=== PATIENT | female | born 1940 | race Caucasian/White ===

== ENCOUNTER 2018-11-09 07:57 | Inpatient (IN) ==
[2018-11-09] MEDS ORDERED: IOPAMIDOL 100 ML BOTTLE IV ONE (07:58)
[2018-11-09] MEDS ORDERED: ASPIRIN 81 MG TAB.CHEW CHEWED ONE (08:11)
--- NOTE | 2018-11-09 08:19 | Emergency Department Note ---
Chest Pain HPI - General Chief Complaint: Chest Pain Stated Complaint: pain all over Source: EMS Mode of arrival: ambulatory Limitations: no limitations - History of Present Illness HPI Narrative: Patient states that she fell approximately 3 weeks ago has had 2 broken ribs on the right. Fifth rib and sixth rib. she states that she was getting out of bed yesterday morning and may have moved around but she started having pain all over in her back and her midepigastric region, the rib area on the right and her right shoulder. She states that hurts on palpation. Patient is vague about her complaints she hurts on palpation to the abdomen diffusely and no specific one spot. She denies any diarrhea no nausea vomiting no hematemesis. Denies urgency frequency or dysuria denies any cough is that the pain in her ribs do still hurtZofran for nausea temperature is 98.0 the pulse is 108 respiratory rate is 18 blood pressure 101/83 pulse ox is 96 she rates the pain is a 10/1 0Patient states her last bowel movement was yesterday she thought she saw some blood in it but was not sure rectal exam shows guaiac negative stools - Related Data Home Medications Medication Instructions Recorded Confirmed Enalapril Maleate 20 mg PO BID 07/07/15 03/05/16 HYDROcodone/ACETAMINOPHEN 7.5 mg PO Q4H PRN 07/07/15 03/05/16 [Hydrocodon-Acetaminophn 10-300] Oxybutynin Chloride [Ditropan] 5 mg PO BID 07/07/15 03/05/16 Potassium Chloride [Kdur] 20 meq PO BID 07/07/15 03/05/16 metFORMIN HCL [Metformin HCl] 425 mg PO QAM 07/07/15 03/05/16 Previous Rx's Medication Instructions Recorded oxyCODONE HCL [Oxycontin] 10 mg PO BIDD #30 tab.er.12h 07/12/15 Allergies Allergy/AdvReac Type Severity Reaction Status Date / Time No Known Drug Allergies Allergy Verified 11/09/18 08:10 Review of Systems All systems ED: reviewed and negative except as stated. Constitutional: Denies: fever, chills Cardiovascular: Reports: chest pain. Denies: palpitations, dyspnea on exertion, orthopnea Respiratory: Denies: shortness of breath, cough Gastrointestinal: Reports: abdominal pain. Denies: nausea, vomiting, diarrhea, constipation Genitourinary: Denies: dysuria, urgency, frequency, hematuria Musculoskeletal: Reports: as per HPI, back pain Integumentary: Denies: rash Neurological: Denies: headache Psychiatric: Denies: anxiety Endocrine: Denies: fatigue Chest Pain PMH - Past Medical History [facility] Narrative: All Active Problems Knee cartilage, torn, left (Acute) Diabetes 1.5, managed as type 2 (Chronic) Diabetic neuropathy (Chronic) Knee effusion, left (Acute) Left knee injury (Acute) Edema of left lower extremity (Acute) Left hip pain (Acute) Medical history: Reports: DM, other (Depression, cataract removal, hypertension, chronic back pain, diabetes type 2,) Surgical history ED: Reports: , cataract - Social History smoking status: Former smoker Alcohol use: Reports: Rarely Drug use: Reports: none Physical Exam Limitations: no limitations General appearance: anxious Head: atraumatic, normocephalic Eye: Present: normal appearance, PERRL ENT: normal exam, normal oropharynx, mucous membranes moist Neck: Present: normal inspection, full ROM Chest: Present: normal inspection, symmetric chest wall rise, tenderness Respiratory: Present: normal lung sounds bilaterally Cardiovascular: Present: regular rate, normal rhythm. Absent: bradycardia, tachycardia Abdominal: Present: tenderness, normal bowel sounds. Absent: distention, guarding, rebound, rigidity Abdominal tenderness: Present: diffuse, moderate Rectal: Present: normal rectal tone, heme (-) stool Extremities: Present: normal inspection, full ROM. Absent: tenderness Back: Present: tenderness (Tender in the lumbosacral region) Neurological: Present: alert, oriented X3, CN II-XII intact, normal gait, reflexes normal. Absent: motor sensory deficit Course Vital Signs Temperature 98.0 F 11/09/18 07:59 Pulse Rate 108 H 11/09/18 07:59 Respiratory Rate 17 11/09/18 07:59 Blood Pressure 101/83 11/09/18 07:59 Pulse Oximetry (%) 96 11/09/18 07:59 Temperature 98.0 F 11/09/18 07:59 Pulse Rate 108 H 11/09/18 07:59 Respiratory Rate 17 11/09/18 07:59 Blood Pressure 101/83 11/09/18 07:59 Pulse Oximetry (%) 96 11/09/18 07:59 Chest Pain - MDM Narrative Medical decision making narrative: Laboratory tests are pending. Patient transferred to the care of Dr. Herrera at 0900 hrs. - Lab Data Result diagrams: 11/09/18 08:22 11/09/18 08:22 Disposition Pt seen by FLEXBOARD OPERATOR/PA only: No Disposition: Still a Patient Condition: Fair Referrals: Richar Brand MD [Primary Care Provider] -
--- NOTE | 2018-11-09 08:36 | XRay Report ---
CLINICAL INFORMATION: Chest Pain COMPARISON: 12/31/2017 FINDINGS: Mild cardiomegaly is unchanged. Mediastinum and pulmonary vessels are normal. There is minor bibasilar atelectasis, but no mago infiltrate or effusion. Small eventration right diaphragm seen - as before IMPRESSION: Mild stable cardiomegaly. Minor bibasilar atelectasis Interpreted and Authenticated by: Vikas Whitley 11/09/18
[2018-11-09 09:12] LABS: Basophils # (Auto) 0 K/mcL (0.0-0.3); Basophils % (Auto) 0 % (0.0-2.0); Eosinophils # (Auto) 0 K/mcL (0.0-0.7); Eosinophils % (Auto) 0 % (0.0-7.0); Granulocytes % (Auto) 91.3 % (38.0-78.0); Lymphocytes # (Auto) 0.9 K/mcL (1.5-4.8); Lymphocytes % (Auto) 3.7 % (15.5-49.0); Mean Cell Volume 87.7 fL (80.0-100.0); Mean Corpuscular HGB Conc 32.2 g/dL (31.0-36.0); Monocytes # (Auto) 1.2 K/mcL (0.1-0.9); Platelet Count 360 K/mcL (140-440); RBC 4.66 M/mcL (4.00-5.20)
[2018-11-09] MEDS ORDERED: 0.9 % SODIUM CHLORIDE 1,000 ML IV ONE ×4 (09:42→21:44)
[2018-11-09] MEDS ORDERED: PIPERACILLIN SODIUM/TAZOBACTAM 3.375 GM in DEXTROSE 5% IN WATER 50 ML IV ONE (09:49)
[2018-11-09] MEDS ORDERED: ONDANSETRON 4 MG/2 ML VIAL IV ONE (09:49)
[2018-11-09] MEDS: HYDROmorphone 2 MG/ML VIAL IV PRN ×4 (10:00→20:15)
[2018-11-09 10:17] LABS: ALT/SGPT 19 U/l (0-40); Albumin 3.6 gm/dL (3.2-5.2); Albumin/Globulin Ratio 1.1 (1.0-2.3); Alkaline Phosphatase 49 U/L (39-117); Blood Urea Nitrogen 24 mg/dl (8-23); Creatine Kinase 37 IU/L (24-170); Myoglobin 64 ng/ml (25-58); proBNP 191.1 pg/ml (0-450)
[2018-11-09] MEDS ORDERED: POTASSIUM CHLORIDE 40 MEQ in DEXTROSE 5% IN WATER 500 ML IV ONE ×2 (10:21→17:55)
[2018-11-09] MEDS ORDERED: POTASSIUM CHLORIDE 20 MEQ TABLET PO ONE (10:21)
--- NOTE | 2018-11-09 10:22 | Emergency Department Note ---
General Adult HPI - General Chief complaint: Chest Pain Stated complaint: pain all over Time Seen by Provider: 11/09/18 08:35 Source: patient, EMS Mode of arrival: ambulatory Limitations: no limitations - History of Present Illness HPI Narrative: Patient is transferred to me from Dr. Kirk at shift change. I read his note In particular note history of Right rib fractures fifth and sixth subtle seen on x-ray 11/05/2018 She is having belly pain at this time - Related Data Home Medications Medication Instructions Recorded Confirmed Enalapril Maleate [Vasotec] 20 mg PO 11/09/18 Methocarbamol [Robaxin] 500 mg PO 11/09/18 Metolazone [Zaroxolyn] 5 mg PO 11/09/18 Oxybutynin Chloride [Ditropan] 5 mg PO 11/09/18 amLODIPine [Norvasc] 10 mg PO 11/09/18 metFORMIN [Glucophage] 850 mg PO 11/09/18 Allergies Allergy/AdvReac Type Severity Reaction Status Date / Time No Known Drug Allergies Allergy Verified 11/09/18 08:10 Review of Systems Constitutional: Denies: fever, chills Cardiovascular: Reports: chest pain. Denies: palpitations, dyspnea on exertion, orthopnea Respiratory: Denies: shortness of breath, cough Gastrointestinal: Reports: abdominal pain. Denies: nausea, vomiting, diarrhea, constipation Genitourinary: Denies: dysuria, urgency, frequency, hematuria Musculoskeletal: Reports: as per HPI, back pain Integumentary: Denies: rash Neurological: Denies: headache Psychiatric: Denies: anxiety Endocrine: Denies: fatigue Past Medical History - Past Medical History Medical history: Reports: DM, other (Depression, cataract removal, hypertension, chronic back pain, diabetes type 2,) Surgical history ED: Reports: , cataract - Social History smoking status: Former smoker Alcohol use: Reports: Rarely Drug use: Reports: none Physical Exam Limitations: no limitations General appearance: anxious Course Vital Signs Temperature 98.0 F 11/09/18 07:59 Pulse Rate 108 H 11/09/18 07:59 Respiratory Rate 17 11/09/18 07:59 Blood Pressure 101/83 11/09/18 07:59 Pulse Oximetry (%) 96 11/09/18 07:59 Temperature 98.0 F 11/09/18 07:59 Pulse Rate 100 H 11/09/18 14:38 Respiratory Rate 21 11/09/18 14:38 Blood Pressure 102/54 11/09/18 14:31 Pulse Oximetry (%) 100 11/09/18 14:38 Medical Decision Making - Medical Records Medical records reviewed: Yes I reviewed the patient's medical records. - Lab Data Lab results reviewed: Yes I reviewed the patient's lab results. Result diagrams: 11/09/18 08:22 11/09/18 08:22 Lab Results 11/09/18 11/09/18 11/09/18 Range/Units 08:22 08:22 08:22 WBC 24.8 H (4.5-11.0) K/mcL RBC 4.66 (4.00-5.20) M/mcL Hgb 13.1 (12.0-15.0) g/dL Hct 40.9 (36.0-48.0) % MCV 87.7 (80.0-100.0) fL MCH 28.2 (26.0-34.0) pg MCHC 32.2 (31.0-36.0) g/dL RDW 13.0 (11.5-14.5) % Plt Count 360 (140-440) K/mcL MPV 8.6 (7.4-10.4) fL Gran % 91.3 H (38.0-78.0) % Lymph % (Auto) 3.7 L (15.5-49.0) % Bryan % (Auto) 5.0 (1.0-12.0) % Eos % (Auto) 0 (0.0-7.0) % Baso % (Auto) 0 (0.0-2.0) % Gran # 22.7 H (1.8-8.0) K/mcL Lymph # (Auto) 0.9 L (1.5-4.8) K/mcL Bryan # (Auto) 1.2 H (0.1-0.9) K/mcL Eos # (Auto) 0 (0.0-0.7) K/mcL Baso # (Auto) 0 (0.0-0.3) K/mcL Differential Comment PT (11.9-14.5) sec INR (0.9-1.1) D-Dimer (0.00-0.40) ug/ml VBG Lactic Acid (0.5-2.0) mmol/L Sodium 139 (133-145) mmol/L Potassium 2.4 L* (3.3-5.1) mmol/L Chloride 98 (96-108) mmol/L Carbon Dioxide 21 L (22-30) mmol/L Anion Gap 20.0 H (8-16) BUN 24 H (8-23) mg/dl Creatinine 1.2 H (0.6-1.1) mg/dl GFR Calculation 44 BUN/Creatinine Ratio 20.0 (12-20) Glucose 211 H (70-105) mg/dL Calcium 12.1 H (8.6-10.4) mg/dl Magnesium (1.6-2.5) mg/dL Total Bilirubin 0.5 (0.0-1.0) mg/dL AST 19 (0-37) U/l ALT 19 (0-40) U/l Alkaline Phosphatase 49 (39-117) U/L Total Creatine Kinase 37 (24-170) IU/L CK-MB (CK-2) 1.0 (0-2.9) ng/ml Myoglobin 64 H (25-58) ng/ml Troponin T < 0.01 (0-0.03) ng/ml NT-Pro-B Natriuret Pep 191.1 (0-450) pg/ml Total Protein 6.9 (5.9-8.4) gm/dL Albumin 3.6 (3.2-5.2) gm/dL Globulin 3.3 (2.2-3.7) gm/dL Albumin/Globulin Ratio 1.1 (1.0-2.3) Beta-Hydroxybutyrate (< 0.27) mmol/L Procalcitonin (<0.10) ng/mL Urine Color Urine Appearance Urine pH (5.0-9.0) Ur Specific Champion (1.000-1.035) Urine Protein (NEG) mg/dL Urine Glucose (UA) (NEG) mg/dL Urine Ketones (NEG) mg/dL Urine Occult Blood (<0.03) mg/dL Urine Nitrate (NEG) Urine Bilirubin (NEG) mg/dL Urine Urobilinogen (NEG) mg/dL Ur Leukocyte Esterase (NEG) /uL Urine RBC (0-1) /hpf Urine WBC (0-4) /hpf Ur Squamous Epith Cells (0-4) /hpf Urine Bacteria (0) /hpf Hyaline Casts (0-2) /lpf Granular Casts (0) /lpf Urine Mucus (0) /hpf Ur Culture Indicated? 11/09/18 11/09/18 11/09/18 Range/Units 08:22 08:22 10:12 WBC (4.5-11.0) K/mcL RBC (4.00-5.20) M/mcL Hgb (12.0-15.0) g/dL Hct (36.0-48.0) % MCV (80.0-100.0) fL MCH (26.0-34.0) pg MCHC (31.0-36.0) g/dL RDW (11.5-14.5) % Plt Count (140-440) K/mcL MPV (7.4-10.4) fL Gran % (38.0-78.0) % Lymph % (Auto) (15.5-49.0) % Bryan % (Auto) (1.0-12.0) % Eos % (Auto) (0.0-7.0) % Baso % (Auto) (0.0-2.0) % Gran # (1.8-8.0) K/mcL Lymph # (Auto) (1.5-4.8) K/mcL Bryan # (Auto) (0.1-0.9) K/mcL Eos # (Auto) (0.0-0.7) K/mcL Baso # (Auto) (0.0-0.3) K/mcL Differential Comment PT 14.0 (11.9-14.5) sec INR 1.1 (0.9-1.1) D-Dimer 2.18 H (0.00-0.40) ug/ml VBG Lactic Acid 2.1 H (0.5-2.0) mmol/L Sodium (133-145) mmol/L Potassium (3.3-5.1) mmol/L Chloride (96-108) mmol/L Carbon Dioxide (22-30) mmol/L Anion Gap (8-16) BUN (8-23) mg/dl Creatinine (0.6-1.1) mg/dl GFR Calculation BUN/Creatinine Ratio (12-20) Glucose (70-105) mg/dL Calcium (8.6-10.4) mg/dl Magnesium 1.6 (1.6-2.5) mg/dL Total Bilirubin (0.0-1.0) mg/dL AST (0-37) U/l ALT (0-40) U/l Alkaline Phosphatase (39-117) U/L Total Creatine Kinase (24-170) IU/L CK-MB (CK-2) (0-2.9) ng/ml Myoglobin (25-58) ng/ml Troponin T (0-0.03) ng/ml NT-Pro-B Natriuret Pep (0-450) pg/ml Total Protein (5.9-8.4) gm/dL Albumin (3.2-5.2) gm/dL Globulin (2.2-3.7) gm/dL Albumin/Globulin Ratio (1.0-2.3) Beta-Hydroxybutyrate 0.39 H (< 0.27) mmol/L Procalcitonin (<0.10) ng/mL Urine Color Urine Appearance Urine pH (5.0-9.0) Ur Specific Champion (1.000-1.035) Urine Protein (NEG) mg/dL Urine Glucose (UA) (NEG) mg/dL Urine Ketones (NEG) mg/dL Urine Occult Blood (<0.03) mg/dL Urine Nitrate (NEG) Urine Bilirubin (NEG) mg/dL Urine Urobilinogen (NEG) mg/dL Ur Leukocyte Esterase (NEG) /uL Urine RBC (0-1) /hpf Urine WBC (0-4) /hpf Ur Squamous Epith Cells (0-4) /hpf Urine Bacteria (0) /hpf Hyaline Casts (0-2) /lpf Granular Casts (0) /lpf Urine Mucus (0) /hpf Ur Culture Indicated? 11/09/18 11/09/18 Range/Units 10:22 11:38 WBC (4.5-11.0) K/mcL RBC (4.00-5.20) M/mcL Hgb (12.0-15.0) g/dL Hct (36.0-48.0) % MCV (80.0-100.0) fL MCH (26.0-34.0) pg MCHC (31.0-36.0) g/dL RDW (11.5-14.5) % Plt Count (140-440) K/mcL MPV (7.4-10.4) fL Gran % (38.0-78.0) % Lymph % (Auto) (15.5-49.0) % Bryan % (Auto) (1.0-12.0) % Eos % (Auto) (0.0-7.0) % Baso % (Auto) (0.0-2.0) % Gran # (1.8-8.0) K/mcL Lymph # (Auto) (1.5-4.8) K/mcL Bryan # (Auto) (0.1-0.9) K/mcL Eos # (Auto) (0.0-0.7) K/mcL Baso # (Auto) (0.0-0.3) K/mcL Differential Comment PT (11.9-14.5) sec INR (0.9-1.1) D-Dimer (0.00-0.40) ug/ml VBG Lactic Acid (0.5-2.0) mmol/L Sodium (133-145) mmol/L Potassium (3.3-5.1) mmol/L Chloride (96-108) mmol/L Carbon Dioxide (22-30) mmol/L Anion Gap (8-16) BUN (8-23) mg/dl Creatinine (0.6-1.1) mg/dl GFR Calculation BUN/Creatinine Ratio (12-20) Glucose (70-105) mg/dL Calcium (8.6-10.4) mg/dl Magnesium (1.6-2.5) mg/dL Total Bilirubin (0.0-1.0) mg/dL AST (0-37) U/l ALT (0-40) U/l Alkaline Phosphatase (39-117) U/L Total Creatine Kinase (24-170) IU/L CK-MB (CK-2) (0-2.9) ng/ml Myoglobin (25-58) ng/ml Troponin T (0-0.03) ng/ml NT-Pro-B Natriuret Pep (0-450) pg/ml Total Protein (5.9-8.4) gm/dL Albumin (3.2-5.2) gm/dL Globulin (2.2-3.7) gm/dL Albumin/Globulin Ratio (1.0-2.3) Beta-Hydroxybutyrate (< 0.27) mmol/L Procalcitonin 1.30 (<0.10) ng/mL Urine Color Yellow Urine Appearance Cloudy Urine pH 6.0 (5.0-9.0) Ur Specific Champion 1.023 (1.000-1.035) Urine Protein 30 A (NEG) mg/dL Urine Glucose (UA) Negative (NEG) mg/dL Urine Ketones Neg (NEG) mg/dL Urine Occult Blood 0.2 A (<0.03) mg/dL Urine Nitrate Pos A (NEG) Urine Bilirubin Neg (NEG) mg/dL Urine Urobilinogen Neg (NEG) mg/dL Ur Leukocyte Esterase 250 A (NEG) /uL Urine RBC 9 H (0-1) /hpf Urine WBC 46 H (0-4) /hpf Ur Squamous Epith Cells 0 (0-4) /hpf Urine Bacteria Mod A (0) /hpf Hyaline Casts 6 H (0-2) /lpf Granular Casts 9 H (0) /lpf Urine Mucus Few (0) /hpf Ur Culture Indicated? Yes Arterial blood gases of pH 7.35 PCO2 46 PO2 47 with 92% oxygen saturation room air - Radiology Data Radiology results reviewed: Yes I reviewed the patient's radiology results. Chest x-ray here today did not show any acute changes CT scan ordered for history of chest pain with elevated d-dimer - EKG Data EKG #1 EKG attestation: Yes I reviewed and interpreted this EKG. EKG results narrative: EKG shows a rate of 110 sinus tachycardia with a first-degree AV block. She is got a Q wave in the inferior leads so possible old inferior infarct. Disposition Pt seen by ZIG ZAG STITCHER/PA only: No Clinical Impression: Hypokalemia, Acute kidney injury, Peritoneal cavity free air Fracture of rib Qualifiers: Encounter type: subsequent encounter Rib fracture type: multiple ribs Fracture type: closed Laterality: right Fracture healing: with routine healing Qualified Code(s): S22.41XD - Multiple fractures of ribs, right side, subsequent encounter for fracture with routine healing Sepsis Qualifiers: Sepsis type: sepsis due to unspecified organism Qualified Code(s): A41.9 - Sepsis, unspecified organism UTI (urinary tract infection) Qualifiers: Urinary tract infection type: acute cystitis Hematuria presence: with hematuria Qualified Code(s): N30.01 - Acute cystitis with hematuria Summary: Concern for sepsis with tachypnea and leukocytosis. ABG shows hypoxia. Start oxygen. Start sepsis workup with blood cultures lactic acid pro calcitonin and start Zosyn for presumed infection Continue IV fluids Zofran and Dilaudid for pain. CT scan of the chest is ordered UTI seen on urinalysis [id number] dipstick CT scan of the chest shows free fluid and air in the belly lungs are actually okay. So CT of the abdomen pelvis without contrast was ordered which shows free fluid and air as noted above. Concern for possible perforation of abdominal viscus like transverse colon I discussed the situation with Dr. Mio Schroeder general surgeon who agreed to assess the patient for further care in the hospital-she will go for exploratory Surgery Disposition: Xfer As Inpt ([facility]) Condition: Fair
[2018-11-09] MEDS ORDERED: POTASSIUM CHLORIDE 10 MEQ TABLET PO ONE (10:59)
[2018-11-09 11:17] LABS: Beta Hydroxybutyrate 0.39 mmol/L (< 0.27)
--- NOTE | 2018-11-09 11:29 | Cat Scan Report ---
CLINICAL INFORMATION: Chest pain with elevated d-dimer COMPARISON: Chest CT 12/17/2006 TECHNIQUE: 80 cc of Isovue-300 were injected intravenously. Using SmartPrep to maximize pulmonary artery opacification, 2.5 mm helical slices were obtained from the lung apices through the lung bases. Following reconstruction, 2.5 mm sagittal, coronal, and axial reformations were processed. The exam was reviewed at mediastinal, lung, and bone windows. The exam was performed using radiation dose optimization techniques including, but not limited to, automated exposure control, adjustment of the mA and/or kV according to patient size and use of iterative reconstruction technique. FINDINGS: Pulmonary parenchymal windows show moderate centrilobular emphysema changes becoming elevated lung volumes, wall thickening of the bronchi (chronic bronchitis) and multiple small bullae predominantly in the upper lobes. There is complete chronic compressive atelectasis of the lingula. Scattered scarring seen in the periphery of both lower and upper lobes which is identical previous study. There are no diffuse/regional infiltrates and no nodules. Pleural spaces are normal. Mediastinal windows show the heart is moderately enlarged and slightly increased from prior study. There is also concentric left ventricular hypertrophy typically seen in systemic hypertension or aortic valve disease. Aortic valve is grossly normal, however. Moderately heavy fibrofatty calcific plaque in the coronary arteries: Suspect occlusive or subocclusive stenosis in the left main and proximal LAD. The central pulmonary arteries are mildly enlarged with a main pulmonary diameter of 3.2 cm. This is suggestive of pulmonary hypertension related to COPD. There are no emboli. Thoracic aorta is normal in contour, moderate fibrofatty calcific plaque. There is no evidence of adenopathy in the mediastinal, hilar or axillary regions. A 12 mm nodule, projecting from the inferior right thyroid lobe, is unchanged and is presumably benign adenoma. Thyroid is otherwise diminutive. Images through the abdomen show a small amount of ascites and free intraperitoneal gas in the upper abdomen.. Gallbladder is surgically absent. Visualized liver and spleen and pancreas are normal. 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 Bones and soft tissues of the chest wall are unremarkable. IMPRESSION: 1. No evidence of pulmonary embolus 2. Small/moderate free intraperitoneal fluid and gas seen in the imaged upper abdomen. This was not seen on [address] If the patient is not on peritoneal dialysis or experienced recent abdominal surgery, then the possibility of GI tract perforation should be suspected and abdomen and pelvic CT are recommended. 3. Moderate centrilobular emphysema. Enlargement of the central pulmonary arteries suggests associated pulmonary hypertension. 4. Complete chronic atelectasis of the lingula 5. Moderate cardiomegaly. There is heavy calcific and fibrofatty plaque in the main and LAD which may indicate occlusive or subocclusive stenosis. Consider cardiology referral for stress testing. There is also concentric left ventricular hypertrophy likely related to chronic systemic hypertension or, less likely, aortic valve disease. 6. 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 Diminutive thyroid. Please correlate with TSH and thyroid hormone levels. Interpreted and Authenticated by: Vikas Whitley 11/09/18
[2018-11-09 12:55] LABS: Appearance,Urine CLOUDY; Bacteria,Urine MOD /hpf (0); Bilirubin,Urine NEG (NEG); Color,Urine YELLOW; Glucose,Urine (UA) NEGATIVE (NEG); Leukocyte Esterase,Urine 250 /uL (NEG); Mucus,Urine FEW /hpf (0); Protein,Urine 30 mg/dL (NEG); Specific Gravity,Urine 1.023 (1.000-1.035); Urine Blood 0.2 mg/dL (<0.03); Urine Granular Cast 9 /lpf (0); Urine Hyaline Cast 6 /lpf (0-2); Urine RBC 9 /hpf (0-1); Urine Squamous Epithelial Cell 0 /hpf (0-4); Urine WBC 46 /hpf (0-4); Urobilinogen,Urine NEG (NEG)
--- NOTE | 2018-11-09 13:16 | Cat Scan Report ---
CLINICAL INFORMATION: Abdominal pain and distention COMPARISON: Abdomen and pelvic CT 04/16/2015. TECHNIQUE: 1 L of water was ingested for enteric contrast. 0.625 mm helical slices were obtained from the mid heart through the subtrochanteric regions. Following reconstruction, 2.5 mm sagittal, coronal and axial reformatted images were processed and reviewed at bone and soft tissue windows.The exam was performed using radiation dose optimization techniques including, but not limited to, automated exposure control, adjustment of the mA and/or kV according to patient size and use of iterative reconstruction technique. FINDINGS: The noncontrasted liver, both kidneys, right adrenal gland, and spleen are normal in size, configuration and attenuation without focal lesion. Pancreas demonstrates moderate diffuse atrophy without focal lesion. The aorta is normal in caliber, 18 mm, with scattered atherosclerotic plaque plaque in aorta and aortic branches. A 3.8 cm benign fat-containing myolipoma in the left adrenal gland has been stable since 2014. Images should the pelvis show urinary bladder is unremarkable. Santana catheter is low in position and may be in the posterior female urethra. Anteflex normal-appearing postmenopausal uterus and ovaries are unremarkable. There is a small amount of simple appearing free fluid in the deep true pelvis and perihepatic and perisplenic regions with moderate free air in the nondependent anterior central mesenteric cavity. Presumably, this represents rupture of the GI tract, although the site of rupture is not evident on CT. Bone windows show solid-appearing L4-5 anterior/posterior fusion with wide laminectomy changes - as before. Severe L3-4 central canal stenosis due to facet arthropathy is unchanged. No focal osseous lesion. IMPRESSION: 1. Small amount of free intraperitoneal fluid in the perihepatic, perisplenic and the true pelvic regions. There is also moderate free air in the nondependent anterior central mesenteric cavity. Suspect rupture of the stomach, small or large bowel. Site of rupture is not evident by CT. Most of the free air is adjacent to the mid transverse colon 2. Moderate pancreatic atrophy progressing 2014. 3. 3.8 cm benign fat-containing myelolipoma left adrenal gland demonstrates long-term stability (greater than three years.) 4. Severe L3-4 central canal stenosis due to marked facet arthropathy but no change since 2014. Anterior/posterior L4-5 and L5-S1 fusion and wide laminectomy unremarkable. Interpreted and Authenticated by: Vikas Whitley 11/09/18
[2018-11-09] MEDS ORDERED: metroNIDAZOLE 500 MG/100 ML BAG IV ONE (14:21)
--- NOTE | 2018-11-09 14:45 | General Surgery Consult Note ---
History of Present Illness Patient information: Note initiated : 11/09/18 at 2:42 pm Service Date, if different from initiated Date: [] Patient: Genna Gong 78 y/o F admitted on for pain all over. Chief Complaint: [] Reason for consult: abdominal pain Requesting physician: Chicho Herrera History of present illness: 78-year-old female admitted with a perforated viscus with free air and free peritoneal fluid. The patient states that she's had abdominal pain after her fall about 2-3 weeks ago. She states that her pain became gradually worse. It became more diffuse own yesterday and was almost intolerable today. She is seen in the emergency room where she was noted to have a white blood count of 24,800. Her serum lactate is 2.1 and her serum potassium is 2.4. She cannot localize her pain at this time. CT of the abdomen showed free air in the left subphrenic area tracking along the superior border of the stomach. There is a small amount of air in the ivana hepatis. There is fluid tracking along the right gutter. On lateral view she has a large amount of free air anteriorly. Pertinent history is that because of her pain she's been taken 5 ibuprofen 3-4 times a day. The patient is admitted and will have emergency laparotomy. Most likely problems will be perforated gastric ulcer but must consider other sources also. Review of Systems - Constitutional fatigue, malaise, weakness - EENT Nose, mouth and throat: abnormal hearing, dizziness - Cardiovascular chest pain at rest, dyspnea on exertion, leg edema, lightheadedness, palpatations - Respiratory cough, pain on inspirtation, chest congestion, pain with cough - Gastrointestinal abdominal pain, dyspepsia, heartburn, nausea - Genitourinary Genitourinary: dysuria, urinary incontinence - Musculoskeletal arthralgias, back pain, joint swelling, muscle weakness, myalgias, stiffness - Integumentary other (stasis edema bilateral legs), no new lesions, no pruritus, no rash - Neurological abnormal hearing, frequent falls, headache(s), lack of coordination, memory loss, weakness, no confusion, no dizziness - Psychiatric depression, mood swings, no anxiety - Endocrine fatigue, palpitations - Hematologic/Lymphatic no easy bleeding, no easy bruising, no lymphadenopathy - Allergic/Immunologic no tongue swelling, no throat swelling, no uticaria, no wheezing, no lip swelling Past History Past medical history: Reactive airway disease Hypertension Diabetes mellitus Depression Chronic low back pain Past surgical history: section Tubal ligation Hysterectomy Appendectomy Ivory tunnel surgery Past family history: hypertension Diabetes mellitus Leukemia Past social history: Former smoker Rare use of alcohol Denies substance abuse Medications and Allergies Home Medications Medication Instructions Recorded Confirmed Type Enalapril Maleate [Vasotec] 20 mg PO 11/09/18 History Methocarbamol [Robaxin] 500 mg PO 11/09/18 History Metolazone [Zaroxolyn] 5 mg PO 11/09/18 History Oxybutynin Chloride [Ditropan] 5 mg PO 11/09/18 History amLODIPine [Norvasc] 10 mg PO 11/09/18 History metFORMIN [Glucophage] 850 mg PO 11/09/18 History Allergies Allergy/AdvReac Type Severity Reaction Status Date / Time No Known Drug Allergies Allergy Verified 11/09/18 08:10 Exam Temp Pulse Resp BP Pulse Ox 98.0 F 100 H 21 102/54 100 11/09/18 07:59 11/09/18 14:38 11/09/18 14:38 11/09/18 14:31 11/09/18 14:38 - General physical appearance well developed, well nourished, moderate distress, moderate pain, chronically ill, obese - Eyes PERRL, normal ocular movement - ENT normal pinna, normal nares, normal mucosa, no congestion, decreased hearing - Head Head exam IM: Present: atraumatic, normocephalic - Neck no masses, no bruits, trachea midline, no lymphadenopathy, no venous distension - Cardiovascular Cardiovascular exam IM: Present: normal rate and rhythm, RRR, +S1, +S2. Absent: irregular rhythm, JVD, systolic murmur, tachycardia - Respiratory normal expansion, normal respiratory effort, clear to auscultation - Abdomen Abdomen: Present: non tender, bowel sounds, guarding ( diffuse guarding with rebound), distended (diffusely distended; diffusely tender with guarding; hypoactive bowel sounds) Hernia: Present: none - Genitourinary Present: normal external genitalia - Integumentary Present: no rash, no growths, no abnormal pigmentation, other ( stasis edema lower legs) - Neurologic Present: normal coordination, normal sensation, other ( gave and stance not tested) - Musculoskeletal Present: normal gait, normal posture, other ( gait and stance not tested) - Psychiatric Present: oriented to time, oriented to person, oriented to place, speech is normal, memory intact Results - Labs 11/09/18 08:22 11/09/18 08:22 Abnormal lab results 11/09/18 11/09/18 11/09/18 Range/Units 08:22 08:22 08:22 WBC 24.8 H (4.5-11.0) K/mcL Gran % 91.3 H (38.0-78.0) % Lymph % (Auto) 3.7 L (15.5-49.0) % Gran # 22.7 H (1.8-8.0) K/mcL Lymph # (Auto) 0.9 L (1.5-4.8) K/mcL [place] # (Auto) 1.2 H (0.1-0.9) K/mcL D-Dimer 2.18 H (0.00-0.40) ug/ml VBG Lactic Acid (0.5-2.0) mmol/L Potassium 2.4 L* (3.3-5.1) mmol/L Carbon Dioxide 21 L (22-30) mmol/L Anion Gap 20.0 H (8-16) BUN 24 H (8-23) mg/dl Creatinine 1.2 H (0.6-1.1) mg/dl Glucose 211 H (70-105) mg/dL Calcium 12.1 H (8.6-10.4) mg/dl Myoglobin 64 H (25-58) ng/ml Beta-Hydroxybutyrate (< 0.27) mmol/L Urine Protein (NEG) mg/dL Urine Occult Blood (<0.03) mg/dL Urine Nitrate (NEG) Ur Leukocyte Esterase (NEG) /uL Urine RBC (0-1) /hpf Urine WBC (0-4) /hpf Urine Bacteria (0) /hpf Hyaline Casts (0-2) /lpf Granular Casts (0) /lpf 11/09/18 11/09/18 11/09/18 Range/Units 08:22 10:12 11:38 WBC (4.5-11.0) K/mcL Gran % (38.0-78.0) % Lymph % (Auto) (15.5-49.0) % Gran # (1.8-8.0) K/mcL Lymph # (Auto) (1.5-4.8) K/mcL [place] # (Auto) (0.1-0.9) K/mcL D-Dimer (0.00-0.40) ug/ml VBG Lactic Acid 2.1 H (0.5-2.0) mmol/L Potassium (3.3-5.1) mmol/L Carbon Dioxide (22-30) mmol/L Anion Gap (8-16) BUN (8-23) mg/dl Creatinine (0.6-1.1) mg/dl Glucose (70-105) mg/dL Calcium (8.6-10.4) mg/dl Myoglobin (25-58) ng/ml Beta-Hydroxybutyrate 0.39 H (< 0.27) mmol/L Urine Protein 30 A (NEG) mg/dL Urine Occult Blood 0.2 A (<0.03) mg/dL Urine Nitrate Pos A (NEG) Ur Leukocyte Esterase 250 A (NEG) /uL Urine RBC 9 H (0-1) /hpf Urine WBC 46 H (0-4) /hpf Urine Bacteria Mod A (0) /hpf Hyaline Casts 6 H (0-2) /lpf Granular Casts 9 H (0) /lpf Diabetes panel 11/09/18 Range/Units 08:22 Sodium 139 (133-145) mmol/L Potassium 2.4 L* (3.3-5.1) mmol/L Chloride 98 (96-108) mmol/L Carbon Dioxide 21 L (22-30) mmol/L BUN 24 H (8-23) mg/dl Creatinine 1.2 H (0.6-1.1) mg/dl Glucose 211 H (70-105) mg/dL Calcium 12.1 H (8.6-10.4) mg/dl AST 19 (0-37) U/l ALT 19 (0-40) U/l Alkaline Phosphatase 49 (39-117) U/L Total Protein 6.9 (5.9-8.4) gm/dL Albumin 3.6 (3.2-5.2) gm/dL Calcium panel 11/09/18 Range/Units 08:22 Calcium 12.1 H (8.6-10.4) mg/dl Albumin 3.6 (3.2-5.2) gm/dL Pituitary panel 11/09/18 Range/Units 08:22 Sodium 139 (133-145) mmol/L Potassium 2.4 L* (3.3-5.1) mmol/L Chloride 98 (96-108) mmol/L Carbon Dioxide 21 L (22-30) mmol/L BUN 24 H (8-23) mg/dl Creatinine 1.2 H (0.6-1.1) mg/dl Glucose 211 H (70-105) mg/dL Calcium 12.1 H (8.6-10.4) mg/dl Adrenal panel 11/09/18 Range/Units 08:22 Sodium 139 (133-145) mmol/L Potassium 2.4 L* (3.3-5.1) mmol/L Chloride 98 (96-108) mmol/L Carbon Dioxide 21 L (22-30) mmol/L BUN 24 H (8-23) mg/dl Creatinine 1.2 H (0.6-1.1) mg/dl Glucose 211 H (70-105) mg/dL Calcium 12.1 H (8.6-10.4) mg/dl Total Bilirubin 0.5 (0.0-1.0) mg/dL AST 19 (0-37) U/l ALT 19 (0-40) U/l Alkaline Phosphatase 49 (39-117) U/L Total Protein 6.9 (5.9-8.4) gm/dL Albumin 3.6 (3.2-5.2) gm/dL All other labs normal. Assessment and Plan (1) Perforated abdominal viscus correct hypokalemia with potassium rider Zosyn 3.375 g IV every 6 Metronidazole 500 mg IV every 6 Nasogastric decompression Normal saline 2 L IV bolus Patient and counseled for exploratory laparotomy which will be done urgently today Status: Acute (2) Peritonitis (acute) generalized Status: Acute (3) Diabetic neuropathy Status: Chronic Qualifiers: Diabetes mellitus type: type 2
[2018-11-09] MEDS: fentaNYL 100 MCG/2 ML VIAL IV PRN ×3 (14:47→22:49)
[2018-11-09] MEDS ORDERED: LIDOCAINE HCL/PF 100 MG/5 ML SYRINGE IV ONE (15:56)
[2018-11-09] MEDS ORDERED: MIDAZOLAM 5 MG/5 ML VIAL ONE (15:56)
[2018-11-09] MEDS ORDERED: PHENYLEPHRINE 10 MG/ML VIAL ONE (15:56)
[2018-11-09] MEDS ORDERED: NEOSTIGMINE 1 MG/ML VIAL ONE (15:56)
[2018-11-09] MEDS ORDERED: MIDAZOLAM 2 MG/2 ML VIAL ONE (15:56)
[2018-11-09] MEDS ORDERED: GLYCOPYRROLATE 0.2 MG/ML VIAL IV ONE (15:56)
[2018-11-09] MEDS ORDERED: ROCURONIUM 10 MG/ML ML IV ONE (15:56)
[2018-11-09] MEDS ORDERED: ONDANSETRON 4 MG/2 ML VIAL ONE (15:56)
[2018-11-09] MEDS ORDERED: ETOMIDATE 20 MG/10 ML VIAL IV ONE (15:56)
[2018-11-09] MEDS ORDERED: fentaNYL 100 MCG/2 ML VIAL IV ONE (15:56)
--- NOTE | 2018-11-09 17:13 | Procedure Note ---
Procedures - Central Line Placement Right SC Consent obtained: verbal consent Date of Procedure: 11/09/18 Time out performed: Yes Patient placed on monitor/pulse ox: Yes MD prep: mask, sterile gown, sterile gloves, cap Central line prep: 2% Chlorhexidine scrub (X2), large sterile drapes applied, proper hand hygiene Local anesthesia used: lidocaine 1%, other anesthetic Amount of anesthesia used (mls): 5 Central line lumen inserted: quad, 20 cm Post procedure: sutured in place, good blood return, all ports aspirated, flushed, capped, sterile dressing applied Post procedure x-ray: other (awaiting CXR) Patient tolerated procedure: well, no complications Complications: none
--- NOTE | 2018-11-09 17:22 | Brief Operative Note ---
Date of procedure: 11/09/18 Pre-op diagnosis: PERFORATED VISCUS WITH PERITONITIS Post-op diagnosis: other (PERFORATED GASTRIC ULCER WITH PERITONITIS) Procedure: EXPLORATORY LAPAROTOMY WITH SUSIE PATCH CLOSURE OF PERFORATED GASTRIC ULCER Grafts/Implants: No (PATTI DRAIN X 2) Anesthesia: GETA Findings: LARGE PERFORATION OF ANTRAL ULCER WITH 650CC OF FREE GASTRIC JUICE IN FREE PERITONEUM Complications: none Surgeon: Zonia Schroeder Estimated blood loss (cc): 25 Specimens Removed/Pathology: none sent Condition: stable Disposition: PACU
[2018-11-09] MEDS ORDERED: fentaNYL 100 MCG/2 ML VIAL IV PRN (17:29)
[2018-11-09] MEDS ORDERED: IPRATROPIUM/ALBUTEROL 3 ML AMPUL.NEB NEB PRN (17:29)
[2018-11-09] MEDS ORDERED: ONDANSETRON 4 MG/2 ML VIAL IV PRN ×2 (17:29→17:35)
[2018-11-09] MEDS ORDERED: MEPERIDINE 25 MG/ML SYRINGE IV PRN (17:29)
[2018-11-09] MEDS ORDERED: LACTATED RINGERS 1,000 ML IV SCH (17:30)
[2018-11-09] MEDS ORDERED: PROMETHAZINE 25 MG/ML VIAL IV PRN (17:35)
[2018-11-09] MEDS: 0.9 % SODIUM CHLORIDE 1,000 ML IV SCH (18:56)
[2018-11-09] MEDS ORDERED: IPRATROPIUM/ALBUTEROL 3 ML AMPUL.NEB NEB ONE (19:13)
[2018-11-09] MEDS ORDERED: POTASSIUM CHLORIDE 20 MEQ/10 ML VIAL IV ONE (19:14)
[2018-11-09] MEDS: IPRATROPIUM/ALBUTEROL 3 ML AMPUL.NEB NEB SCH ×2 (19:15→22:46)
[2018-11-09] MEDS: PIPERACILLIN SODIUM/TAZOBACTAM 3.375 GM in DEXTROSE 5% IN WATER 50 ML IV SCH (19:16)
[2018-11-09] MEDS ORDERED: MAGNESIUM SULFATE 2 GM/50 ML BAG IV ONE (19:34)
--- NOTE | 2018-11-09 19:48 | Internal Medicine Consult Note ---
Medical - CN: HPI - Data of Consult Primary Care Provider: Richar Brand Family Provider: Richar Brand - Consult Narrative Reason for consult: Medical management History of present illness: Ms. Gong is a 78 year old F with h/o CAD, DM, HTN, presented to the ER with complaints of abdominal pain. The patient had a fall and had been taking NSAIDs for pain. In the ER she had initially a CTA chest, and then CT Abdomen pelvis which showed free fluid in the abdomen and free air in the abdomen. Surgery was consulted and patient was taken for emergent surgery, the patient was noted to have a perforated gastric ulcer, the patient perforation was reparied and patient brought back to the ICU. Given her medical issues, medicine is consulted for management of chr medical issues. The patient at the time of my evaluation was drowsy, post op, unable to give any history. History obtained from chart review. CC: Zonia Schroeder MD ROS unobtainable: due to mental status Medical - CN: PMH Medical history: CAD HTN HLD DM DM neuropathy Chr back pain Emphysema Surgical history: Lumbar surgery Pertinent family history: unable Social history: unable. Medical - CN: Meds Home Medications Medication Instructions Recorded Confirmed Type Enalapril Maleate [Vasotec] 20 mg PO 11/09/18 History Methocarbamol [Robaxin] 500 mg PO 11/09/18 History Metolazone [Zaroxolyn] 5 mg PO 11/09/18 History Oxybutynin Chloride [Ditropan] 5 mg PO 11/09/18 History amLODIPine [Norvasc] 10 mg PO 11/09/18 History metFORMIN [Glucophage] 850 mg PO 11/09/18 History Allergies Allergy/AdvReac Type Severity Reaction Status Date / Time No Known Drug Allergies Allergy Verified 11/09/18 08:10 Medical - CN: Exam - Constitutional Vitals: Temp Pulse Resp BP Pulse Ox 97.9 F 92 H 19 101/54 95 11/09/18 18:38 11/09/18 18:10 11/09/18 18:38 11/09/18 18:38 11/09/18 18:38 Exam: GENERAL: The patient is a well-developed, well-nourished in no apparent distress. Is drowsy and oriented x1. VITAL SIGNS: Reviewed and as noted elsewhere. HEENT: Head is normocephalic and atraumatic. Extraocular muscles are intact. Pupils are equal, round, and reactive to light, pin point . Nares appeared normal. Mouth appears any without lesions. Mucous membranes are dry. NG tube in place NECK: Normal to inspection, Supple, No lymphadenopathy or thyromegaly. LUNGS: Air entry equal on both sides, no wheezing, crackles or rhonchi noted. No accessory muscles of respiration HEART: Regular rate and rhythm normal, S1 and S2 heard, no Gallop, S3 or Rub Noted, No Gross murmur heard. ABDOMEN: generailzed tenderness, no bowel tones. s/p surgery EXTREMITIES: No cyanosis, clubbing, rash, lesions or edema. NEUROLOGIC: Cranial nerves II through XII are grossly intact. Moviing all extremities PSYCHIATRIC: Drowsy SKIN: No jaundice, No rash noted. Medical - CN: Result - Labs CBC & Chem 7: 11/09/18 08:22 11/09/18 08:22 Labs: Short CBC 11/09/18 Range/Units 08:22 WBC 24.8 H (4.5-11.0) K/mcL Hgb 13.1 (12.0-15.0) g/dL Hct 40.9 (36.0-48.0) % Plt Count 360 (140-440) K/mcL BMP 11/09/18 08:22 Sodium 139 Potassium 2.4 L* Chloride 98 Carbon Dioxide 21 L BUN 24 H Creatinine 1.2 H Glucose 211 H Calcium 12.1 H Cardiac Enzymes 11/09/18 11/09/18 Range/Units 08:22 08:22 Total Creatine Kinase 37 (24-170) IU/L CK-MB (CK-2) 1.0 (0-2.9) ng/ml Troponin T < 0.01 (0-0.03) ng/ml Liver Function 11/09/18 Range/Units 08:22 Total Bilirubin 0.5 (0.0-1.0) mg/dL AST 19 (0-37) U/l ALT 19 (0-40) U/l Alkaline Phosphatase 49 (39-117) U/L Albumin 3.6 (3.2-5.2) gm/dL Urine 11/09/18 Range/Units 11:38 Urine Color Yellow Urine Appearance Cloudy Urine pH 6.0 (5.0-9.0) Ur Specific [place] 1.023 (1.000-1.035) Urine Protein 30 A (NEG) mg/dL Urine Glucose (UA) Negative (NEG) mg/dL Medical - CN: A/P - Narrative A/P Narrative: A/P Gastric Ulcer perforation -s/p perforation repair -on IV PPI for now -not sure if biospy was taken,. -on zosyn and flagyl DM -pt notes is on insulin, NPO for now, monitor glucose, ssi insulin q6 HTN -hold oral meds for now -monitor bp, bp on the lower end at this time CAD -pt was given ASA prior, will resume once able Emphysema (noted on CT) -on duonebs q4 hrs Electrolytes -K was low 2.4, replacement ongoing, -mg 1.6, give 2gms DVT on enoxaparin sq Will try to obtain more records from PCP
[2018-11-09] MEDS: PANTOPRAZOLE 40 MG VIAL IV SCH (20:14)
[2018-11-09] MEDS: METOCLOPRAMIDE 10 MG/2 ML VIAL IV SCH (20:15)
[2018-11-09] MEDS ORDERED: INSULIN LISPRO 1 UNIT/0.01 ML UNIT SQ SCH (21:00)
[2018-11-09] MEDS: 0.9 % SODIUM CHLORIDE 10 ML SYRINGE IV SCH ×2 (21:48→22:08)
[2018-11-09] MEDS ORDERED: HETASTARCH 6% 30 GM/500 ML BAG IV ONE ×2 (23:58)
[2018-11-10] MEDS: PIPERACILLIN SODIUM/TAZOBACTAM 3.375 GM in DEXTROSE 5% IN WATER 50 ML IV SCH ×5 (00:12→23:57)
[2018-11-10] MEDS ORDERED: INSULIN LISPRO 1 UNIT/0.01 ML UNIT SQ ONE (00:17)
[2018-11-10] MEDS: METOCLOPRAMIDE 10 MG/2 ML VIAL IV SCH ×4 (00:18→17:21)
[2018-11-10] MEDS: INSULIN LISPRO 1 UNIT/0.01 ML UNIT SQ SCH ×4 (02:48→17:23)
[2018-11-10] MEDS: fentaNYL 100 MCG/2 ML VIAL IV PRN ×3 (04:30→10:21)
[2018-11-10] MEDS: IPRATROPIUM/ALBUTEROL 3 ML AMPUL.NEB NEB SCH ×6 (05:16→22:43)
--- NOTE | 2018-11-10 05:51 | XRay Report ---
CLINICAL INFORMATION: Central Line Placement COMPARISON: 11/09/2018 FINDINGS: Right subclavian central line tip is near the SVC/right atrial junction.. NG tube extends off the film at least to the gastric body. Mild cardiomegaly is accentuated by leftward rotation and lordotic positioning. Mediastinum and pulmonary vessels are normal. There is mild bibasilar atelectasis. IMPRESSION: No acute disease. Right subclavian central line and NG tube in satisfactory position. Interpreted and Authenticated by: Vikas Whitley 11/10/18
[2018-11-10] MEDS: 0.9 % SODIUM CHLORIDE 10 ML SYRINGE IV SCH ×5 (06:00→21:46)
[2018-11-10 06:49] LABS: Basophils # (Auto) 0 K/mcL (0.0-0.3); Basophils % (Auto) 0.1 % (0.0-2.0); Eosinophils # (Auto) 0 K/mcL (0.0-0.7); Eosinophils % (Auto) 0 % (0.0-7.0); Granulocytes % (Auto) 87.6 % (38.0-78.0); Lymphocytes # (Auto) 0.9 K/mcL (1.5-4.8); Lymphocytes % (Auto) 6.7 % (15.5-49.0); Mean Cell Volume 88.5 fL (80.0-100.0); Mean Corpuscular HGB Conc 31.9 g/dL (31.0-36.0); Monocytes # (Auto) 0.8 K/mcL (0.1-0.9); Monocytes % (Auto) 5.6 % (1.0-12.0); Platelet Count 243 K/mcL (140-440); Red Cell Distribution Width 13.9 % (11.5-14.5)
[2018-11-10] MEDS: 0.9 % SODIUM CHLORIDE 10 ML SYRINGE IV PRN ×2 (07:06→10:21)
[2018-11-10 07:14] LABS: ALT/SGPT 20 U/l (0-40); Albumin 1.9 gm/dL (3.2-5.2); Albumin/Globulin Ratio 0.8 (1.0-2.3); Alkaline Phosphatase 32 U/L (39-117); Bilirubin,Direct < 0.2 mg/dL (0.0-0.3); Blood Urea Nitrogen 26 mg/dl (8-23); Gamma Glutamyl Transpeptidase 13 U/L (5-36)
[2018-11-10] MEDS: PANTOPRAZOLE 40 MG VIAL IV SCH ×2 (08:07→17:21)
[2018-11-10] MEDS: ENOXAPARIN 40 MG/0.4 ML SYRINGE SQ SCH (08:25)
--- NOTE | 2018-11-10 08:30 | XRay Report ---
CLINICAL INFORMATION: Crackles in lungs after fluid COMPARISON: 11/09/2018 FINDINGS: Moderate cardiomegaly is unchanged. Right-sided central line and NG tube in stable satisfactory position. Mediastinum and pulmonary vessels are normal. Subsegmental atelectasis in both medial bases has progressed particularly in the left side. No effusions IMPRESSION: Subsegmental atelectasis progressing. Interpreted and Authenticated by: Vikas Whitley 11/10/18
[2018-11-10] MEDS: 0.9 % SODIUM CHLORIDE 1,000 ML IV SCH ×3 (08:52→23:43)
--- NOTE | 2018-11-10 12:18 | Internal Med Progress Note ---
Medical - PN: Subj Patient information: Note initiated : 11/10/18 at 12:16 pm Service Date, if different from initiated Date: [] Patient: Genna Gong a 78 y/o F admitted on 11/09/18 for pain all over. Chief Complaint: [] Interval history: Ms. Gong is a 78 year old F with h/o CAD, DM, HTN, presented to the ER with complaints of abdominal pain. The patient had a fall and had been taking NSAIDs for pain. In the ER she had initially a CTA chest, and then CT Abdomen pelvis which showed free fluid in the abdomen and free air in the abdomen. Surgery was consulted and patient was taken for emergent surgery, the patient was noted to have a perforated gastric ulcer, the patient perforation was reparied and toño ent brought back to the ICU. Given her medical issues, medicine is consulted for management of chr medical issues. The patient at the time of my evaluation was drowsy, post op, unable to give any history. History obtained from chart review. 2/3 Pt seen examined, low grade fevers, still has sore abdomen, no new complaints or concerns making urine, bp stable, stable oxygen needs X ray reviewed, bibasilar atelectasis, (likely causing fevers) unfortunately she is too weak to do pulmonary toilets, trial of chest PT to see if this helps Pertinent ROS: Denies headache, dizziness Denies chest pain, palpitations Denies cough or shortness of breath abdominal pain present , no vomiting. - Constitutional Vitals: Vital Signs Temp Pulse Resp BP Pulse Ox 99.8 F H 110 H 21 108/84 93 11/10/18 12:11 11/10/18 12:11 11/10/18 12:11 11/10/18 12:00 11/10/18 12:11 Period Temp Pulse Resp BP Sys/[place] Pulse Ox Last 24 Hr 97.9 F-99.8 F 2-122 14-31 63-143/36-84 90-100 Intake and Output 11/09/18 11/10/18 11/10/18 21:59 05:59 13:59 Intake Total 3517 50 1050 Output Total 1260 435 525 Balance 2257 -385 525 Weight 228 lb 3.2 oz 228 lb 3.2 oz Patient Weight 11/11/18 05:59 Weight 228 lb 3.2 oz Intake & Output: Intake & Output 11/09/18 11/10/18 11/10/18 21:59 05:59 13:59 Intake Total 3517 50 1050 Output Total 1260 435 525 Balance 2257 -385 525 Weight 228 lb 3.2 oz 228 lb 3.2 oz Intake: IV 1517 50 1050 Sodium Chloride 0.9% 1,000 ml @ 1000 1000 100 mls/hr IV .Q10H JOHN Rx#: [id number] Zosyn 3.375 gm In Dextrose 5% 50 50 50 in Water 50 ml @ 100 mls/hr IV Q6H JOHN Rx#:[id number] Potassium Chloride 40 Meq In 414 Dextrose 5% in Water 500 ml @ 130 mls/hr IV ONCE ONE Rx#: [id number] IV - Manual Only 1999 Output: Gastric Drainage 650 NG/OG 650 Drainage 50 130 60 MILIND B 70 50 milind drain 50 60 10 Urine Catheter Amount 550 305 465 Estimated Blood Loss 10 Other: Urine Appearance Clear Clear Urine Color Dark Fay Dark Yellow Urine Odor Foul Exam: Constitutional; Afebrile, cooperative, drowsy, not in distress. Eyes- No icterus, , No periorbital swelling Ears- Ext ear normal, hearing normal to conversation. Neck- Midline trachea, supple Respiratory system: Air Entry decreased bilateraly at bases, bibasilar crackles noted no wheezing, no rhonchi. CVS- Rate rhythm regular, S1,S2 heard, no gallop, no rub. Abdomen- tender to palpation. 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 Medical - PN: Obj Da - Labs CBC & Chem 7: 11/10/18 04:27 11/10/18 04:27 Labs: Abnormal Lab Results 11/10/18 11/10/18 11/09/18 04:27 04:27 17:47 WBC 13.4 H RBC 3.50 L Hgb 9.9 L Hct 30.9 L Gran % 87.6 H Lymph % (Auto) 6.7 L Gran # 11.8 H Lymph # (Auto) 0.9 L [place] # (Auto) D-Dimer VBG Lactic Acid POC Potassium 3.0 L Potassium Carbon Dioxide 20 L Anion Gap BUN 26 H Creatinine 1.3 H Glucose 142 H POC Glucose 172 H Calcium 8.5 L POC WB Ioniz Calcium 1.46 H Alkaline Phosphatase 32 L Myoglobin Total Protein 4.2 L Albumin 1.9 L Albumin/Globulin Ratio 0.8 L Beta-Hydroxybutyrate Urine Protein Urine Occult Blood Urine Nitrate Ur Leukocyte Esterase Urine RBC Urine WBC Urine Bacteria Hyaline Casts Granular Casts 11/09/18 11/09/18 11/09/18 11:38 10:12 08:22 WBC RBC Hgb Hct Gran % Lymph % (Auto) Gran # Lymph # (Auto) [place] # (Auto) D-Dimer VBG Lactic Acid 2.1 H POC Potassium Potassium Carbon Dioxide Anion Gap BUN Creatinine Glucose POC Glucose Calcium POC WB Ioniz Calcium Alkaline Phosphatase Myoglobin Total Protein Albumin Albumin/Globulin Ratio Beta-Hydroxybutyrate 0.39 H Urine Protein 30 A Urine Occult Blood 0.2 A Urine Nitrate Pos A Ur Leukocyte Esterase 250 A Urine RBC 9 H Urine WBC 46 H Urine Bacteria Mod A Hyaline Casts 6 H Granular Casts 9 H 11/09/18 11/09/18 11/09/18 08:22 08:22 08:22 WBC 24.8 H RBC Hgb Hct Gran % 91.3 H Lymph % (Auto) 3.7 L Gran # 22.7 H Lymph # (Auto) 0.9 L [place] # (Auto) 1.2 H D-Dimer 2.18 H VBG Lactic Acid POC Potassium Potassium 2.4 L* Carbon Dioxide 21 L Anion Gap 20.0 H BUN 24 H Creatinine 1.2 H Glucose 211 H POC Glucose Calcium 12.1 H POC WB Ioniz Calcium Alkaline Phosphatase Myoglobin 64 H Total Protein Albumin Albumin/Globulin Ratio Beta-Hydroxybutyrate Urine Protein Urine Occult Blood Urine Nitrate Ur Leukocyte Esterase Urine RBC Urine WBC Urine Bacteria Hyaline Casts Granular Casts Meds: Medications Albuterol/Ipratropium (Duoneb) 3 ml NEB Q4HRT [facility] Last Admin: 11/10/18 10:03 Dose: 3 ml Documented by: Diagnostic Test (Pha) (Accu-Chek) 1 each FS Q6 [facility] Last Admin: 11/10/18 05:59 Dose: 1 each Documented by: Enoxaparin Sodium (Lovenox) 40 mg SQ DAILY [facility] Last Admin: 11/10/18 08:25 Dose: 40 mg Documented by: Fentanyl (Sublimaze) 25 mcg IV Q2HP PRN PRN Reason: PAIN LEVEL > 6 Last Admin: 11/10/18 10:21 Dose: 25 mcg Documented by: Sodium Chloride (Sodium Chloride 0.9%) 1,000 mls @ 100 mls/hr IV .Q10H [facility] Last Admin: 11/10/18 08:52 Dose: 100 mls/hr Documented by: Piperacillin Sod/Tazobactam (Sod 3.375 gm/ Dextrose) 50 mls @ 100 mls/hr IV Q6H [facility] Last Infusion: 11/10/18 08:38 Dose: Infused Documented by: Insulin Human Lispro (Humalog) 0 unit SQ Q6 [facility]; Protocol Last Admin: 11/10/18 05:59 Dose: Not Given Documented by: Metoclopramide HCl (Reglan) 10 mg IV Q6 [facility] Last Admin: 11/10/18 05:58 Dose: 10 mg Documented by: Ondansetron HCl (Zofran) 4 mg IV Q4HP PRN PRN Reason: Nausea And Vomiting Pantoprazole Sodium (Protonix) 40 mg IV BIDAC [facility] Last Admin: 11/10/18 08:07 Dose: 40 mg Documented by: Promethazine HCl (Phenergan) 12.5 mg IV Q4HP PRN PRN Reason: Nausea And Vomiting Sodium Chloride (Saline Flush) 10 ml IV Q12 [facility] Last Admin: 11/10/18 09:08 Dose: 10 ml Documented by: Sodium Chloride (Saline Flush) 10 ml IV UD PRN PRN Reason: Analgesia Last Admin: 11/10/18 10:21 Dose: 10 ml Documented by: Sodium Chloride (Saline Flush) 10 ml IV Q8 [facility] Last Admin: 11/10/18 06:00 Dose: 10 ml Documented by: Medical - PN: A/P - Time Spent With Patient Total time spent is greater than 50% in coordination of care (as documented) at patient's floor/unit and/or counseling patient: - Narrative A/P Narrative: A/P Gastric Ulcer perforation -s/p perforation repair -on IV PPI for now -not sure if biospy was taken,. -on Zosyn and flagyl Bibasilar atelectasis -chest PT DM -pt notes is on insulin, NPO for now, monitor glucose, ssi insulin q6 HTN -hold oral meds for now -monitor bp, bp on the lower end at this time CAD -pt was given ASA prior, will resume once able Emphysema (noted on CT) -on duonebs q4 hrs Electrolytes -replace DVT on enoxaparin sq Will try to obtain more records from PCP Medical - PN: Qual - VTE Deep Vein Thrombosis/Pulmonary Embolism Present on Admission: No
--- NOTE | 2018-11-10 13:15 | General Surgery Progress Note ---
Subjective Patient reports: feels better, pain is less, no flatus, no bowel movement, fever Narrative: Note initiated : 11/10/18 at 1:14 pm Service Date, if different from initiated Date: [] Patient: Genna Gong 78 y/o F admitted on 11/09/18 for pain all over. Chief Complaint: [patient is doing well. I explained the results of her operation and she states that she understands. Vitals have been stable. Temperature averaged 99.5 and blood pressure is 110-120 systolic her pulse is about 100. Urine output is 45-120 cc per hour. She has moderate pain which is controlled with present medications. She denies nausea or vomiting. PATTI drainage is decreasing but still seropurulent. White blood count 13.1, hemo globin 9.9, BUN 26, creatinine 1.3, lactic acid 1.1.] Objective Temp Pulse Resp BP Pulse Ox 99.8 F H 110 H 21 108/84 93 11/10/18 12:11 11/10/18 12:11 11/10/18 12:11 11/10/18 12:00 11/10/18 12:11 - Additional Data Intake & Output - Last 24 hours: Intake & Output 11/08/18 11/09/18 11/10/18 11/11/18 05:59 05:59 05:59 05:59 Intake Total 5617 1050 Output Total 1695 680 Balance 3922 370 Weight 228 lb 3.2 oz 228 lb 3.2 oz - General physical appearance moderate distress, moderate pain, chronically ill, obese - Eyes PERRL, normal ocular movement - ENT normal pinna, normal nares, normal mucosa, no hearing loss, no congestion - Neck no masses, no bruits, trachea midline, no lymphadenopathy, no venous distension - Respiratory normal expansion, normal respiratory effort, clear to auscultation - Cardiovascular Cardiovascular exam: Present: irregular rhythm, +S1, +S2, tachycardia. Absent: JVD - Abdomen tender (abdomen is obese and distended; she has good active bowel sounds; PATTI drainage with severe purulent drainage is noted; incision looks good) - Integumentary no rash, no growths, no abnormal pigmentation - Neurologic normal coordination, normal sensation - Psychiatric oriented to time, oriented to person, oriented to place, speech is normal, memory intact - Labs 11/10/18 04:27 11/10/18 04:27 Diabetes panel 11/10/18 Range/Units 04:27 Sodium 136 (133-145) mmol/L Potassium 4.0 (3.3-5.1) mmol/L Chloride 107 (96-108) mmol/L Carbon Dioxide 20 L (22-30) mmol/L BUN 26 H (8-23) mg/dl Creatinine 1.3 H (0.6-1.1) mg/dl Glucose 142 H (70-105) mg/dL Calcium 8.5 L (8.6-10.4) mg/dl AST 22 (0-37) U/l ALT 20 (0-40) U/l Alkaline Phosphatase 32 L (39-117) U/L Total Protein 4.2 L (5.9-8.4) gm/dL Albumin 1.9 L (3.2-5.2) gm/dL Triglycerides 65 (<150) mg/dl Calcium panel 11/10/18 Range/Units 04:27 Calcium 8.5 L (8.6-10.4) mg/dl Phosphorus 2.8 (2.7-4.5) mg/dL Albumin 1.9 L (3.2-5.2) gm/dL Pituitary panel 11/10/18 Range/Units 04:27 Sodium 136 (133-145) mmol/L Potassium 4.0 (3.3-5.1) mmol/L Chloride 107 (96-108) mmol/L Carbon Dioxide 20 L (22-30) mmol/L BUN 26 H (8-23) mg/dl Creatinine 1.3 H (0.6-1.1) mg/dl Glucose 142 H (70-105) mg/dL Calcium 8.5 L (8.6-10.4) mg/dl Adrenal panel 11/10/18 Range/Units 04:27 Sodium 136 (133-145) mmol/L Potassium 4.0 (3.3-5.1) mmol/L Chloride 107 (96-108) mmol/L Carbon Dioxide 20 L (22-30) mmol/L BUN 26 H (8-23) mg/dl Creatinine 1.3 H (0.6-1.1) mg/dl Glucose 142 H (70-105) mg/dL Calcium 8.5 L (8.6-10.4) mg/dl Total Bilirubin 0.4 (0.0-1.0) mg/dL AST 22 (0-37) U/l ALT 20 (0-40) U/l Alkaline Phosphatase 32 L (39-117) U/L Total Protein 4.2 L (5.9-8.4) gm/dL Albumin 1.9 L (3.2-5.2) gm/dL Assessment and Plan (1) Perforated abdominal viscus Status: Acute Assessment and plan: Clinically improved though persistent seropurulent drainage Current Visit: Yes (2) Peritonitis (acute) generalized Status: Acute Assessment and plan: Clinically improved with decrease in leukocytosis and fever Current Visit: Yes (3) Diabetic neuropathy Status: Chronic Current Visit: No - Time Spent With Patient Total time spent is greater than 50% in coordination of care (as documented) at patient's floor/unit and/or counseling patient:
[2018-11-10] MEDS: ACETAMINOPHEN 1,000 MG/100 ML BOTTLE IV SCH ×2 (14:33→19:55)
[2018-11-10] MEDS ORDERED: INSULIN LISPRO 1 UNIT/0.01 ML UNIT SQ SCH (18:00)
[2018-11-11] MEDS: INSULIN LISPRO 1 UNIT/0.01 ML UNIT SQ SCH ×4 (00:02→17:20)
[2018-11-11] MEDS: METOCLOPRAMIDE 10 MG/2 ML VIAL IV SCH ×4 (00:03→17:17)
[2018-11-11] MEDS: ACETAMINOPHEN 1,000 MG/100 ML BOTTLE IV SCH ×4 (02:08→20:22)
[2018-11-11] MEDS: IPRATROPIUM/ALBUTEROL 3 ML AMPUL.NEB NEB SCH ×6 (03:58→22:43)
[2018-11-11] MEDS: 0.9 % SODIUM CHLORIDE 10 ML SYRINGE IV SCH ×5 (05:25→20:23)
[2018-11-11 05:45] LABS: Basophils # (Auto) 0 K/mcL (0.0-0.3); Basophils % (Auto) 0 % (0.0-2.0); Eosinophils # (Auto) 0 K/mcL (0.0-0.7); Eosinophils % (Auto) 0.1 % (0.0-7.0); Granulocytes % (Auto) 89.2 % (38.0-78.0); Lymphocytes # (Auto) 0.6 K/mcL (1.5-4.8); Mean Cell Volume 88.4 fL (80.0-100.0); Mean Corpuscular HGB Conc 32.1 g/dL (31.0-36.0); Monocytes # (Auto) 0.7 K/mcL (0.1-0.9); Monocytes % (Auto) 5.7 % (1.0-12.0); Platelet Count 218 K/mcL (140-440); RBC 3.37 M/mcL (4.00-5.20); Red Cell Distribution Width 13.7 % (11.5-14.5)
[2018-11-11] MEDS: PIPERACILLIN SODIUM/TAZOBACTAM 3.375 GM in DEXTROSE 5% IN WATER 50 ML IV SCH ×3 (05:46→17:17)
[2018-11-11 06:28] LABS: ALT/SGPT 21 U/l (0-40); Albumin 1.8 gm/dL (3.2-5.2); Albumin/Globulin Ratio 0.7 (1.0-2.3); Alkaline Phosphatase 39 U/L (39-117); Bilirubin,Direct < 0.2 mg/dL (0.0-0.3); Blood Urea Nitrogen 26 mg/dl (8-23); Gamma Glutamyl Transpeptidase 12 U/L (5-36); Uric Acid 5.8 mg/dL (2.5-8.0)
[2018-11-11] MEDS: 0.9 % SODIUM CHLORIDE 1,000 ML IV SCH ×3 (06:57→22:29)
[2018-11-11] MEDS ORDERED: MAGNESIUM SULFATE IN WATER 4 GM/100 ML BAG IV ONE (07:28)
[2018-11-11] MEDS: PANTOPRAZOLE 40 MG VIAL IV SCH ×2 (07:33→17:17)
[2018-11-11] MEDS: 0.9 % SODIUM CHLORIDE 10 ML SYRINGE IV PRN (07:34)
[2018-11-11] MEDS ORDERED: POTASSIUM PHOSPHATE 80 MEQ in DEXTROSE 5% IN WATER 500 ML IV ONE (08:00)
[2018-11-11] MEDS: ENOXAPARIN 40 MG/0.4 ML SYRINGE SQ SCH (08:32)
--- NOTE | 2018-11-11 13:11 | General Surgery Progress Note ---
Subjective Patient reports: feels better, pain is less, no flatus, no bowel movement, afebrile Narrative: Note initiated : 11/11/18 at 1:09 pm Service Date, if different from initiated Date: [] Patient: Genna Gong 78 y/o F admitted on 11/09/18 for pain all over. Chief Complaint: [patient is doing well. She has no difficulty related to her perforated ulcer. Her incision is unremarkable and she has active bowel sounds. She does have increased tubular breath sounds in her O2 sats down. She has been afebrile. Chest x-ray shows basilar atelectasis bilaterally due to hypoventilation. White blood count 11.6 hemoglobin 9.6, lactic acid 0.8, potassium 2.6, BUN 26, creatinine 1.1. PATTI drainage is serous] Objective Temp Pulse Resp BP Pulse Ox 98.3 F 105 H 26 H 154/65 94 11/11/18 11:01 11/11/18 11:28 11/11/18 11:28 11/11/18 11:01 11/11/18 11:01 - Additional Data Intake & Output - Last 24 hours: Intake & Output 11/09/18 11/10/18 11/11/18 11/12/18 05:59 05:59 05:59 05:59 Intake Total 5617 2500 1150 Output Total 1695 2075 920 Balance 3922 425 230 Weight 228 lb 3.2 oz 228 lb 3.2 oz - General physical appearance well developed, well nourished, no distress, chronically ill, obese - Eyes PERRL, normal ocular movement - ENT normal pinna, normal nares, normal mucosa, no hearing loss, no congestion - Neck no masses, no bruits, trachea midline, no lymphadenopathy, no venous distension - Respiratory other (coarse tubular breath sounds bilaterally; hypoventilation bilaterally much worse bases) - Cardiovascular Cardiovascular exam: Present: normal rate and rhythm, RRR, +S1, +S2, tachycardia. Absent: JVD - Abdomen tender ( mild tenderness of incision with small amount of serous drainage; hypoactive bowel sounds; moderate distention; serous PATTI drainage) - Rectum normal sphincter tone, no hemorrhoids, no tenderness, no masses, no bleeding - Integumentary no rash, no growths, no abnormal pigmentation - Neurologic normal coordination, normal sensation - Musculoskeletal other ( gait and stance not tested) - Psychiatric oriented to time, oriented to person, oriented to place, speech is normal, memory intact - Labs 11/11/18 03:40 11/11/18 03:40 Diabetes panel 11/11/18 Range/Units 03:40 Sodium 138 (133-145) mmol/L Potassium 2.6 L* (3.3-5.1) mmol/L Chloride 107 (96-108) mmol/L Carbon Dioxide 20 L (22-30) mmol/L BUN 26 H (8-23) mg/dl Creatinine 1.1 (0.6-1.1) mg/dl Glucose 143 H (70-105) mg/dL Calcium 8.1 L (8.6-10.4) mg/dl AST 20 (0-37) U/l ALT 21 (0-40) U/l Alkaline Phosphatase 39 (39-117) U/L Total Protein 4.5 L (5.9-8.4) gm/dL Albumin 1.8 L (3.2-5.2) gm/dL Triglycerides 98 (<150) mg/dl Calcium panel 11/11/18 Range/Units 03:40 Calcium 8.1 L (8.6-10.4) mg/dl Phosphorus 3.0 (2.7-4.5) mg/dL Albumin 1.8 L (3.2-5.2) gm/dL Pituitary panel 11/11/18 Range/Units 03:40 Sodium 138 (133-145) mmol/L Potassium 2.6 L* (3.3-5.1) mmol/L Chloride 107 (96-108) mmol/L Carbon Dioxide 20 L (22-30) mmol/L BUN 26 H (8-23) mg/dl Creatinine 1.1 (0.6-1.1) mg/dl Glucose 143 H (70-105) mg/dL Calcium 8.1 L (8.6-10.4) mg/dl Adrenal panel 11/11/18 Range/Units 03:40 Sodium 138 (133-145) mmol/L Potassium 2.6 L* (3.3-5.1) mmol/L Chloride 107 (96-108) mmol/L Carbon Dioxide 20 L (22-30) mmol/L BUN 26 H (8-23) mg/dl Creatinine 1.1 (0.6-1.1) mg/dl Glucose 143 H (70-105) mg/dL Calcium 8.1 L (8.6-10.4) mg/dl Total Bilirubin 0.2 (0.0-1.0) mg/dL AST 20 (0-37) U/l ALT 21 (0-40) U/l Alkaline Phosphatase 39 (39-117) U/L Total Protein 4.5 L (5.9-8.4) gm/dL Albumin 1.8 L (3.2-5.2) gm/dL Assessment and Plan (1) Perforated abdominal viscus Status: Acute Assessment and plan: Clinically improved but with hypoventilation and atelectasis of lung Still with mild prerenal azotemia Current Visit: Yes (2) Peritonitis (acute) generalized Status: Acute Assessment and plan: Clinically improved with decrease in leukocytosis and fever Current Visit: Yes (3) Diabetic neuropathy Status: Chronic Current Visit: No - Time Spent With Patient Total time spent is greater than 50% in coordination of care (as documented) at patient's floor/unit and/or counseling patient:
--- NOTE | 2018-11-11 13:51 | Internal Med Progress Note ---
Medical - PN: Subj Patient information: Note initiated : 11/11/18 at 1:44 pm Service Date, if different from initiated Date: [] Patient: Genna Gong a 78 y/o F admitted on 11/09/18 for pain all over. Chief Complaint: [] Interval history: Ms. Gong is a 78 year old F with h/o CAD, DM, HTN, presented to the ER with complaints of abdominal pain. The patient had a fall and had been taking NSAIDs for pain. In the ER she had initially a CTA chest, and then CT Abdomen pelvis which showed free fluid in the abdomen and free air in the abdomen. Surgery was consulted and patient was taken for emergent surgery, the patient was noted to have a perforated gastric ulcer, the patient perforation was reparied and patie nt brought back to the ICU. Given her medical issues, medicine is consulted for management of chr medical issues. The patient at the time of my evaluation was drowsy, post op, unable to give any history. History obtained from chart review. 2/3 Pt seen examined, low grade fevers, still has sore abdomen, no new complaints or concerns making urine, bp stable, stable oxygen needs X ray reviewed, bibasilar atelectasis, (likely causing fevers) unfortunately she is too weak to do pulmonary toilets, trial of chest PT to see if this helps 2/4 Pt seen examined still drowsy, K 2.6, able to tolerate chest PT well today no other issues Hb stable good urine output. Pertinent ROS: Denies headache, dizziness Denies chest pain, palpitations Denies cough or shortness of breath present abdominal pain, no nausea or vomiting. - Constitutional Vitals: Vital Signs Temp Pulse Resp BP Pulse Ox 98.6 F 88 20 151/72 95 11/11/18 13:01 11/11/18 13:01 11/11/18 13:01 11/11/18 13:01 11/11/18 13:01 Period Temp Pulse Resp BP Sys/[place] Pulse Ox Last 24 Hr 97.6 F-100.1 F 81-111 11-33 108-159/42-95 93-98 Intake and Output 11/10/18 11/11/18 11/11/18 21:59 05:59 13:59 Intake Total 1602 191 9172.1818 Output Total 079 081 3088 Balance 500 -305 792.6421 Weight 228 lb 3.2 oz Intake & Output: Intake & Output 11/10/18 11/11/18 11/11/18 21:59 05:59 13:59 Intake Total 0929 521 5773.1818 Output Total 967 578 8684 Balance 500 -795 358.1056 Weight 228 lb 3.2 oz Intake: IV 5066 241 4326.1818 Sodium Chloride 0.9% 1,000 ml @ 1000 1000 100 mls/hr IV .Q10H JOHN Rx#: [id number] Zosyn 3.375 gm In Dextrose 5% 50 50 100 in Water 50 ml @ 100 mls/hr IV Q6H [facility] Rx#:[id number] Potassium Phosphate 80 Meq In 518.1818 Dextrose 5% in Water 500 ml @ 127.273 mls/hr IV ONCE ONE Rx#: [id number] Output: Gastric Drainage 100 NG/OG 100 Drainage 85 105 90 MILIND B 45 70 40 milind drain 40 35 50 Urine Catheter Amount 973 419 0394 Other: Urine Appearance Clear Cloudy Clear Uretheral ([place]) Clear Urine Color Bright Yellow Uretheral ([place]) Light Fay Exam: Constitutional; Afebrile, cooperative, drowsy, not in distress. Respiratory system: Air Entry equal on both sides, No crackles or wheezing, no rhonchi. CVS- Rate rhythm regular, S1,S2 heard, no gallop, no rub. [employer]- AOOx3, moving all extremities, no gross focal deficit noted. Medical - PN: Obj Da - Labs CBC & Chem 7: 11/11/18 03:40 11/11/18 03:40 Labs: Abnormal Lab Results 11/11/18 11/11/18 11/10/18 03:40 03:40 04:27 WBC 11.6 H 13.4 H RBC 3.37 L 3.50 L Hgb 9.6 L 9.9 L Hct 29.8 L 30.9 L Gran % 89.2 H 87.6 H Lymph % (Auto) 5.0 L 6.7 L Gran # 10.4 H 11.8 H Lymph # (Auto) 0.6 L 0.9 L [place] # (Auto) D-Dimer VBG Lactic Acid POC Potassium Potassium 2.6 L* Carbon Dioxide 20 L Anion Gap BUN 26 H Creatinine Glucose 143 H POC Glucose Calcium 8.1 L POC WB Ioniz Calcium Alkaline Phosphatase Myoglobin Total Protein 4.5 L Albumin 1.8 L Albumin/Globulin Ratio 0.7 L Beta-Hydroxybutyrate Urine Protein Urine Occult Blood Urine Nitrate Ur Leukocyte Esterase Urine RBC Urine WBC Urine Bacteria Hyaline Casts Granular Casts 11/10/18 11/09/18 11/09/18 04:27 17:47 11:38 WBC RBC Hgb Hct Gran % Lymph % (Auto) Gran # Lymph # (Auto) [place] # (Auto) D-Dimer VBG Lactic Acid POC Potassium 3.0 L Potassium Carbon Dioxide 20 L Anion Gap BUN 26 H Creatinine 1.3 H Glucose 142 H POC Glucose 172 H Calcium 8.5 L POC WB Ioniz Calcium 1.46 H Alkaline Phosphatase 32 L Myoglobin Total Protein 4.2 L Albumin 1.9 L Albumin/Globulin Ratio 0.8 L Beta-Hydroxybutyrate Urine Protein 30 A Urine Occult Blood 0.2 A Urine Nitrate Pos A Ur Leukocyte Esterase 250 A Urine RBC 9 H Urine WBC 46 H Urine Bacteria Mod A Hyaline Casts 6 H Granular Casts 9 H 11/09/18 11/09/18 11/09/18 10:12 08:22 08:22 WBC RBC Hgb Hct Gran % Lymph % (Auto) Gran # Lymph # (Auto) [place] # (Auto) D-Dimer 2.18 H VBG Lactic Acid 2.1 H POC Potassium Potassium Carbon Dioxide Anion Gap BUN Creatinine Glucose POC Glucose Calcium POC WB Ioniz Calcium Alkaline Phosphatase Myoglobin Total Protein Albumin Albumin/Globulin Ratio Beta-Hydroxybutyrate 0.39 H Urine Protein Urine Occult Blood Urine Nitrate Ur Leukocyte Esterase Urine RBC Urine WBC Urine Bacteria Hyaline Casts Granular Casts 11/09/18 11/09/18 08:22 08:22 WBC 24.8 H RBC Hgb Hct Gran % 91.3 H Lymph % (Auto) 3.7 L Gran # 22.7 H Lymph # (Auto) 0.9 L [place] # (Auto) 1.2 H D-Dimer VBG Lactic Acid POC Potassium Potassium 2.4 L* Carbon Dioxide 21 L Anion Gap 20.0 H BUN 24 H Creatinine 1.2 H Glucose 211 H POC Glucose Calcium 12.1 H POC WB Ioniz Calcium Alkaline Phosphatase Myoglobin 64 H Total Protein Albumin Albumin/Globulin Ratio Beta-Hydroxybutyrate Urine Protein Urine Occult Blood Urine Nitrate Ur Leukocyte Esterase Urine RBC Urine WBC Urine Bacteria Hyaline Casts Granular Casts Meds: Medications Albuterol/Ipratropium (Duoneb) 3 ml NEB Q4HRT [facility] Last Admin: 11/11/18 11:21 Dose: 3 ml Documented by: Diagnostic Test (Pha) (Accu-Chek) 1 each FS Q6 [facility] [place] Last Admin: 11/11/18 11:47 Dose: 1 each Documented by: Enoxaparin Sodium (Lovenox) 40 mg SQ DAILY [facility] [place] Last Admin: 11/11/18 08:32 Dose: 40 mg Documented by: Fentanyl (Sublimaze) 25 mcg IV Q2HP PRN PRN Reason: PAIN LEVEL > 6 Last Admin: 11/10/18 10:21 Dose: 25 mcg Documented by: Sodium Chloride (Sodium Chloride 0.9%) 1,000 mls @ 100 mls/hr IV .Q10H [facility] [place] Last Admin: 11/11/18 10:10 Dose: Not Given Documented by: Piperacillin Sod/Tazobactam (Sod 3.375 gm/ Dextrose) 50 mls @ 100 mls/hr IV Q6H [facility] [place] Last Infusion: 11/11/18 12:06 Dose: Infused Documented by: Acetaminophen (Ofirmev) 1,000 mg in 100 mls @ 200 mls/hr IV Q6H [facility] [place] Last Admin: 11/11/18 13:26 Dose: 200 mls/hr Documented by: Insulin Human Lispro (Humalog) 0 unit SQ Q6 [facility] [place]; Protocol Last Admin: 11/11/18 11:48 Dose: Not Given Documented by: Metoclopramide HCl (Reglan) 10 mg IV Q6 [facility] [place] Last Admin: 11/11/18 11:36 Dose: 10 mg Documented by: Ondansetron HCl (Zofran) 4 mg IV Q4HP PRN PRN Reason: Nausea And Vomiting Pantoprazole Sodium (Protonix) 40 mg IV BIDAC [facility] [place] Last Admin: 11/11/18 07:33 Dose: 40 mg Documented by: Promethazine HCl (Phenergan) 12.5 mg IV Q4HP PRN PRN Reason: Nausea And Vomiting Sodium Chloride (Saline Flush) 10 ml IV Q12 [facility] [place] Last Admin: 11/11/18 08:31 Dose: 10 ml Documented by: Sodium Chloride (Saline Flush) 10 ml IV UD PRN PRN Reason: Analgesia Last Admin: 11/11/18 07:34 Dose: 10 ml Documented by: Sodium Chloride (Saline Flush) 10 ml IV Q8 [facility] Last Admin: 11/11/18 13:30 Dose: 10 ml Documented by: Medical - PN: A/P - Time Spent With Patient Total time spent is greater than 50% in coordination of care (as documented) at patient's floor/unit and/or counseling patient: - Narrative A/P Narrative: A/P Gastric Ulcer perforation -s/p perforation repair -on IV PPI for now -not sure if biospy was taken,. -on Zosyn Bibasilar atelectasis -chest PT repeat cxr in AM DM -pt notes is on insulin, NPO for now, monitor glucose, ssi insulin q6 HTN -hold oral meds for now -monitor bp, bp on the lower end at this time CAD -pt was given ASA prior, will resume once able Emphysema (noted on CT) -on duonebs q4 hrs Electrolytes/ Hypokalemia -replace recheck this afternoon. DVT on enoxaparin sq Medical - PN: Qual - VTE Deep Vein Thrombosis/Pulmonary Embolism Present on Admission: No
[2018-11-11 15:16] LABS: Blood Urea Nitrogen 23 mg/dl (8-23)
[2018-11-11] MEDS ORDERED: POTASSIUM CHLORIDE 80 MEQ in DEXTROSE 5% IN WATER 500 ML IV ONE (16:00)
[2018-11-11] MEDS ORDERED: diphenhydrAMINE 50 MG/ML VIAL ONE (23:08)
[2018-11-11] MEDS ORDERED: diphenhydrAMINE 50 MG/ML VIAL IM ONE (23:08)
[2018-11-11] MEDS: fentaNYL 100 MCG/2 ML VIAL IV PRN (23:08)
[2018-11-12] MEDS: METOCLOPRAMIDE 10 MG/2 ML VIAL IV SCH ×5 (00:19→23:58)
[2018-11-12] MEDS: INSULIN LISPRO 1 UNIT/0.01 ML UNIT SQ SCH ×5 (00:19→23:58)
[2018-11-12] MEDS: PIPERACILLIN SODIUM/TAZOBACTAM 3.375 GM in DEXTROSE 5% IN WATER 50 ML IV SCH ×5 (00:21→23:59)
[2018-11-12] MEDS: fentaNYL 100 MCG/2 ML VIAL IV PRN (01:38)
[2018-11-12] MEDS: IPRATROPIUM/ALBUTEROL 3 ML AMPUL.NEB NEB SCH ×5 (03:13→19:55)
[2018-11-12] MEDS: ACETAMINOPHEN 1,000 MG/100 ML BOTTLE IV SCH ×4 (03:14→20:27)
[2018-11-12] MEDS: 0.9 % SODIUM CHLORIDE 10 ML SYRINGE IV SCH ×5 (05:45→21:28)
[2018-11-12 06:46] LABS: Basophils # (Auto) 0 K/mcL (0.0-0.3); Basophils % (Auto) 0 % (0.0-2.0); Eosinophils # (Auto) 0 K/mcL (0.0-0.7); Eosinophils % (Auto) 0.2 % (0.0-7.0); Granulocytes % (Auto) 89.6 % (38.0-78.0); Lymphocytes # (Auto) 0.7 K/mcL (1.5-4.8); Lymphocytes % (Auto) 5.5 % (15.5-49.0); Mean Cell Volume 87.4 fL (80.0-100.0); Mean Corpuscular HGB Conc 32.1 g/dL (31.0-36.0); Monocytes # (Auto) 0.6 K/mcL (0.1-0.9); Monocytes % (Auto) 4.7 % (1.0-12.0); Platelet Count 237 K/mcL (140-440); RBC 3.41 M/mcL (4.00-5.20); Red Cell Distribution Width 13.5 % (11.5-14.5)
[2018-11-12 07:13] LABS: ALT/SGPT 21 U/l (0-40); Albumin 2.1 gm/dL (3.2-5.2); Albumin/Globulin Ratio 0.8 (1.0-2.3); Alkaline Phosphatase 137 U/L (39-117); Bilirubin,Direct < 0.2 mg/dL (0.0-0.3); Blood Urea Nitrogen 16 mg/dl (8-23); Gamma Glutamyl Transpeptidase 17 U/L (5-36); Uric Acid 4.4 mg/dL (2.5-8.0)
[2018-11-12] MEDS: PANTOPRAZOLE 40 MG VIAL IV SCH ×2 (07:37→17:38)
[2018-11-12] MEDS ORDERED: POTASSIUM CHLORIDE 80 MEQ in DEXTROSE 5% IN WATER 500 ML IV ONE ×2 (07:57→19:00)
[2018-11-12] MEDS: ENOXAPARIN 40 MG/0.4 ML SYRINGE SQ SCH (09:18)
[2018-11-12] MEDS: 0.9 % SODIUM CHLORIDE 1,000 ML IV SCH ×3 (10:18→21:31)
[2018-11-12] MEDS ORDERED: POTASSIUM PHOSPHATE 40 MEQ in DEXTROSE 5% IN WATER 500 ML IV SCH ×4 (11:00→19:00)
[2018-11-12] MEDS ORDERED: OLANZapine 10 MG VIAL IM PRN ×2 (12:39→16:06)
[2018-11-12 15:14] LABS: Blood Urea Nitrogen 14 mg/dl (8-23)
--- NOTE | 2018-11-12 15:15 | General Surgery Progress Note ---
Subjective Patient reports: feels better, pain is less, flatus, no bowel movement, afebrile Narrative: Note initiated : 11/12/18 at 3:13 pm Service Date, if different from initiated Date: [] Patient: Genna Gong 78 y/o F admitted on 11/09/18 for pain all over. Chief Complaint: [patient is stable except for mental confusion. Vital signs have been stable. She started passing flatus today. White blood count 13.5; hemoglobin 9.6; potassium 2.5 phosphorus 1.8] Objective Temp Pulse Resp BP Pulse Ox 98.9 F 100 H 29 H 140/75 93 11/12/18 14:01 11/12/18 06:01 11/12/18 14:01 11/12/18 14:01 11/12/18 06:01 - Additional Data Intake & Output - Last 24 hours: Intake & Output 11/10/18 11/11/18 11/12/18 11/13/18 05:59 05:59 05:59 05:59 Intake Total 5617 2500 3338.1818 2199.0909 Output Total 1695 2075 4000 1890 Balance 3922 425 -661.8182 309.0909 Weight 228 lb 3.2 oz 228 lb 3.2 oz 232 lb 1.6 oz - General physical appearance no distress, moderate pain, chronically ill, obese - Eyes PERRL - ENT normal pinna, normal nares, normal mucosa, no hearing loss, no congestion - Neck no masses, no bruits, trachea midline, no lymphadenopathy, no venous distension - Respiratory normal expansion, normal respiratory effort, clear to auscultation - Cardiovascular Cardiovascular exam: Present: normal rate and rhythm, RRR, +S1, +S2, tachycardia. Absent: JVD - Abdomen bowel sounds (mild distention; good active bowel sounds; incision looks good; PATTI drainage is serous) - Neurologic normal coordination, normal sensation - Psychiatric other ( patient is disoriented at this time; she is also hallucinating) - Labs 11/12/18 04:00 11/12/18 04:00 Diabetes panel 11/11/18 11/12/18 Range/Units 14:28 04:00 Sodium 138 140 (133-145) mmol/L Potassium 2.5 L* 2.5 L* (3.3-5.1) mmol/L Chloride 105 107 (96-108) mmol/L Carbon Dioxide 22 22 (22-30) mmol/L BUN 23 16 (8-23) mg/dl Creatinine 1.1 0.9 (0.6-1.1) mg/dl Glucose 167 H 110 H (70-105) mg/dL Calcium 8.4 L 8.5 L (8.6-10.4) mg/dl AST 14 (0-37) U/l ALT 21 (0-40) U/l Alkaline Phosphatase 137 H (39-117) U/L Total Protein 4.8 L (5.9-8.4) gm/dL Albumin 2.1 L (3.2-5.2) gm/dL Triglycerides 100 (<150) mg/dl Calcium panel 11/11/18 11/12/18 Range/Units 14:28 04:00 Calcium 8.4 L 8.5 L (8.6-10.4) mg/dl Phosphorus 1.8 L (2.7-4.5) mg/dL Albumin 2.1 L (3.2-5.2) gm/dL Pituitary panel 11/11/18 11/12/18 Range/Units 14:28 04:00 Sodium 138 140 (133-145) mmol/L Potassium 2.5 L* 2.5 L* (3.3-5.1) mmol/L Chloride 105 107 (96-108) mmol/L Carbon Dioxide 22 22 (22-30) mmol/L BUN 23 16 (8-23) mg/dl Creatinine 1.1 0.9 (0.6-1.1) mg/dl Glucose 167 H 110 H (70-105) mg/dL Calcium 8.4 L 8.5 L (8.6-10.4) mg/dl Adrenal panel 11/11/18 11/12/18 Range/Units 14:28 04:00 Sodium 138 140 (133-145) mmol/L Potassium 2.5 L* 2.5 L* (3.3-5.1) mmol/L Chloride 105 107 (96-108) mmol/L Carbon Dioxide 22 22 (22-30) mmol/L BUN 23 16 (8-23) mg/dl Creatinine 1.1 0.9 (0.6-1.1) mg/dl Glucose 167 H 110 H (70-105) mg/dL Calcium 8.4 L 8.5 L (8.6-10.4) mg/dl Total Bilirubin 0.3 (0.0-1.0) mg/dL AST 14 (0-37) U/l ALT 21 (0-40) U/l Alkaline Phosphatase 137 H (39-117) U/L Total Protein 4.8 L (5.9-8.4) gm/dL Albumin 2.1 L (3.2-5.2) gm/dL Assessment and Plan (1) Perforated abdominal viscus Status: Acute Assessment and plan: Clinically improved but with hypoventilation and atelectasis of lung Current Visit: Yes (2) Peritonitis (acute) generalized Status: Acute Assessment and plan: Clinically improved with decrease in leukocytosis and fever Current Visit: Yes (3) Diabetic neuropathy Status: Chronic Current Visit: No - Time Spent With Patient Total time spent is greater than 50% in coordination of care (as documented) at patient's floor/unit and/or counseling patient:
[2018-11-12] MEDS ORDERED: aMILoride 5 MG TABLET PO ONE (15:17)
--- NOTE | 2018-11-12 15:20 | Internal Med Progress Note ---
Medical - PN: Subj Patient information: Note initiated : 11/12/18 at 3:18 pm Service Date, if different from initiated Date: [] Patient: Genna Gong a 78 y/o F admitted on 11/09/18 for pain all over. Chief Complaint: [] Interval history: Ms. Gong is a 78 year old F with h/o CAD, DM, HTN, presented to the ER with complaints of abdominal pain. The patient had a fall and had been taking NSAIDs for pain. In the ER she had initially a CTA chest, and then CT Abdomen pelvis which showed free fluid in the abdomen and free air in the abdomen. Surgery was consulted and patient was taken for emergent surgery, the patient was noted to have a perforated gastric ulcer, the patient perforation was reparied and patie nt brought back to the ICU. Given her medical issues, medicine is consulted for management of chr medical issues. The patient at the time of my evaluation was drowsy, post op, unable to give any history. History obtained from chart review. 2/3 Pt seen examined, low grade fevers, still has sore abdomen, no new complaints or concerns making urine, bp stable, stable oxygen needs X ray reviewed, bibasilar atelectasis, (likely causing fevers) unfortunately she is too weak to do pulmonary toilets, trial of chest PT to see if this helps 2/4 Pt seen examined still drowsy, K 2.6, able to tolerate chest PT well today no other issues Hb stable good urine output. 2/5 Pt seen examined, overnight was very confused and paranoid, this AM told me she wanted to go home and we were stopping her , she seemed Aoox3 will start on zyprex for icu delirum K is still low replace aggressively trial of amiloride 5mg once urine sodium is elevated Pertinent ROS: unable pt confused - Constitutional Vitals: Vital Signs Temp Pulse Resp BP Pulse Ox 98.9 F 100 H 29 H 140/75 93 11/12/18 14:01 11/12/18 06:01 11/12/18 14:01 11/12/18 14:01 11/12/18 06:01 Period Temp Pulse Resp BP Sys/Maldonado Pulse Ox Last 24 Hr 97.2 F-99.2 F 90-109 18-29 113-155/56-102 90-99 Intake and Output 11/12/18 11/12/18 11/12/18 05:59 13:59 21:59 Intake Total 150 8218 508.2196 Output Total 1280 1630 260 Balance -1130 60 249.0909 Intake & Output: Intake & Output 11/12/18 11/12/18 11/12/18 05:59 13:59 21:59 Intake Total 150 6981 972.7606 Output Total 1280 1630 260 Balance -1130 60 249.0909 Intake: IV 150 2905 228.6308 Sodium Chloride 0.9% 1,000 ml @ 1000 100 mls/hr IV .Q10H [facility] Rx#: [id number] Zosyn 3.375 gm In Dextrose 5% 50 50 in Water 50 ml @ 100 mls/hr IV Q6H [facility] Rx#:[id number] Output: Drainage 160 MILIND B 90 milind drain 70 Urine Catheter Amount 1280 1470 260 Other: Urine Appearance Clear Clear Uretheral ([place]) Clear Urine Color Pale Pale Straw Uretheral ([place]) Pale Straw Exam: Constitutional; Afebrile, uncooperative, alert, not in distress. was in soft restraints this AM Respiratory system: Air Entry equal on both sides, No crackles or wheezing, no rhonchi. CVS- Rate rhythm regular, S1,S2 heard, no gallop, no rub. Abdomen- Soft abdomen, tendnerness, hypoactive bowel tones, no organomegaly, no tenderness, no guarding or rigidity, RESPIRATORY THERAPIST- AOOx3, moving all extremities, no gross focal deficit noted. Medical - PN: Obj Da - Labs CBC & Chem 7: 11/12/18 04:00 11/12/18 14:03 Labs: Abnormal Lab Results 11/12/18 11/12/18 11/12/18 14:03 04:00 04:00 WBC 13.4 H RBC 3.41 L Hgb 9.6 L Hct 29.8 L POC Hct Gran % 89.6 H Lymph % (Auto) 5.5 L Gran # 12.0 H Lymph # (Auto) 0.7 L POC Potassium Potassium 2.7 L* 2.5 L* Carbon Dioxide POC Total CO2 BUN Creatinine Glucose 157 H 110 H POC Glucose Calcium 8.5 L POC WB Ioniz Calcium Phosphorus 1.8 L Alkaline Phosphatase 137 H Total Protein 4.8 L Albumin 2.1 L Albumin/Globulin Ratio 0.8 L 02/04/19 02/04/19 02/04/19 15:59 14:28 03:40 WBC 11.6 H RBC 3.37 L Hgb 9.6 L Hct 29.8 L POC Hct 30.0 L Gran % 89.2 H Lymph % (Auto) 5.0 L Gran # 10.4 H Lymph # (Auto) 0.6 L POC Potassium 2.4 L* Potassium 2.5 L* Carbon Dioxide POC Total CO2 21 L BUN Creatinine Glucose 167 H POC Glucose 150 H Calcium 8.4 L POC WB Ioniz Calcium Phosphorus Alkaline Phosphatase Total Protein Albumin Albumin/Globulin Ratio 11/11/18 11/10/18 11/10/18 03:40 04:27 04:27 WBC 13.4 H RBC 3.50 L Hgb 9.9 L Hct 30.9 L POC Hct Gran % 87.6 H Lymph % (Auto) 6.7 L Gran # 11.8 H Lymph # (Auto) 0.9 L POC Potassium Potassium 2.6 L* Carbon Dioxide 20 L 20 L POC Total CO2 BUN 26 H 26 H Creatinine 1.3 H Glucose 143 H 142 H POC Glucose Calcium 8.1 L 8.5 L POC WB Ioniz Calcium Phosphorus Alkaline Phosphatase 32 L Total Protein 4.5 L 4.2 L Albumin 1.8 L 1.9 L Albumin/Globulin Ratio 0.7 L 0.8 L 11/09/18 17:47 WBC RBC Hgb Hct POC Hct Gran % Lymph % (Auto) Gran # Lymph # (Auto) POC Potassium 3.0 L Potassium Carbon Dioxide POC Total CO2 BUN Creatinine Glucose POC Glucose 172 H Calcium POC WB Ioniz Calcium 1.46 H Phosphorus Alkaline Phosphatase Total Protein Albumin Albumin/Globulin Ratio Meds: Medications Albuterol/Ipratropium (Duoneb) 3 ml NEB Q4HRT [facility] Last Admin: 11/12/18 11:43 Dose: 3 ml Documented by: Amiloride HCl (Amiloride) 5 mg PO ONCE ONE Stop: 11/12/18 15:18 Diagnostic Test (Pha) (Accu-Chek) 1 each FS Q6 [facility] Last Admin: 11/12/18 12:01 Dose: Not Given Documented by: Enoxaparin Sodium (Lovenox) 40 mg SQ DAILY [facility] Last Admin: 11/12/18 09:18 Dose: 40 mg Documented by: Fentanyl (Sublimaze) 25 mcg IV Q2HP PRN PRN Reason: PAIN LEVEL > 6 Last Admin: 11/12/18 01:38 Dose: 25 mcg Documented by: Sodium Chloride (Sodium Chloride 0.9%) 1,000 mls @ 100 mls/hr IV .Q10H [facility] Last Admin: 11/12/18 10:18 Dose: 100 mls/hr Documented by: Piperacillin Sod/Tazobactam (Sod 3.375 gm/ Dextrose) 50 mls @ 100 mls/hr IV Q6H [facility] Last Admin: 11/12/18 11:47 Dose: 100 mls/hr Documented by: Acetaminophen (Ofirmev) 1,000 mg in 100 mls @ 200 mls/hr IV Q6H [facility] Last Admin: 11/12/18 14:30 Dose: 200 mls/hr Documented by: Potassium Phosphate 40 meq/ (Dextrose) 509.0909 mls @ 127.273 mls/hr IV Q4H [facility] Stop: 11/12/18 18:59 Last Admin: 11/12/18 14:52 Dose: 127.273 mls/hr Documented by: Insulin Human Lispro (Humalog) 0 unit SQ Q6 [facility]; Protocol Last Admin: 11/12/18 12:01 Dose: Not Given Documented by: Metoclopramide HCl (Reglan) 10 mg IV Q6 [facility] Last Admin: 11/12/18 12:02 Dose: 10 mg Documented by: Olanzapine (Zyprexa) 5 mg IM Q2HP PRN PRN Reason: Agitation Last Admin: 11/12/18 13:06 Dose: 5 mg Documented by: Ondansetron HCl (Zofran) 4 mg IV Q4HP PRN PRN Reason: Nausea And Vomiting Pantoprazole Sodium (Protonix) 40 mg IV BIDAC [facility] Last Admin: 11/12/18 07:37 Dose: 40 mg Documented by: Promethazine HCl (Phenergan) 12.5 mg IV Q4HP PRN PRN Reason: Nausea And Vomiting Sodium Chloride (Saline Flush) 10 ml IV Q12 [facility] Last Admin: 11/12/18 09:18 Dose: 10 ml Documented by: Sodium Chloride (Saline Flush) 10 ml IV UD PRN PRN Reason: Analgesia Last Admin: 11/11/18 07:34 Dose: 10 ml Documented by: Sodium Chloride (Saline Flush) 10 ml IV Q8 [facility] Last Admin: 11/12/18 14:31 Dose: 10 ml Documented by: Medical - PN: A/P - Time Spent With Patient Total time spent is greater than 50% in coordination of care (as documented) at patient's floor/unit and/or counseling patient: - Narrative A/P Narrative: A/P Gastric Ulcer perforation -s/p perforation repair -on IV PPI for now -not sure if biospy was taken,. -on Zosyn Bibasilar atelectasis -chest PT DM -pt notes is on insulin, NPO for now, monitor glucose, ssi insulin q6 HTN -hold oral meds for now -monitor bp, bp on the lower end at this time CAD -pt was given ASA prior, will resume once able Emphysema (noted on CT) -change to duonebs q6hrs for now Electrolytes/ Hypokalemia -replace -160meq planned -amiloride 5mg today Urine K is 30 (expect to be very low) DVT on enoxaparin sq Medical - PN: Qual - VTE Deep Vein Thrombosis/Pulmonary Embolism Present on Admission: No
[2018-11-12] MEDS ORDERED: ONDANSETRON 4 MG/2 ML VIAL IV PRN (16:06)
[2018-11-12] MEDS ORDERED: PROMETHAZINE 25 MG/ML VIAL IV PRN (16:06)
--- NOTE | 2018-11-12 16:18 | Operative Note ---
DATE OF OPERATION: 11/09/2018 PREOPERATIVE DIAGNOSIS: Perforated viscus with peritonitis. POSTOPERATIVE DIAGNOSIS: Perforated gastric ulcer with peritonitis. PROCEDURE: Exploratory laparotomy with Maxime patch closure of perforated gastric ulcer. SURGEON: Zonia Schroeder M.D. FINDINGS: Large perforation of antral ulcer along the lesser curvature with 650 mL of free gastric juice in the free peritoneal cavity. DESCRIPTION OF PROCEDURE: Under general anesthesia, the patient's abdomen was prepped and draped in a sterile field. Timeout procedure was carried out as per protocol. Upper midline incision was made and a large volume of free air escaped from the peritoneal cavity. There was a large amount of pea-green drainage. The stomach was evaluated, and there was a large amount of staining of the inferior aspect of the liver along the duodenum and the antrum. Exploration in this area revealed a punctate perforation of the antrum along the lesser curvature. Copious irrigation was then carried out, and 650 mL of free gastric fluid was removed, after which the peritoneal cavity was irrigated with 6 liters of saline. The ulcer was dissected and fully isolated so as to get good closure. It was closed with four sutures of 2-0 silk. A patch from the gastrocolic omentum was fashioned and was placed over the ulcer closure. The sutures were tied to hold the patch in place. The medial and lateral margins of the patch were sutured with interrupted 3-0 silk for further stabilization of this adherence. The peritoneal cavity was then reirrigated with 3 liters of saline. A PATTI drain was placed in the subhepatic space over the patch and in the right gutter extending into the pelvis. These were brought out through separate stab incisions on the right. Sponge, needle, instrument and blade counts were verified as correct. Fascia and peritoneum were closed with running #1 Prolene. Subcutaneous tissue was irrigated and closed with 2-0 Monocryl. Skin was closed with almaz. PATTI drain was secured with 2-0 nylon. Tegaderm dressing was placed over the incision. The patient tolerated the procedure well. She was awakened, transferred to a bed, and taken to the postanesthetic care unit in satisfactory condition. LCS:cherise Job ID: [id number] Doc ID: [id number] Zonia Schroeder M.D.
[2018-11-12] MEDS ORDERED: IPRATROPIUM/ALBUTEROL 3 ML AMPUL.NEB NEB SCH (19:00)
[2018-11-13] MEDS: 0.9 % SODIUM CHLORIDE 1,000 ML IV SCH ×2 (02:06→17:49)
[2018-11-13] MEDS: ACETAMINOPHEN 1,000 MG/100 ML BOTTLE IV SCH ×4 (02:06→20:22)
[2018-11-13] MEDS: IPRATROPIUM/ALBUTEROL 3 ML AMPUL.NEB NEB SCH ×4 (02:12→19:19)
[2018-11-13] MEDS: INSULIN LISPRO 1 UNIT/0.01 ML UNIT SQ SCH ×3 (05:36→17:51)
[2018-11-13] MEDS: 0.9 % SODIUM CHLORIDE 10 ML SYRINGE IV SCH ×5 (05:37→20:35)
[2018-11-13] MEDS: METOCLOPRAMIDE 10 MG/2 ML VIAL IV SCH ×3 (05:37→17:52)
[2018-11-13] MEDS: PIPERACILLIN SODIUM/TAZOBACTAM 3.375 GM in DEXTROSE 5% IN WATER 50 ML IV SCH ×3 (05:38→17:53)
[2018-11-13 07:21] LABS: ALT/SGPT 19 U/l (0-40); Albumin 1.9 gm/dL (3.2-5.2); Albumin/Globulin Ratio 0.7 (1.0-2.3); Alkaline Phosphatase 69 U/L (39-117); Bilirubin,Direct < 0.2 mg/dL (0.0-0.3); Blood Urea Nitrogen 11 mg/dl (8-23); Gamma Glutamyl Transpeptidase 16 U/L (5-36); Uric Acid 3.1 mg/dL (2.5-8.0)
[2018-11-13] MEDS: PANTOPRAZOLE 40 MG VIAL IV SCH ×2 (08:16→17:51)
--- NOTE | 2018-11-13 08:23 | XRay Report ---
HISTORY: Atelectasis and pain FINDINGS: There is dense consolidation of the left lower lobe. Small hazy infiltrate is seen medially in the right lung base. The consolidation in the left lower lobe has become worse since 11/10/18. The upper lung falcon are clear and there is no pulmonary vascular congestion. The heart size is normal. Nasogastric tube and right subclavian lines remain well-positioned. There is no pneumothorax. IMPRESSION: Worsening atelectasis or pneumonia in the left lower lobe Interpreted and Authenticated by: Arturo Castillo 11/13/18
[2018-11-13] MEDS ORDERED: POTASSIUM CHLORIDE 40 MEQ in DEXTROSE 5% IN WATER 500 ML IV ONE (09:14)
[2018-11-13] MEDS: ENOXAPARIN 40 MG/0.4 ML SYRINGE SQ SCH (10:22)
--- NOTE | 2018-11-13 14:18 | General Surgery Progress Note ---
Subjective Patient reports: feels better, pain is less, tolerating liquids well, flatus, bowel movement, afebrile Narrative: Note initiated : 11/13/18 at 2:16 pm Service Date, if different from initiated Date: [] Patient: Genna Gong 78 y/o F admitted on 11/09/18 for pain all over. Chief Complaint: [patient is doing well. She is more alert and aware today. She had a large bowel movement and has been passing flatus. She was started on clear liquids earlier this morning and seems to be tolerating well. Her a bdominal pain is controlled. She is has some upper airway congestion but her sats are 95% on 2 L. Her potassium is mildly elevated to 3.5. BUN 11 creatinine 0.7.] Objective Temp Pulse Resp BP Pulse Ox 99.1 F H 82 18 142/72 94 11/13/18 13:55 11/13/18 13:35 11/13/18 13:35 11/13/18 12:01 11/13/18 14:01 - Additional Data Intake & Output - Last 24 hours: Intake & Output 11/11/18 11/12/18 11/13/18 11/14/18 05:59 05:59 05:59 05:59 Intake Total 2500 3338.1818 2674.0909 245 Output Total 2075 4000 4360 2155 Balance 425 -661.8182 -1685.9091 -1910 Weight 228 lb 3.2 oz 232 lb 1.6 oz 230 lb - General physical appearance well developed, well nourished, no distress - Eyes PERRL, normal ocular movement - ENT normal pinna, normal nares, normal mucosa, no hearing loss, no congestion - Neck no masses, no bruits, trachea midline, no lymphadenopathy, no venous distension - Respiratory normal expansion, normal respiratory effort, clear to auscultation - Cardiovascular Cardiovascular exam: Present: normal rate and rhythm, +S1, +S2, tachycardia (few ectopic beats). Absent: JVD - Abdomen tender ( mild tenderness of her incision otherwise abdominal exam is benign), bowel sounds (present), surgical scars (none), masses (none) - Integumentary no rash, no growths, no abnormal pigmentation - Neurologic normal coordination, normal sensation - Psychiatric oriented to time, oriented to person, oriented to place, speech is normal, memory intact - Labs 11/12/18 04:00 11/13/18 04:00 Diabetes panel 11/12/18 11/13/18 Range/Units 14:03 04:00 Sodium 138 137 (133-145) mmol/L Potassium 2.7 L* 3.5 (3.3-5.1) mmol/L Chloride 105 106 (96-108) mmol/L Carbon Dioxide 24 23 (22-30) mmol/L BUN 14 11 (8-23) mg/dl Creatinine 0.8 0.7 (0.6-1.1) mg/dl Glucose 157 H 129 H (70-105) mg/dL Calcium 8.6 8.3 L (8.6-10.4) mg/dl AST 14 (0-37) U/l ALT 19 (0-40) U/l Alkaline Phosphatase 69 (39-117) U/L Total Protein 4.5 L (5.9-8.4) gm/dL Albumin 1.9 L (3.2-5.2) gm/dL Triglycerides 120 (<150) mg/dl Calcium panel 11/12/18 11/13/18 Range/Units 14:03 04:00 Calcium 8.6 8.3 L (8.6-10.4) mg/dl Phosphorus 2.7 (2.7-4.5) mg/dL Albumin 1.9 L (3.2-5.2) gm/dL Pituitary panel 11/12/18 11/13/18 Range/Units 14:03 04:00 Sodium 138 137 (133-145) mmol/L Potassium 2.7 L* 3.5 (3.3-5.1) mmol/L Chloride 105 106 (96-108) mmol/L Carbon Dioxide 24 23 (22-30) mmol/L BUN 14 11 (8-23) mg/dl Creatinine 0.8 0.7 (0.6-1.1) mg/dl Glucose 157 H 129 H (70-105) mg/dL Calcium 8.6 8.3 L (8.6-10.4) mg/dl Adrenal panel 11/12/18 11/13/18 Range/Units 14:03 04:00 Sodium 138 137 (133-145) mmol/L Potassium 2.7 L* 3.5 (3.3-5.1) mmol/L Chloride 105 106 (96-108) mmol/L Carbon Dioxide 24 23 (22-30) mmol/L BUN 14 11 (8-23) mg/dl Creatinine 0.8 0.7 (0.6-1.1) mg/dl Glucose 157 H 129 H (70-105) mg/dL Calcium 8.6 8.3 L (8.6-10.4) mg/dl Total Bilirubin 0.3 (0.0-1.0) mg/dL AST 14 (0-37) U/l ALT 19 (0-40) U/l Alkaline Phosphatase 69 (39-117) U/L Total Protein 4.5 L (5.9-8.4) gm/dL Albumin 1.9 L (3.2-5.2) gm/dL Assessment and Plan (1) Perforated abdominal viscus Status: Acute Assessment and plan: Clinically improved but with hypoventilation and atelectasis of lung will start clear liquids and advance in the a.m. as tolerated Current Visit: Yes (2) Peritonitis (acute) generalized Status: Acute Assessment and plan: Clinically improved with decrease in leukocytosis and fever Current Visit: Yes (3) Diabetic neuropathy Status: Chronic Current Visit: No - Time Spent With Patient Total time spent is greater than 50% in coordination of care (as documented) at patient's floor/unit and/or counseling patient:
[2018-11-13] MEDS ORDERED: 0.9 % SODIUM CHLORIDE 1,000 ML IV SCH (18:00)
--- NOTE | 2018-11-13 18:37 | Internal Med Progress Note ---
Medical - PN: Subj Patient information: Note initiated : 11/13/18 at 6:33 pm Service Date, if different from initiated Date: [] Patient: Genna Gong a 78 y/o F admitted on 11/09/18 for pain all over. Chief Complaint: f/u follow-up delirium, perforated gastric ulcer Interval history: 11/09 Ms. Gong is a 78 year old F with h/o CAD, DM, HTN, presented to the ER with complaints of abdominal pain. The patient had a fall and had been taking NSAIDs for pain. In the ER she had initially a CTA chest, and then CT Abdomen pelvis which showed free fluid in the abdomen and free air in the abdomen. Surgery was consulted and patient was taken for emergent surgery, the patient was noted to have a perforated gastric ulcer, the patient perforation was repaired and patient brought back to the ICU. Given her medical issues, medicine is consulted for management of chronic medical issues. The patient at the time of my evaluation was drowsy, post op, unable to give any history. History obtained from chart review. 2/3 Pt seen examined, low grade fevers, still has sore abdomen, no new complaints or concerns making urine, bp stable, stable oxygen needs X ray reviewed, bibasilar atelectasis, (likely causing fevers) unfortunately she is too weak to do pulmonary toilets, trial of chest PT to see if this helps 2/4 Pt seen examined still drowsy, K 2.6, able to tolerate chest PT well today No other issues Hb stable Good urine output 2/5 Pt seen examined, overnight was very confused and paranoid, this AM told me she wanted to go home and we were stopping her, she seemed A&Ox3 will start on Zyprexa for icu delirium K is still low replace aggressively trial of amiloride 5mg once urine sodium is elevated 2/6 Patient seen and examined. Still with some expected abdominal pain. No dyspnea. Getting chest PT. Last night, is accusing staff of wanting to steal her pets, but not as confused as the previous evening. Started Zyprexa at bedtime yesterday. - Constitutional Vitals: Vital Signs Temp Pulse Resp BP Pulse Ox 99.6 F H 82 19 117/75 94 11/13/18 16:00 11/13/18 13:35 11/13/18 16:00 11/13/18 16:00 11/13/18 14:01 Period Temp Pulse Resp BP Sys/Maldonado Pulse Ox Last 24 Hr 98.2 F-99.6 F 66-92 18-28 105-152/55-101 94-98 Intake and Output 11/13/18 11/13/18 11/13/18 05:59 13:59 21:59 Intake Total 150 1295 483 Output Total 1245 2155 515 Balance -1095 -860 -32 Intake & Output: Intake & Output 11/13/18 11/13/18 11/13/18 05:59 13:59 21:59 Intake Total 150 1295 483 Output Total 1245 2155 515 Balance -1095 -860 -32 Intake: IV 150 1200 83 Sodium Chloride 0.9% 1,000 ml @ 1000 100 mls/hr IV .Q10H [facility] Rx#: [id number] Zosyn 3.375 gm In Dextrose 5% 50 100 in Water 50 ml @ 100 mls/hr IV Q6H [facility] Rx#:[id number] Oral 40 400 Input, Drain Irrigation Amount 55 MILIND B 55 Output: Drainage 125 65 MILIND B 85 50 milind drain 40 15 Urine Catheter Amount 1245 2030 Void Amount 450 Other: Meal Lunch Percent of Meal Consumed 100% Urine Appearance Clear Clear Uretheral ([place]) Clear Urine Color Pale Pale Uretheral ([place]) Pale Stool Color Green Stool Consistency Loose # Bowel Movements 1 # of times incontinent of 1 Bowels Exam: General: Abegg, no acute distress, receiving chest PT Cardiovascular: Regular Chest: Diminished at bases, unlabored Abdomen: Appropriate postoperative tenderness, diminished bowel sounds Neuro: Alert, answering appropriately, generally weak Medical - PN: Obj Da - Labs CBC & Chem 7: 11/12/18 04:00 11/13/18 04:00 Labs: Abnormal Lab Results 11/13/18 11/12/18 11/12/18 04:00 14:03 04:00 WBC 13.4 H RBC 3.41 L Hgb 9.6 L Hct 29.8 L POC Hct Gran % 89.6 H Lymph % (Auto) 5.5 L Gran # 12.0 H Lymph # (Auto) 0.7 L POC Potassium Potassium 2.7 L* Carbon Dioxide POC Total CO2 BUN Glucose 129 H 157 H POC Glucose Calcium 8.3 L Phosphorus Magnesium 1.5 L Alkaline Phosphatase Total Protein 4.5 L Albumin 1.9 L Albumin/Globulin Ratio 0.7 L 11/12/18 11/11/18 11/11/18 04:00 15:59 14:28 WBC RBC Hgb Hct POC Hct 30.0 L Gran % Lymph % (Auto) Gran # Lymph # (Auto) POC Potassium 2.4 L* Potassium 2.5 L* 2.5 L* Carbon Dioxide POC Total CO2 21 L BUN Glucose 110 H 167 H POC Glucose 150 H Calcium 8.5 L 8.4 L Phosphorus 1.8 L Magnesium Alkaline Phosphatase 137 H Total Protein 4.8 L Albumin 2.1 L Albumin/Globulin Ratio 0.8 L 11/11/18 11/11/18 03:40 03:40 WBC 11.6 H RBC 3.37 L Hgb 9.6 L Hct 29.8 L POC Hct Gran % 89.2 H Lymph % (Auto) 5.0 L Gran # 10.4 H Lymph # (Auto) 0.6 L POC Potassium Potassium 2.6 L* Carbon Dioxide 20 L POC Total CO2 BUN 26 H Glucose 143 H POC Glucose Calcium 8.1 L Phosphorus Magnesium Alkaline Phosphatase Total Protein 4.5 L Albumin 1.8 L Albumin/Globulin Ratio 0.7 L Meds: Medications Albuterol/Ipratropium (Duoneb) 3 ml NEB Q6HRT [facility] Last Admin: 11/13/18 13:35 Dose: 3 ml Documented by: Diagnostic Test (Pha) (Accu-Chek) 1 each FS Q6 [facility] Last Admin: 11/13/18 17:51 Dose: 1 each Documented by: Enoxaparin Sodium (Lovenox) 40 mg SQ DAILY [facility] Last Admin: 11/13/18 10:22 Dose: 40 mg Documented by: Fentanyl (Sublimaze) 25 mcg IV Q2HP PRN PRN Reason: PAIN LEVEL > 6 Acetaminophen (Ofirmev) 1,000 mg in 100 mls @ 200 mls/hr IV Q6H [facility] Last Infusion: 11/13/18 14:20 Dose: 0 mls/hr Documented by: Piperacillin Sod/Tazobactam (Sod 3.375 gm/ Dextrose) 50 mls @ 100 mls/hr IV Q6H [facility] Last Admin: 11/13/18 17:53 Dose: 100 mls/hr Documented by: Sodium Chloride (Sodium Chloride 0.9%) 1,000 mls @ 25 mls/hr IV .Q24H [facility] Insulin Human Lispro (Humalog) 0 unit SQ Q6 [facility]; Protocol Last Admin: 11/13/18 17:51 Dose: Not Given Documented by: Metoclopramide HCl (Reglan) 10 mg IV Q6 [facility] Last Admin: 11/13/18 17:52 Dose: 10 mg Documented by: Olanzapine (Zyprexa) 5 mg IM Q2HP PRN PRN Reason: Agitation Ondansetron HCl (Zofran) 4 mg IV Q4HP PRN PRN Reason: Nausea And Vomiting Pantoprazole Sodium (Protonix) 40 mg IV BIDAC [facility] Last Admin: 11/13/18 17:51 Dose: 40 mg Documented by: Promethazine HCl (Phenergan) 12.5 mg IV Q4HP PRN PRN Reason: Nausea And Vomiting Sodium Chloride (Saline Flush) 10 ml IV UD PRN PRN Reason: Analgesia Sodium Chloride (Saline Flush) 10 ml IV Q12 [facility] Last Admin: 11/13/18 08:27 Dose: 10 ml Documented by: Sodium Chloride (Saline Flush) 10 ml IV Q8 [facility] Last Admin: 11/13/18 17:50 Dose: 10 ml Documented by: - Imaging and cardiology Chest x-ray Status: image reviewed by me Additional comments: IMPRESSION: Worsening atelectasis or pneumonia in the left lower lobe Medical - PN: A/P - Narrative A/P Narrative: Gastric Ulcer perforation -s/p perforation repair -on IV PPI for now -on Zosyn Bibasilar atelectasis -Worsening -Continue with pulmonary toilet, chest PT -Remains on Zosyn as above Acute hypoxic respiratory failure -Likely secondary to atelectasis and exploratory laparotomy -Supplemental oxygen as needed, pulmonary toilet is above DM -On insulin therapy at baseline -While nothing by mouth, CBGs every 6 hours with sliding scale insulin HTN -Holding oral meds for now -Monitor blood pressure,, if trending upward may need to add IV prn CAD -pt was given ASA prior, will resume once able Emphysema (noted on CT) -changed to DuoNeb q6hrs Electrolytes/ Hypokalemia -Improved, but still low -Replace further -amiloride 5mg on 11/12 -Urine K is 30 (expect to be very low) DVT on enoxaparin sq Medical - PN: Qual - VTE Deep Vein Thrombosis/Pulmonary Embolism Present on Admission: No
[2018-11-13] MEDS ORDERED: MAGNESIUM SULFATE 2 GM/50 ML BAG IV ONE (19:32)
[2018-11-14] MEDS: METOCLOPRAMIDE 10 MG/2 ML VIAL IV SCH ×4 (00:15→17:55)
[2018-11-14] MEDS: INSULIN LISPRO 1 UNIT/0.01 ML UNIT SQ SCH ×4 (00:16→17:55)
[2018-11-14] MEDS: PIPERACILLIN SODIUM/TAZOBACTAM 3.375 GM in DEXTROSE 5% IN WATER 50 ML IV SCH ×4 (00:16→17:56)
[2018-11-14] MEDS: IPRATROPIUM/ALBUTEROL 3 ML AMPUL.NEB NEB SCH ×4 (01:06→19:36)
[2018-11-14] MEDS: ACETAMINOPHEN 1,000 MG/100 ML BOTTLE IV SCH ×4 (03:00→21:01)
[2018-11-14] MEDS: 0.9 % SODIUM CHLORIDE 10 ML SYRINGE IV SCH ×6 (05:26→23:00)
[2018-11-14] MEDS: fentaNYL 100 MCG/2 ML VIAL IV PRN ×3 (07:23→18:02)
[2018-11-14] MEDS: PANTOPRAZOLE 40 MG VIAL IV SCH ×2 (08:10→17:17)
[2018-11-14] MEDS: ENOXAPARIN 40 MG/0.4 ML SYRINGE SQ SCH (09:21)
[2018-11-14 10:06] LABS: Basophils # (Auto) 0 K/mcL (0.0-0.3); Basophils % (Auto) 0.1 % (0.0-2.0); Eosinophils # (Auto) 0.1 K/mcL (0.0-0.7); Eosinophils % (Auto) 0.6 % (0.0-7.0); Granulocytes % (Auto) 81.6 % (38.0-78.0); Lymphocytes # (Auto) 1.5 K/mcL (1.5-4.8); Mean Cell Volume 87.2 fL (80.0-100.0); Mean Corpuscular HGB Conc 32.1 g/dL (31.0-36.0); Monocytes # (Auto) 0.9 K/mcL (0.1-0.9); Monocytes % (Auto) 6.7 % (1.0-12.0); Platelet Count 344 K/mcL (140-440); RBC 4.14 M/mcL (4.00-5.20); Red Cell Distribution Width 13.8 % (11.5-14.5)
[2018-11-14 10:28] LABS: ALT/SGPT 23 U/l (0-40); Albumin 2.4 gm/dL (3.2-5.2); Albumin/Globulin Ratio 0.8 (1.0-2.3); Alkaline Phosphatase 64 U/L (39-117); Bilirubin,Direct < 0.2 mg/dL (0.0-0.3); Blood Urea Nitrogen 10 mg/dl (8-23); Gamma Glutamyl Transpeptidase 23 U/L (5-36); Uric Acid 2.5 mg/dL (2.5-8.0)
[2018-11-14] MEDS: 0.9 % SODIUM CHLORIDE 10 ML SYRINGE IV PRN ×2 (12:53→13:37)
--- NOTE | 2018-11-14 15:30 | General Surgery Progress Note ---
Subjective Patient reports: feels better, pain is less, tolerating liquids well, flatus, bowel movement, diarrhea, afebrile Narrative: Note initiated : 11/14/18 at 3:28 pm Service Date, if different from initiated Date: [] Patient: Genna Gong 78 y/o F admitted on 11/09/18 for pain all over. Chief Complaint: [patient continues to improve. She is bright and alert. She is fully oriented and has minimal recollection of her periods of mental confusion. She is having regular bowel movements and tolerating a liquid diet. White blood count 13.4 potassium 3.3.] Objective Temp Pulse Resp BP Pulse Ox 97.8 F 91 H 28 H 153/82 96 11/14/18 12:33 11/14/18 12:24 11/14/18 12:33 11/14/18 12:33 11/14/18 12:33 - Additional Data Intake & Output - Last 24 hours: Intake & Output 11/12/18 11/13/18 11/14/18 11/15/18 05:59 05:59 05:59 05:59 Intake Total 3338.1818 2674.0909 3228 1445 Output Total 4000 4360 3770 1670 Balance -661.8182 -1685.9091 -542 -225 Weight 232 lb 1.6 oz 230 lb 228 lb 9.6 oz - General physical appearance well developed, well nourished, no distress - Eyes PERRL, normal ocular movement - ENT normal pinna, normal nares, normal mucosa, no hearing loss, no congestion - Neck no masses, no bruits, trachea midline, no lymphadenopathy, no venous distension - Respiratory normal expansion, normal respiratory effort, clear to auscultation - Cardiovascular Cardiovascular exam: Present: normal rate and rhythm, RRR, +S1, +S2. Absent: JVD, tachycardia - Abdomen tender (minimal incisional tenderness; good active bowel sounds; PATTI drainage is serous), bowel sounds (present), surgical scars (none), masses (none) - Integumentary no rash, no growths, no abnormal pigmentation - Neurologic normal coordination, normal sensation - Musculoskeletal normal gait, normal posture - Psychiatric oriented to time, oriented to person, oriented to place, speech is normal, memory intact - Labs 11/14/18 08:47 11/14/18 08:47 Diabetes panel 02/07/19 Range/Units 08:47 Sodium 137 (133-145) mmol/L Potassium 3.3 (3.3-5.1) mmol/L Chloride 104 (96-108) mmol/L Carbon Dioxide 24 (22-30) mmol/L BUN 10 (8-23) mg/dl Creatinine 0.7 (0.6-1.1) mg/dl Glucose 137 H (70-105) mg/dL Calcium 8.9 (8.6-10.4) mg/dl AST 15 (0-37) U/l ALT 23 (0-40) U/l Alkaline Phosphatase 64 (39-117) U/L Total Protein 5.6 L (5.9-8.4) gm/dL Albumin 2.4 L (3.2-5.2) gm/dL Triglycerides 177 H (<150) mg/dl Calcium panel 11/14/18 Range/Units 08:47 Calcium 8.9 (8.6-10.4) mg/dl Phosphorus 1.5 L (2.7-4.5) mg/dL Albumin 2.4 L (3.2-5.2) gm/dL Pituitary panel 11/14/18 Range/Units 08:47 Sodium 137 (133-145) mmol/L Potassium 3.3 (3.3-5.1) mmol/L Chloride 104 (96-108) mmol/L Carbon Dioxide 24 (22-30) mmol/L BUN 10 (8-23) mg/dl Creatinine 0.7 (0.6-1.1) mg/dl Glucose 137 H (70-105) mg/dL Calcium 8.9 (8.6-10.4) mg/dl Adrenal panel 11/14/18 Range/Units 08:47 Sodium 137 (133-145) mmol/L Potassium 3.3 (3.3-5.1) mmol/L Chloride 104 (96-108) mmol/L Carbon Dioxide 24 (22-30) mmol/L BUN 10 (8-23) mg/dl Creatinine 0.7 (0.6-1.1) mg/dl Glucose 137 H (70-105) mg/dL Calcium 8.9 (8.6-10.4) mg/dl Total Bilirubin 0.4 (0.0-1.0) mg/dL AST 15 (0-37) U/l ALT 23 (0-40) U/l Alkaline Phosphatase 64 (39-117) U/L Total Protein 5.6 L (5.9-8.4) gm/dL Albumin 2.4 L (3.2-5.2) gm/dL Assessment and Plan (1) Perforated abdominal viscus Status: Acute Assessment and plan: Clinically improved but with hypoventilation and atelectasis of lung Advanced to regular diet Transfer to [facility] Current Visit: Yes (2) Peritonitis (acute) generalized Status: Acute Assessment and plan: Clinically improved with decrease in leukocytosis and fever Current Visit: Yes (3) Diabetic neuropathy Status: Chronic Current Visit: No - Time Spent With Patient Total time spent is greater than 50% in coordination of care (as documented) at patient's floor/unit and/or counseling patient:
[2018-11-14] MEDS ORDERED: PROMETHAZINE 25 MG/ML VIAL IV PRN (16:37)
[2018-11-14] MEDS ORDERED: 0.9 % SODIUM CHLORIDE 1,000 ML IV SCH (16:37)
[2018-11-14] MEDS ORDERED: OLANZapine 10 MG VIAL IM PRN (16:37)
[2018-11-14] MEDS ORDERED: 0.9 % SODIUM CHLORIDE 10 ML SYRINGE IV PRN (16:37)
--- NOTE | 2018-11-14 20:45 | Internal Med Progress Note ---
Medical - PN: Subj Patient information: Note initiated : 11/14/18 at 8:43 pm Service Date, if different from initiated Date: [] Patient: Genna Gong a 78 y/o F admitted on 11/09/18 for pain all over. Chief Complaint: Follow-up gastric ulcer, respiratory failure Interval history: 11/09 Ms. Gong is a 78 year old F with h/o CAD, DM, HTN, presented to the ER with complaints of abdominal pain. The patient had a fall and had been taking NSAIDs for pain. In the ER she had initially a CTA chest, and then CT Abdomen pelvis which showed free fluid in the abdomen and free air in the abdomen. Surgery was consulted and patient was taken for emergent surgery, the patient was noted to have a perforated gastric ulcer, the patient perforation was repaired and patient brought back to the ICU. Given her medical issues, medicine is consulted for management of chronic medical issues. The patient at the time of my evaluation was drowsy, post op, unable to give any history. History obtained from chart review. 2/3 Pt seen examined, low grade fevers, still has sore abdomen, no new complaints or concerns making urine, bp stable, stable oxygen needs X ray reviewed, bibasilar atelectasis, (likely causing fevers) unfortunately she is too weak to do pulmonary toilets, trial of chest PT to see if this helps 2/4 Pt seen examined still drowsy, K 2.6, able to tolerate chest PT well today No other issues Hb stable Good urine output 2/5 Pt seen examined, overnight was very confused and paranoid, this AM told me she wanted to go home and we were stopping her, she seemed A&Ox3 will start on Zyprexa for icu delirium K is still low replace aggressively trial of amiloride 5mg once urine sodium is elevated 2/6 Patient seen and examined. Still with some expected abdominal pain. No dyspnea. Getting chest PT. Last night, is accusing staff of wanting to steal her pets, but not as confused as the previous evening. Started Zyprexa at bedtime yesterday. 2 Patient seen and examined, sitting up in chair at bedside, looks good, alert and oriented. No confusion overnight last night. Still on minimal amount of oxy gen, working with incentive spirometer. - Constitutional Vitals: Vital Signs Temp Pulse Resp BP Pulse Ox 98.3 F 98 H 20 122/65 97 11/14/18 20:07 11/14/18 20:07 11/14/18 20:07 11/14/18 20:07 11/14/18 20:07 Period Temp Pulse Resp BP Sys/[place] Pulse Ox Last 24 Hr 97.1 F-99.0 F 82-98 16-28 122-153/59-89 92-97 Intake and Output 11/14/18 11/14/18 11/14/18 05:59 13:59 21:59 Intake Total 200 1225 220 Output Total 1100 1670 Balance -900 1225 -1450 Weight 230 lb Patient Weight 11/15/18 05:59 Weight 230 lb Intake & Output: Intake & Output 11/14/18 11/14/18 11/14/18 05:59 13:59 21:59 Intake Total 200 1225 220 Output Total 1100 1670 Balance -900 1225 -1450 Weight 230 lb Intake: IV 200 545 100 Sodium Chloride 0.9% 1,000 ml @ 395 25 mls/hr IV .Q24H JOHN Rx#: [id number] Zosyn 3.375 gm In Dextrose 5% 100 50 in Water 50 ml @ 100 mls/hr IV Q6H JOHN Rx#:[id number] Oral 680 120 Output: Drainage 75 70 MILIND B 65 10 milind drain 10 60 Urine Catheter Amount 1025 1600 Other: Meal Breakfast Percent of Meal Consumed 75% Urine Appearance Clear Clear Uretheral ([place]) Clear Urine Color Bright Yellow Bright Yellow Uretheral ([place]) Bright Yellow Urine Odor Normal Normal Stool Size Moderate Stool Color Green Stool Consistency Liquid # of times incontinent of 1 Bowels Exam: General: In no distress, sitting in chair Chest: Diminished at bases, distant breath sounds, unlabored Cardiovascular: Distant, regular Abdomen: Obese, appropriate postoperative tenderness Neuro: Alert, oriented, moves all extremities, no confusion Medical - PN: Obj Da - Labs CBC & Chem 7: 11/14/18 08:47 11/14/18 08:47 Labs: Abnormal Lab Results 11/14/18 11/14/18 11/13/18 08:47 08:47 04:00 WBC 13.4 H RBC Hgb 11.6 L Hct Gran % 81.6 H Lymph % (Auto) 11.0 L Gran # 10.9 H Lymph # (Auto) Potassium Glucose 137 H 129 H Calcium 8.3 L Phosphorus 1.5 L Magnesium 1.5 L Alkaline Phosphatase Total Protein 5.6 L 4.5 L Albumin 2.4 L 1.9 L Albumin/Globulin Ratio 0.8 L 0.7 L Triglycerides 177 H 11/12/18 11/12/18 11/12/18 14:03 04:00 04:00 WBC 13.4 H RBC 3.41 L Hgb 9.6 L Hct 29.8 L Gran % 89.6 H Lymph % (Auto) 5.5 L Gran # 12.0 H Lymph # (Auto) 0.7 L Potassium 2.7 L* 2.5 L* Glucose 157 H 110 H Calcium 8.5 L Phosphorus 1.8 L Magnesium Alkaline Phosphatase 137 H Total Protein 4.8 L Albumin 2.1 L Albumin/Globulin Ratio 0.8 L Triglycerides Meds: Medications Albuterol/Ipratropium (Duoneb) 3 ml NEB Q6HRT [facility] Last Admin: 11/14/18 19:36 Dose: 3 ml Documented by: Diagnostic Test (Pha) (Accu-Chek) 1 each FS Q6 [facility] Last Admin: 11/14/18 17:54 Dose: 1 each Documented by: Enoxaparin Sodium (Lovenox) 40 mg SQ DAILY [facility] Fentanyl (Sublimaze) 25 mcg IV Q2HP PRN PRN Reason: PAIN LEVEL > 6 Last Admin: 11/14/18 18:02 Dose: 25 mcg Documented by: Acetaminophen (Ofirmev) 1,000 mg in 100 mls @ 200 mls/hr IV Q6H [facility] Piperacillin Sod/Tazobactam (Sod 3.375 gm/ Dextrose) 50 mls @ 100 mls/hr IV Q6H [facility] Last Admin: 11/14/18 17:56 Dose: 100 mls/hr Documented by: Insulin Human Lispro (Humalog) 0 unit SQ Q6 [facility]; Protocol Last Admin: 11/14/18 17:55 Dose: 2 unit Documented by: Metoclopramide HCl (Reglan) 10 mg IV Q6 [facility] Last Admin: 11/14/18 17:55 Dose: 10 mg Documented by: Olanzapine (Zyprexa) 5 mg IM Q2HP PRN PRN Reason: Agitation Ondansetron HCl (Zofran) 4 mg IV Q4HP PRN PRN Reason: Nausea And Vomiting Pantoprazole Sodium (Protonix) 40 mg IV BIDAC [facility] Last Admin: 11/14/18 17:17 Dose: 40 mg Documented by: Promethazine HCl (Phenergan) 12.5 mg IV Q4HP PRN PRN Reason: Nausea And Vomiting Sodium Chloride (Saline Flush) 10 ml IV UD PRN PRN Reason: Analgesia Sodium Chloride (Saline Flush) 10 ml IV Q12 JOHN Sodium Chloride (Saline Flush) 10 ml IV Q8 [facility] Medical - PN: A/P - Narrative A/P Narrative: Gastric Ulcer perforation -s/p perforation repair -on IV PPI for now -on Zosyn Bibasilar atelectasis -Continue with pulmonary toilet, chest PT -Remains on Zosyn as above Acute hypoxic respiratory failure -Improving -Likely secondary to atelectasis and exploratory laparotomy -Supplemental oxygen as needed, pulmonary toilet is above DM -On insulin therapy at baseline -CBGs with sliding scale insulin HTN -Holding oral meds for now -Monitor blood pressure,, if trending upward will resume home medications CAD -pt was given ASA prior, will resume once able Emphysema (noted on CT) -changed to DuoNeb q6hrs Electrolytes/ Hypokalemia -Improved -Replace as needed -amiloride 5mg on 11/12 -Urine K is 30 (expect to be very low) DVT on enoxaparin sq Medical - PN: Qual - VTE Deep Vein Thrombosis/Pulmonary Embolism Present on Admission: No
[2018-11-15] MEDS: PIPERACILLIN SODIUM/TAZOBACTAM 3.375 GM in DEXTROSE 5% IN WATER 50 ML IV SCH ×4 (00:51→17:33)
[2018-11-15] MEDS: METOCLOPRAMIDE 10 MG/2 ML VIAL IV SCH ×4 (00:51→17:32)
[2018-11-15] MEDS: IPRATROPIUM/ALBUTEROL 3 ML AMPUL.NEB NEB SCH ×4 (00:52→19:26)
[2018-11-15] MEDS: INSULIN LISPRO 1 UNIT/0.01 ML UNIT SQ SCH ×4 (00:53→16:58)
[2018-11-15] MEDS: ACETAMINOPHEN 1,000 MG/100 ML BOTTLE IV SCH ×4 (02:50→20:16)
[2018-11-15] MEDS: 0.9 % SODIUM CHLORIDE 10 ML SYRINGE IV SCH ×4 (08:02→22:00)
[2018-11-15] MEDS: PANTOPRAZOLE 40 MG VIAL IV SCH ×2 (08:02→16:57)
[2018-11-15] MEDS: ENOXAPARIN 40 MG/0.4 ML SYRINGE SQ SCH (08:15)
[2018-11-15 09:30] LABS: ALT/SGPT 18 U/l (0-40); Albumin 2.2 gm/dL (3.2-5.2); Albumin/Globulin Ratio 0.8 (1.0-2.3); Alkaline Phosphatase 60 U/L (39-117); Bilirubin,Direct < 0.2 mg/dL (0.0-0.3); Blood Urea Nitrogen 7 mg/dl (8-23); Gamma Glutamyl Transpeptidase 23 U/L (5-36); Uric Acid 2.3 mg/dL (2.5-8.0)
[2018-11-15 11:56] LABS: Basophils # (Auto) 0 K/mcL (0.0-0.3); Basophils % (Auto) 0.1 % (0.0-2.0); Eosinophils # (Auto) 0.1 K/mcL (0.0-0.7); Eosinophils % (Auto) 1.2 % (0.0-7.0); Lymphocytes # (Auto) 0.9 K/mcL (1.5-4.8); Lymphocytes % (Auto) 8.1 % (15.5-49.0); Mean Cell Volume 86.2 fL (80.0-100.0); Mean Corpuscular HGB Conc 32.2 g/dL (31.0-36.0); Monocytes # (Auto) 1.2 K/mcL (0.1-0.9); Monocytes % (Auto) 10.6 % (1.0-12.0); Platelet Count 328 K/mcL (140-440); RBC 3.77 M/mcL (4.00-5.20); Red Cell Distribution Width 13.9 % (11.5-14.5)
--- NOTE | 2018-11-15 13:36 | General Surgery Progress Note ---
Subjective Patient reports: feels better, pain is less (is alive and), tolerating a regular diet, flatus, bowel movement, afebrile Narrative: Note initiated : 11/15/18 at 1:34 pm Service Date, if different from initiated Date: [] Patient: Genna Gong 78 y/o F admitted on 11/09/18 for pain all over. Chief Complaint: [patient is doing well and is stronger each day. Her respiratory pattern is much improved. She has productive cough. She is having regular bowel movements. white blood count 11.7 hemoglobin 10.5 potassium 3.2 phosphorus 1.8] Objective Temp Pulse Resp BP Pulse Ox 98.6 F 95 H 18 142/72 95 11/15/18 12:00 11/15/18 13:19 11/15/18 13:19 11/15/18 12:00 11/15/18 12:00 - Additional Data Intake & Output - Last 24 hours: Intake & Output 11/13/18 11/14/18 11/15/18 11/16/18 05:59 05:59 05:59 05:59 Intake Total 2674.0909 3228 1745 510 Output Total 4360 3770 2965 860 Balance -1685.9091 -542 -1220 -350 Weight 230 lb 228 lb 9.6 oz 230 lb - General physical appearance well developed, well nourished, no distress, chronically ill - Eyes PERRL, normal ocular movement - ENT normal pinna, normal nares, normal mucosa, no congestion, decreased hearing - Neck no masses, no bruits, trachea midline, no lymphadenopathy, no venous distension - Respiratory normal expansion, normal respiratory effort, clear to auscultation, other (still with decrease breath sounds at dependent portions of lung but no rales rhonchi or wheezes) - Cardiovascular Cardiovascular exam: Present: normal rate and rhythm, +S1, +S2. Absent: JVD - Abdomen tender ( mild incisional tenderness otherwise benign abdominal exam; PATTI with serous drainage), bowel sounds (present), surgical scars (none), masses (none) - Integumentary no rash, no growths, no abnormal pigmentation - Neurologic normal coordination, normal sensation - Musculoskeletal other ( assisted gait) - Psychiatric oriented to time, oriented to person, oriented to place, speech is normal, memory intact - Labs 11/15/18 10:05 11/15/18 08:24 Diabetes panel 11/15/18 Range/Units 08:24 Sodium 140 (133-145) mmol/L Potassium 3.2 L (3.3-5.1) mmol/L Chloride 109 H (96-108) mmol/L Carbon Dioxide 26 (22-30) mmol/L BUN 7 L (8-23) mg/dl Creatinine 0.7 (0.6-1.1) mg/dl Glucose 123 H (70-105) mg/dL Calcium 8.5 L (8.6-10.4) mg/dl AST 16 (0-37) U/l ALT 18 (0-40) U/l Alkaline Phosphatase 60 (39-117) U/L Total Protein 5.1 L (5.9-8.4) gm/dL Albumin 2.2 L (3.2-5.2) gm/dL Triglycerides 181 H (<150) mg/dl Calcium panel 11/15/18 Range/Units 08:24 Calcium 8.5 L (8.6-10.4) mg/dl Phosphorus 1.8 L (2.7-4.5) mg/dL Albumin 2.2 L (3.2-5.2) gm/dL Pituitary panel 11/15/18 Range/Units 08:24 Sodium 140 (133-145) mmol/L Potassium 3.2 L (3.3-5.1) mmol/L Chloride 109 H (96-108) mmol/L Carbon Dioxide 26 (22-30) mmol/L BUN 7 L (8-23) mg/dl Creatinine 0.7 (0.6-1.1) mg/dl Glucose 123 H (70-105) mg/dL Calcium 8.5 L (8.6-10.4) mg/dl Adrenal panel 11/15/18 Range/Units 08:24 Sodium 140 (133-145) mmol/L Potassium 3.2 L (3.3-5.1) mmol/L Chloride 109 H (96-108) mmol/L Carbon Dioxide 26 (22-30) mmol/L BUN 7 L (8-23) mg/dl Creatinine 0.7 (0.6-1.1) mg/dl Glucose 123 H (70-105) mg/dL Calcium 8.5 L (8.6-10.4) mg/dl Total Bilirubin 0.4 (0.0-1.0) mg/dL AST 16 (0-37) U/l ALT 18 (0-40) U/l Alkaline Phosphatase 60 (39-117) U/L Total Protein 5.1 L (5.9-8.4) gm/dL Albumin 2.2 L (3.2-5.2) gm/dL Assessment and Plan (1) Perforated abdominal viscus Status: Acute Assessment and plan: Clinically improved Advanced to regular diet Transfer to [facility] Follow-up chest x-ray today to evaluate basilar atelectasis and infiltrate Current Visit: Yes (2) Peritonitis (acute) generalized Status: Acute Assessment and plan: peritonitis is clinically resolved Current Visit: Yes (3) Diabetic neuropathy Status: Chronic Current Visit: No - Time Spent With Patient Total time spent is greater than 50% in coordination of care (as documented) at patient's floor/unit and/or counseling patient:
[2018-11-15] MEDS: POTASSIUM PHOSPHATE 40 MEQ in DEXTROSE 5% IN WATER 500 ML IV SCH ×2 (13:58→18:24)
[2018-11-15] MEDS ORDERED: ALTEPLASE 2 MG VIAL IV ONE (14:13)
--- NOTE | 2018-11-15 14:19 | XRay Report ---
HISTORY: Follow-up pulmonary infiltrates FINDINGS: There is a moderate size infiltrate in the basilar segments left lower lobe with a superimposed small pleural effusion. A mild hazy alveolar opacity is seen around the right lower hilum. There has been improvement in the left lower thorax and no change in the right. The upper lung falcon are clear. Heart size is upper limits of normal. No pulmonary vascular congestion is present. Nasogastric tube has been removed since 11/13/18. Right subclavian line remains in good position. IMPRESSION: Improving atelectasis or pneumonia in the left lower lobe with a shrinking left-sided pleural effusion Residual mild right lower lobe infiltrate with no change Interpreted and Authenticated by: Arturo Castillo 11/15/18
[2018-11-15] MEDS: fentaNYL 100 MCG/2 ML VIAL IV PRN (15:41)
[2018-11-16] MEDS: PIPERACILLIN SODIUM/TAZOBACTAM 3.375 GM in DEXTROSE 5% IN WATER 50 ML IV SCH ×4 (00:21→17:33)
[2018-11-16] MEDS: 0.9 % SODIUM CHLORIDE 10 ML SYRINGE IV SCH ×8 (00:41→21:07)
[2018-11-16] MEDS: METOCLOPRAMIDE 10 MG/2 ML VIAL IV SCH ×4 (00:55→17:43)
[2018-11-16] MEDS: INSULIN LISPRO 1 UNIT/0.01 ML UNIT SQ SCH ×4 (01:13→17:47)
[2018-11-16] MEDS: IPRATROPIUM/ALBUTEROL 3 ML AMPUL.NEB NEB SCH ×4 (01:14→19:02)
[2018-11-16] MEDS: ACETAMINOPHEN 1,000 MG/100 ML BOTTLE IV SCH ×4 (01:18→20:20)
[2018-11-16] MEDS: fentaNYL 100 MCG/2 ML VIAL IV PRN (03:20)
[2018-11-16] MEDS: PANTOPRAZOLE 40 MG VIAL IV SCH ×2 (07:24→17:33)
[2018-11-16 08:28] LABS: Basophils # (Auto) 0 K/mcL (0.0-0.3); Basophils % (Auto) 0 % (0.0-2.0); Eosinophils # (Auto) 0.2 K/mcL (0.0-0.7); Eosinophils % (Auto) 1.3 % (0.0-7.0); Granulocytes % (Auto) 81.3 % (38.0-78.0); Lymphocytes # (Auto) 1.2 K/mcL (1.5-4.8); Mean Cell Volume 86.8 fL (80.0-100.0); Mean Corpuscular HGB Conc 32.2 g/dL (31.0-36.0); Monocytes # (Auto) 0.9 K/mcL (0.1-0.9); Monocytes % (Auto) 7.4 % (1.0-12.0); Platelet Count 344 K/mcL (140-440); RBC 3.59 M/mcL (4.00-5.20); Red Cell Distribution Width 13.6 % (11.5-14.5)
[2018-11-16] MEDS: ENOXAPARIN 40 MG/0.4 ML SYRINGE SQ SCH (08:47)
[2018-11-16 09:35] LABS: ALT/SGPT 16 U/l (0-40); Albumin/Globulin Ratio 0.7 (1.0-2.3); Alkaline Phosphatase 60 U/L (39-117); Bilirubin,Direct < 0.2 mg/dL (0.0-0.3); Blood Urea Nitrogen 6 mg/dl (8-23); Gamma Glutamyl Transpeptidase 23 U/L (5-36); Uric Acid 2.2 mg/dL (2.5-8.0)
[2018-11-16] MEDS ORDERED: POTASSIUM CHLORIDE 40 MEQ in DEXTROSE 5% IN WATER 250 ML IV STA (09:40)
[2018-11-16] MEDS: POTASSIUM CHLORIDE 40 MEQ in DEXTROSE 5% IN WATER 500 ML IV SCH ×2 (10:21→15:03)
[2018-11-16] MEDS ORDERED: TPN PER PHARMACY IV SCH (13:22)
--- NOTE | 2018-11-16 14:16 | General Surgery Progress Note ---
Subjective Patient reports: feels better, pain is less, tolerating liquids well, flatus, afebrile Narrative: Note initiated : 11/16/18 at 2:14 pm Service Date, if different from initiated Date: [] Patient: Genna Gong 78 y/o F admitted on 11/09/18 for pain all over. Chief Complaint: [patient is clinically stable however she started having bilious drainage from her upper abdominal drain during the night. She was switched from regular diet to clear liquids. The plan is to start her on TPN and treat for 7 days. She will be able to have clear liquids in the interim. Lipase will be checked on the fluid for confirmation. The patient has some mental confusion during the night but is mentally clear now. White blood count 12.3 hemoglobin 10 hematocrit 31 potassium 2.9] Objective Temp Pulse Resp BP Pulse Ox 98.3 F 95 H 18 144/81 91 11/16/18 11:00 11/16/18 13:37 11/16/18 13:37 11/16/18 11:00 11/16/18 11:00 - Additional Data Intake & Output - Last 24 hours: Intake & Output 11/14/18 11/15/18 11/16/18 11/17/18 05:59 05:59 05:59 05:59 Intake Total 3228 1745 1969 150 Output Total 3770 2965 945 Balance -542 -1220 1024 150 Weight 228 lb 9.6 oz 230 lb 230 lb - General physical appearance well developed, well nourished, no distress, chronically ill - Eyes PERRL, normal ocular movement - ENT normal pinna, normal nares, normal mucosa, no hearing loss, no congestion - Neck no masses, no bruits, trachea midline, no lymphadenopathy, no venous distension - Respiratory normal expansion, normal respiratory effort, clear to auscultation - Cardiovascular Cardiovascular exam: Present: normal rate and rhythm, RRR, +S1, +S2. Absent: JVD, tachycardia - Abdomen tender (mILD incisional tenderness otherwise benign abdominal exam) - Integumentary no rash, no growths, no abnormal pigmentation - Neurologic normal coordination, normal sensation - Musculoskeletal normal gait, normal posture - Psychiatric oriented to time, oriented to person, oriented to place, speech is normal, memory intact - Labs 11/16/18 07:43 11/16/18 07:43 Diabetes panel 11/16/18 Range/Units 07:43 Sodium 142 (133-145) mmol/L Potassium 2.9 L* (3.3-5.1) mmol/L Chloride 108 (96-108) mmol/L Carbon Dioxide 24 (22-30) mmol/L BUN 6 L (8-23) mg/dl Creatinine 0.6 (0.6-1.1) mg/dl Glucose 104 (70-105) mg/dL Calcium 8.3 L (8.6-10.4) mg/dl AST 12 (0-37) U/l ALT 16 (0-40) U/l Alkaline Phosphatase 60 (39-117) U/L Total Protein 5.0 L (5.9-8.4) gm/dL Albumin 2.0 L (3.2-5.2) gm/dL Triglycerides 150 (<150) mg/dl Calcium panel 11/16/18 Range/Units 07:43 Calcium 8.3 L (8.6-10.4) mg/dl Phosphorus 2.7 (2.7-4.5) mg/dL Albumin 2.0 L (3.2-5.2) gm/dL Pituitary panel 11/16/18 Range/Units 07:43 Sodium 142 (133-145) mmol/L Potassium 2.9 L* (3.3-5.1) mmol/L Chloride 108 (96-108) mmol/L Carbon Dioxide 24 (22-30) mmol/L BUN 6 L (8-23) mg/dl Creatinine 0.6 (0.6-1.1) mg/dl Glucose 104 (70-105) mg/dL Calcium 8.3 L (8.6-10.4) mg/dl Adrenal panel 11/16/18 Range/Units 07:43 Sodium 142 (133-145) mmol/L Potassium 2.9 L* (3.3-5.1) mmol/L Chloride 108 (96-108) mmol/L Carbon Dioxide 24 (22-30) mmol/L BUN 6 L (8-23) mg/dl Creatinine 0.6 (0.6-1.1) mg/dl Glucose 104 (70-105) mg/dL Calcium 8.3 L (8.6-10.4) mg/dl Total Bilirubin 0.4 (0.0-1.0) mg/dL AST 12 (0-37) U/l ALT 16 (0-40) U/l Alkaline Phosphatase 60 (39-117) U/L Total Protein 5.0 L (5.9-8.4) gm/dL Albumin 2.0 L (3.2-5.2) gm/dL Assessment and Plan (1) Perforated abdominal viscus Status: Acute Assessment and plan: Clinically improved Revert to clear liquids Start TPN times minimum of 7 days Consider transfer to swing bed status on Sunday for at least one week Current Visit: Yes (2) Peritonitis (acute) generalized Status: Acute Assessment and plan: peritonitis is clinically resolved Current Visit: Yes (3) Diabetic neuropathy Status: Chronic Current Visit: No - Time Spent With Patient Total time spent is greater than 50% in coordination of care (as documented) at patient's floor/unit and/or counseling patient:
[2018-11-16] MEDS ORDERED: CALCIUM GLUCONATE IV SCH (15:00)
[2018-11-16] MEDS ORDERED: [UNRECOGNIZED DRUG - OTHER] IV SCH (15:00)
[2018-11-16] MEDS ORDERED: MAGNESIUM SULFATE IV SCH (15:00)
[2018-11-16] MEDS ORDERED: POTASSIUM CHLORIDE IV SCH (15:00)
[2018-11-16] MEDS ORDERED: FAT EMULSION 20% 250 ML in PREMIX 1 BAG IV SCH (16:00)
[2018-11-16] MEDS: FAT EMULSION 20% 250 ML IV SCH (17:06)
[2018-11-17] MEDS: PIPERACILLIN SODIUM/TAZOBACTAM 3.375 GM in DEXTROSE 5% IN WATER 50 ML IV SCH ×5 (00:20→23:29)
[2018-11-17] MEDS: METOCLOPRAMIDE 10 MG/2 ML VIAL IV SCH ×5 (00:20→23:29)
[2018-11-17] MEDS: INSULIN LISPRO 1 UNIT/0.01 ML UNIT SQ SCH ×5 (00:20→23:46)
[2018-11-17] MEDS: IPRATROPIUM/ALBUTEROL 3 ML AMPUL.NEB NEB SCH ×4 (00:21→18:21)
[2018-11-17] MEDS: ACETAMINOPHEN 1,000 MG/100 ML BOTTLE IV SCH ×4 (01:25→19:08)
[2018-11-17] MEDS: fentaNYL 100 MCG/2 ML VIAL IV PRN ×3 (03:38→23:28)
[2018-11-17] MEDS: 0.9 % SODIUM CHLORIDE 10 ML SYRINGE IV SCH ×7 (05:19→23:37)
[2018-11-17] MEDS: PANTOPRAZOLE 40 MG VIAL IV SCH ×2 (07:16→17:09)
[2018-11-17] MEDS: ENOXAPARIN 40 MG/0.4 ML SYRINGE SQ SCH (08:45)
[2018-11-17 08:50] LABS: Basophils # (Auto) 0 K/mcL (0.0-0.3); Basophils % (Auto) 0.3 % (0.0-2.0); Eosinophils # (Auto) 0.3 K/mcL (0.0-0.7); Eosinophils % (Auto) 2.4 % (0.0-7.0); Lymphocytes # (Auto) 1.1 K/mcL (1.5-4.8); Mean Cell Volume 87.7 fL (80.0-100.0); Mean Corpuscular HGB Conc 31.5 g/dL (31.0-36.0); Monocytes # (Auto) 0.7 K/mcL (0.1-0.9); Monocytes % (Auto) 5.3 % (1.0-12.0); Platelet Count 370 K/mcL (140-440); Red Cell Distribution Width 13.8 % (11.5-14.5)
[2018-11-17 09:34] LABS: ALT/SGPT 14 U/l (0-40); Albumin 2.2 gm/dL (3.2-5.2); Albumin/Globulin Ratio 0.8 (1.0-2.3); Alkaline Phosphatase 61 U/L (39-117); Bilirubin,Direct < 0.2 mg/dL (0.0-0.3); Blood Urea Nitrogen 7 mg/dl (8-23); Gamma Glutamyl Transpeptidase 22 U/L (5-36); Uric Acid 1.7 mg/dL (2.5-8.0)
[2018-11-17] MEDS ORDERED: [UNRECOGNIZED DRUG - OTHER] IV SCH (15:00)
[2018-11-17] MEDS ORDERED: CALCIUM GLUCONATE IV SCH (15:00)
[2018-11-17] MEDS ORDERED: POTASSIUM CHLORIDE IV SCH (15:00)
[2018-11-17] MEDS ORDERED: MAGNESIUM SULFATE IV SCH (15:00)
--- NOTE | 2018-11-17 15:11 | General Surgery Progress Note ---
Subjective Patient reports: feels better, pain is less, tolerating liquids well, flatus, bowel movement, afebrile Narrative: Note initiated : 11/17/18 at 3:08 pm Service Date, if different from initiated Date: [] Patient: Genna Gong 78 y/o F admitted on 11/09/18 for pain all over. Chief Complaint: [patient is continuing to improve. She remains afebrile. The drainage from the subhepatic drain is significantly reduced in volume. She does complain of pain in her right flank. The pelvic drainage remains serous. White blood count 12.6 hemoglobin 9.7 hematocrit 30.7 potassium 3.4 BUN 7 creatinine 0.6 phosphorus 2.1. Patient is tolerating TPN without difficulty. LFTs are unremarkable.] Objective Temp Pulse Resp BP Pulse Ox 97.2 F 86 16 145/62 98 11/17/18 10:00 11/17/18 10:00 11/17/18 10:00 11/17/18 10:00 11/17/18 10:00 - Additional Data Intake & Output - Last 24 hours: Intake & Output 11/15/18 11/16/18 11/17/18 11/18/18 05:59 05:59 05:59 05:59 Intake Total 1745 1969 1970 150 Output Total 2965 945 53 Balance -1220 1024 1917 150 Weight 230 lb 224 lb 8 oz - General physical appearance well nourished, no distress, chronically ill - Eyes PERRL, normal ocular movement - ENT normal pinna, normal nares, normal mucosa, no hearing loss, no congestion - Neck no masses, no bruits, trachea midline, no lymphadenopathy, no venous distension - Respiratory normal expansion, normal respiratory effort, clear to percussion, other (upper airway wheezing but mid chest and bases do not demonstrate wheezing at all.) - Cardiovascular Cardiovascular exam: Present: normal rate and rhythm, RRR, +S1, +S2. Absent: JVD, tachycardia - Abdomen tender (mild tenderness along the incision but otherwise abdominal exam is benign) - Integumentary no rash, no growths, other ( stasis edema of the legs) - Neurologic normal coordination, normal sensation - Psychiatric oriented to time, oriented to person, oriented to place, speech is normal, memory intact - Labs 11/17/18 07:56 11/17/18 07:56 Diabetes panel 11/17/18 Range/Units 07:56 Sodium 141 (133-145) mmol/L Potassium 3.4 (3.3-5.1) mmol/L Chloride 110 H (96-108) mmol/L Carbon Dioxide 23 (22-30) mmol/L BUN 7 L (8-23) mg/dl Creatinine 0.6 (0.6-1.1) mg/dl Glucose 157 H (70-105) mg/dL Calcium 8.5 L (8.6-10.4) mg/dl AST 11 (0-37) U/l ALT 14 (0-40) U/l Alkaline Phosphatase 61 (39-117) U/L Total Protein 5.1 L (5.9-8.4) gm/dL Albumin 2.2 L (3.2-5.2) gm/dL Triglycerides 100 (<150) mg/dl Calcium panel 11/17/18 Range/Units 07:56 Calcium 8.5 L (8.6-10.4) mg/dl Phosphorus 2.1 L (2.7-4.5) mg/dL Albumin 2.2 L (3.2-5.2) gm/dL Pituitary panel 11/17/18 Range/Units 07:56 Sodium 141 (133-145) mmol/L Potassium 3.4 (3.3-5.1) mmol/L Chloride 110 H (96-108) mmol/L Carbon Dioxide 23 (22-30) mmol/L BUN 7 L (8-23) mg/dl Creatinine 0.6 (0.6-1.1) mg/dl Glucose 157 H (70-105) mg/dL Calcium 8.5 L (8.6-10.4) mg/dl Adrenal panel 11/17/18 Range/Units 07:56 Sodium 141 (133-145) mmol/L Potassium 3.4 (3.3-5.1) mmol/L Chloride 110 H (96-108) mmol/L Carbon Dioxide 23 (22-30) mmol/L BUN 7 L (8-23) mg/dl Creatinine 0.6 (0.6-1.1) mg/dl Glucose 157 H (70-105) mg/dL Calcium 8.5 L (8.6-10.4) mg/dl Total Bilirubin 0.3 (0.0-1.0) mg/dL AST 11 (0-37) U/l ALT 14 (0-40) U/l Alkaline Phosphatase 61 (39-117) U/L Total Protein 5.1 L (5.9-8.4) gm/dL Albumin 2.2 L (3.2-5.2) gm/dL Assessment and Plan (1) Perforated abdominal viscus Status: Acute Assessment and plan: Clinically improved Revert to clear liquids Start TPN times minimum of 7 days Consider transfer to swing bed status on Sunday for at least one week Current Visit: Yes (2) Peritonitis (acute) generalized Status: Acute Assessment and plan: peritonitis is clinically resolved Current Visit: Yes (3) Diabetic neuropathy Status: Chronic Current Visit: No - Time Spent With Patient Total time spent is greater than 50% in coordination of care (as documented) at patient's floor/unit and/or counseling patient:
[2018-11-18] MEDS: IPRATROPIUM/ALBUTEROL 3 ML AMPUL.NEB NEB SCH ×4 (00:20→19:03)
[2018-11-18] MEDS: ACETAMINOPHEN 1,000 MG/100 ML BOTTLE IV SCH ×4 (02:14→22:36)
[2018-11-18] MEDS: fentaNYL 100 MCG/2 ML VIAL IV PRN ×3 (03:56→10:12)
[2018-11-18] MEDS: METOCLOPRAMIDE 10 MG/2 ML VIAL IV SCH ×3 (06:34→18:28)
[2018-11-18] MEDS: PANTOPRAZOLE 40 MG VIAL IV SCH ×2 (06:40→18:28)
[2018-11-18] MEDS: 0.9 % SODIUM CHLORIDE 10 ML SYRINGE IV SCH ×4 (06:47→21:00)
[2018-11-18] MEDS: PIPERACILLIN SODIUM/TAZOBACTAM 3.375 GM in DEXTROSE 5% IN WATER 50 ML IV SCH ×3 (06:47→18:28)
[2018-11-18] MEDS: INSULIN LISPRO 1 UNIT/0.01 ML UNIT SQ SCH ×3 (06:49→18:29)
[2018-11-18 06:50] LABS: ALT/SGPT 15 U/l (0-40); Albumin 2.5 gm/dL (3.2-5.2); Albumin/Globulin Ratio 0.8 (1.0-2.3); Alkaline Phosphatase 64 U/L (39-117); Bilirubin,Direct < 0.2 mg/dL (0.0-0.3); Blood Urea Nitrogen 8 mg/dl (8-23); Gamma Glutamyl Transpeptidase 27 U/L (5-36); Uric Acid 1.2 mg/dL (2.5-8.0)
[2018-11-18] MEDS: ENOXAPARIN 40 MG/0.4 ML SYRINGE SQ SCH (10:12)
--- NOTE | 2018-11-18 13:23 | General Surgery Progress Note ---
Subjective Patient reports: still having pain, tolerating liquids well, flatus, bowel movement, diarrhea, afebrile Narrative: Note initiated : 11/18/18 at 1:14 pm Service Date, if different from initiated Date: [] Patient: Genna Gong 78 y/o F admitted on 11/09/18 for pain all over. Chief Complaint: [patient is about the same. She complains of mild low abdominal discomfort. By mouth intake is marginal. She has a small amount of bilious drainage in her PATTI drain. The drainage and the tube is also bilious. S he has upper airway wheezing with coarse tubular breath sounds in her peripheral lung falcon. She denies nausea.] Objective Temp Pulse Resp BP Pulse Ox 98.2 F 97 H 20 138/71 97 11/18/18 11:58 11/18/18 11:58 11/18/18 11:58 11/18/18 11:58 11/18/18 11:58 - Additional Data Intake & Output - Last 24 hours: Intake & Output 11/16/18 11/17/18 11/18/18 11/19/18 05:59 05:59 05:59 05:59 Intake Total 1969 1970 1670 150 Output Total 945 53 288 Balance 1024 1917 1382 150 Weight 224 lb 8 oz 220 lb 8 oz - General physical appearance moderate pain, chronically ill, obese - Eyes PERRL, normal ocular movement - ENT normal pinna, normal nares, normal mucosa, no hearing loss, no congestion - Neck no masses, no bruits, trachea midline, no lymphadenopathy, no venous distension - Respiratory normal expansion, normal respiratory effort, clear to auscultation - Cardiovascular Cardiovascular exam: Present: normal rate and rhythm, +S1, +S2. Absent: JVD, RRR, tachycardia - Abdomen tender (incision is unremarkable; active bowel sounds), bowel sounds (present), surgical scars (none), masses (none) - Rectum normal sphincter tone, no hemorrhoids, no tenderness, no masses, no bleeding - Integumentary no rash, no growths, no abnormal pigmentation - Neurologic normal coordination, normal sensation - Psychiatric oriented to time, oriented to person, oriented to place, speech is normal, memory intact, other ( she was confused during the evening but is more alert at this time) - Labs 11/17/18 07:56 11/18/18 04:00 Diabetes panel 11/18/18 Range/Units 04:00 Sodium 140 (133-145) mmol/L Potassium 3.7 (3.3-5.1) mmol/L Chloride 110 H (96-108) mmol/L Carbon Dioxide 21 L (22-30) mmol/L BUN 8 (8-23) mg/dl Creatinine 0.6 (0.6-1.1) mg/dl Glucose 190 H (70-105) mg/dL Calcium 8.8 (8.6-10.4) mg/dl AST 9 (0-37) U/l ALT 15 (0-40) U/l Alkaline Phosphatase 64 (39-117) U/L Total Protein 5.8 L (5.9-8.4) gm/dL Albumin 2.5 L (3.2-5.2) gm/dL Triglycerides 195 H (<150) mg/dl Calcium panel 11/18/18 Range/Units 04:00 Calcium 8.8 (8.6-10.4) mg/dl Phosphorus 1.9 L (2.7-4.5) mg/dL Albumin 2.5 L (3.2-5.2) gm/dL Pituitary panel 11/18/18 Range/Units 04:00 Sodium 140 (133-145) mmol/L Potassium 3.7 (3.3-5.1) mmol/L Chloride 110 H (96-108) mmol/L Carbon Dioxide 21 L (22-30) mmol/L BUN 8 (8-23) mg/dl Creatinine 0.6 (0.6-1.1) mg/dl Glucose 190 H (70-105) mg/dL Calcium 8.8 (8.6-10.4) mg/dl Adrenal panel 11/18/18 Range/Units 04:00 Sodium 140 (133-145) mmol/L Potassium 3.7 (3.3-5.1) mmol/L Chloride 110 H (96-108) mmol/L Carbon Dioxide 21 L (22-30) mmol/L BUN 8 (8-23) mg/dl Creatinine 0.6 (0.6-1.1) mg/dl Glucose 190 H (70-105) mg/dL Calcium 8.8 (8.6-10.4) mg/dl Total Bilirubin 0.3 (0.0-1.0) mg/dL AST 9 (0-37) U/l ALT 15 (0-40) U/l Alkaline Phosphatase 64 (39-117) U/L Total Protein 5.8 L (5.9-8.4) gm/dL Albumin 2.5 L (3.2-5.2) gm/dL Assessment and Plan (1) Perforated abdominal viscus Status: Acute Assessment and plan: Clinically improved Revert to clear liquids Start TPN times minimum of 7 days Current Visit: Yes (2) Peritonitis (acute) generalized Status: Resolved Assessment and plan: peritonitis is clinically resolved Current Visit: Yes (3) Diabetic neuropathy Status: Chronic Current Visit: No - Time Spent With Patient Total time spent is greater than 50% in coordination of care (as documented) at patient's floor/unit and/or counseling patient:
[2018-11-18] MEDS ORDERED: MAGNESIUM SULFATE IV SCH (15:00)
[2018-11-18] MEDS ORDERED: POTASSIUM CHLORIDE IV SCH (15:00)
[2018-11-18] MEDS ORDERED: CALCIUM GLUCONATE IV SCH (15:00)
[2018-11-18] MEDS ORDERED: [UNRECOGNIZED DRUG - OTHER] IV SCH (15:00)
[2018-11-19] MEDS: 0.9 % SODIUM CHLORIDE 10 ML SYRINGE IV SCH ×5 (00:49→20:55)
[2018-11-19] MEDS: INSULIN LISPRO 1 UNIT/0.01 ML UNIT SQ SCH ×5 (00:51→23:57)
[2018-11-19] MEDS: PIPERACILLIN SODIUM/TAZOBACTAM 3.375 GM in DEXTROSE 5% IN WATER 50 ML IV SCH ×5 (00:52→23:36)
[2018-11-19] MEDS: IPRATROPIUM/ALBUTEROL 3 ML AMPUL.NEB NEB SCH ×4 (00:52→18:38)
[2018-11-19] MEDS: METOCLOPRAMIDE 10 MG/2 ML VIAL IV SCH ×5 (00:53→23:48)
[2018-11-19] MEDS: ACETAMINOPHEN 1,000 MG/100 ML BOTTLE IV SCH ×4 (02:35→20:56)
[2018-11-19 06:16] LABS: Basophils # (Auto) 0 K/mcL (0.0-0.3); Basophils % (Auto) 0.2 % (0.0-2.0); Eosinophils # (Auto) 0.2 K/mcL (0.0-0.7); Granulocytes % (Auto) 81.2 % (38.0-78.0); Lymphocytes % (Auto) 8.9 % (15.5-49.0); Mean Cell Volume 87.8 fL (80.0-100.0); Mean Corpuscular HGB Conc 31.2 g/dL (31.0-36.0); Monocytes # (Auto) 0.9 K/mcL (0.1-0.9); Monocytes % (Auto) 7.7 % (1.0-12.0); Platelet Count 407 K/mcL (140-440); RBC 3.45 M/mcL (4.00-5.20); Red Cell Distribution Width 13.9 % (11.5-14.5)
[2018-11-19] MEDS: PANTOPRAZOLE 40 MG VIAL IV SCH ×2 (07:10→17:11)
[2018-11-19 07:16] LABS: ALT/SGPT 14 U/l (0-40); Albumin 2.2 gm/dL (3.2-5.2); Albumin/Globulin Ratio 0.7 (1.0-2.3); Alkaline Phosphatase 58 U/L (39-117); Bilirubin,Direct < 0.2 mg/dL (0.0-0.3); Blood Urea Nitrogen 10 mg/dl (8-23); Gamma Glutamyl Transpeptidase 27 U/L (5-36)
[2018-11-19] MEDS: fentaNYL 100 MCG/2 ML VIAL IV PRN (07:17)
[2018-11-19] MEDS: ENOXAPARIN 40 MG/0.4 ML SYRINGE SQ SCH (09:43)
[2018-11-19] MEDS: ONDANSETRON 4 MG/2 ML VIAL IV PRN (11:10)
--- NOTE | 2018-11-19 11:59 | General Surgery Progress Note ---
Subjective Patient reports: feels better, pain is less, tolerating liquids well, flatus, bowel movement, afebrile Narrative: Note initiated : 11/19/18 at 11:57 am Service Date, if different from initiated Date: [] Patient: Genna Gong a 78 y/o F admitted on 11/09/18 for pain all over. Chief Complaint: [patient states that she feels better. Her abdominal pain is controlled. She denies nausea. She has been afebrile. White blood count is 11.4. Hemoglobin 9.4. Chemistry panel normal except for phosphorus 2.1. PATTI drainage 15 cc bilious purulent drainage and 17 cc serous drainage. Discuss with case management potential for transfer to swing bed status tomorrow.] Objective Temp Pulse Resp BP Pulse Ox 98.4 F 104 H 16 121/55 98 11/19/18 11:18 11/19/18 11:18 11/19/18 11:18 11/19/18 11:18 11/19/18 11:18 - Additional Data Intake & Output - Last 24 hours: Intake & Output 11/17/18 11/18/18 11/19/18 11/20/18 05:59 05:59 05:59 05:59 Intake Total 1970 1670 1150 250 Output Total 53 288 4 Balance 1916 1382 1146 250 Weight 224 lb 8 oz 220 lb 8 oz 220 lb - General physical appearance well developed, no distress, no pain, chronically ill - Eyes PERRL, normal ocular movement - ENT normal pinna (J: We'll because I think she is going to need to have a gastrojejunostomy is which is an open procedure so we will even that would be able to give her anything by mouth at least 3 days low would plan on that Pretty Sure without Chest Is No Because That Contrast Did Not Move Very Slowly Her Multiple Sclerosis (T#8 He Keeps Going Back to Traveling That He Traveled Because You Can Call Late in the Out Of Range That the Axillae He Is but He Is Called Just after 7 Alcohol 4 Times Calls Back and Says That He Is Arranged of October until When He Wants in [place]), normal nares, normal mucosa, no hearing loss, no congestion - Neck no masses, no bruits, trachea midline, no lymphadenopathy, no venous distension - Respiratory other (decreased breath sounds bilaterally with coarse tubular breath sounds in both midlung falcon; coarse wheezing noted) - Cardiovascular Cardiovascular exam: Present: +S1, +S2, tachycardia. Absent: RRR - Abdomen tender ( moderate tenderness of incision with good active bowel sounds; purulent drainage from the subhepatic space and clear drainage from pelvis) - Integumentary no rash, no growths, no abnormal pigmentation - Neurologic normal coordination, normal sensation - Psychiatric oriented to time, oriented to person, oriented to place, speech is normal, memory intact - Labs 11/19/18 05:05 11/19/18 05:05 Diabetes panel 11/19/18 Range/Units 05:05 Sodium 140 (133-145) mmol/L Potassium 4.2 (3.3-5.1) mmol/L Chloride 112 H (96-108) mmol/L Carbon Dioxide 22 (22-30) mmol/L BUN 10 (8-23) mg/dl Creatinine 0.6 (0.6-1.1) mg/dl Glucose 259 H (70-105) mg/dL Calcium 9.1 (8.6-10.4) mg/dl AST 10 (0-37) U/l ALT 14 (0-40) U/l Alkaline Phosphatase 58 (39-117) U/L Total Protein 5.2 L (5.9-8.4) gm/dL Albumin 2.2 L (3.2-5.2) gm/dL Triglycerides 176 H (<150) mg/dl Calcium panel 11/19/18 Range/Units 05:05 Calcium 9.1 (8.6-10.4) mg/dl Phosphorus 2.1 L (2.7-4.5) mg/dL Albumin 2.2 L (3.2-5.2) gm/dL Pituitary panel 11/19/18 Range/Units 05:05 Sodium 140 (133-145) mmol/L Potassium 4.2 (3.3-5.1) mmol/L Chloride 112 H (96-108) mmol/L Carbon Dioxide 22 (22-30) mmol/L BUN 10 (8-23) mg/dl Creatinine 0.6 (0.6-1.1) mg/dl Glucose 259 H (70-105) mg/dL Calcium 9.1 (8.6-10.4) mg/dl Adrenal panel 02/12/19 Range/Units 05:05 Sodium 140 (133-145) mmol/L Potassium 4.2 (3.3-5.1) mmol/L Chloride 112 H (96-108) mmol/L Carbon Dioxide 22 (22-30) mmol/L BUN 10 (8-23) mg/dl Creatinine 0.6 (0.6-1.1) mg/dl Glucose 259 H (70-105) mg/dL Calcium 9.1 (8.6-10.4) mg/dl Total Bilirubin 0.3 (0.0-1.0) mg/dL AST 10 (0-37) U/l ALT 14 (0-40) U/l Alkaline Phosphatase 58 (39-117) U/L Total Protein 5.2 L (5.9-8.4) gm/dL Albumin 2.2 L (3.2-5.2) gm/dL Assessment and Plan (1) Perforated abdominal viscus Status: Acute Assessment and plan: Clinically improved Continue clear liquids and TPN Switch to swing bed status tomorrow Possible upper GI on Sunday to look for possible leak Current Visit: Yes (2) Peritonitis (acute) generalized Status: Resolved Assessment and plan: peritonitis is clinically resolved Current Visit: Yes (3) Diabetic neuropathy Status: Chronic Current Visit: No - Time Spent With Patient Total time spent is greater than 50% in coordination of care (as documented) at patient's floor/unit and/or counseling patient:
[2018-11-19] MEDS ORDERED: [UNRECOGNIZED DRUG - OTHER] IV SCH (15:00)
[2018-11-19] MEDS ORDERED: POTASSIUM CHLORIDE IV SCH (15:00)
[2018-11-19] MEDS ORDERED: POTASSIUM PHOSPHATE IV SCH (15:00)
[2018-11-19] MEDS ORDERED: MAGNESIUM SULFATE IV SCH (15:00)
[2018-11-19] MEDS: FAT EMULSION 20% 250 ML IV SCH (17:55)
[2018-11-20] MEDS: IPRATROPIUM/ALBUTEROL 3 ML AMPUL.NEB NEB SCH ×4 (01:45→19:08)
[2018-11-20] MEDS: ACETAMINOPHEN 1,000 MG/100 ML BOTTLE IV SCH ×4 (03:07→21:06)
[2018-11-20] MEDS: METOCLOPRAMIDE 10 MG/2 ML VIAL IV SCH ×3 (05:59→17:59)
[2018-11-20] MEDS: PIPERACILLIN SODIUM/TAZOBACTAM 3.375 GM in DEXTROSE 5% IN WATER 50 ML IV SCH ×3 (05:59→17:58)
[2018-11-20] MEDS: INSULIN LISPRO 1 UNIT/0.01 ML UNIT SQ SCH ×3 (06:05→18:06)
[2018-11-20 06:33] LABS: Basophils # (Auto) 0 K/mcL (0.0-0.3); Basophils % (Auto) 0 % (0.0-2.0); Eosinophils # (Auto) 0.3 K/mcL (0.0-0.7); Eosinophils % (Auto) 2.2 % (0.0-7.0); Granulocytes % (Auto) 81.3 % (38.0-78.0); Lymphocytes # (Auto) 1.1 K/mcL (1.5-4.8); Lymphocytes % (Auto) 9.4 % (15.5-49.0); Mean Cell Volume 88.5 fL (80.0-100.0); Monocytes # (Auto) 0.8 K/mcL (0.1-0.9); Monocytes % (Auto) 7.1 % (1.0-12.0); Platelet Count 450 K/mcL (140-440); RBC 3.22 M/mcL (4.00-5.20); Red Cell Distribution Width 14.1 % (11.5-14.5)
[2018-11-20] MEDS: PANTOPRAZOLE 40 MG VIAL IV SCH ×2 (07:06→17:58)
[2018-11-20 07:16] LABS: ALT/SGPT 16 U/l (0-40); Albumin 2.2 gm/dL (3.2-5.2); Albumin/Globulin Ratio 0.8 (1.0-2.3); Alkaline Phosphatase 59 U/L (39-117); Bilirubin,Direct < 0.2 mg/dL (0.0-0.3); Blood Urea Nitrogen 11 mg/dl (8-23); Gamma Glutamyl Transpeptidase 44 U/L (5-36); Uric Acid 0.9 mg/dL (2.5-8.0)
[2018-11-20] MEDS: ENOXAPARIN 40 MG/0.4 ML SYRINGE SQ SCH (09:13)
[2018-11-20] MEDS: 0.9 % SODIUM CHLORIDE 10 ML SYRINGE IV SCH ×2 (09:20→21:07)
--- NOTE | 2018-11-20 12:40 | General Surgery Progress Note ---
Subjective Patient reports: pain is less, tolerating liquids well, flatus, bowel movement, shortness of breath, afebrile Narrative: Note initiated : 11/20/18 at 12:37 pm Service Date, if different from initiated Date: [] Patient: Genna Gong 78 y/o F admitted on 11/09/18 for pain all over. Chief Complaint: [patient is stable physically she appears to be emotionally more withdrawn. She does not respond to questioning and continuously states that she wants to go home. She has been afebrile and her O2 sats have been normal. She does not have tachycardia and blood pressure is normal. PATTI drainage is less than 5 cc per shift. White blood count 11.8, hemoglobin 8.8.] Objective Temp Pulse Resp BP Pulse Ox 98.7 F 90 24 H 133/61 97 11/20/18 11:51 11/20/18 11:51 11/20/18 11:51 11/20/18 11:51 11/20/18 11:51 - Additional Data Intake & Output - Last 24 hours: Intake & Output 11/18/18 11/19/18 11/20/18 11/21/18 05:59 05:59 05:59 05:59 Intake Total 1670 1150 1240 150 Output Total 288 4 6 2 Balance 1382 1146 1234 148 Weight 220 lb 8 oz 220 lb 228 lb - General physical appearance well nourished, no distress, chronically ill - Eyes PERRL, normal ocular movement - ENT normal pinna, normal nares, normal mucosa, no hearing loss, no congestion - Neck no masses, no bruits, trachea midline, no lymphadenopathy, no venous distension - Respiratory other (periphery of lung this clear but she does have upper airway wheezing) - Cardiovascular Cardiovascular exam: Present: normal rate and rhythm, RRR, +S1, +S2. Absent: JVD, tachycardia - Abdomen tender ( mild incisional tenderness; still with small amount of purulent drainage and subhepatic Dipak-Small;) - Integumentary no rash, no growths, no abnormal pigmentation - Neurologic normal coordination, normal sensation - Musculoskeletal normal gait, normal posture - Psychiatric oriented to time, oriented to person, oriented to place, speech is normal, memory intact, other ( clinically depressed) - Labs 11/20/18 03:49 11/20/18 03:49 Diabetes panel 11/20/18 Range/Units 03:49 Sodium 140 (133-145) mmol/L Potassium 4.1 (3.3-5.1) mmol/L Chloride 113 H (96-108) mmol/L Carbon Dioxide 23 (22-30) mmol/L BUN 11 (8-23) mg/dl Creatinine 0.6 (0.6-1.1) mg/dl Glucose 247 H (70-105) mg/dL Calcium 8.6 (8.6-10.4) mg/dl AST 16 (0-37) U/l ALT 16 (0-40) U/l Alkaline Phosphatase 59 (39-117) U/L Total Protein 5.1 L (5.9-8.4) gm/dL Albumin 2.2 L (3.2-5.2) gm/dL Triglycerides 213 H (<150) mg/dl Calcium panel 11/20/18 Range/Units 03:49 Calcium 8.6 (8.6-10.4) mg/dl Phosphorus 2.1 L (2.7-4.5) mg/dL Albumin 2.2 L (3.2-5.2) gm/dL Pituitary panel 11/20/18 Range/Units 03:49 Sodium 140 (133-145) mmol/L Potassium 4.1 (3.3-5.1) mmol/L Chloride 113 H (96-108) mmol/L Carbon Dioxide 23 (22-30) mmol/L BUN 11 (8-23) mg/dl Creatinine 0.6 (0.6-1.1) mg/dl Glucose 247 H (70-105) mg/dL Calcium 8.6 (8.6-10.4) mg/dl Adrenal panel 11/20/18 Range/Units 03:49 Sodium 140 (133-145) mmol/L Potassium 4.1 (3.3-5.1) mmol/L Chloride 113 H (96-108) mmol/L Carbon Dioxide 23 (22-30) mmol/L BUN 11 (8-23) mg/dl Creatinine 0.6 (0.6-1.1) mg/dl Glucose 247 H (70-105) mg/dL Calcium 8.6 (8.6-10.4) mg/dl Total Bilirubin 0.2 (0.0-1.0) mg/dL AST 16 (0-37) U/l ALT 16 (0-40) U/l Alkaline Phosphatase 59 (39-117) U/L Total Protein 5.1 L (5.9-8.4) gm/dL Albumin 2.2 L (3.2-5.2) gm/dL Assessment and Plan (1) Perforated abdominal viscus Status: Acute Assessment and plan: Clinically improved Continue clear liquids and TPN CT of abdomen with oral contrast;;; reason rule out leak of antrum along lesser curvature chest x-ray to evaluate for infiltrate Delay discharge or transfer at this time Current Visit: Yes (2) Peritonitis (acute) generalized Status: Resolved Assessment and plan: peritonitis is clinically resolved Current Visit: Yes (3) Diabetic neuropathy Status: Chronic Current Visit: No - Time Spent With Patient Total time spent is greater than 50% in coordination of care (as documented) at patient's floor/unit and/or counseling patient:
[2018-11-20] MEDS ORDERED: [UNRECOGNIZED DRUG - REMARK] IV SCH (15:00)
[2018-11-21] MEDS: PIPERACILLIN SODIUM/TAZOBACTAM 3.375 GM in DEXTROSE 5% IN WATER 50 ML IV SCH ×5 (00:35→23:34)
[2018-11-21] MEDS: INSULIN LISPRO 1 UNIT/0.01 ML UNIT SQ SCH ×5 (00:43→23:50)
[2018-11-21] MEDS: METOCLOPRAMIDE 10 MG/2 ML VIAL IV SCH ×5 (00:43→23:34)
[2018-11-21] MEDS: IPRATROPIUM/ALBUTEROL 3 ML AMPUL.NEB NEB SCH ×4 (00:44→19:27)
[2018-11-21] MEDS: ACETAMINOPHEN 1,000 MG/100 ML BOTTLE IV SCH ×4 (02:17→20:29)
[2018-11-21] MEDS: fentaNYL 100 MCG/2 ML VIAL IV PRN ×2 (03:32→06:00)
[2018-11-21 06:33] LABS: ALT/SGPT 25 U/l (0-40); Albumin 2.4 gm/dL (3.2-5.2); Albumin/Globulin Ratio 0.8 (1.0-2.3); Alkaline Phosphatase 66 U/L (39-117); Bilirubin,Direct < 0.2 mg/dL (0.0-0.3); Blood Urea Nitrogen 12 mg/dl (8-23); Gamma Glutamyl Transpeptidase 64 U/L (5-36)
--- NOTE | 2018-11-21 06:35 | XRay Report ---
CLINICAL INFORMATION: Dyspnea. Diffuse pain. TECHNIQUE: AP portable semiupright chest x-ray COMPARISON: Previous examinations dated 11/15/2018, 11/13/2018, 11/10/2018 FINDINGS: Right central venous catheter with its tip in the superior vena cava, unchanged. Focal density in the right infrahilar region consistent with right middle lobe volume loss. Mild left retrocardiac density consistent with left lower lobe infiltrate. This is improved. No other pulmonary parenchymal abnormality. No evidence for congestive heart failure. IMPRESSION: 1. Right middle lobe volume loss 2. Left lower lobe infiltrate, improved Interpreted and Authenticated by: Vikas Nunez 11/21/18
[2018-11-21] MEDS ORDERED: IOPAMIDOL 100 ML BOTTLE IV ONE (07:44)
[2018-11-21] MEDS: PANTOPRAZOLE 40 MG VIAL IV SCH ×2 (08:05→17:52)
--- NOTE | 2018-11-21 08:12 | Cat Scan Report ---
CLINICAL INFORMATION: Status post surgical repair of a perforated gastric ulcer COMPARISON: Preoperative evaluation dated 11/09/2018. Previous CT scans dated 04/16/2015 and 03/20/2013 TECHNIQUE: Axial images were obtained through the abdomen. Sagittally and coronally reformatted images. 80 mL contrast material injected intravenously. Water soluble oral contrast material was administered FINDINGS: Patient has undergone surgical repair of a lesser curvature perforated gastric ulcer with Maxime patch. There is a surgical drain adjacent to the lesser curvature of the stomach. There is a small amount of extraluminal gas adjacent to the drainage catheter in the subhepatic space. There is no postoperative hematoma or abscess. No detectable gastric mass. There is no contrast extravasation. Contrast material is intraluminal within the stomach and duodenum. There are small bilateral pleural effusions, right larger than left. There is no pericardial fluid. There is partial right middle lobe collapse. There is a low density lesion within the left lobe of the liver. This measures 16 mm. This is benign and essentially unchanged since 04/16/2015. Liver is otherwise negative. Liver contour is smooth. There are surgical clips in the gallbladder fossa. No dilated bile ducts. Negative spleen. No splenomegaly. Normal enhancement splenic and portal veins. Negative pancreas. No pancreatic mass. No evidence for pancreatitis. Right adrenal gland is negative. Left adrenal gland is abnormal. There is a 4 cm mass containing macroscopic fat. This is unchanged and benign. Kidneys are negative. No hydronephrosis. No solid renal mass. There is calcification of the abdominal aorta. No abdominal aortic aneurysm. The pelvis is not imaged. There is no significant free intraperitoneal fluid. No intra-abdominal abscess. There is soft tissue edema within both flanks, left worse than right. There are skin almaz in the anterior abdominal wall, midline. No subcutaneous abscess. There is mild subcutaneous gas. Previous L4-5 lumbar fusion. No acute compression fracture or destructive lesion. IMPRESSION: 1. Status post surgical repair of lesser curvature gastric ulcer with Maxime patch. There are gas bubbles adjacent to the surgical drain. No intra-abdominal abscess. No oral contrast extravasation or evidence for leak 2. Benign low density abnormality in the left lobe of the liver. Benign left adrenal mass 3. Midline anterior abdominal wall surgical incision. Mild subcutaneous gas without evidence for abscess 4. Subcutaneous edema in both flanks, left worse than right 5. Small bilateral pleural fluid collections, right worse than left. Partial collapse of the right middle lobe The exam was performed using radiation dose optimization techniques including, but not limited to, automated exposure control, adjustment of the mA and/or kV according to patient size and use of iterative reconstruction technique. Interpreted and Authenticated by: Vikas Nunez 11/21/18
[2018-11-21] MEDS: 0.9 % SODIUM CHLORIDE 10 ML SYRINGE IV SCH ×2 (08:56→20:29)
[2018-11-21] MEDS: ENOXAPARIN 40 MG/0.4 ML SYRINGE SQ SCH (09:03)
[2018-11-21] MEDS ORDERED: [UNRECOGNIZED DRUG - REMARK] IV SCH (15:00)
[2018-11-21] MEDS: FAT EMULSION 20% 250 ML IV SCH (15:20)
--- NOTE | 2018-11-21 16:37 | General Surgery Progress Note ---
Subjective Patient reports: feels better, pain is less, tolerating liquids well, flatus, bowel movement, shortness of breath, afebrile Narrative: Note initiated : 11/21/18 at 4:34 pm Service Date, if different from initiated Date: [] Patient: Genna Gong a 78 y/o F admitted on 11/09/18 for pain all over. Chief Complaint: [patient feels better. Her respiratory pattern is improved and she does not have upper airway wheezing. She has less abdominal pain and is tolerating her liquids well. She asked for more food. Labs are basically normal. Chest x-ray shows improved left sided infiltrate. CT of the abdomen does not reveal any evidence of abscess or subhepatic collection. There is suggestion of tiny air bubbles associated with the PATTI drain. She continues to appear depressed because of her prolonged hospital stay.] Objective Temp Pulse Resp BP Pulse Ox 98.1 F 97 H 22 131/62 94 11/21/18 15:00 11/21/18 15:00 11/21/18 15:00 11/21/18 15:00 11/21/18 15:00 - Additional Data Intake & Output - Last 24 hours: Intake & Output 11/19/18 11/20/18 11/21/18 11/22/18 05:59 05:59 05:59 05:59 Intake Total 1150 1490 900 600 Output Total 4 6 8 3 Balance 1146 1484 892 597 Weight 220 lb 228 lb 227 lb - General physical appearance no distress, moderate pain, chronically ill - Eyes PERRL, normal ocular movement - ENT normal pinna, normal nares, normal mucosa, no hearing loss, no congestion - Respiratory other (lungs are much clearer she has fullness wheezing in the upper airways; lung periphery has excellent breath sounds) - Cardiovascular Cardiovascular exam: Present: normal rate and rhythm, RRR, +S1, +S2. Absent: JVD, tachycardia - Abdomen tender ( mild tenderness of incision otherwise benign abdomen), bowel sounds (present), surgical scars (none), masses (none) - Integumentary no rash, no growths, no abnormal pigmentation - Neurologic normal coordination, normal sensation - Psychiatric other ( patient is intermittently disoriented but appears to be fully oriented to) - Labs 11/20/18 03:49 11/21/18 04:00 Diabetes panel 11/21/18 Range/Units 04:00 Sodium 142 (133-145) mmol/L Potassium 4.0 (3.3-5.1) mmol/L Chloride 114 H (96-108) mmol/L Carbon Dioxide 24 (22-30) mmol/L BUN 12 (8-23) mg/dl Creatinine 0.6 (0.6-1.1) mg/dl Glucose 243 H (70-105) mg/dL Calcium 8.7 (8.6-10.4) mg/dl AST 20 (0-37) U/l ALT 25 (0-40) U/l Alkaline Phosphatase 66 (39-117) U/L Total Protein 5.4 L (5.9-8.4) gm/dL Albumin 2.4 L (3.2-5.2) gm/dL Triglycerides 192 H (<150) mg/dl Calcium panel 11/21/18 Range/Units 04:00 Calcium 8.7 (8.6-10.4) mg/dl Phosphorus 2.7 (2.7-4.5) mg/dL Albumin 2.4 L (3.2-5.2) gm/dL Pituitary panel 11/21/18 Range/Units 04:00 Sodium 142 (133-145) mmol/L Potassium 4.0 (3.3-5.1) mmol/L Chloride 114 H (96-108) mmol/L Carbon Dioxide 24 (22-30) mmol/L BUN 12 (8-23) mg/dl Creatinine 0.6 (0.6-1.1) mg/dl Glucose 243 H (70-105) mg/dL Calcium 8.7 (8.6-10.4) mg/dl Adrenal panel 11/21/18 Range/Units 04:00 Sodium 142 (133-145) mmol/L Potassium 4.0 (3.3-5.1) mmol/L Chloride 114 H (96-108) mmol/L Carbon Dioxide 24 (22-30) mmol/L BUN 12 (8-23) mg/dl Creatinine 0.6 (0.6-1.1) mg/dl Glucose 243 H (70-105) mg/dL Calcium 8.7 (8.6-10.4) mg/dl Total Bilirubin 0.3 (0.0-1.0) mg/dL AST 20 (0-37) U/l ALT 25 (0-40) U/l Alkaline Phosphatase 66 (39-117) U/L Total Protein 5.4 L (5.9-8.4) gm/dL Albumin 2.4 L (3.2-5.2) gm/dL Assessment and Plan (1) Perforated abdominal viscus Status: Acute Assessment and plan: Advanced to full liquids with Glucerna and TPN Delay discharge or transfer at this time Current Visit: Yes (2) Peritonitis (acute) generalized Status: Resolved Assessment and plan: peritonitis is clinically resolved Current Visit: Yes (3) Diabetic neuropathy Status: Chronic Current Visit: No - Time Spent With Patient Total time spent is greater than 50% in coordination of care (as documented) at patient's floor/unit and/or counseling patient:
[2018-11-21 19:47] LABS: Basophils # (Auto) 0 K/mcL (0.0-0.3); Basophils % (Auto) 0.1 % (0.0-2.0); Eosinophils # (Auto) 0.3 K/mcL (0.0-0.7); Eosinophils % (Auto) 2.2 % (0.0-7.0); Granulocytes % (Auto) 75.4 % (38.0-78.0); Lymphocytes # (Auto) 1.7 K/mcL (1.5-4.8); Mean Cell Volume 87.5 fL (80.0-100.0); Mean Corpuscular HGB Conc 31.3 g/dL (31.0-36.0); Monocytes % (Auto) 8.3 % (1.0-12.0); Platelet Count 513 K/mcL (140-440); Red Cell Distribution Width 13.8 % (11.5-14.5)
[2018-11-22] MEDS: ACETAMINOPHEN 1,000 MG/100 ML BOTTLE IV SCH ×4 (01:55→20:05)
[2018-11-22] MEDS: IPRATROPIUM/ALBUTEROL 3 ML AMPUL.NEB NEB SCH ×4 (01:55→19:27)
[2018-11-22] MEDS: PIPERACILLIN SODIUM/TAZOBACTAM 3.375 GM in DEXTROSE 5% IN WATER 50 ML IV SCH ×3 (05:54→17:30)
[2018-11-22] MEDS: METOCLOPRAMIDE 10 MG/2 ML VIAL IV SCH ×3 (05:54→17:30)
[2018-11-22 06:09] LABS: Basophils # (Auto) 0 K/mcL (0.0-0.3); Basophils % (Auto) 0 % (0.0-2.0); Eosinophils # (Auto) 0.2 K/mcL (0.0-0.7); Eosinophils % (Auto) 1.7 % (0.0-7.0); Granulocytes % (Auto) 79.7 % (38.0-78.0); Lymphocytes # (Auto) 1.1 K/mcL (1.5-4.8); Lymphocytes % (Auto) 10.8 % (15.5-49.0); Mean Cell Volume 87.6 fL (80.0-100.0); Mean Corpuscular HGB Conc 31.6 g/dL (31.0-36.0); Monocytes # (Auto) 0.8 K/mcL (0.1-0.9); Monocytes % (Auto) 7.8 % (1.0-12.0); Platelet Count 471 K/mcL (140-440); RBC 3.26 M/mcL (4.00-5.20); Red Cell Distribution Width 14.2 % (11.5-14.5)
[2018-11-22] MEDS: INSULIN LISPRO 1 UNIT/0.01 ML UNIT SQ SCH ×3 (06:17→17:29)
[2018-11-22 06:24] LABS: ALT/SGPT 32 U/l (0-40); Albumin 2.3 gm/dL (3.2-5.2); Albumin/Globulin Ratio 0.7 (1.0-2.3); Alkaline Phosphatase 73 U/L (39-117); Bilirubin,Direct < 0.2 mg/dL (0.0-0.3); Blood Urea Nitrogen 13 mg/dl (8-23); Gamma Glutamyl Transpeptidase 79 U/L (5-36); Uric Acid 0.9 mg/dL (2.5-8.0)
[2018-11-22] MEDS: PANTOPRAZOLE 40 MG VIAL IV SCH ×2 (07:18→17:29)
[2018-11-22] MEDS: 0.9 % SODIUM CHLORIDE 10 ML SYRINGE IV SCH ×2 (09:29→21:10)
[2018-11-22] MEDS: ENOXAPARIN 40 MG/0.4 ML SYRINGE SQ SCH (09:29)
[2018-11-22] MEDS ORDERED: [UNRECOGNIZED DRUG - REMARK] IV SCH (15:00)
[2018-11-22] MEDS ORDERED: ALTEPLASE 2 MG VIAL IV PRN (17:14)
[2018-11-22] MEDS ORDERED: ALTEPLASE 2 MG VIAL IV ONE (17:14)
--- NOTE | 2018-11-22 18:05 | General Surgery Progress Note ---
Subjective Narrative: Note initiated : 11/22/18 at 6:05 pm Service Date, if different from initiated Date: [] Patient: Genna Gong 78 y/o F admitted on 11/09/18 for pain all over. Chief Complaint: [] Objective Temp Pulse Resp BP Pulse Ox 98.3 F 114 H 20 159/62 97 11/22/18 16:00 11/22/18 14:04 11/22/18 16:00 11/22/18 16:00 11/22/18 16:00 - Additional Data Intake & Output - Last 24 hours: Intake & Output 11/20/18 11/21/18 11/22/18 11/23/18 05:59 05:59 05:59 05:59 Intake Total 1490 900 975 446 Output Total 6 8 36 5 Balance 1484 892 939 441 Weight 228 lb 227 lb 203 lb 8 oz 203 lb 8 oz - Labs 11/22/18 04:24 11/22/18 04:24 Diabetes panel 11/22/18 Range/Units 04:24 Sodium 142 (133-145) mmol/L Potassium 4.5 (3.3-5.1) mmol/L Chloride 113 H (96-108) mmol/L Carbon Dioxide 22 (22-30) mmol/L BUN 13 (8-23) mg/dl Creatinine 0.6 (0.6-1.1) mg/dl Glucose 278 H (70-105) mg/dL Calcium 9.3 (8.6-10.4) mg/dl AST 24 (0-37) U/l ALT 32 (0-40) U/l Alkaline Phosphatase 73 (39-117) U/L Total Protein 5.6 L (5.9-8.4) gm/dL Albumin 2.3 L (3.2-5.2) gm/dL Triglycerides 179 H (<150) mg/dl Calcium panel 11/22/18 Range/Units 04:24 Calcium 9.3 (8.6-10.4) mg/dl Phosphorus 3.2 (2.7-4.5) mg/dL Albumin 2.3 L (3.2-5.2) gm/dL Pituitary panel 11/22/18 Range/Units 04:24 Sodium 142 (133-145) mmol/L Potassium 4.5 (3.3-5.1) mmol/L Chloride 113 H (96-108) mmol/L Carbon Dioxide 22 (22-30) mmol/L BUN 13 (8-23) mg/dl Creatinine 0.6 (0.6-1.1) mg/dl Glucose 278 H (70-105) mg/dL Calcium 9.3 (8.6-10.4) mg/dl Adrenal panel 11/22/18 Range/Units 04:24 Sodium 142 (133-145) mmol/L Potassium 4.5 (3.3-5.1) mmol/L Chloride 113 H (96-108) mmol/L Carbon Dioxide 22 (22-30) mmol/L BUN 13 (8-23) mg/dl Creatinine 0.6 (0.6-1.1) mg/dl Glucose 278 H (70-105) mg/dL Calcium 9.3 (8.6-10.4) mg/dl Total Bilirubin 0.3 (0.0-1.0) mg/dL AST 24 (0-37) U/l ALT 32 (0-40) U/l Alkaline Phosphatase 73 (39-117) U/L Total Protein 5.6 L (5.9-8.4) gm/dL Albumin 2.3 L (3.2-5.2) gm/dL Assessment and Plan (1) Perforated abdominal viscus Status: Acute Assessment and plan: Advanced to full liquids with Glucerna and TPN Delay discharge or transfer at this time Current Visit: Yes (2) Peritonitis (acute) generalized Status: Resolved Assessment and plan: peritonitis is clinically resolved Current Visit: Yes (3) Diabetic neuropathy Status: Chronic Current Visit: No - Time Spent With Patient Total time spent is greater than 50% in coordination of care (as documented) at patient's floor/unit and/or counseling patient:
[2018-11-23] MEDS: INSULIN LISPRO 1 UNIT/0.01 ML UNIT SQ SCH ×4 (00:19→17:28)
[2018-11-23] MEDS: METOCLOPRAMIDE 10 MG/2 ML VIAL IV SCH ×4 (00:19→17:28)
[2018-11-23] MEDS: PIPERACILLIN SODIUM/TAZOBACTAM 3.375 GM in DEXTROSE 5% IN WATER 50 ML IV SCH ×5 (00:19→23:58)
[2018-11-23] MEDS: ACETAMINOPHEN 1,000 MG/100 ML BOTTLE IV SCH ×4 (01:49→19:54)
[2018-11-23] MEDS: IPRATROPIUM/ALBUTEROL 3 ML AMPUL.NEB NEB SCH ×4 (01:49→19:20)
[2018-11-23 05:24] LABS: Basophils # (Auto) 0 K/mcL (0.0-0.3); Basophils % (Auto) 0.3 % (0.0-2.0); Eosinophils # (Auto) 0.2 K/mcL (0.0-0.7); Eosinophils % (Auto) 2.2 % (0.0-7.0); Lymphocytes % (Auto) 11.3 % (15.5-49.0); Mean Cell Volume 87.9 fL (80.0-100.0); Mean Corpuscular HGB Conc 31.6 g/dL (31.0-36.0); Monocytes # (Auto) 0.8 K/mcL (0.1-0.9); Monocytes % (Auto) 9.2 % (1.0-12.0); Platelet Count 445 K/mcL (140-440); RBC 2.94 M/mcL (4.00-5.20); Red Cell Distribution Width 13.7 % (11.5-14.5)
[2018-11-23 05:42] LABS: ALT/SGPT 32 U/l (0-40); Albumin 2.4 gm/dL (3.2-5.2); Albumin/Globulin Ratio 0.8 (1.0-2.3); Alkaline Phosphatase 69 U/L (39-117); Bilirubin,Direct < 0.2 mg/dL (0.0-0.3); Blood Urea Nitrogen 14 mg/dl (8-23); Gamma Glutamyl Transpeptidase 80 U/L (5-36)
[2018-11-23] MEDS: PANTOPRAZOLE 40 MG VIAL IV SCH ×2 (06:51→17:27)
[2018-11-23] MEDS: fentaNYL 100 MCG/2 ML VIAL IV PRN ×3 (07:05→15:34)
[2018-11-23] MEDS: 0.9 % SODIUM CHLORIDE 10 ML SYRINGE IV SCH ×3 (08:28→20:37)
[2018-11-23] MEDS: ENOXAPARIN 40 MG/0.4 ML SYRINGE SQ SCH (08:28)
[2018-11-23] MEDS: [UNRECOGNIZED DRUG - REMARK] IV SCH (15:31)
[2018-11-23] MEDS: FAT EMULSION 20% 250 ML IV SCH (15:31)
--- NOTE | 2018-11-23 16:43 | General Surgery Progress Note ---
Subjective Patient reports: pain is less, tolerating liquids well, flatus, bowel movement, afebrile Narrative: Note initiated : 11/23/18 at 4:43 pm Service Date, if different from initiated Date: [] Patient: Genna oGng 78 y/o F admitted on 11/09/18 for pain all over. Chief Complaint: [Patient continues to slowly improve. She is cooperating with more by mouth intake. PATTI drainage has only been 5 cc per shift. The drainage from the subhepatic space is less purulent. White blood count 8, hemoglobin 8.2, BUN 14, creatinine 0.6] Objective Temp Pulse Resp BP Pulse Ox 97.7 F 80 18 161/66 93 11/23/18 15:33 11/23/18 08:09 11/23/18 15:33 11/23/18 15:33 11/23/18 15:33 - Additional Data Intake & Output - Last 24 hours: Intake & Output 11/21/18 11/22/18 11/23/18 11/24/18 05:59 05:59 05:59 05:59 Intake Total 900 1225 3145 860 Output Total 8 36 10 7 Balance 892 1189 3135 853 Weight 227 lb 203 lb 8 oz 228 lb - General physical appearance moderate pain, chronically ill, obese - Eyes PERRL, normal ocular movement - ENT normal pinna, normal nares, normal mucosa, no congestion, decreased hearing - Neck no masses, no bruits, trachea midline, no lymphadenopathy, no venous distension - Respiratory normal expansion, normal respiratory effort, clear to auscultation - Cardiovascular Cardiovascular exam: Present: RRR, +S1, +S2. Absent: JVD, tachycardia - Abdomen tender (abdominal tenderness is less; she has good active bowel sounds; incision looks good) - Integumentary no rash, no growths, no abnormal pigmentation - Neurologic normal coordination, normal sensation - Psychiatric oriented to time, oriented to person, oriented to place, speech is normal, memory intact - Labs 11/23/18 04:02 11/23/18 04:03 Diabetes panel 11/23/18 Range/Units 04:03 Sodium 145 (133-145) mmol/L Potassium 3.9 (3.3-5.1) mmol/L Chloride 113 H (96-108) mmol/L Carbon Dioxide 26 (22-30) mmol/L BUN 14 (8-23) mg/dl Creatinine 0.6 (0.6-1.1) mg/dl Glucose 268 H (70-105) mg/dL Calcium 9.5 (8.6-10.4) mg/dl AST 21 (0-37) U/l ALT 32 (0-40) U/l Alkaline Phosphatase 69 (39-117) U/L Total Protein 5.4 L (5.9-8.4) gm/dL Albumin 2.4 L (3.2-5.2) gm/dL Triglycerides 216 H (<150) mg/dl Calcium panel 11/23/18 Range/Units 04:03 Calcium 9.5 (8.6-10.4) mg/dl Phosphorus 3.0 (2.7-4.5) mg/dL Albumin 2.4 L (3.2-5.2) gm/dL Pituitary panel 11/23/18 Range/Units 04:03 Sodium 145 (133-145) mmol/L Potassium 3.9 (3.3-5.1) mmol/L Chloride 113 H (96-108) mmol/L Carbon Dioxide 26 (22-30) mmol/L BUN 14 (8-23) mg/dl Creatinine 0.6 (0.6-1.1) mg/dl Glucose 268 H (70-105) mg/dL Calcium 9.5 (8.6-10.4) mg/dl Adrenal panel 11/23/18 Range/Units 04:03 Sodium 145 (133-145) mmol/L Potassium 3.9 (3.3-5.1) mmol/L Chloride 113 H (96-108) mmol/L Carbon Dioxide 26 (22-30) mmol/L BUN 14 (8-23) mg/dl Creatinine 0.6 (0.6-1.1) mg/dl Glucose 268 H (70-105) mg/dL Calcium 9.5 (8.6-10.4) mg/dl Total Bilirubin 0.3 (0.0-1.0) mg/dL AST 21 (0-37) U/l ALT 32 (0-40) U/l Alkaline Phosphatase 69 (39-117) U/L Total Protein 5.4 L (5.9-8.4) gm/dL Albumin 2.4 L (3.2-5.2) gm/dL Assessment and Plan (1) Perforated abdominal viscus Status: Acute Assessment and plan: Advanced to full liquids with Glucerna and TPN Current Visit: Yes (2) Peritonitis (acute) generalized Status: Resolved Assessment and plan: peritonitis is clinically resolved Current Visit: Yes (3) Diabetic neuropathy Status: Chronic Current Visit: No - Time Spent With Patient Total time spent is greater than 50% in coordination of care (as documented) at patient's floor/unit and/or counseling patient:
[2018-11-24] MEDS: METOCLOPRAMIDE 10 MG/2 ML VIAL IV SCH ×4 (00:12→17:33)
[2018-11-24] MEDS: INSULIN LISPRO 1 UNIT/0.01 ML UNIT SQ SCH ×4 (00:12→17:33)
[2018-11-24] MEDS: IPRATROPIUM/ALBUTEROL 3 ML AMPUL.NEB NEB SCH ×4 (00:15→19:30)
[2018-11-24] MEDS: ACETAMINOPHEN 1,000 MG/100 ML BOTTLE IV SCH ×4 (03:23→20:40)
[2018-11-24] MEDS: fentaNYL 100 MCG/2 ML VIAL IV PRN (04:14)
[2018-11-24] MEDS: ONDANSETRON 4 MG/2 ML VIAL IV PRN (04:36)
[2018-11-24] MEDS: PIPERACILLIN SODIUM/TAZOBACTAM 3.375 GM in DEXTROSE 5% IN WATER 50 ML IV SCH ×3 (05:35→17:33)
[2018-11-24 05:53] LABS: Amylase 32 U/L (28-100); Lipase 25 U/L (7-60)
[2018-11-24] MEDS: PANTOPRAZOLE 40 MG VIAL IV SCH ×2 (07:41→17:33)
[2018-11-24] MEDS: ENOXAPARIN 40 MG/0.4 ML SYRINGE SQ SCH (09:26)
[2018-11-24] MEDS: 0.9 % SODIUM CHLORIDE 10 ML SYRINGE IV SCH ×2 (09:26→20:40)
--- NOTE | 2018-11-24 14:37 | General Surgery Progress Note ---
Subjective Patient reports: feels better, pain is less, tolerating liquids well, flatus, bowel movement, afebrile Narrative: Note initiated : 11/24/18 at 2:34 pm Service Date, if different from initiated Date: [] Patient: Genna Gong 78 y/o F admitted on 11/09/18 for pain all over. Chief Complaint: [patient is gradually improving. She is afebrile. Her amylase is normal. Her systolic blood pressure is elevated and her heart rate is increased. PATTI drainage is increased But this is totally serous drainage. very purulent looking drainage is still small amount. She is tolerating full liquids with Glucerna without difficulty. Her incision looks good.] Objective Temp Pulse Resp BP Pulse Ox 97.1 F 86 20 124/72 97 11/24/18 11:45 11/24/18 13:10 11/24/18 13:10 11/24/18 11:45 11/24/18 11:45 - Additional Data Intake & Output - Last 24 hours: Intake & Output 11/22/18 11/23/18 11/24/18 11/25/18 05:59 05:59 05:59 05:59 Intake Total 1225 3145 2040 150 Output Total 36 10 130 Balance 1189 3135 1910 150 Weight 203 lb 8 oz 228 lb 225 lb 225 lb - General physical appearance well developed, well nourished, no distress - Eyes PERRL, normal ocular movement - ENT normal pinna, normal nares, normal mucosa, no hearing loss, no congestion - Neck no masses, no bruits, trachea midline, no lymphadenopathy, no venous distension - Respiratory normal expansion, normal respiratory effort, clear to auscultation - Cardiovascular Cardiovascular exam: Present: normal rate and rhythm, +S1, +S2, tachycardia. Absent: JVD - Abdomen tender (mild incisional tenderness otherwise normal abdominal exam) - Integumentary no rash, no growths, no abnormal pigmentation - Neurologic normal coordination, normal sensation - Psychiatric oriented to time, oriented to person, oriented to place, speech is normal, memory intact - Labs 11/23/18 04:02 11/23/18 04:03 Assessment and Plan (1) Perforated abdominal viscus Status: Acute Assessment and plan: Advanced to full liquids with Glucerna and TPN Current Visit: Yes (2) Peritonitis (acute) generalized Status: Resolved Assessment and plan: peritonitis is clinically resolved Current Visit: Yes (3) Diabetic neuropathy Status: Chronic Current Visit: No - Time Spent With Patient Total time spent is greater than 50% in coordination of care (as documented) at patient's floor/unit and/or counseling patient:
[2018-11-24] MEDS: [UNRECOGNIZED DRUG - REMARK] IV SCH (15:47)
[2018-11-24] MEDS: LISINOPRIL 20 MG TABLET PO SCH (20:40)
[2018-11-25] MEDS: PIPERACILLIN SODIUM/TAZOBACTAM 3.375 GM in DEXTROSE 5% IN WATER 50 ML IV SCH ×5 (00:32→23:00)
[2018-11-25] MEDS: INSULIN LISPRO 1 UNIT/0.01 ML UNIT SQ SCH ×5 (00:32→23:10)
[2018-11-25] MEDS: IPRATROPIUM/ALBUTEROL 3 ML AMPUL.NEB NEB SCH ×2 (00:32→08:04)
[2018-11-25] MEDS: METOCLOPRAMIDE 10 MG/2 ML VIAL IV SCH ×5 (00:32→23:09)
[2018-11-25] MEDS: ACETAMINOPHEN 1,000 MG/100 ML BOTTLE IV SCH ×4 (02:19→20:34)
[2018-11-25 04:55] LABS: Basophils # (Auto) 0 K/mcL (0.0-0.3); Basophils % (Auto) 0.2 % (0.0-2.0); Eosinophils # (Auto) 0.2 K/mcL (0.0-0.7); Eosinophils % (Auto) 2.1 % (0.0-7.0); Granulocytes % (Auto) 70.5 % (38.0-78.0); Lymphocytes # (Auto) 1.1 K/mcL (1.5-4.8); Lymphocytes % (Auto) 14.4 % (15.5-49.0); Mean Cell Volume 88.7 fL (80.0-100.0); Mean Corpuscular HGB Conc 30.7 g/dL (31.0-36.0); Monocytes % (Auto) 12.8 % (1.0-12.0); Platelet Count 414 K/mcL (140-440); RBC 2.88 M/mcL (4.00-5.20); Red Cell Distribution Width 14.5 % (11.5-14.5)
[2018-11-25 05:48] LABS: ALT/SGPT 47 U/l (0-40); Albumin 2.4 gm/dL (3.2-5.2); Albumin/Globulin Ratio 0.9 (1.0-2.3); Alkaline Phosphatase 71 U/L (39-117); Bilirubin,Direct < 0.2 mg/dL (0.0-0.3); Blood Urea Nitrogen 18 mg/dl (8-23); Gamma Glutamyl Transpeptidase 102 U/L (5-36); Uric Acid 1.3 mg/dL (2.5-8.0)
[2018-11-25] MEDS: 0.9 % SODIUM CHLORIDE 10 ML SYRINGE IV SCH ×3 (05:52→20:40)
[2018-11-25] MEDS: PANTOPRAZOLE 40 MG VIAL IV SCH ×2 (07:35→17:25)
[2018-11-25] MEDS: amLODIPine 10 MG TABLET PO SCH (08:47)
[2018-11-25] MEDS: ENOXAPARIN 40 MG/0.4 ML SYRINGE SQ SCH (08:47)
[2018-11-25] MEDS: LISINOPRIL 20 MG TABLET PO SCH ×2 (08:47→20:34)
[2018-11-25] MEDS ORDERED: [UNRECOGNIZED DRUG - REMARK] IV SCH (15:00)
[2018-11-25] MEDS: IPRATROPIUM/ALBUTEROL 3 ML AMPUL.NEB NEB PRN ×2 (15:59→22:53)
--- NOTE | 2018-11-25 16:19 | General Surgery Progress Note ---
Subjective Patient reports: feels better, pain is less, tolerating liquids well, flatus, bowel movement Narrative: Note initiated : 11/25/18 at 4:17 pm Service Date, if different from initiated Date: [] Patient: Genna Gong 78 y/o F admitted on 11/09/18 for pain all over. Chief Complaint: [patient slightly improved. Maximum temperature 9.1. She denies chest discomfort or shortness of breath. Her abdominal pain is controlled. White blood count 7.8; hemoglobin 7.9; she does not appear to have any respiratory difficulty. She did have a period of desaturation while she was being turned. She rapidly improved with 2 L she now has oxygen saturation 94% on 2 L by nasal cannula. She has a small amount of purulent drainage in the subhepatic drain. The other drain has serous drainage.] Objective Temp Pulse Resp BP Pulse Ox 98.7 F 100 H 20 143/71 93 11/25/18 15:51 11/25/18 16:05 11/25/18 16:05 11/25/18 15:51 11/25/18 15:51 - Additional Data Intake & Output - Last 24 hours: Intake & Output 11/23/18 11/24/18 11/25/18 11/26/18 05:59 05:59 05:59 05:59 Intake Total 3145 2040 2641 2261 Output Total 10 130 69 6 Balance 3135 1910 2572 2255 Weight 228 lb 225 lb 228 lb - General physical appearance well developed, chronically ill - Eyes PERRL, normal ocular movement - ENT normal pinna, normal nares, normal mucosa, no hearing loss, no congestion - Neck no masses, no bruits, trachea midline, no lymphadenopathy, no venous distension - Respiratory normal expansion, normal respiratory effort - Cardiovascular Cardiovascular exam: Present: normal rate and rhythm, RRR, +S1, +S2. Absent: JVD, tachycardia - Abdomen tender (mild tenderness of the incision; almaz were removed), bowel sounds (present), surgical scars (none), masses (none) - Integumentary no rash, no growths, no abnormal pigmentation - Neurologic normal coordination, normal sensation - Psychiatric oriented to time, oriented to person, oriented to place, speech is normal, memory intact - Labs 11/25/18 04:21 11/25/18 04:21 Diabetes panel 11/25/18 Range/Units 04:21 Sodium 140 (133-145) mmol/L Potassium 4.6 (3.3-5.1) mmol/L Chloride 108 (96-108) mmol/L Carbon Dioxide 28 (22-30) mmol/L BUN 18 (8-23) mg/dl Creatinine 0.7 (0.6-1.1) mg/dl Glucose 236 H (70-105) mg/dL Calcium 9.7 (8.6-10.4) mg/dl AST 34 (0-37) U/l ALT 47 H (0-40) U/l Alkaline Phosphatase 71 (39-117) U/L Total Protein 5.1 L (5.9-8.4) gm/dL Albumin 2.4 L (3.2-5.2) gm/dL Triglycerides 191 H (<150) mg/dl Calcium panel 11/25/18 Range/Units 04:21 Calcium 9.7 (8.6-10.4) mg/dl Phosphorus 5.4 H (2.7-4.5) mg/dL Albumin 2.4 L (3.2-5.2) gm/dL Pituitary panel 11/25/18 Range/Units 04:21 Sodium 140 (133-145) mmol/L Potassium 4.6 (3.3-5.1) mmol/L Chloride 108 (96-108) mmol/L Carbon Dioxide 28 (22-30) mmol/L BUN 18 (8-23) mg/dl Creatinine 0.7 (0.6-1.1) mg/dl Glucose 236 H (70-105) mg/dL Calcium 9.7 (8.6-10.4) mg/dl Adrenal panel 11/25/18 Range/Units 04:21 Sodium 140 (133-145) mmol/L Potassium 4.6 (3.3-5.1) mmol/L Chloride 108 (96-108) mmol/L Carbon Dioxide 28 (22-30) mmol/L BUN 18 (8-23) mg/dl Creatinine 0.7 (0.6-1.1) mg/dl Glucose 236 H (70-105) mg/dL Calcium 9.7 (8.6-10.4) mg/dl Total Bilirubin 0.4 (0.0-1.0) mg/dL AST 34 (0-37) U/l ALT 47 H (0-40) U/l Alkaline Phosphatase 71 (39-117) U/L Total Protein 5.1 L (5.9-8.4) gm/dL Albumin 2.4 L (3.2-5.2) gm/dL Assessment and Plan (1) Perforated abdominal viscus Status: Acute Assessment and plan: Advanced to full liquids with Glucerna and TPN Current Visit: Yes (2) Peritonitis (acute) generalized Status: Resolved Assessment and plan: peritonitis is clinically resolved Current Visit: Yes (3) Diabetic neuropathy Status: Chronic Current Visit: No - Time Spent With Patient Total time spent is greater than 50% in coordination of care (as documented) at patient's floor/unit and/or counseling patient:
[2018-11-26] MEDS: ACETAMINOPHEN 1,000 MG/100 ML BOTTLE IV SCH ×4 (02:42→20:28)
[2018-11-26] MEDS: INSULIN LISPRO 1 UNIT/0.01 ML UNIT SQ SCH ×3 (05:50→17:31)
[2018-11-26 05:51] LABS: Basophils # (Auto) 0 K/mcL (0.0-0.3); Basophils % (Auto) 0 % (0.0-2.0); Eosinophils # (Auto) 0.1 K/mcL (0.0-0.7); Eosinophils % (Auto) 1.2 % (0.0-7.0); Granulocytes % (Auto) 79.3 % (38.0-78.0); Lymphocytes % (Auto) 9.2 % (15.5-49.0); Mean Cell Volume 88.2 fL (80.0-100.0); Mean Corpuscular HGB Conc 31.2 g/dL (31.0-36.0); Monocytes # (Auto) 1.1 K/mcL (0.1-0.9); Monocytes % (Auto) 10.3 % (1.0-12.0); Platelet Count 379 K/mcL (140-440); RBC 2.93 M/mcL (4.00-5.20); Red Cell Distribution Width 14.7 % (11.5-14.5)
[2018-11-26] MEDS: PIPERACILLIN SODIUM/TAZOBACTAM 3.375 GM in DEXTROSE 5% IN WATER 50 ML IV SCH ×3 (05:54→17:32)
[2018-11-26] MEDS: METOCLOPRAMIDE 10 MG/2 ML VIAL IV SCH ×3 (05:54→17:31)
[2018-11-26 06:09] LABS: ALT/SGPT 43 U/l (0-40); Albumin 2.6 gm/dL (3.2-5.2); Albumin/Globulin Ratio 0.9 (1.0-2.3); Alkaline Phosphatase 73 U/L (39-117); Bilirubin,Direct < 0.2 mg/dL (0.0-0.3); Blood Urea Nitrogen 21 mg/dl (8-23); Gamma Glutamyl Transpeptidase 101 U/L (5-36); Uric Acid 1.6 mg/dL (2.5-8.0)
[2018-11-26] MEDS: PANTOPRAZOLE 40 MG VIAL IV SCH ×2 (07:45→17:29)
[2018-11-26] MEDS: amLODIPine 10 MG TABLET PO SCH (08:21)
[2018-11-26] MEDS: 0.9 % SODIUM CHLORIDE 10 ML SYRINGE IV SCH ×2 (08:21→20:28)
[2018-11-26] MEDS: LISINOPRIL 20 MG TABLET PO SCH ×2 (08:21→20:28)
[2018-11-26] MEDS: ENOXAPARIN 40 MG/0.4 ML SYRINGE SQ SCH (08:21)
--- NOTE | 2018-11-26 09:30 | XRay Report ---
INDICATION: Pneumonia TECHNIQUE: AP chest x-ray,portable semiupright COMPARISON: Previous examinations dated 11/21/2018, 11/15/2018, 11/13/2018 FINDINGS:No change in right central venous catheter with its tip in the superior vena cava. Persistent triangular density consistent with partial right middle lobe collapse. Findings are unchanged. No new parenchymal infiltrate or mass. Heart size and vascularity remain within normal limits. No pulmonary edema or pulmonary congestion IMPRESSION: 1. Persistent density consistent with partial right middle lobe collapse 2. No new abnormality. No interval change since 11/21/2018 Interpreted and Authenticated by: Vikas Nunez 11/26/18
[2018-11-26] MEDS ORDERED: [UNRECOGNIZED DRUG - REMARK] IV SCH (15:00)
[2018-11-26] MEDS: FAT EMULSION 20% 250 ML IV SCH (15:52)
--- NOTE | 2018-11-26 17:45 | General Surgery Progress Note ---
Subjective Patient reports: feels better, pain is less, tolerating a regular diet, no flatus, bowel movement, afebrile Narrative: Note initiated : 11/26/18 at 5:43 pm Service Date, if different from initiated Date: [] Patient: Genna Gong a 78 y/o F admitted on 11/09/18 for pain all over. Chief Complaint: [patient is stable except for hypoxemia last evening. She's been well today on 2 L of oxygen. Chest x-ray shows mild atelectasis right middle lobe.] Objective Temp Pulse Resp BP Pulse Ox 97.5 F 85 20 131/65 97 11/26/18 16:00 11/26/18 16:00 11/26/18 16:00 11/26/18 16:00 11/26/18 16:00 - Additional Data Intake & Output - Last 24 hours: Intake & Output 11/24/18 11/25/18 11/26/18 11/27/18 05:59 05:59 05:59 05:59 Intake Total 2040 2641 3271 2968 Output Total 130 69 42 32 Balance 1910 2572 3229 2936 Weight 225 lb 228 lb 225 lb 8 oz - General physical appearance no distress, no pain, chronically ill - Eyes PERRL, normal ocular movement - ENT normal pinna, normal nares, normal mucosa, no hearing loss, no congestion - Neck no masses, no bruits, trachea midline, no lymphadenopathy, no venous distension - Respiratory clear to percussion, other (decreased respiratory effort; coarse tubular breath sounds both sides; no wheezes) - Cardiovascular Cardiovascular exam: Present: normal rate and rhythm, RRR, +S1, +S2. Absent: J VD, tachycardia - Abdomen non tender, bowel sounds, distended ( abdomen is mildly distended but she has good active bowel sounds; incision is healing uneventfully; minimal output through her JPs) - Integumentary no rash, no growths, no abnormal pigmentation - Neurologic normal coordination, normal sensation - Musculoskeletal normal gait, normal posture - Psychiatric oriented to time, oriented to person, oriented to place, speech is normal, memory intact - Labs 11/26/18 04:00 11/26/18 04:00 Diabetes panel 11/26/18 Range/Units 04:00 Sodium 139 (133-145) mmol/L Potassium 4.8 (3.3-5.1) mmol/L Chloride 108 (96-108) mmol/L Carbon Dioxide 26 (22-30) mmol/L BUN 21 (8-23) mg/dl Creatinine 0.8 (0.6-1.1) mg/dl Glucose 244 H (70-105) mg/dL Calcium 10.3 (8.6-10.4) mg/dl AST 22 (0-37) U/l ALT 43 H (0-40) U/l Alkaline Phosphatase 73 (39-117) U/L Total Protein 5.4 L (5.9-8.4) gm/dL Albumin 2.6 L (3.2-5.2) gm/dL Triglycerides 206 H (<150) mg/dl Calcium panel 11/26/18 Range/Units 04:00 Calcium 10.3 (8.6-10.4) mg/dl Phosphorus 2.5 L (2.7-4.5) mg/dL Albumin 2.6 L (3.2-5.2) gm/dL Pituitary panel 11/26/18 Range/Units 04:00 Sodium 139 (133-145) mmol/L Potassium 4.8 (3.3-5.1) mmol/L Chloride 108 (96-108) mmol/L Carbon Dioxide 26 (22-30) mmol/L BUN 21 (8-23) mg/dl Creatinine 0.8 (0.6-1.1) mg/dl Glucose 244 H (70-105) mg/dL Calcium 10.3 (8.6-10.4) mg/dl Adrenal panel 11/26/18 Range/Units 04:00 Sodium 139 (133-145) mmol/L Potassium 4.8 (3.3-5.1) mmol/L Chloride 108 (96-108) mmol/L Carbon Dioxide 26 (22-30) mmol/L BUN 21 (8-23) mg/dl Creatinine 0.8 (0.6-1.1) mg/dl Glucose 244 H (70-105) mg/dL Calcium 10.3 (8.6-10.4) mg/dl Total Bilirubin 0.4 (0.0-1.0) mg/dL AST 22 (0-37) U/l ALT 43 H (0-40) U/l Alkaline Phosphatase 73 (39-117) U/L Total Protein 5.4 L (5.9-8.4) gm/dL Albumin 2.6 L (3.2-5.2) gm/dL Assessment and Plan (1) Perforated abdominal viscus Status: Acute Assessment and plan: Advanced to regular diet and taper TPN probable transfer to nursing care facility tomorrow Current Visit: Yes (2) Peritonitis (acute) generalized Status: Resolved Assessment and plan: peritonitis is clinically resolved Current Visit: Yes (3) Diabetic neuropathy Status: Chronic Current Visit: No - Time Spent With Patient Total time spent is greater than 50% in coordination of care (as documented) at patient's floor/unit and/or counseling patient:
[2018-11-26] MEDS ORDERED: PROMETHAZINE HCL/CODEINE 1 ML SYRUP PO PRN (17:50)
[2018-11-27] MEDS: PIPERACILLIN SODIUM/TAZOBACTAM 3.375 GM in DEXTROSE 5% IN WATER 50 ML IV SCH ×5 (00:12→23:21)
[2018-11-27] MEDS: INSULIN LISPRO 1 UNIT/0.01 ML UNIT SQ SCH ×5 (00:17→23:31)
[2018-11-27] MEDS: METOCLOPRAMIDE 10 MG/2 ML VIAL IV SCH ×5 (00:37→23:21)
[2018-11-27] MEDS: ACETAMINOPHEN 1,000 MG/100 ML BOTTLE IV SCH ×4 (01:55→20:04)
[2018-11-27 05:49] LABS: Basophils # (Auto) 0 K/mcL (0.0-0.3); Basophils % (Auto) 0.1 % (0.0-2.0); Eosinophils # (Auto) 0.2 K/mcL (0.0-0.7); Eosinophils % (Auto) 2.9 % (0.0-7.0); Granulocytes % (Auto) 70.8 % (38.0-78.0); Lymphocytes % (Auto) 14.1 % (15.5-49.0); Mean Cell Volume 89.3 fL (80.0-100.0); Mean Corpuscular HGB Conc 30.7 g/dL (31.0-36.0); Monocytes # (Auto) 0.9 K/mcL (0.1-0.9); Monocytes % (Auto) 12.1 % (1.0-12.0); Platelet Count 364 K/mcL (140-440); RBC 3.03 M/mcL (4.00-5.20); Red Cell Distribution Width 15.1 % (11.5-14.5)
[2018-11-27 06:06] LABS: ALT/SGPT 34 U/l (0-40); Albumin 2.6 gm/dL (3.2-5.2); Albumin/Globulin Ratio 0.9 (1.0-2.3); Alkaline Phosphatase 74 U/L (39-117); Bilirubin,Direct < 0.2 mg/dL (0.0-0.3); Blood Urea Nitrogen 21 mg/dl (8-23); Gamma Glutamyl Transpeptidase 91 U/L (5-36); Uric Acid 1.5 mg/dL (2.5-8.0)
[2018-11-27] MEDS: PANTOPRAZOLE 40 MG VIAL IV SCH ×2 (08:22→17:49)
[2018-11-27] MEDS: 0.9 % SODIUM CHLORIDE 10 ML SYRINGE IV SCH ×2 (09:00→22:22)
[2018-11-27] MEDS: amLODIPine 10 MG TABLET PO SCH (10:01)
[2018-11-27] MEDS: LISINOPRIL 20 MG TABLET PO SCH ×2 (10:02→20:29)
[2018-11-27] MEDS: ENOXAPARIN 40 MG/0.4 ML SYRINGE SQ SCH (10:04)
--- NOTE | 2018-11-27 14:51 | General Surgery Progress Note ---
Subjective Patient reports: feels better, pain is less, tolerating a regular diet, flatus, bowel movement, afebrile Narrative: Note initiated : 11/27/18 at 2:49 pm Service Date, if different from initiated Date: [] Patient: Genna Gong 78 y/o F admitted on 11/09/18 for pain all over. Chief Complaint: [Patient is stooling well. She is more alert today and more cooperative. She is tolerating regular diet without difficulty. Her TPN was being tapered. White blood count 7.2, hemoglobin 8.3, potassium 4.4, BUN 21, creatinine 0.7, phosphorus 1.5. PATTI drainage is primarily serous] Objective Temp Pulse Resp BP Pulse Ox 97.6 F 80 14 102/53 99 11/27/18 11:37 11/27/18 11:37 11/27/18 11:37 11/27/18 11:37 11/27/18 11:37 - Additional Data Intake & Output - Last 24 hours: Intake & Output 11/25/18 11/26/18 11/27/18 11/28/18 05:59 05:59 05:59 05:59 Intake Total 2641 3271 3668 150 Output Total 69 42 66 Balance 2572 3229 3602 150 Weight 228 lb 225 lb 8 oz 227 lb - General physical appearance well developed, well nourished, no distress, chronically ill - Eyes PERRL, normal ocular movement - ENT normal pinna, normal nares, normal mucosa, no hearing loss, no congestion - Neck no masses, no bruits, trachea midline, no lymphadenopathy, no venous distension - Respiratory normal expansion, normal respiratory effort, clear to auscultation - Cardiovascular Cardiovascular exam: Present: normal rate and rhythm, JVD, RRR, +S1, +S2. A bsent: tachycardia - Abdomen non tender (incision is healing uneventfully; almaz have been removed; she has good active bowel sounds), bowel sounds (present), surgical scars (none), masses (none) - Integumentary no rash, no growths, no abnormal pigmentation - Neurologic normal coordination, normal sensation - Musculoskeletal normal gait, normal posture - Psychiatric oriented to time, oriented to person, oriented to place, speech is normal, memory intact - Labs 11/27/18 04:00 11/27/18 04:00 Diabetes panel 11/27/18 Range/Units 04:00 Sodium 137 (133-145) mmol/L Potassium 4.4 (3.3-5.1) mmol/L Chloride 108 (96-108) mmol/L Carbon Dioxide 26 (22-30) mmol/L BUN 21 (8-23) mg/dl Creatinine 0.7 (0.6-1.1) mg/dl Glucose 250 H (70-105) mg/dL Calcium 10.4 (8.6-10.4) mg/dl AST 15 (0-37) U/l ALT 34 (0-40) U/l Alkaline Phosphatase 74 (39-117) U/L Total Protein 5.5 L (5.9-8.4) gm/dL Albumin 2.6 L (3.2-5.2) gm/dL Triglycerides 186 H (<150) mg/dl Calcium panel 11/27/18 Range/Units 04:00 Calcium 10.4 (8.6-10.4) mg/dl Phosphorus 1.5 L (2.7-4.5) mg/dL Albumin 2.6 L (3.2-5.2) gm/dL Pituitary panel 11/27/18 Range/Units 04:00 Sodium 137 (133-145) mmol/L Potassium 4.4 (3.3-5.1) mmol/L Chloride 108 (96-108) mmol/L Carbon Dioxide 26 (22-30) mmol/L BUN 21 (8-23) mg/dl Creatinine 0.7 (0.6-1.1) mg/dl Glucose 250 H (70-105) mg/dL Calcium 10.4 (8.6-10.4) mg/dl Adrenal panel 11/27/18 Range/Units 04:00 Sodium 137 (133-145) mmol/L Potassium 4.4 (3.3-5.1) mmol/L Chloride 108 (96-108) mmol/L Carbon Dioxide 26 (22-30) mmol/L BUN 21 (8-23) mg/dl Creatinine 0.7 (0.6-1.1) mg/dl Glucose 250 H (70-105) mg/dL Calcium 10.4 (8.6-10.4) mg/dl Total Bilirubin 0.3 (0.0-1.0) mg/dL AST 15 (0-37) U/l ALT 34 (0-40) U/l Alkaline Phosphatase 74 (39-117) U/L Total Protein 5.5 L (5.9-8.4) gm/dL Albumin 2.6 L (3.2-5.2) gm/dL Assessment and Plan (1) Perforated abdominal viscus Status: Acute Assessment and plan: Advanced to regular diet and taper TPN probable transfer to nursing care facility tomorrow Current Visit: Yes (2) Peritonitis (acute) generalized Status: Resolved Assessment and plan: peritonitis is clinically resolved Current Visit: Yes (3) Diabetic neuropathy Status: Chronic Current Visit: No - Time Spent With Patient Total time spent is greater than 50% in coordination of care (as documented) at patient's floor/unit and/or counseling patient:
[2018-11-27] MEDS ORDERED: TPN PER PHARMACY IV ONE (14:52)
[2018-11-27] MEDS ORDERED: [UNRECOGNIZED DRUG - REMARK] IV SCH (15:00)
[2018-11-28] MEDS: ACETAMINOPHEN 1,000 MG/100 ML BOTTLE IV SCH ×2 (02:11→10:14)
[2018-11-28] MEDS: PIPERACILLIN SODIUM/TAZOBACTAM 3.375 GM in DEXTROSE 5% IN WATER 50 ML IV SCH ×2 (05:34→11:56)
[2018-11-28] MEDS: METOCLOPRAMIDE 10 MG/2 ML VIAL IV SCH ×2 (05:34→11:55)
[2018-11-28 06:17] LABS: ALT/SGPT 28 U/l (0-40); Albumin 2.5 gm/dL (3.2-5.2); Albumin/Globulin Ratio 0.9 (1.0-2.3); Alkaline Phosphatase 70 U/L (39-117); Bilirubin,Direct < 0.2 mg/dL (0.0-0.3); Blood Urea Nitrogen 23 mg/dl (8-23); Gamma Glutamyl Transpeptidase 91 U/L (5-36)
[2018-11-28] MEDS: INSULIN LISPRO 1 UNIT/0.01 ML UNIT SQ SCH (06:20)
[2018-11-28] MEDS: ENOXAPARIN 40 MG/0.4 ML SYRINGE SQ SCH (08:50)
[2018-11-28] MEDS: PANTOPRAZOLE 40 MG VIAL IV SCH (08:51)
[2018-11-28] MEDS: LISINOPRIL 20 MG TABLET PO SCH (08:51)
[2018-11-28] MEDS: amLODIPine 10 MG TABLET PO SCH (08:51)
[2018-11-28] MEDS: 0.9 % SODIUM CHLORIDE 10 ML SYRINGE IV SCH (10:16)
[2018-11-28] MEDS ORDERED: INSULIN LISPRO 1 UNIT/0.01 ML UNIT SQ SCH (11:30)
--- NOTE | 2018-11-28 11:48 | Discharge Summary ---
Providers - Providers Patient information: Note initiated : 11/28/18 at 11:42 am Service Date, if different from initiated Date: [] Patient: Genna Gong 78 y/o F admitted on 11/09/18 for pain all over. Chief Complaint: [] Date of admission: 11/12/18 Discharge date: 11/28/18 Attending physician: Zonia Schroeder HOSPITALIST Hospitalization Hospital course: 78-year-old female admitted through the emergency room on 12 November with free intraperitoneal air and perforated viscus. sHE WAS EXPLORED and was found to have free perforation of the lesser curvature of the antrum with large volume gastric juice in the subhepatic space and peritoneum. A Maxime patch closure was done as well as thorough peritoneal washout. In the early postoperative period she experienced hypoventilation with atelectasis and she had disorientation and hallucinations. This improved with time. She started having flatus on the third postoperative day her diet was advanced. On 16 November it was noted that there was bilious drainage out of the drain from the subhepatic space appears she was switched to clear liquid diet and started on TPN. Over the next 2 days the drainage significantly decreased. A contrast CT was performed on 21 November and there was no evidence of leak from the stomach and no evidence of abscess. Patient had transient episodes of hypoxemia during her hospitalization. This was treated primarily with supplemental O2. She was not very cooperative and movement and ambulation and developed atelectasis. This is presently clearing. At the present time she is stable alert with stable vital signs. She has excellent blood gases on 2 L of O2. She is tolerating a regular diet and is having regular bowel movements. Her incision is healed. The pelvic PATTI drain will be removed today and the subhepatic drain will be continued for another week. She is stable for discharge at this time. Discharge diagnosis: perforated gastric ulcer Secondary discharge diagnosis: Diffuse peritonitis Reactive airway disease Hypertension Diabetes mellitus Depression Chronic low back pain Reason for admission: perforated gastric ulcer Procedures: Laparotomy with Maxime patch closure of perforated gastric ulcer Pertinent studies/significant findings: CT of abdomen and pelvis with contrast 2 Complications: None Exam Temp Pulse Resp BP Pulse Ox 97.4 F 106 H 24 H 103/56 100 11/28/18 08:00 11/28/18 08:00 11/28/18 08:00 11/28/18 08:00 11/28/18 08:00 - General physical appearance well developed, well nourished, no distress, chronically ill, obese - Eyes PERRL, normal ocular movement - ENT normal pinna, normal nares, normal mucosa, no congestion, decreased hearing - Head Head exam IM: Present: atraumatic, normocephalic - Neck no masses, no bruits, trachea midline, no lymphadenopathy, no venous distension - Cardiovascular Cardiovascular exam IM: Present: normal rate and rhythm, RRR, +S1, +S2. Absent: JVD, tachycardia - Respiratory other (symmetric hypoventilation with decreased breath sounds both sides; few coarse rhonchi, no wheezes) - Abdomen Abdomen: Present: soft, non tender, bowel sounds ( good active bowel sounds; no distention noted; PATTI drain right upper quadrant; healed surgical incision) Hernia: Present: none - Genitourinary Present: normal external genitalia - Integumentary Present: no rash, no growths, no abnormal pigmentation - Neurologic Present: disoriented, confused (patient is intermittently confused and disoriented however she is alert and aware at this time.) - Musculoskeletal Present: normal gait, normal posture - Psychiatric Present: oriented to time, oriented to person, oriented to place, speech is normal, memory intact Discharge Plan - Patient/Caregiver Discharge Instructions Activity: as per physical therapy, increase activity as tolerated Diet: Consistent Carbohydrate Additional Instructions: Dipak-Small drain is to be emptied once daily Follow-up in the office in 1 week for drain removal Continue all preoperative medications Patient is advised to refrain from the use of all NSAIDs including ibuprofen, Motrin, Advil, or other arthritis type drugs Prescriptions: Hydrocodone/APAP 7.5/325Mg 1 tab PO QIDP PRN #60 PRN Reason: Pain - Follow up Plan Follow up with: Richar Brand MD [Primary Care Provider] - Disposition: Xfer SNF Prognosis: Fair Rehab Potential: Good I certify that the patient requires SNF services.: Yes Overall status at discharge: patient is progressing back to baseline Pending Studies Resuscitation Status Full Code Diet Regular Diet Start SunNov 26 1749 Albuterol/Ipratropium (Duoneb) 3 ml NEB Q6HP PRN PRN Reason: Shortness Of Breath Or Wheezing Last Admin: 11/25/18 22:53 Dose: 3 ml Documented by: Admin: 11/25/18 15:59 Dose: 3 ml Documented by: DENIZ Alteplase, Recombinant (Cathflo) 2 mg IV PRN PRN PRN Reason: Line Patency Last Admin: 11/24/18 01:34 Dose: 2 mg Documented by: ELIO Amlodipine Besylate (Norvasc) 10 mg PO DAILY [facility] Last Admin: 11/28/18 08:51 Dose: 10 mg Documented by: Admin: 11/27/18 10:01 Dose: 10 mg Documented by: ANDREY Cosigned by: [email or web address] Admin: 11/26/18 08:21 Dose: 10 mg Documented by: [email or web address] Admin: 11/25/18 08:47 Dose: 10 mg Documented by: [email or web address] Diagnostic Test (Pha) (Accu-Chek) 1 each FS ACHS [facility] Admin: 11/28/18 05:35 Dose: 1 each Documented by: Admin: 11/27/18 23:22 Dose: 1 each Documented by: Admin: 11/27/18 20:04 Dose: 1 each Documented by: Admin: 11/27/18 17:50 Dose: 1 each Documented by: [id number] Admin: 11/27/18 12:09 Dose: 1 each Documented by: ANDREY Bustosigned by: [id number] Enoxaparin Sodium (Lovenox) 40 mg SQ DAILY [facility] Last Admin: 11/28/18 08:50 Dose: 40 mg Documented by: Admin: 11/27/18 10:04 Dose: 40 mg Documented by: ANDREY Cosigned by: LATASHA Admin: 11/26/18 08:21 Dose: 40 mg Documented by: [email or web address] Admin: 11/25/18 08:47 Dose: 40 mg Documented by: [email or web address] Admin: 11/24/18 09:26 Dose: 40 mg Documented by: [id number] Admin: 11/23/18 08:28 Dose: 40 mg Documented by: [id number] Admin: 11/22/18 09:29 Dose: 40 mg Documented by: [email or web address] Admin: 11/21/18 09:03 Dose: 40 mg Documented by: DG Cosigned by: YANA Admin: 11/20/18 09:13 Dose: 40 mg Documented by: Admin: 11/19/18 09:43 Dose: 40 mg Documented by: Admin: 11/18/18 10:12 Dose: 40 mg Documented by: Admin: 11/17/18 08:45 Dose: 40 mg Documented by: Admin: 11/16/18 08:47 Dose: 40 mg Documented by: Admin: 11/15/18 08:15 Dose: 40 mg Documented by: STACIE Fentanyl (Sublimaze) 25 mcg IV Q2HP PRN PRN Reason: PAIN LEVEL > 6 Last Admin: 11/24/18 04:14 Dose: 25 mcg Documented by: Admin: 11/23/18 15:34 Dose: 25 mcg Documented by: Admin: 11/23/18 13:38 Dose: 25 mcg Documented by: Admin: 11/23/18 07:05 Dose: 25 mcg Documented by: Admin: 11/21/18 06:00 Dose: 25 mcg Documented by: Admin: 11/21/18 03:32 Dose: 25 mcg Documented by: Admin: 11/19/18 07:17 Dose: 25 mcg Documented by: Admin: 11/18/18 10:12 Dose: 25 mcg Documented by: Admin: 11/18/18 06:44 Dose: 25 mcg Documented by: Admin: 11/18/18 03:56 Dose: 25 mcg Documented by: Admin: 11/17/18 23:28 Dose: 25 mcg Documented by: Admin: 11/17/18 12:28 Dose: 25 mcg Documented by: Admin: 11/17/18 03:38 Dose: 25 mcg Documented by: Admin: 11/16/18 03:20 Dose: 25 mcg Documented by: Admin: 11/15/18 15:41 Dose: 25 mcg Documented by: Admin: 11/14/18 18:02 Dose: 25 mcg Documented by: [email or web address] Acetaminophen (Ofirmev) 1,000 mg in 100 mls @ 200 mls/hr IV Q6H JOHN Last Infusion: 11/28/18 10:44 Dose: 0 mls/hr Documented by: Admin: 11/28/18 10:14 Dose: 200 mls/hr Documented by: Infusion: 11/28/18 02:45 Dose: 0 mls/hr Documented by: Admin: 11/28/18 02:11 Dose: 200 mls/hr Documented by: Infusion: 11/27/18 21:40 Dose: 0 mls/hr Documented by: Admin: 11/27/18 20:04 Dose: 200 mls/hr Documented by: Infusion: 11/27/18 16:35 Dose: 200 mls/hr Documented by: Admin: 11/27/18 16:04 Dose: 200 mls/hr Documented by: [id number] Infusion: 11/27/18 08:53 Dose: 200 mls/hr Documented by: [id number] Admin: 11/27/18 08:23 Dose: 200 mls/hr Documented by: [id number] Infusion: 11/27/18 02:25 Dose: 200 mls/hr Documented by: [id number] Admin: 11/27/18 01:55 Dose: 200 mls/hr Documented by: Infusion: 11/26/18 20:58 Dose: 200 mls/hr Documented by: Admin: 11/26/18 20:28 Dose: 200 mls/hr Documented by: Infusion: 11/26/18 15:08 Dose: 0 mls/hr Documented by: [email or web address] Admin: 11/26/18 14:34 Dose: 200 mls/hr Documented by: [email or web address] Infusion: 11/26/18 08:29 Dose: 0 mls/hr Documented by: [email or web address] Admin: 11/26/18 07:45 Dose: 200 mls/hr Documented by: [email or web address] Infusion: 11/26/18 03:24 Dose: 0 mls/hr Documented by: Admin: 11/26/18 02:42 Dose: 200 mls/hr Documented by: Infusion: 11/25/18 21:13 Dose: 0 mls/hr Documented by: Admin: 11/25/18 20:34 Dose: 200 mls/hr Documented by: Infusion: 11/25/18 14:15 Dose: 0 mls/hr Documented by: [email or web address] Admin: 11/25/18 13:44 Dose: 200 mls/hr Documented by: [email or web address] Infusion: 11/25/18 08:10 Dose: 0 mls/hr Documented by: [email or web address] Admin: 11/25/18 07:35 Dose: 200 mls/hr Documented by: [email or web address] Infusion: 11/25/18 03:00 Dose: 0 mls/hr Documented by: Admin: 11/25/18 02:19 Dose: 200 mls/hr Documented by: Infusion: 11/24/18 21:10 Dose: 200 mls/hr Documented by: Admin: 11/24/18 20:40 Dose: 200 mls/hr Documented by: Infusion: 11/24/18 14:27 Dose: 200 mls/hr Documented by: Admin: 11/24/18 13:57 Dose: 200 mls/hr Documented by: [id number] Infusion: 11/24/18 08:11 Dose: 200 mls/hr Documented by: [id number] Admin: 11/24/18 07:41 Dose: 200 mls/hr Documented by: [email or web address] Infusion: 11/24/18 03:59 Dose: 0 mls/hr Documented by: Admin: 11/24/18 03:23 Dose: 200 mls/hr Documented by: Infusion: 11/23/18 22:22 Dose: 0 mls/hr Documented by: Admin: 11/23/18 19:54 Dose: 200 mls/hr Documented by: Infusion: 11/23/18 14:08 Dose: 200 mls/hr Documented by: Admin: 11/23/18 13:38 Dose: 200 mls/hr Documented by: [id number] Infusion: 11/23/18 08:58 Dose: 200 mls/hr Documented by: [id number] Admin: 11/23/18 08:28 Dose: 200 mls/hr Documented by: [email or web address] Infusion: 11/23/18 02:09 Dose: 0 mls/hr Documented by: [email or web address] Admin: 11/23/18 01:49 Dose: 200 mls/hr Documented by: [email or web address] Admin: 11/22/18 20:05 Dose: Not Given Documented by: [email or web address] Infusion: 11/22/18 16:00 Dose: 0 mls/hr Documented by: [email or web address] Admin: 11/22/18 15:21 Dose: 200 mls/hr Documented by: [email or web address] Infusion: 11/22/18 08:05 Dose: 0 mls/hr Documented by: [email or web address] Admin: 11/22/18 07:23 Dose: 200 mls/hr Documented by: [email or web address] Infusion: 11/22/18 02:55 Dose: 0 mls/hr Documented by: Admin: 11/22/18 01:55 Dose: 200 mls/hr Documented by: Infusion: 11/21/18 21:19 Dose: 0 mls/hr Documented by: Admin: 11/21/18 20:29 Dose: 200 mls/hr Documented by: Infusion: 11/21/18 14:40 Dose: 0 mls/hr Documented by: [email or web address] Admin: 11/21/18 14:10 Dose: 200 mls/hr Documented by: [email or web address] Infusion: 11/21/18 08:35 Dose: 0 mls/hr Documented by: [email or web address] Admin: 11/21/18 08:05 Dose: 200 mls/hr Documented by: [email or web address] Infusion: 11/21/18 02:47 Dose: 0 mls/hr Documented by: [email or web address] Admin: 11/21/18 02:17 Dose: 200 mls/hr Documented by: Infusion: 11/20/18 21:36 Dose: 200 mls/hr Documented by: Admin: 11/20/18 21:06 Dose: 200 mls/hr Documented by: Infusion: 11/20/18 16:23 Dose: 0 mls/hr Documented by: [email or web address] Admin: 11/20/18 15:23 Dose: 100 mls/hr Documented by: [email or web address] Infusion: 11/20/18 10:20 Dose: 0 mls/hr Documented by: [email or web address] Admin: 11/20/18 09:19 Dose: 100 mls/hr Documented by: [email or web address] Infusion: 11/20/18 04:07 Dose: 100 mls/hr Documented by: [email or web address] Admin: 11/20/18 03:07 Dose: 100 mls/hr Documented by: Infusion: 11/19/18 21:56 Dose: 100 mls/hr Documented by: Admin: 11/19/18 20:56 Dose: 100 mls/hr Documented by: Infusion: 11/19/18 15:25 Dose: 0 mls/hr Documented by: Admin: 11/19/18 14:25 Dose: 100 mls/hr Documented by: Infusion: 11/19/18 10:42 Dose: 100 mls/hr Documented by: Admin: 11/19/18 09:42 Dose: 100 mls/hr Documented by: [email or web address] Infusion: 11/19/18 03:35 Dose: 100 mls/hr Documented by: [email or web address] Admin: 11/19/18 02:35 Dose: 100 mls/hr Documented by: Infusion: 11/19/18 00:50 Dose: 0 mls/hr Documented by: Admin: 11/18/18 22:36 Dose: 200 mls/hr Documented by: Infusion: 11/18/18 15:38 Dose: 200 mls/hr Documented by: Admin: 11/18/18 15:08 Dose: 200 mls/hr Documented by: [id number] Infusion: 11/18/18 08:38 Dose: 0 mls/hr Documented by: [id number] Admin: 11/18/18 08:08 Dose: 200 mls/hr Documented by: [id number] Admin: 11/18/18 02:14 Dose: Not Given Documented by: Infusion: 11/17/18 21:00 Dose: 0 mls/hr Documented by: Admin: 11/17/18 19:08 Dose: 200 mls/hr Documented by: Infusion: 11/17/18 14:32 Dose: 200 mls/hr Documented by: [id number] Admin: 11/17/18 14:02 Dose: 200 mls/hr Documented by: [id number] Infusion: 11/17/18 07:50 Dose: 200 mls/hr Documented by: [email or web address] Admin: 11/17/18 07:18 Dose: 200 mls/hr Documented by: [email or web address] Infusion: 11/17/18 01:55 Dose: 200 mls/hr Documented by: [email or web address] Admin: 11/17/18 01:25 Dose: 200 mls/hr Documented by: Infusion: 11/16/18 20:50 Dose: 200 mls/hr Documented by: Admin: 11/16/18 20:20 Dose: 200 mls/hr Documented by: Infusion: 11/16/18 14:50 Dose: 0 mls/hr Documented by: [email or web address] Admin: 11/16/18 14:11 Dose: 200 mls/hr Documented by: Infusion: 11/16/18 08:04 Dose: 0 mls/hr Documented by: Admin: 11/16/18 07:34 Dose: 200 mls/hr Documented by: Infusion: 11/16/18 03:17 Dose: 0 mls/hr Documented by: Admin: 11/16/18 01:18 Dose: 200 mls/hr Documented by: Infusion: 11/15/18 21:35 Dose: 0 mls/hr Documented by: Admin: 11/15/18 20:16 Dose: 200 mls/hr Documented by: Infusion: 11/15/18 15:24 Dose: 0 mls/hr Documented by: Admin: 11/15/18 13:58 Dose: 200 mls/hr Documented by: Infusion: 11/15/18 09:42 Dose: 0 mls/hr Documented by: Admin: 11/15/18 08:02 Dose: 200 mls/hr Documented by: Infusion: 11/15/18 03:40 Dose: 0 mls/hr Documented by: Admin: 11/15/18 02:50 Dose: 200 mls/hr Documented by: Infusion: 11/15/18 00:16 Dose: 0 mls/hr Documented by: Admin: 11/14/18 21:01 Dose: 200 mls/hr Documented by: [email or web address] Piperacillin Sod/Tazobactam (Sod 3.375 gm/ Dextrose) 50 mls @ 100 mls/hr IV Q6H JOHN Last Infusion: 11/28/18 06:05 Dose: 0 mls/hr Documented by: Admin: 11/28/18 05:34 Dose: 100 mls/hr Documented by: Infusion: 11/27/18 23:55 Dose: 0 mls/hr Documented by: Admin: 11/27/18 23:21 Dose: 100 mls/hr Documented by: Infusion: 11/27/18 18:25 Dose: 0 mls/hr Documented by: Admin: 11/27/18 17:50 Dose: 100 mls/hr Documented by: [id number] Infusion: 11/27/18 13:10 Dose: 100 mls/hr Documented by: [email or web address] Admin: 11/27/18 12:39 Dose: 100 mls/hr Documented by: [email or web address] Infusion: 11/27/18 06:42 Dose: 100 mls/hr Documented by: [id number] Admin: 11/27/18 06:08 Dose: 100 mls/hr Documented by: Infusion: 11/27/18 00:42 Dose: 100 mls/hr Documented by: Admin: 11/27/18 00:12 Dose: 100 mls/hr Documented by: Infusion: 11/26/18 18:11 Dose: 0 mls/hr Documented by: [email or web address] Admin: 11/26/18 17:32 Dose: 100 mls/hr Documented by: [email or web address] Infusion: 11/26/18 12:04 Dose: 100 mls/hr Documented by: [email or web address] Admin: 11/26/18 11:34 Dose: 100 mls/hr Documented by: [email or web address] Infusion: 11/26/18 06:24 Dose: 100 mls/hr Documented by: [email or web address] Admin: 11/26/18 05:54 Dose: 100 mls/hr Documented by: Infusion: 11/25/18 23:30 Dose: 100 mls/hr Documented by: Admin: 11/25/18 23:00 Dose: 100 mls/hr Documented by: Infusion: 11/25/18 18:23 Dose: 0 mls/hr Documented by: [email or web address] Admin: 11/25/18 17:25 Dose: 100 mls/hr Documented by: [email or web address] Infusion: 11/25/18 11:52 Dose: 100 mls/hr Documented by: [email or web address] Admin: 11/25/18 11:22 Dose: 100 mls/hr Documented by: [email or web address] Infusion: 11/25/18 06:34 Dose: 0 mls/hr Documented by: [email or web address] Admin: 11/25/18 05:52 Dose: 100 mls/hr Documented by: Infusion: 11/25/18 01:05 Dose: 0 mls/hr Documented by: Admin: 11/25/18 00:32 Dose: 100 mls/hr Documented by: Infusion: 11/24/18 18:10 Dose: 0 mls/hr Documented by: Admin: 11/24/18 17:33 Dose: 100 mls/hr Documented by: [email or web address] Infusion: 11/24/18 11:58 Dose: 100 mls/hr Documented by: [email or web address] Admin: 11/24/18 11:28 Dose: 100 mls/hr Documented by: [id number] Infusion: 11/24/18 06:05 Dose: 100 mls/hr Documented by: [email or web address] Admin: 11/24/18 05:35 Dose: 100 mls/hr Documented by: Infusion: 11/24/18 00:30 Dose: 0 mls/hr Documented by: Admin: 11/23/18 23:58 Dose: 100 mls/hr Documented by: Infusion: 11/23/18 18:00 Dose: 0 mls/hr Documented by: Admin: 11/23/18 17:27 Dose: 100 mls/hr Documented by: [id number] Infusion: 11/23/18 12:17 Dose: 100 mls/hr Documented by: [email or web address] Admin: 11/23/18 11:47 Dose: 100 mls/hr Documented by: [id number] Infusion: 11/23/18 05:50 Dose: 0 mls/hr Documented by: [email or web address] Admin: 11/23/18 05:19 Dose: 100 mls/hr Documented by: [email or web address] Infusion: 11/23/18 00:50 Dose: 0 mls/hr Documented by: [email or web address] Admin: 11/23/18 00:19 Dose: 100 mls/hr Documented by: [email or web address] Infusion: 11/22/18 18:00 Dose: 0 mls/hr Documented by: [email or web address] Admin: 11/22/18 17:30 Dose: 100 mls/hr Documented by: [email or web address] Infusion: 11/22/18 12:32 Dose: 100 mls/hr Documented by: [email or web address] Admin: 11/22/18 12:02 Dose: 100 mls/hr Documented by: [email or web address] Infusion: 11/22/18 06:30 Dose: 0 mls/hr Documented by: [email or web address] Admin: 11/22/18 05:54 Dose: 100 mls/hr Documented by: Infusion: 11/22/18 00:04 Dose: 100 mls/hr Documented by: Admin: 11/21/18 23:34 Dose: 100 mls/hr Documented by: Infusion: 11/21/18 18:22 Dose: 100 mls/hr Documented by: Admin: 11/21/18 17:52 Dose: 100 mls/hr Documented by: [email or web address] Infusion: 11/21/18 12:49 Dose: 0 mls/hr Documented by: [email or web address] Admin: 11/21/18 12:14 Dose: 100 mls/hr Documented by: [email or web address] Infusion: 11/21/18 06:42 Dose: 0 mls/hr Documented by: [email or web address] Admin: 11/21/18 06:12 Dose: 100 mls/hr Documented by: Infusion: 11/21/18 01:05 Dose: 100 mls/hr Documented by: Admin: 11/21/18 00:35 Dose: 100 mls/hr Documented by: Infusion: 11/20/18 18:28 Dose: 100 mls/hr Documented by: Admin: 11/20/18 17:58 Dose: 100 mls/hr Documented by: [email or web address] Infusion: 11/20/18 12:06 Dose: 0 mls/hr Documented by: [email or web address] Admin: 11/20/18 11:36 Dose: 100 mls/hr Documented by: [email or web address] Infusion: 11/20/18 06:29 Dose: 0 mls/hr Documented by: [email or web address] Admin: 11/20/18 05:59 Dose: 100 mls/hr Documented by: Infusion: 11/20/18 00:06 Dose: 100 mls/hr Documented by: Admin: 11/19/18 23:36 Dose: 100 mls/hr Documented by: Infusion: 11/19/18 17:40 Dose: 0 mls/hr Documented by: Admin: 11/19/18 17:10 Dose: 100 mls/hr Documented by: [email or web address] Infusion: 11/19/18 11:40 Dose: 100 mls/hr Documented by: [id number] Admin: 11/19/18 11:10 Dose: 100 mls/hr Documented by: [id number] Infusion: 11/19/18 06:20 Dose: 100 mls/hr Documented by: [id number] Admin: 11/19/18 05:50 Dose: 100 mls/hr Documented by: Infusion: 11/19/18 01:22 Dose: 100 mls/hr Documented by: Admin: 11/19/18 00:52 Dose: 100 mls/hr Documented by: Infusion: 11/19/18 00:52 Dose: 100 mls/hr Documented by: Admin: 11/18/18 18:28 Dose: 50 mls/hr Documented by: [id number] Infusion: 11/18/18 13:20 Dose: 50 mls/hr Documented by: [email or web address] Admin: 11/18/18 12:20 Dose: 50 mls/hr Documented by: [email or web address] Infusion: 11/18/18 07:47 Dose: 50 mls/hr Documented by: [id number] Admin: 11/18/18 06:47 Dose: 50 mls/hr Documented by: Infusion: 11/18/18 00:29 Dose: 50 mls/hr Documented by: Admin: 11/17/18 23:29 Dose: 50 mls/hr Documented by: Infusion: 11/17/18 18:09 Dose: 50 mls/hr Documented by: Admin: 11/17/18 17:09 Dose: 50 mls/hr Documented by: [email or web address] Infusion: 11/17/18 12:11 Dose: 0 mls/hr Documented by: [email or web address] Admin: 11/17/18 11:39 Dose: 100 mls/hr Documented by: Infusion: 11/17/18 05:50 Dose: 100 mls/hr Documented by: Admin: 11/17/18 05:20 Dose: 100 mls/hr Documented by: Infusion: 11/17/18 00:50 Dose: 100 mls/hr Documented by: Admin: 11/17/18 00:20 Dose: 100 mls/hr Documented by: Infusion: 11/16/18 18:03 Dose: 100 mls/hr Documented by: Admin: 11/16/18 17:33 Dose: 100 mls/hr Documented by: Infusion: 11/16/18 12:30 Dose: 0 mls/hr Documented by: [email or web address] Admin: 11/16/18 11:55 Dose: 100 mls/hr Documented by: Infusion: 11/16/18 06:16 Dose: 0 mls/hr Documented by: Admin: 11/16/18 05:46 Dose: 100 mls/hr Documented by: Infusion: 11/16/18 00:59 Dose: 0 mls/hr Documented by: Admin: 11/16/18 00:21 Dose: 100 mls/hr Documented by: PIETER Cosigned by: [email or web address] Infusion: 11/15/18 18:24 Dose: 0 mls/hr Documented by: Admin: 11/15/18 17:33 Dose: 100 mls/hr Documented by: Infusion: 11/15/18 16:12 Dose: 0 mls/hr Documented by: Admin: 11/15/18 12:51 Dose: 100 mls/hr Documented by: Infusion: 11/15/18 06:46 Dose: 0 mls/hr Documented by: Admin: 11/15/18 05:42 Dose: 100 mls/hr Documented by: Infusion: 11/15/18 03:42 Dose: 0 mls/hr Documented by: Admin: 11/15/18 00:51 Dose: 100 mls/hr Documented by: [email or web address] Infusion: 11/14/18 21:00 Dose: 0 mls/hr Documented by: Admin: 11/14/18 17:56 Dose: 100 mls/hr Documented by: [email or web address] Fat Emulsion Intravenous (Intralipid 20%) 250 mls @ 25 mls/hr IV TuThSa@1600 JOHN Last Infusion: 11/27/18 02:00 Dose: 0 mls/hr Documented by: Admin: 11/26/18 15:52 Dose: 25 mls/hr Documented by: [email or web address] Infusion: 11/24/18 01:40 Dose: 0 mls/hr Documented by: Admin: 11/23/18 15:31 Dose: 25 mls/hr Documented by: [id number] Infusion: 11/22/18 01:20 Dose: 25 mls/hr Documented by: [id number] Admin: 11/21/18 15:20 Dose: 25 mls/hr Documented by: [email or web address] Infusion: 11/20/18 03:55 Dose: 25 mls/hr Documented by: [email or web address] Admin: 11/19/18 17:55 Dose: 25 mls/hr Documented by: [email or web address] Infusion: 11/17/18 03:06 Dose: 25 mls/hr Documented by: [email or web address] Admin: 11/16/18 17:06 Dose: 25 mls/hr Documented by: [email or web address] Magnesium Sulfate 8.12 meq/Multivitamins/Minerals 10 ml/Selenium 60 mcg/ Sodium Chloride 10 meq/ Potassium Chloride 10 meq/ Potassium Phosphate 20 meq/ Amino Acids 1,025.5455 mls @ 40 mls/hr IV Q24H [facility] Stop: 11/28/18 14:59 Last Infusion: 11/28/18 08:30 Dose: 0 mls/hr Documented by: [email or web address] Admin: 11/27/18 16:04 Dose: 40 mls/hr Documented by: [email or web address] Lisinopril (Zestril) 20 mg PO BID [facility] Last Admin: 11/28/18 08:51 Dose: 20 mg Documented by: Admin: 11/27/18 20:29 Dose: 20 mg Documented by: Admin: 11/27/18 10:02 Dose: 20 mg Documented by: ANDREY Cosigned by: [email or web address] Admin: 11/26/18 20:28 Dose: 20 mg Documented by: Admin: 11/26/18 08:21 Dose: 20 mg Documented by: [email or web address] Admin: 11/25/18 20:34 Dose: Not Given Documented by: Admin: 11/25/18 08:47 Dose: 20 mg Documented by: [email or web address] Admin: 11/24/18 20:40 Dose: 20 mg Documented by: ELIO Metoclopramide HCl (Reglan) 10 mg IV Q6 JOHN Last Admin: 11/28/18 05:34 Dose: 10 mg Documented by: Admin: 11/27/18 23:21 Dose: 10 mg Documented by: Admin: 11/27/18 17:49 Dose: 10 mg Documented by: [email or web address] Admin: 11/27/18 12:15 Dose: 10 mg Documented by: [email or web address] Admin: 11/27/18 06:08 Dose: 10 mg Documented by: Admin: 11/27/18 00:37 Dose: 10 mg Documented by: Admin: 11/26/18 17:31 Dose: 10 mg Documented by: [email or web address] Admin: 11/26/18 11:34 Dose: 10 mg Documented by: [email or web address] Admin: 11/26/18 05:54 Dose: 10 mg Documented by: Admin: 11/25/18 23:09 Dose: 10 mg Documented by: Admin: 11/25/18 17:25 Dose: 10 mg Documented by: [email or web address] Admin: 11/25/18 11:23 Dose: 10 mg Documented by: [email or web address] Admin: 11/25/18 05:52 Dose: 10 mg Documented by: Admin: 11/25/18 00:32 Dose: 10 mg Documented by: Admin: 11/24/18 17:33 Dose: 10 mg Documented by: [email or web address] Admin: 11/24/18 11:28 Dose: 10 mg Documented by: [email or web address] Admin: 11/24/18 05:35 Dose: 10 mg Documented by: Admin: 11/24/18 00:12 Dose: 10 mg Documented by: Admin: 11/23/18 17:28 Dose: 10 mg Documented by: [email or web address] Admin: 11/23/18 11:47 Dose: 10 mg Documented by: [email or web address] Admin: 11/23/18 05:26 Dose: 10 mg Documented by: [email or web address] Admin: 11/23/18 00:19 Dose: 10 mg Documented by: [email or web address] Admin: 11/22/18 17:30 Dose: 10 mg Documented by: [email or web address] Admin: 11/22/18 11:56 Dose: 10 mg Documented by: [email or web address] Admin: 11/22/18 05:54 Dose: 10 mg Documented by: Admin: 11/21/18 23:34 Dose: 10 mg Documented by: Admin: 11/21/18 17:52 Dose: 10 mg Documented by: [email or web address] Admin: 11/21/18 12:12 Dose: 10 mg Documented by: [email or web address] Admin: 11/21/18 06:00 Dose: 10 mg Documented by: Admin: 11/21/18 00:43 Dose: 10 mg Documented by: Admin: 11/20/18 17:59 Dose: 10 mg Documented by: [email or web address] Admin: 11/20/18 11:36 Dose: 10 mg Documented by: [email or web address] Admin: 11/20/18 05:59 Dose: 10 mg Documented by: Admin: 11/19/18 23:48 Dose: 10 mg Documented by: Admin: 11/19/18 17:11 Dose: 10 mg Documented by: [email or web address] Admin: 11/19/18 11:10 Dose: 10 mg Documented by: [email or web address] Admin: 11/19/18 05:49 Dose: 10 mg Documented by: Admin: 11/19/18 00:53 Dose: 10 mg Documented by: Admin: 11/18/18 18:28 Dose: 10 mg Documented by: [email or web address] Admin: 11/18/18 12:20 Dose: 10 mg Documented by: [email or web address] Admin: 11/18/18 06:34 Dose: 10 mg Documented by: Admin: 11/17/18 23:29 Dose: 10 mg Documented by: Admin: 11/17/18 17:42 Dose: 10 mg Documented by: [id number] Admin: 11/17/18 11:39 Dose: 10 mg Documented by: Admin: 11/17/18 05:19 Dose: 10 mg Documented by: Admin: 11/17/18 00:20 Dose: 10 mg Documented by: Admin: 11/16/18 17:43 Dose: 10 mg Documented by: Admin: 11/16/18 11:55 Dose: 10 mg Documented by: Admin: 11/16/18 05:32 Dose: 10 mg Documented by: Admin: 11/16/18 00:55 Dose: 10 mg Documented by: Admin: 11/15/18 17:32 Dose: 10 mg Documented by: Admin: 11/15/18 12:52 Dose: 10 mg Documented by: Admin: 11/15/18 05:41 Dose: 10 mg Documented by: Admin: 11/15/18 00:51 Dose: 10 mg Documented by: Admin: 11/14/18 17:55 Dose: 10 mg Documented by: [email or web address] Ondansetron HCl (Zofran) 4 mg IV Q4HP PRN PRN Reason: Nausea And Vomiting Last Admin: 11/24/18 04:36 Dose: 4 mg Documented by: Admin: 11/19/18 11:10 Dose: 4 mg Documented by: [email or web address] Pantoprazole Sodium (Protonix) 40 mg IV BIDAC JOHN Last Admin: 11/28/18 08:51 Dose: 40 mg Documented by: Admin: 11/27/18 17:49 Dose: 40 mg Documented by: [email or web address] Admin: 11/27/18 08:22 Dose: 40 mg Documented by: [email or web address] Admin: 11/26/18 17:29 Dose: 40 mg Documented by: [email or web address] Admin: 11/26/18 07:45 Dose: 40 mg Documented by: [email or web address] Admin: 11/25/18 17:25 Dose: 40 mg Documented by: [email or web address] Admin: 11/25/18 07:35 Dose: 40 mg Documented by: [email or web address] Admin: 11/24/18 17:33 Dose: 40 mg Documented by: [email or web address] Admin: 11/24/18 07:41 Dose: 40 mg Documented by: [email or web address] Admin: 11/23/18 17:27 Dose: 40 mg Documented by: [email or web address] Admin: 11/23/18 06:51 Dose: 40 mg Documented by: [email or web address] Admin: 11/22/18 17:29 Dose: 40 mg Documented by: [email or web address] Admin: 11/22/18 07:18 Dose: 40 mg Documented by: [email or web address] Admin: 11/21/18 17:52 Dose: 40 mg Documented by: [email or web address] Admin: 11/21/18 08:05 Dose: 40 mg Documented by: [email or web address] Admin: 11/20/18 17:58 Dose: 40 mg Documented by: [email or web address] Admin: 11/20/18 07:06 Dose: 40 mg Documented by: [email or web address] Admin: 11/19/18 17:11 Dose: 40 mg Documented by: [id number] Admin: 11/19/18 07:10 Dose: 40 mg Documented by: [email or web address] Admin: 11/18/18 18:28 Dose: 40 mg Documented by: [id number] Admin: 11/18/18 06:40 Dose: 40 mg Documented by: [email or web address] Admin: 11/17/18 17:09 Dose: 40 mg Documented by: [id number] Admin: 11/17/18 07:16 Dose: 40 mg Documented by: [email or web address] Admin: 11/16/18 17:33 Dose: 40 mg Documented by: Admin: 11/16/18 07:24 Dose: 40 mg Documented by: Admin: 11/15/18 16:57 Dose: 40 mg Documented by: Admin: 11/15/18 08:02 Dose: 40 mg Documented by: Admin: 11/14/18 17:17 Dose: 40 mg Documented by: [email or web address] Promethazine HCl/Codeine (Promethazine-Codeine Syrup) 5 ml PO Q4HP PRN PRN Reason: Cough Last Admin: 11/27/18 00:21 Dose: 5 ml Documented by: [email or web address] Sodium Chloride (Saline Flush) 10 ml IV Q12 JOHN Last Admin: 11/28/18 10:16 Dose: 10 ml Documented by: Admin: 11/27/18 22:22 Dose: 10 ml Documented by: Admin: 11/27/18 09:00 Dose: 10 ml Documented by: Admin: 11/26/18 20:28 Dose: 10 ml Documented by: Admin: 11/26/18 08:21 Dose: 10 ml Documented by: Admin: 11/25/18 20:40 Dose: 10 ml Documented by: Admin: 11/25/18 08:48 Dose: 10 ml Documented by: Admin: 11/25/18 05:52 Dose: 10 ml Documented by: Admin: 11/24/18 20:40 Dose: 10 ml Documented by: Admin: 11/24/18 09:26 Dose: 10 ml Documented by: [email or web address] Admin: 11/23/18 20:37 Dose: 10 ml Documented by: [email or web address] Admin: 11/23/18 19:55 Dose: 10 ml Documented by: Admin: 11/23/18 08:28 Dose: 10 ml Documented by: [email or web address] Admin: 11/22/18 21:10 Dose: 10 ml Documented by: [email or web address] Admin: 11/22/18 09:29 Dose: 10 ml Documented by: [email or web address] Admin: 11/21/18 20:29 Dose: 10 ml Documented by: Admin: 11/21/18 08:56 Dose: 10 ml Documented by: [email or web address] Admin: 11/20/18 21:07 Dose: 10 ml Documented by: Admin: 11/20/18 09:20 Dose: 10 ml Documented by: [email or web address] Admin: 11/19/18 20:55 Dose: 10 ml Documented by: Admin: 11/19/18 09:43 Dose: 10 ml Documented by: [id number] Admin: 11/18/18 21:00 Dose: 10 ml Documented by: Admin: 11/18/18 10:16 Dose: 10 ml Documented by: [email or web address] Admin: 11/17/18 23:37 Dose: 10 ml Documented by: Admin: 11/17/18 19:08 Dose: 10 ml Documented by: Admin: 11/17/18 08:46 Dose: 10 ml Documented by: [email or web address] Admin: 11/16/18 20:26 Dose: 10 ml Documented by: Admin: 11/16/18 08:47 Dose: 10 ml Documented by: Admin: 11/16/18 00:59 Dose: 10 ml Documented by: Admin: 11/15/18 22:00 Dose: 10 ml Documented by: Admin: 11/15/18 12:51 Dose: 10 ml Documented by: Admin: 11/14/18 23:00 Dose: 10 ml Documented by: Admin: 11/14/18 21:02 Dose: 10 ml Documented by: [email or web address] Shift Summary 02/21/19 04:38 Shift Summary by Alejandra Emery Patient slept well this shift. Alert and oriented with name and place. Right chest central line funk, blue and brown lumens flushes well. Only brown and blue lumens have blood return. On TPN @ 40 mls. Patient on regular diet. Repositioned on bed every 2 hrs. Incontinent with urine and stool. Redness on bilateral groins and jorge-area, barrier cream applied. left buttock cheek pressure ulcer- mepilex in place. Midline incision with steri-strips CDI. RLQ PATTI x2- A draining serous output; B draining ascencio color output.BSL 161 at midnight, given 3 units of sliding scale insulin. Medicated with scheduled Ofirmev for pain. Coarse crackles on ausculation. Moist cough. On 2L nasal cannula, sats 95% Initialized on 11/28/18 04:38 - END OF NOTE
== END 2018-11-28 14:40 | DRG 329 ==
LOC: ED 07:57 → SUR 14:54 → ICU 18:20 → MEDSUR 11-14 16:02
PROVIDERS: ADMIT Family Medicine Adult Medicine; ATTEND Family Medicine Adult Medicine

== ENCOUNTER 2019-02-17 10:11 | Inpatient (IN) ==
[2019-02-17] MEDS ORDERED: ONDANSETRON 4 MG ODT TABLET SL ONE (10:37)
[2019-02-17 11:12] LABS: Basophils # (Auto) 0 K/mcL (0.0-0.3); Basophils % (Auto) 0.3 % (0.0-2.0); Eosinophils # (Auto) 0.2 K/mcL (0.0-0.7); Eosinophils % (Auto) 1.1 % (0.0-7.0); Granulocytes % (Auto) 72.3 % (38.0-78.0); Lymphocytes # (Auto) 2.4 K/mcL (1.5-4.8); Lymphocytes % (Auto) 17.1 % (15.5-49.0); Mean Cell Volume 86.4 fL (80.0-100.0); Monocytes # (Auto) 1.3 K/mcL (0.1-0.9); Monocytes % (Auto) 9.2 % (1.0-12.0); Platelet Count 363 K/mcL (140-440); RBC 4.34 M/mcL (4.00-5.20); Red Cell Distribution Width 16.4 % (11.5-14.5)
[2019-02-17] MEDS: 0.9 % SODIUM CHLORIDE 1,000 ML IV SCH (11:26)
[2019-02-17 11:37] LABS: ALT/SGPT 19 U/l (0-40); Albumin 3.2 gm/dL (3.2-5.2); Albumin/Globulin Ratio 1.2 (1.0-2.3); Alkaline Phosphatase 58 U/L (39-117); Blood Urea Nitrogen 37 mg/dl (8-23)
[2019-02-17] MEDS ORDERED: PIPERACILLIN SODIUM/TAZOBACTAM 3.375 GM in DEXTROSE 5% IN WATER 50 ML IV ONE (12:19)
--- NOTE | 2019-02-17 13:12 | Cat Scan Report ---
CLINICAL INFORMATION: Abdominal pain nausea and vomiting COMPARISON: Abdomen pelvic CT 11/21/2018. TECHNIQUE: IV contrast was withheld due to elevated BUNs/creatinine. 0.625 mm helical slices were obtained from the mid heart through the subtrochanteric regions. Following reconstruction, 2.5 mm sagittal, coronal and axial reformatted images were processed and reviewed at bone and soft tissue windows.The exam was performed using radiation dose optimization techniques including, but not limited to, automated exposure control, adjustment of the mA and/or kV according to patient size and use of iterative reconstruction technique. FINDINGS: Lung bases show no abnormality - no effusion. The visualized heart is grossly normal in size. Images through the abdomen show the noncontrast liver to be unremarkable. The gallbladder is surgically absent. The common bile duct is mildly dilated: 8 mm, stable. The noncontrasted pancreas, both kidneys, right adrenal gland, spleen, pancreas and aorta are normal in size, configuration and attenuation without focal lesion. A 4 cm well-defined fat-containing mass in the left adrenal gland demonstrate long-term stability and should represent a myolipoma. There is no free air, free fluid or adenopathy. Ulcer repair of the lesser curvature of the stomach seen as before. There is only minimal residual edema in this area. The stomach, small bowel and colon are otherwise normal. Appendix is unremarkable. Images of pelvis show urinary bladder postmenopausal uterus and ovaries to be normal. Bone windows show L4-5 fusion changes which appear to be solid. There are no focal osseous lesions. Severe L3-4 central canal lateral recess IV foraminal stenosis due to facet arthropathy again seen IMPRESSION: 1. Status post patching of lesser curvature gastric ulcer. Two the postoperative CT three months prior, perisurgical edema in the flank region has resolved. No acute findings on today's exam 2. Interval resolution small bilateral pleural effusions 3. Mild common bile duct dilatation compatible with postcholecystectomy state - stable 4. 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 5. Severe L3-4 central canal, bilateral lateral recess and IV foraminal narrowing due to degeneration Interpreted and Authenticated by: Vikas Whitley 02/17/19
--- NOTE | 2019-02-17 13:23 | Emergency Department Note ---
Abdominal Pain HPI - General Chief Complaint: Abdominal Pain Stated Complaint: Green drainage from surgical site Time Seen by Provider: 02/17/19 10:19 Source: EMS Mode of arrival: EMS Limitations: no limitations, altered mental status - History of Present Illness HPI Narrative: 78-year-old female was brought in by EMS. Her significant other is with her. She has had surgery and hospitalization recently after having a perforated gastric ulcer. She went to a [facility] for a while and then recently went home to live with her . states for over the last week, and ever since she had surgery she has had intermittent abdominal pain. Patient denies any abdominal pain at this time but has significant dementia and he states that at home she is constantly complaining of abdominal pain. She also had intermittent nausea, vomiting, and diarrhea. states that Zofran has helped at home with her nausea and vomiting. Last episode of diarrhea was 2 days ago. Positive chills, no fever. Patient states she has no complaints. Dereje prado states she is eating and drinking a little bit but not much. Patient arrives covered in feces. - Related Data Home Medications Medication Instructions Recorded Confirmed Enalapril Maleate [Vasotec] 20 mg PO BID 11/09/18 02/12/19 Methocarbamol [Robaxin] 500 mg PO TID 11/09/18 02/12/19 Oxybutynin Chloride [Ditropan] 5 mg PO TID 11/09/18 02/12/19 amLODIPine [Norvasc] 10 mg PO DAILY 11/09/18 02/12/19 metFORMIN [Glucophage] 425 mg PO BID 11/09/18 02/12/19 bisacodyl 10 mg rectal suppository 10 mg NM QDAY PRN 12/05/18 02/12/19 metolazone 10 mg tablet 10 mg PO QDAY 12/05/18 02/12/19 mineral oil enema 118 ml NM ONCE PRN 12/05/18 02/12/19 polyethylene glycol 3350 17 17 gm PO PRN PRN g 12/05/18 02/12/19 gram/dose oral powder potassium chloride ER 20 mEq 20 meq PO QDAY 01/06/19 02/12/19 tablet,extended release Ondansetron [Zofran ODT] 4 mg SL Q4-6HP PRN 02/12/19 02/12/19 Previous Rx's Medication Instructions Recorded HYDROcodone/APAP 10/325MG [[place] 1 tab PO Q4H PRN #30 tab 11/28/18 10-325Mg] Ondansetron [Zofran ODT] 4 mg SL Q4-6HP PRN #14 tab 02/12/19 Allergies Allergy/AdvReac Type Severity Reaction Status Date / Time No Known Drug Allergies Allergy Verified 02/17/19 10:18 Review of Systems All systems ED: reviewed and negative except as stated. Abdominal Pain PMH - Past Medical History [facility] Narrative: Medical History (Last Reviewed 01/06/19 @ 09:37 by Wendie Chapin CMA) Knee cartilage, torn, left (Acute) Diabetes 1.5, managed as type 2 (Chronic) Diabetic neuropathy (Chronic) Knee effusion, left (Acute) Left knee injury (Acute) Edema of left lower extremity (Acute) Left hip pain (Acute) History of hysterectomy (Acute) Past Surgical History (Last Reviewed 01/06/19 @ 09:37 by Wendie Chapin CMA) History of appendectomy (Acute) History of carpal tunnel surgery (Acute) History of section (Acute) History of laparotomy (Acute) History of tubal ligation (Acute) Medical history: Reports: DM, other (Depression, cataract removal, hypertension, chronic back pain, diabetes type 2,) - Social History Smoking status: Former smoker Alcohol use: Reports: Rarely Drug use: Reports: none Physical Exam Limitations: no limitations, altered mental status General appearance: alert (Alert and responds but extremely forgetful and this is her baseline with dementia.) Head: atraumatic, normocephalic, normal inspection ENT: other (Mucous membranes slightly dry) Respiratory: Present: normal lung sounds bilaterally, respiratory distress. Absent: rales/crackles, accessory muscle use Cardiovascular: Present: regular rate, normal heart sounds Abdominal: Present: soft, normal bowel sounds, other (Mid umbilical incision site with small amount of yellowish crusted purulent drainage and some present. Culture obtained, sent and pending.). Absent: distention, tenderness, mass Extremities: Present: normal inspection Neurological: Present: alert Psychiatric: Present: normal affect, normal mood Skin: Present: warm, dry, intact, normal color, other (Upper extremities covered in feces on arrival) Course Course Narrative: At [address] Dr[address] Schroeder, the surgeon. He is happy to consult on the patient but feels the patient would be best served by having the hospitalist admit. At [address] I did speak with Dr[address] Dougherty, hospitalist who agrees to accept this patient. Vital Signs Temperature 97.6 F 02/17/19 10:11 Pulse Rate 103 H 02/17/19 10:11 Respiratory Rate 18 02/17/19 10:11 Blood Pressure 124/78 02/17/19 10:11 Pulse Oximetry (%) 97 02/17/19 10:11 Temperature 97.6 F 02/17/19 10:11 Pulse Rate 95 H 02/17/19 13:01 Respiratory Rate 18 02/17/19 13:22 Blood Pressure 119/105 02/17/19 13:22 Pulse Oximetry (%) 92 02/17/19 13:01 Abdominal Pain - Lab Data Lab results reviewed: Yes I reviewed the patient's lab results. Result diagrams: 02/17/19 10:40 02/17/19 10:40 Lab Results 02/17/19 02/17/19 02/17/19 Range/Units 10:40 10:40 12:35 WBC 14.1 H (4.5-11.0) K/mcL RBC 4.34 (4.00-5.20) M/mcL Hgb 12.0 (12.0-15.0) g/dL Hct 37.5 (36.0-48.0) % POC Hct 39.0 (36.0-48.0) % MCV 86.4 (80.0-100.0) fL MCH 27.6 (26.0-34.0) pg MCHC 32.0 (31.0-36.0) g/dL RDW 16.4 H (11.5-14.5) % Plt Count 363 (140-440) K/mcL MPV 7.8 (7.4-10.4) fL Gran % 72.3 (38.0-78.0) % Lymph % (Auto) 17.1 (15.5-49.0) % [place] % (Auto) 9.2 (1.0-12.0) % Eos % (Auto) 1.1 (0.0-7.0) % Baso % (Auto) 0.3 (0.0-2.0) % Gran # 10.2 H (1.8-8.0) K/mcL Lymph # (Auto) 2.4 (1.5-4.8) K/mcL [place] # (Auto) 1.3 H (0.1-0.9) K/mcL Eos # (Auto) 0.2 (0.0-0.7) K/mcL Baso # (Auto) 0 (0.0-0.3) K/mcL VBG Lactic Acid 1.0 (0.5-2.0) mmol/L POC Sodium 138 (133-145) mmol/L Sodium 139 (133-145) mmol/L POC Potassium 3.8 (3.3-5.1) mmol/L Potassium 3.9 (3.3-5.1) mmol/L POC Chloride 108 (96-108) mmol/L Chloride 106 (96-108) mmol/L Carbon Dioxide 21 L (22-30) mmol/L POC Total CO2 21 L (22-30) mmol/L Anion Gap 12.0 (8-16) POC BUN 37 H (8-23) mg/dl BUN 37 H (8-23) mg/dl Creatinine 2.1 H (0.6-1.1) mg/dl POC Creatinine 2.5 H (0.6-1.1) mg/dl GFR Calculation 22 Glucose 127 H (70-105) mg/dL POC Glucose 126 H (70-105) mg/dL Calcium 10.8 H (8.6-10.4) mg/dl POC WB Ioniz Calcium 1.54 H (1.16-1.32) mmol/L Total Bilirubin 0.5 (0.0-1.0) mg/dL AST 19 (0-37) U/l ALT 19 (0-40) U/l Alkaline Phosphatase 58 (39-117) U/L Total Protein 5.9 (5.9-8.4) gm/dL Albumin 3.2 (3.2-5.2) gm/dL Globulin 2.7 (2.2-3.7) gm/dL Albumin/Globulin Ratio 1.2 (1.0-2.3) - Radiology Data Radiology results reviewed: Yes I reviewed the patient's radiology results. Disposition Pt seen by CRACKING STILL OPERATOR/PA only: Yes Clinical Impression: Abdominal pain, Creatinine elevation, Generalized weakness Disposition: Xfer As Outpt/Obs ([facility]) Condition: Fair Referrals: Richar Brand MD [Primary Care Provider] - Time of Disposition: 14:17
[2019-02-17] MEDS ORDERED: VANCOMYCIN PER PHARMACY IV ONE (14:13)
--- NOTE | 2019-02-17 14:44 | Internal Med History&Physical ---
Medical - H&P: [facility] Patient information: Note initiated : 02/17/19 at 2:35 pm Service Date, if different from initiated Date: [] Patient: Genna Gong a 78 y/o F admitted on for Green drainage from surgical site. Chief Complaint: [] History of present illness: Ms. Gong is a 78 year old F with history of recent gastric perforation, history of dementia presents to the hospital today for evaluation of weakness di arrhea and decreased oral intake. The patient was also in the emergency room on 12 February for similar symptoms. The patient has dementia and does not endorse any complaints. History provided by son and her . The patient was admitted to this facility I believe for perforation of bowel, she had a patch placed on the stomach and then eventually discharged to senior living. She went home from the senior living around 2 weeks ago, at that time she was able to get out of bed and ambulate with the help of a walker. Over the last few days or perhaps a week the patient's condition has deteriorated, she has had nausea abdominal discomfort decreased oral intake and diarrhea. Diarrhea is watery 3-4 times a day, has had some accidents. She presented to this hospital on 12 February, the patient at that time was diagnosed with gastroenteritis given some ondansetron and discharged back. She again presents with similar and worsening symptoms. Patient on presentation is hemodynamically stable heart rate 106 blood pressure 124 x 78 saturating 97% on room air. She has an elevated WBC count at 14.1 was 12.6 on 12 February and normal prior to that her hemoglobin is 12 lactic acid is 1 sodium 139 potassium 3.9 bicarbonate 21 creatinine is 2.1 was 1.6 a few days ago calcium is 10.8. CT abdomen and pelvis is negative for any acute finding surgical site appears clean. The patient also has a small drainage from the incision wound with pus, this is a known issue with the patient and Dr. Schroeder is aware. ROS unobtainable: due to mental status (dementia, says everything is fine) Medical - H&P: [facility] Medical history: Medical History (Last Reviewed 01/06/19 @ 09:37 by Wendie Chapin CMA) Knee cartilage, torn, left (Acute) Diabetes 1.5, managed as type 2 (Chronic) Diabetic neuropathy (Chronic) Knee effusion, left (Acute) Left knee injury (Acute) Edema of left lower extremity (Acute) Left hip pain (Acute) History of hysterectomy (Acute) Dementia Surgical history: Past Surgical History (Last Reviewed 01/06/19 @ 09:37 by Wendie Chapin CMA) History of appendectomy (Acute) History of carpal tunnel surgery (Acute) History of section (Acute) History of laparotomy (Acute) History of tubal ligation (Acute) Family history: reviewed and not pertinent Medical - H&P: Meds Home Medications Medication Instructions Recorded Confirmed Type Enalapril Maleate [Vasotec] 20 mg PO BID 11/09/18 02/12/19 History Methocarbamol [Robaxin] 500 mg PO TID 11/09/18 02/12/19 History Oxybutynin Chloride [Ditropan] 5 mg PO TID 11/09/18 02/12/19 History amLODIPine [Norvasc] 10 mg PO DAILY 11/09/18 02/12/19 History metFORMIN [Glucophage] 425 mg PO BID 11/09/18 02/12/19 History HYDROcodone/APAP 10/325MG [[place] 1 tab PO Q4H PRN #30 tab 11/28/18 02/12/19 Rx 10-325Mg] bisacodyl 10 mg rectal suppository 10 mg ND QDAY PRN 12/05/18 02/12/19 History metolazone 10 mg tablet 10 mg PO QDAY 12/05/18 02/12/19 History mineral oil enema 118 ml ND ONCE PRN 12/05/18 02/12/19 History polyethylene glycol 3350 17 17 gm PO PRN PRN g 12/05/18 02/12/19 History gram/dose oral powder potassium chloride ER 20 mEq 20 meq PO QDAY 01/06/19 02/12/19 History tablet,extended release Ondansetron [Zofran ODT] 4 mg SL Q4-6HP PRN 02/12/19 02/12/19 History Ondansetron [Zofran ODT] 4 mg SL Q4-6HP PRN #14 tab 02/12/19 Rx Allergies Allergy/AdvReac Type Severity Reaction Status Date / Time No Known Drug Allergies Allergy Verified 02/17/19 10:18 Medical - H&P: Exam - Constitutional Vitals: Temp Pulse Resp BP Pulse Ox 97.6 F 98 H 18 101/56 99 05/13/19 10:11 02/17/19 14:21 02/17/19 14:21 02/17/19 14:21 02/17/19 14:21 Exam: GENERAL: The patient is a well-developed, well-nourished in no apparent distress. Is alert and oriented x2. VITAL SIGNS: Reviewed and as noted elsewhere. HEENT: Head is normocephalic and atraumatic. Extraocular muscles are intact. Pupils are equal, round, and reactive to light. Nares appeared normal. Mouth appears any without lesions. Mucous membranes are dry. NECK: Normal to inspection, Supple, No lymphadenopathy or thyromegaly. LUNGS: Air entry equal on both sides, no wheezing, crackles or rhonchi noted. No accessory muscles of respiration HEART: Regular rate and rhythm normal, S1 and S2 heard, no Gallop, S3 or Rub Noted, No Gross murmur heard. ABDOMEN: Soft, nontender, and nondistended. Positive bowel sounds. No hepatosplenomegaly was noted. mid abdomen surgical site has 1cm opening, yellowsis pus draining. No surrounding cellulitis. EXTREMITIES: No cyanosis, clubbing, rash, lesions or edema. NEUROLOGIC: Cranial nerves II through XII are grossly intact. Motor and Sensory System Grossly Intact PSYCHIATRIC: Normal affect, Normal Mood. Appropriate Behavior. SKIN: No ulceration or wounds noted, No jaundice, No rash noted. Medical - H&P: Reslt - Labs CBC & Chem 7: 02/17/19 10:40 02/17/19 10:40 Labs: Short CBC 02/17/19 Range/Units 10:40 WBC 14.1 H (4.5-11.0) K/mcL Hgb 12.0 (12.0-15.0) g/dL Hct 37.5 (36.0-48.0) % Plt Count 363 (140-440) K/mcL BMP 02/17/19 10:40 Sodium 139 Potassium 3.9 Chloride 106 Carbon Dioxide 21 L BUN 37 H Creatinine 2.1 H Glucose 127 H Calcium 10.8 H Liver Function 02/17/19 Range/Units 10:40 Total Bilirubin 0.5 (0.0-1.0) mg/dL AST 19 (0-37) U/l ALT 19 (0-40) U/l Alkaline Phosphatase 58 (39-117) U/L Albumin 3.2 (3.2-5.2) gm/dL Medical - H&P: A/P - Narrative A/P Narrative: A/P Acute Renal failure -CT neg for hydronephrosis -IV fluids for now -Low bicarb suggests this is likely from diarrhea Diarrhea -With elevated wbc -Given recent hospitilzation, Cdiff is of concern -send workup, start po vancomycin Abdominal wound -post surical infection -no surrounding cellulitis -will review with Dr Schroeder -start on topical mupirocin three times a day for now Hypercalcemia -due to dehydration, IVF Diabetes -ssi insulin for glucose control HTN -Hold bp meds for now, bp normal /low normal -resume once bp stable x 24 hrs Weakness -due to dehydration -check x ray chest and UA to rule out any other source of infection Dementia -high risk of delirum while in hospital, conservative management. DVT hep sq Diet Carb consistent Full code Social History - Tobacco smoking status: Former smoker - Alcohol alcohol intake frequency: holiday/special occasion only
[2019-02-17 15:21] LABS: Appearance,Urine HAZY; Bacteria,Urine MANY /hpf (0); Bilirubin,Urine NEG (NEG); Color,Urine YELLOW; Glucose,Urine (UA) NEGATIVE (NEG); Leukocyte Esterase,Urine 75 /uL (NEG); Mucus,Urine MOD /hpf (0); Protein,Urine NEG (NEG); Specific Gravity,Urine 1.018 (1.000-1.035); Urine Blood 0.03 mg/dL (<0.03); Urine Hyaline Cast 182 /lpf (0-2); Urine RBC 3 /hpf (0-1); Urine Squamous Epithelial Cell 5 /hpf (0-4); Urine WBC 32 /hpf (0-4); Urobilinogen,Urine NEG (NEG)
[2019-02-17] MEDS ORDERED: NALOXONE HCL 0.4 MG/ML VIAL IV PRN (15:59)
[2019-02-17] MEDS ORDERED: oxyCODONE HCL 5 MG TABLET PO PRN (15:59)
[2019-02-17] MEDS ORDERED: DEXTROSE 31 GM ORAL.SUSP PO PRN (15:59)
[2019-02-17] MEDS ORDERED: DEXTROSE 50% 50 ML VIAL IV PRN (15:59)
--- NOTE | 2019-02-17 16:21 | XRay Report ---
CLINICAL INFORMATION: elevated wbc COMPARISON: 11/26/2018 FINDINGS: Mild cardiomegaly - accentuated by leftward rotation and lordotic positioning unchanged. Mediastinum and pulmonary vessels are normal. Right middle lobe atelectasis as resolved since previous study - lungs are now clear. No effusions. Small eventration right diaphragm again noted IMPRESSION: Mild cardiomegaly. No acute disease. Interval resolution right middle lobe atelectasis Interpreted and Authenticated by: Vikas Whitley 02/17/19
[2019-02-17] MEDS: MUPIROCIN OINT 2% 22GM TOPICAL SCH ×2 (21:50→22:00)
[2019-02-17] MEDS: cefTRIAXone 1 GM VIAL IV SCH ×2 (21:51→22:00)
[2019-02-17] MEDS: VANCOMYCIN ORAL SOL 1,000 MG/10 ML BOTTLE PO SCH ×2 (21:51→22:00)
[2019-02-17] MEDS: HEPARIN 5,000 UNIT/ML VIAL SQ SCH (22:00)
[2019-02-17] MEDS: LACTATED RINGERS 1,000 ML IV SCH (22:00)
[2019-02-17] MEDS: 0.9 % SODIUM CHLORIDE 10 ML SYRINGE IV SCH (22:00)
[2019-02-18] MEDS: LACTATED RINGERS 1,000 ML IV SCH ×2 (00:47→05:16)
[2019-02-18] MEDS: INSULIN LISPRO 1 UNIT/0.01 ML UNIT SQ SCH ×6 (01:01→21:33)
[2019-02-18] MEDS: 0.9 % SODIUM CHLORIDE 1,000 ML IV SCH ×2 (01:18→06:47)
[2019-02-18 06:06] LABS: Basophils # (Auto) 0 K/mcL (0.0-0.3); Basophils % (Auto) 0.2 % (0.0-2.0); Eosinophils # (Auto) 0.2 K/mcL (0.0-0.7); Eosinophils % (Auto) 1.4 % (0.0-7.0); Granulocytes % (Auto) 70.4 % (38.0-78.0); Lymphocytes % (Auto) 18.9 % (15.5-49.0); Mean Cell Volume 87.1 fL (80.0-100.0); Mean Corpuscular HGB Conc 31.5 g/dL (31.0-36.0); Monocytes # (Auto) 0.9 K/mcL (0.1-0.9); Monocytes % (Auto) 9.1 % (1.0-12.0); Platelet Count 287 K/mcL (140-440); RBC 3.86 M/mcL (4.00-5.20); Red Cell Distribution Width 16.3 % (11.5-14.5)
[2019-02-18 06:20] LABS: ALT/SGPT 16 U/l (0-40); Albumin 2.6 gm/dL (3.2-5.2); Albumin/Globulin Ratio 1.1 (1.0-2.3); Alkaline Phosphatase 47 U/L (39-117); Bilirubin,Direct < 0.2 mg/dL (0.0-0.3); Blood Urea Nitrogen 31 mg/dl (8-23); Gamma Glutamyl Transpeptidase 29 U/L (5-36)
[2019-02-18] MEDS: 0.9 % SODIUM CHLORIDE 10 ML SYRINGE IV SCH ×3 (06:47→20:56)
[2019-02-18] MEDS ORDERED: POTASSIUM CHLORIDE 20 MEQ PACKET PO ONE (07:18)
[2019-02-18] MEDS ORDERED: MAGNESIUM SULFATE 2 GM/50 ML BAG IV ONE (07:19)
--- NOTE | 2019-02-18 07:45 | Emergency Department Note ---
ED Note Addendum Note Addendum: Agree with diagnosis and treatment and need for admission
[2019-02-18] MEDS: MUPIROCIN OINT 2% 22GM TOPICAL SCH ×3 (08:30→20:55)
[2019-02-18] MEDS: VANCOMYCIN ORAL SOL 1,000 MG/10 ML BOTTLE PO SCH (08:31)
[2019-02-18] MEDS: HEPARIN 5,000 UNIT/ML VIAL SQ SCH ×2 (08:32→20:30)
[2019-02-18] MEDS: cefTRIAXone 1 GM VIAL IV SCH (08:39)
--- NOTE | 2019-02-18 10:33 | Internal Med Progress Note ---
Medical - PN: Subj Patient information: Note initiated : 02/18/19 at 10:30 am Service Date, if different from initiated Date: [] Patient: Genna Gong a 78 y/o F admitted on 02/17/19 for Green drainage from surgical site. Chief Complaint: [] Interval history: Ms. Gong is a 78 year old F with history of recent gastric perforation, history of dementia presents to the hospital today for evaluation of weakness di arrhea and decreased oral intake. The patient was also in the emergency room on 12 February for similar symptoms. The patient has dementia and does not endorse any complaints. History provided by son and her . The patient was admitted to this facility I believe for perforation of bowel, she had a patch placed on the stomach and [facility]. She went home from the prison around 2 weeks ago, at that time she was able to get out of bed and ambulate with the help of a walker. Over the last few days or perhaps a week the patient's condition has deteriorated, she has had nausea abdominal discomfort decreased oral intake and diarrhea. Diarrhea is watery 3-4 times a day, has had some accidents. She presented to this hospital on 12 February, the patient at that time was diagnosed with gastroenteritis given some ondansetron and discharged back. She again presents with similar and worsening symptoms. Patient on presentation is hemodynamically stable heart rate 106 blood pressure 124 x 78 saturating 97% on room air. She has an elevated WBC count at 14.1 was 12.6 on 12 February and normal prior to that her hemoglobin is 12 lactic acid is 1 sodium 139 potassium 3.9 bicarbonate 21 creatinine is 2.1 was 1.6 a few days ago calcium is 10.8. CT abdomen and pelvis is negative for any acute finding surgical site appears clean. The patient also has a small drainage from the incision wound with pus, this is a known issue with the patient and Dr. Schroeder is aware. 02/18 Patient seen and examined, no acute overnight events, patient is doing well. Renal function improved, patient is tested negative for C. difficile. UA suggestive of urinary tract infection she is on Rocephin. Pus still draining from the incision in the mid abdomen I have asked the surgeon to evaluate this further Pertinent ROS: Denies headache, dizziness Denies chest pain, palpitations Denies cough or shortness of breath Denies abdominal pain, nausea or vomiting. - Constitutional Vitals: Vital Signs Temp Pulse Resp BP Pulse Ox 97.8 F 103 H 20 119/63 97 02/18/19 08:00 02/18/19 08:00 02/18/19 08:00 02/18/19 08:00 02/18/19 08:00 Period Temp Pulse Resp BP Sys/[place]onado Pulse Ox Last 24 Hr 96.9 F-97.8 F 42-103 18-29 92-136/33-105 87-99 Intake and Output 02/17/19 02/18/19 02/18/19 21:59 05:59 13:59 Intake Total 1000 1000 180 Output Total 575 275 Balance 425 725 180 Weight 191 lb Intake & Output: Intake & Output 02/17/19 02/18/19 02/18/19 21:59 05:59 13:59 Intake Total 1000 1000 180 Output Total 575 275 Balance 425 725 180 Weight 191 lb Intake: IV 1000 1000 Sodium Chloride 0.9% 1,000 ml @ 1000 500 mls/hr IV .Q2H JOHN Rx#: [id number] Lactated Ringers 1,000 ml @ 150 1000 mls/hr IV .Q6H40M JOHN Rx#: [id number] Oral 0 180 Output: Urine Catheter Amount 300 275 Void Amount 275 Santana 275 Other: Meal Breakfast Percent of Meal Consumed 75% Feeding Ability Needs Supervision Urine Appearance Cloudy Clear Sediment Santana Sediment Urine Color Light Fay Straw Santana Light Fay Urine Odor Strong Strong Exam: Constitutional; Afebrile, cooperative, alert, not in distress. Respiratory system: Air Entry equal on both sides, No crackles or wheezing, no rhonchi. CVS- Rate rhythm regular, S1,S2 heard, no gallop, no rub. Abdomen- Soft nontender abdomen, no organomegaly, no tenderness, no guarding or rigidity, Mid line 1 cm open wound, pus draining, can be expressed out. ANIMAL ATTENDANT- AOOx1, moving all extremities, no gross focal deficit noted. Medical - PN: Obj Da - Labs CBC & Chem 7: 02/18/19 03:45 02/18/19 03:45 Labs: Abnormal Lab Results 02/18/19 02/18/19 02/17/19 03:45 03:45 14:40 WBC RBC 3.86 L Hgb 10.6 L Hct 33.6 L RDW 16.3 H Gran # [place] # (Auto) Chloride 109 H Carbon Dioxide 19 L POC Total CO2 POC BUN BUN 31 H Creatinine 1.2 H POC Creatinine Glucose POC Glucose Uric Acid 12.0 H Calcium POC WB Ioniz Calcium Phosphorus 2.4 L Magnesium 1.4 L Total Protein 5.0 L Albumin 2.6 L Triglycerides 162 H Urine Occult Blood 0.03 A Urine Nitrate Pos A Ur Leukocyte Esterase 75 A Urine RBC 3 H Urine WBC 32 H Ur Squamous Epith Cells 5 H Urine Bacteria Many A Hyaline Casts 182 H 02/17/19 02/17/19 10:40 10:40 WBC 14.1 H RBC Hgb Hct RDW 16.4 H Gran # 10.2 H [place] # (Auto) 1.3 H Chloride Carbon Dioxide 21 L POC Total CO2 21 L POC BUN 37 H BUN 37 H Creatinine 2.1 H POC Creatinine 2.5 H Glucose 127 H POC Glucose 126 H Uric Acid Calcium 10.8 H POC WB Ioniz Calcium 1.54 H Phosphorus Magnesium Total Protein Albumin Triglycerides Urine Occult Blood Urine Nitrate Ur Leukocyte Esterase Urine RBC Urine WBC Ur Squamous Epith Cells Urine Bacteria Hyaline Casts Meds: Medications Acetaminophen (Tylenol) 650 mg PO Q6HP PRN PRN Reason: PAIN/FEVER > 101 Ceftriaxone Sodium (Rocephin) 1 gm IV Q24H [facility]; Protocol Last Admin: 02/18/19 08:39 Dose: 1 gm Documented by: Dextrose (Dextrose 50%) 0 ml IV UD PRN PRN Reason: Hypoglycemia Diagnostic Test (Pha) (Accu-Chek) 1 each FS [facility] Last Admin: 02/18/19 07:43 Dose: 1 each Documented by: Glucose (Insta-Glucose) 15 gm PO PRN PRN PRN Reason: Hypoglycemia Heparin Sodium (Porcine) (Heparin) 5,000 unit SQ Q12 [facility] Last Admin: 02/18/19 08:32 Dose: 5,000 unit Documented by: Lactated Ringer's (Lactated Ringers) 1,000 mls @ 150 mls/hr IV .Q6H40M [facility] Stop: 02/18/19 11:58 Last Admin: 02/18/19 05:16 Dose: 150 mls/hr Documented by: Insulin Human Lispro (Humalog) 0 unit SQ [facility]; Protocol Last Admin: 02/18/19 07:43 Dose: Not Given Documented by: Mupirocin (Bactroban Oint 2%) 1 dose TOPICAL TID [facility] Last Admin: 02/18/19 08:30 Dose: 1 dose Documented by: Naloxone HCl (Narcan) 0.1 mg IV Q2MIN PRN PRN Reason: Opiate Reversal Ondansetron HCl (Zofran) 4 mg IV Q6HP PRN PRN Reason: Nausea And Vomiting Oxycodone HCl (Roxicodone) 5 mg PO Q4HP PRN PRN Reason: pain not controlled by apap Sodium Chloride (Saline Flush) 10 ml IV Q8 [facility] Last Admin: 02/18/19 06:47 Dose: Not Given Documented by: Medical - PN: A/P - Time Spent With Patient Total time spent is greater than 50% in coordination of care (as documented) at patient's floor/unit and/or counseling patient: - Narrative A/P Narrative: A/P Acute Renal failure -CT neg for hydronephrosis -IV fluids for now -Low bicarb suggests this is likely from diarrhea -renal function improving, Diarrhea -etiology? cdiff is negative -start banatrol Urinary tract infection -on IV rocephin Abdominal wound -post surical infection -no surrounding cellulitis -will review with Dr Schroeder -start on topical mupirocin three times a day for now Hypercalcemia -due to dehydration, IVF, calcium improving. Diabetes -ssi insulin for glucose control HTN -Hold bp meds for now, bp normal /low normal -resume once bp stable x 24 hrs Weakness -due to dehydration - and UTI -treat infectin, aggressive rehab. Dementia -high risk of delirum while in hospital, conservative management. DVT hep sq Diet Carb consistent Full code
--- NOTE | 2019-02-18 16:26 | General Surgery Consult Note ---
History of Present Illness Patient information: Note initiated : 02/18/19 at 4:22 pm Service Date, if different from initiated Date: [] Patient: Genna Gong 78 y/o F admitted on 02/17/19 for Green drainage from surgical site. Chief Complaint: [] Requesting physician: Chivo Tomlinson History of present illness: 78-year-old female who is 2 months status post exploratory laparotomy for p erforated gastric ulcer. She has been doing relatively well. She developed a draining sinus tract in her upper midline. I'm seeing her for this. CT of the abdomen shows a very superficial sinus tract going about 6 cm cephalad. I was able to probe this to the end of the tract. It does not extend subfascially. The tract is adequately draining and should not need any further operative intervention. Cultures were taken and the patient has been started on Septra DS. This . This antibiotic can be changed based on sensitivity if needed. No further intervention is needed. Medications and Allergies Home Medications Medication Instructions Recorded Confirmed Type Enalapril Maleate [Vasotec] 20 mg PO BID 11/09/18 02/18/19 History Methocarbamol [Robaxin] 500 mg PO TID 11/09/18 02/18/19 History Oxybutynin Chloride [Ditropan] 5 mg PO TID 11/09/18 02/18/19 History amLODIPine [Norvasc] 10 mg PO DAILY 11/09/18 02/18/19 History metFORMIN [Glucophage] 425 mg PO BID 11/09/18 02/18/19 History HYDROcodone/APAP 10/325MG [[place] 1 tab PO Q4H PRN #30 tab 11/28/18 02/18/19 Rx 10-325Mg] metolazone 10 mg tablet 10 mg PO QDAY 12/05/18 02/18/19 History mineral oil enema 118 ml MO ONCE PRN 12/05/18 02/18/19 History polyethylene glycol 3350 17 17 gm PO PRN PRN g 12/05/18 02/18/19 History gram/dose oral powder potassium chloride ER 20 mEq 20 meq PO QDAY 01/06/19 02/18/19 History tablet,extended release Ondansetron [Zofran ODT] 4 mg SL Q4-6HP PRN 02/12/19 02/18/19 History Ondansetron [Zofran ODT] 4 mg SL Q4-6HP PRN #14 tab 02/12/19 02/18/19 Rx Allergies Allergy/AdvReac Type Severity Reaction Status Date / Time No Known Drug Allergies Allergy Verified 02/17/19 10:18 Exam Temp Pulse Resp BP Pulse Ox 98.6 F 82 20 104/48 96 02/18/19 12:00 02/18/19 12:00 02/18/19 12:00 02/18/19 12:00 02/18/19 12:00 Results - Labs 02/18/19 03:45 02/18/19 03:45 Abnormal lab results 02/18/19 02/18/19 Range/Units 03:45 03:45 RBC 3.86 L (4.00-5.20) M/mcL Hgb 10.6 L (12.0-15.0) g/dL Hct 33.6 L (36.0-48.0) % RDW 16.3 H (11.5-14.5) % Chloride 109 H (96-108) mmol/L Carbon Dioxide 19 L (22-30) mmol/L BUN 31 H (8-23) mg/dl Creatinine 1.2 H (0.6-1.1) mg/dl Uric Acid 12.0 H (2.5-8.0) mg/dL Phosphorus 2.4 L (2.7-4.5) mg/dL Magnesium 1.4 L (1.6-2.5) mg/dL Total Protein 5.0 L (5.9-8.4) gm/dL Albumin 2.6 L (3.2-5.2) gm/dL Triglycerides 162 H (<150) mg/dl Diabetes panel 02/18/19 Range/Units 03:45 Sodium 141 (133-145) mmol/L Potassium 3.5 (3.3-5.1) mmol/L Chloride 109 H (96-108) mmol/L Carbon Dioxide 19 L (22-30) mmol/L BUN 31 H (8-23) mg/dl Creatinine 1.2 H (0.6-1.1) mg/dl Glucose 96 (70-105) mg/dL Calcium 10.1 (8.6-10.4) mg/dl AST 16 (0-37) U/l ALT 16 (0-40) U/l Alkaline Phosphatase 47 (39-117) U/L Total Protein 5.0 L (5.9-8.4) gm/dL Albumin 2.6 L (3.2-5.2) gm/dL Triglycerides 162 H (<150) mg/dl Calcium panel 02/18/19 Range/Units 03:45 Calcium 10.1 (8.6-10.4) mg/dl Phosphorus 2.4 L (2.7-4.5) mg/dL Albumin 2.6 L (3.2-5.2) gm/dL Pituitary panel 02/18/19 Range/Units 03:45 Sodium 141 (133-145) mmol/L Potassium 3.5 (3.3-5.1) mmol/L Chloride 109 H (96-108) mmol/L Carbon Dioxide 19 L (22-30) mmol/L BUN 31 H (8-23) mg/dl Creatinine 1.2 H (0.6-1.1) mg/dl Glucose 96 (70-105) mg/dL Calcium 10.1 (8.6-10.4) mg/dl Adrenal panel 02/18/19 Range/Units 03:45 Sodium 141 (133-145) mmol/L Potassium 3.5 (3.3-5.1) mmol/L Chloride 109 H (96-108) mmol/L Carbon Dioxide 19 L (22-30) mmol/L BUN 31 H (8-23) mg/dl Creatinine 1.2 H (0.6-1.1) mg/dl Glucose 96 (70-105) mg/dL Calcium 10.1 (8.6-10.4) mg/dl Total Bilirubin 0.4 (0.0-1.0) mg/dL AST 16 (0-37) U/l ALT 16 (0-40) U/l Alkaline Phosphatase 47 (39-117) U/L Total Protein 5.0 L (5.9-8.4) gm/dL Albumin 2.6 L (3.2-5.2) gm/dL All other labs normal. Assessment and Plan (1) Cutaneous fistula Daily dressing changes as needed. Continue Septra DS twice a day Change antibiotics based on sensitivity results Status: Acute
[2019-02-18] MEDS: ACETAMINOPHEN 325 MG TABLET PO PRN (18:46)
[2019-02-18] MEDS: SULFAMETHOXAZOLE/TRIMETHOPRIM 1 TABLET PO SCH (20:30)
[2019-02-19] MEDS: 0.9 % SODIUM CHLORIDE 10 ML SYRINGE IV SCH ×3 (05:35→21:53)
[2019-02-19 06:00] LABS: Basophils # (Auto) 0 K/mcL (0.0-0.3); Basophils % (Auto) 0 % (0.0-2.0); Eosinophils # (Auto) 0.3 K/mcL (0.0-0.7); Eosinophils % (Auto) 3.4 % (0.0-7.0); Granulocytes % (Auto) 76.3 % (38.0-78.0); Lymphocytes # (Auto) 0.1 K/mcL (1.5-4.8); Lymphocytes % (Auto) 1.3 % (15.5-49.0); Mean Cell Volume 86.9 fL (80.0-100.0); Mean Corpuscular HGB Conc 31.8 g/dL (31.0-36.0); Monocytes # (Auto) 1.6 K/mcL (0.1-0.9); Platelet Count 255 K/mcL (140-440); RBC 3.73 M/mcL (4.00-5.20); Red Cell Distribution Width 16.3 % (11.5-14.5)
[2019-02-19 06:27] LABS: ALT/SGPT 18 U/l (0-40); Albumin 2.5 gm/dL (3.2-5.2); Alkaline Phosphatase 47 U/L (39-117); Bilirubin,Direct < 0.2 mg/dL (0.0-0.3); Blood Urea Nitrogen 19 mg/dl (8-23); Gamma Glutamyl Transpeptidase 30 U/L (5-36); Uric Acid 10.2 mg/dL (2.5-8.0)
[2019-02-19] MEDS ORDERED: POTASSIUM CHLORIDE 20 MEQ PACKET PO ONE (06:35)
[2019-02-19] MEDS: INSULIN LISPRO 1 UNIT/0.01 ML UNIT SQ SCH ×4 (07:42→21:52)
[2019-02-19] MEDS: HEPARIN 5,000 UNIT/ML VIAL SQ SCH ×2 (09:07→21:59)
[2019-02-19] MEDS: SULFAMETHOXAZOLE/TRIMETHOPRIM 1 TABLET PO SCH ×2 (09:07→22:00)
[2019-02-19] MEDS: cefTRIAXone 1 GM VIAL IV SCH (09:08)
[2019-02-19] MEDS: MUPIROCIN OINT 2% 22GM TOPICAL SCH ×3 (09:08→22:42)
--- NOTE | 2019-02-19 11:02 | Internal Med Progress Note ---
Medical - PN: Subj Patient information: Note initiated : 02/19/19 at 10:59 am Service Date, if different from initiated Date: [] Patient: Genna Gong a 78 y/o F admitted on 02/17/19 for Green drainage from surgical site. Chief Complaint: [] Interval history: Ms. Gong is a 78 year old F with history of recent gastric perforation, history of dementia presents to the hospital today for evaluation of weakness di arrhea and decreased oral intake. The patient was also in the emergency room on 12 February for similar symptoms. The patient has dementia and does not endorse any complaints. History provided by son and her . The patient was admitted to this facility I believe for perforation of bowel, she had a patch placed on the stomach and then [facility]. [facility] from the [facility] around 2 weeks ago, at that time she was able to get out of bed and ambulate with the help of a walker. Over the last few days or perhaps a week the patient's condition has deteriorated, she has had nausea abdominal discomfort decreased oral intake and diarrhea. Diarrhea is watery 3-4 times a day, has had some accidents. She presented to this hospital on 12 February, the patient at that time was diagnosed with gastroenteritis given some ondansetron and discharged back. She again presents with similar and worsening symptoms. Patient on presentation is hemodynamically stable heart rate 106 blood pressure 124 x 78 saturating 97% on room air. She has an elevated WBC count at 14.1 was 12.6 on 12 February and normal prior to that her hemoglobin is 12 lactic acid is 1 sodium 139 potassium 3.9 bicarbonate 21 creatinine is 2.1 was 1.6 a few days ago calcium is 10.8. CT abdomen and pelvis is negative for any acute finding surgical site appears clean. The patient also has a small drainage from the incision wound with pus, this is a known issue with the patient and Dr. Ernandez is aware. 02/18 Patient seen and examined, no acute overnight events, patient is doing well. Renal function improved, patient is tested negative for C. difficile. UA suggestive of urinary tract infection she is on Rocephin. Pus still draining from the incision in the mid abdomen I have asked the surgeon to evaluate this further 02/19 Patient seen examined, no acute issues, appreciate Dr Sepulveda input started on bactrim, pt has received 3 days of rochein for UTI will be on bactrim for atleast 17-10 days which should cover her wound care nurse to do dressing change recommendations. Pertinent ROS: Denies headache, dizziness Denies chest pain, palpitations Denies cough or shortness of breath Denies abdominal pain, nausea or vomiting. - Constitutional Vitals: Vital Signs Temp Pulse Resp BP Pulse Ox 98.3 F 112 H 18 116/61 96 02/19/19 08:00 02/19/19 08:00 02/19/19 08:00 02/19/19 08:00 02/19/19 08:00 Period Temp Pulse Resp BP Sys/Maldonado Pulse Ox Last 24 Hr 97.8 F-98.7 F 64-112 18-22 104-130/43-86 91-96 Intake and Output 02/18/19 02/19/19 02/19/19 21:59 05:59 13:59 Intake Total 680 120 Output Total 850 Balance -170 120 Weight 189 lb Intake & Output: Intake & Output 02/18/19 02/19/19 02/19/19 21:59 05:59 13:59 Intake Total 680 120 Output Total 850 Balance -170 120 Weight 189 lb Intake: Oral 680 120 Output: Urine Catheter Amount 850 Other: Meal Dinner Breakfast Percent of Meal Consumed 50% 75% Feeding Ability Needs Supervision Assist with Tray Set Up Urine Appearance Cloudy Urine Color Light Fay Urine Odor Strong Exam: Constitutional; Afebrile, cooperative, alert, not in distress. Respiratory system: Air Entry equal on both sides, No crackles or wheezing, no rhonchi. CVS- Rate rhythm regular, S1,S2 heard, no gallop, no rub. Abdomen- Soft nontender abdomen, no organomegaly, no tenderness, no guarding or rigidity, HEAD ROSE GROWER- AOOx1, moving all extremities, no gross focal deficit noted. Medical - PN: Obj Da - Labs CBC & Chem 7: 02/19/19 03:40 02/19/19 03:40 Labs: Abnormal Lab Results 02/19/19 02/19/19 02/18/19 03:40 03:40 03:45 WBC RBC 3.73 L Hgb 10.3 L Hct 32.4 L RDW 16.3 H Lymph % (Auto) 1.3 L [place] % (Auto) 19.0 H Gran # Lymph # (Auto) 0.1 L [place] # (Auto) 1.6 H Chloride 110 H 109 H Carbon Dioxide 20 L 19 L POC Total CO2 POC BUN BUN 31 H Creatinine 1.2 H POC Creatinine Glucose 121 H POC Glucose Uric Acid 10.2 H 12.0 H Calcium POC WB Ioniz Calcium Phosphorus 1.8 L 2.4 L Magnesium 1.4 L Total Protein 4.9 L 5.0 L Albumin 2.5 L 2.6 L Triglycerides 163 H 162 H Urine Occult Blood Urine Nitrate Ur Leukocyte Esterase Urine RBC Urine WBC Ur Squamous Epith Cells Urine Bacteria Hyaline Casts 02/18/19 02/17/19 02/17/19 03:45 14:40 10:40 WBC RBC 3.86 L Hgb 10.6 L Hct 33.6 L RDW 16.3 H Lymph % (Auto) [place] % (Auto) Gran # Lymph # (Auto) [place] # (Auto) Chloride Carbon Dioxide 21 L POC Total CO2 21 L POC BUN 37 H BUN 37 H Creatinine 2.1 H POC Creatinine 2.5 H Glucose 127 H POC Glucose 126 H Uric Acid Calcium 10.8 H POC WB Ioniz Calcium 1.54 H Phosphorus Magnesium Total Protein Albumin Triglycerides Urine Occult Blood 0.03 A Urine Nitrate Pos A Ur Leukocyte Esterase 75 A Urine RBC 3 H Urine WBC 32 H Ur Squamous Epith Cells 5 H Urine Bacteria Many A Hyaline Casts 182 H 02/17/19 10:40 WBC 14.1 H RBC Hgb Hct RDW 16.4 H Lymph % (Auto) [place] % (Auto) Gran # 10.2 H Lymph # (Auto) [place] # (Auto) 1.3 H Chloride Carbon Dioxide POC Total CO2 POC BUN BUN Creatinine POC Creatinine Glucose POC Glucose Uric Acid Calcium POC WB Ioniz Calcium Phosphorus Magnesium Total Protein Albumin Triglycerides Urine Occult Blood Urine Nitrate Ur Leukocyte Esterase Urine RBC Urine WBC Ur Squamous Epith Cells Urine Bacteria Hyaline Casts Meds: Medications Acetaminophen (Tylenol) 650 mg PO Q6HP PRN PRN Reason: PAIN/FEVER > 101 Last Admin: 02/18/19 18:46 Dose: 650 mg Documented by: Dextrose (Dextrose 50%) 0 ml IV UD PRN PRN Reason: Hypoglycemia Diagnostic Test (Pha) (Accu-Chek) 1 each FS [facility] Last Admin: 02/19/19 07:42 Dose: 1 each Documented by: Glucose (Insta-Glucose) 15 gm PO PRN PRN PRN Reason: Hypoglycemia Heparin Sodium (Porcine) (Heparin) 5,000 unit SQ Q12 [facility] Last Admin: 02/19/19 09:07 Dose: 5,000 unit Documented by: Insulin Human Lispro (Humalog) 0 unit SQ [facility]; Protocol Last Admin: 02/19/19 07:42 Dose: Not Given Documented by: Mupirocin (Bactroban Oint 2%) 1 dose TOPICAL TID [facility] Last Admin: 02/19/19 09:08 Dose: 1 dose Documented by: Naloxone HCl (Narcan) 0.1 mg IV Q2MIN PRN PRN Reason: Opiate Reversal Ondansetron HCl (Zofran) 4 mg IV Q6HP PRN PRN Reason: Nausea And Vomiting Oxycodone HCl (Roxicodone) 5 mg PO Q4HP PRN PRN Reason: pain not controlled by apap Sodium Chloride (Saline Flush) 10 ml IV Q8 [facility] Last Admin: 02/19/19 05:35 Dose: 10 ml Documented by: Trimethoprim/Sulfamethoxazole (Bactrim Ds) 1 tab PO BID [facility]; Protocol Last Admin: 02/19/19 09:07 Dose: 1 tab Documented by: Medical - PN: A/P - Time Spent With Patient Total time spent is greater than 50% in coordination of care (as documented) at patient's floor/unit and/or counseling patient: - Narrative A/P Narrative: A/P Acute Renal failure -CT neg for hydronephrosis renal function back to normal, c reat 0.8 today Diarrhea -resolving. Urinary tract infection -s/p 3 days rocephin -on bactrim now. Abdominal wound -wound care nurse to do dressing changes -seen by Dr ernandez, advised abx Hypercalcemia -due to dehyration, resolved Diabetes -ssi insulin for glucose control HTN -resumed meds Weakness -due to dehydration - and UTI -treat infectin, aggressive rehab, will need snf placement. Dementia -high risk of delirum while in hospital, conservative management. DVT hep sq Diet Carb consistent Full code
--- NOTE | 2019-02-19 14:33 | Internal Med Progress Note ---
Medical - PN: Subj Patient information: Note initiated : 02/19/19 at 2:29 pm Service Date, if different from initiated Date: [] Patient: Genna Gong a 78 y/o F admitted on 02/17/19 for Green drainage from surgical site. Chief Complaint: [] Interval history: Ms. Gong is a 78 year old F with history of recent gastric perforation, history of dementia presents to the hospital today for evaluation of weakness di arrhea and decreased oral intake. The patient was also in the emergency room on 12 February for similar symptoms. The patient has dementia and does not endorse any complaints. History provided by son and her . The patient was admitted to this facility I believe for perforation of bowel, she had a patch placed on the stomach and then eventually discharged to detention. She went home from the detention around 2 weeks ago, at that time she was able to get out of bed and ambulate with the help of a walker. Over the last few days or perhaps a week the patient's condition has deteriorated, she has had nausea abdominal discomfort decreased oral intake and diarrhea. Diarrhea is watery 3-4 times a day, has had some accidents. She presented to this hospital on 12 February, the patient at that time was diagnosed with gastroenteritis given some ondansetron and discharged back. She again presents with similar and worsening symptoms. Patient on presentation is hemodynamically stable heart rate 106 blood pressure 124 x 78 saturating 97% on room air. She has an elevated WBC count at 14.1 was 12.6 on 12 February and normal prior to that her hemoglobin is 12 lactic acid is 1 sodium 139 potassium 3.9 bicarbonate 21 creatinine is 2.1 was 1.6 a few days ago calcium is 10.8. CT abdomen and pelvis is negative for any acute finding surgical site appears clean. The patient also has a small drainage from the incision wound with pus, this is a known issue with the patient and Dr. Ernandez is aware. 02/18 Patient seen and examined, no acute overnight events, patient is doing well. Renal function improved, patient is tested negative for C. difficile. UA suggestive of urinary tract infection she is on Rocephin. Pus still draining from the incision in the mid abdomen I have asked the surgeon to evaluate this further 02/19 Patient seen examined, no acute issues, appreciate Dr Sepulveda input started on bactrim, pt has received 3 days of rochein for UTI will be on bactrim for atleast 17-10 days which should cover her wound care nurse to do dressing change recommendations. 02/20 - Constitutional Vitals: Vital Signs Temp Pulse Resp BP Pulse Ox 97.8 F 71 20 117/64 100 02/19/19 12:00 02/19/19 12:00 02/19/19 12:00 02/19/19 12:00 02/19/19 12:00 Period Temp Pulse Resp BP Sys/Maldonado Pulse Ox Last 24 Hr 97.8 F-98.7 F 64-112 18-22 106-130/43-86 91-100 Intake and Output 02/19/19 02/19/19 02/19/19 05:59 13:59 21:59 Intake Total 270 360 Balance 270 360 Intake & Output: Intake & Output 02/19/19 02/19/19 02/19/19 05:59 13:59 21:59 Intake Total 270 360 Balance 270 360 Intake: Nourishment/Supplement quantity 240 (ml) Oral 270 120 Other: Meal Lunch Nourishment/Supplement Percent of Meal Consumed 50% 25% Feeding Ability Needs Supervision Nourishment/Supplement name ENSURE Stool Size Moderate Large Stool Color Brown Brown Green Green Stool Consistency Soft Soft Liquid # Bowel Movements 1 # of times incontinent of 1 Bowels Exam: General: Alert, Awake, No acute Distress Eyes/N/T: EOMI, Head/Neck: neck supple, CV: RRR, No murmurs, Pulm: Clear b/l, no wheezing/rhonchi/rales Abd: soft, nontender, +BS x4 Ext: no clubbing/cyanosis/edema Neuro: Alert, no focal deficits, moves all extremities, Skin: warm/dry Medical - PN: Obj Da - Labs CBC & Chem 7: 02/19/19 03:40 02/19/19 03:40 Labs: Abnormal Lab Results 02/19/19 02/19/19 02/18/19 03:40 03:40 03:45 WBC RBC 3.73 L Hgb 10.3 L Hct 32.4 L RDW 16.3 H Lymph % (Auto) 1.3 L [place] % (Auto) 19.0 H Gran # Lymph # (Auto) 0.1 L [place] # (Auto) 1.6 H Chloride 110 H 109 H Carbon Dioxide 20 L 19 L POC Total CO2 POC BUN BUN 31 H Creatinine 1.2 H POC Creatinine Glucose 121 H POC Glucose Uric Acid 10.2 H 12.0 H Calcium POC WB Ioniz Calcium Phosphorus 1.8 L 2.4 L Magnesium 1.4 L Total Protein 4.9 L 5.0 L Albumin 2.5 L 2.6 L Triglycerides 163 H 162 H Urine Occult Blood Urine Nitrate Ur Leukocyte Esterase Urine RBC Urine WBC Ur Squamous Epith Cells Urine Bacteria Hyaline Casts 02/18/19 02/17/19 02/17/19 03:45 14:40 10:40 WBC RBC 3.86 L Hgb 10.6 L Hct 33.6 L RDW 16.3 H Lymph % (Auto) [place] % (Auto) Gran # Lymph # (Auto) [place] # (Auto) Chloride Carbon Dioxide 21 L POC Total CO2 21 L POC BUN 37 H BUN 37 H Creatinine 2.1 H POC Creatinine 2.5 H Glucose 127 H POC Glucose 126 H Uric Acid Calcium 10.8 H POC WB Ioniz Calcium 1.54 H Phosphorus Magnesium Total Protein Albumin Triglycerides Urine Occult Blood 0.03 A Urine Nitrate Pos A Ur Leukocyte Esterase 75 A Urine RBC 3 H Urine WBC 32 H Ur Squamous Epith Cells 5 H Urine Bacteria Many A Hyaline Casts 182 H 02/17/19 10:40 WBC 14.1 H RBC Hgb Hct RDW 16.4 H Lymph % (Auto) [place] % (Auto) Gran # 10.2 H Lymph # (Auto) [place] # (Auto) 1.3 H Chloride Carbon Dioxide POC Total CO2 POC BUN BUN Creatinine POC Creatinine Glucose POC Glucose Uric Acid Calcium POC WB Ioniz Calcium Phosphorus Magnesium Total Protein Albumin Triglycerides Urine Occult Blood Urine Nitrate Ur Leukocyte Esterase Urine RBC Urine WBC Ur Squamous Epith Cells Urine Bacteria Hyaline Casts Meds: Medications Acetaminophen (Tylenol) 650 mg PO Q6HP PRN PRN Reason: PAIN/FEVER > 101 Last Admin: 02/18/19 18:46 Dose: 650 mg Documented by: Dextrose (Dextrose 50%) 0 ml IV UD PRN PRN Reason: Hypoglycemia Diagnostic Test (Pha) (Accu-Chek) 1 each FS ACHS [facility] Last Admin: 02/19/19 07:42 Dose: 1 each Documented by: Glucose (Insta-Glucose) 15 gm PO PRN PRN PRN Reason: Hypoglycemia Heparin Sodium (Porcine) (Heparin) 5,000 unit SQ Q12 [facility] Last Admin: 02/19/19 09:07 Dose: 5,000 unit Documented by: Insulin Human Lispro (Humalog) 0 unit SQ ACHS [facility]; Protocol Last Admin: 02/19/19 07:42 Dose: Not Given Documented by: Mupirocin (Bactroban Oint 2%) 1 dose TOPICAL TID [facility] Last Admin: 02/19/19 09:08 Dose: 1 dose Documented by: Naloxone HCl (Narcan) 0.1 mg IV Q2MIN PRN PRN Reason: Opiate Reversal Ondansetron HCl (Zofran) 4 mg IV Q6HP PRN PRN Reason: Nausea And Vomiting Oxycodone HCl (Roxicodone) 5 mg PO Q4HP PRN PRN Reason: pain not controlled by apap Sodium Chloride (Saline Flush) 10 ml IV Q8 [facility] Last Admin: 02/19/19 05:35 Dose: 10 ml Documented by: Trimethoprim/Sulfamethoxazole (Bactrim Ds) 1 tab PO BID [facility]; Protocol Last Admin: 02/19/19 09:07 Dose: 1 tab Documented by: Medical - PN: A/P - Time Spent With Patient Total time spent is greater than 50% in coordination of care (as documented) at patient's floor/unit and/or counseling patient: - Narrative A/P Narrative: A/P: *Acute Renal failure -CT neg for hydronephrosis renal function back to normal, c reat 0.8 today *Diarrhea -resolving. *Urinary tract infection -s/p 3 days rocephin -on bactrim now. *Abdominal wound/Cutaneous fistula: -wound care nurse to do dressing changes -seen by Dr ernandez, advised abx *Hypercalcemia -due to dehyration, resolved *Diabetes -ssi insulin for glucose control *HTN -resumed meds *Weakness -due to dehydration - and UTI -treat infection, aggressive rehab, will need snf placement. *Dementia -high risk of delirum while in hospital, conservative management. *Dysphagia: video swallow in AM *ppx: hep sq Full code
--- NOTE | 2019-02-19 14:35 | Discharge Summary ---
Medical - DS: Prov Patient information: Note initiated : 02/19/19 at 2:33 pm Service Date, if different from initiated Date: [] Patient: Genna Gong 78 y/o F admitted on 02/17/19 for Green drainage from surgical site. Chief Complaint: [] Date of admission: 02/17/19 15:42 Discharge date: 02/20/19 Primary care physician: Richar Brand Consults: 02/17/19 13:22 Consult to Physician [CONS] Stat Comment: Consulting Provider: Zonia Schroeder Reason For Exam: Physician to Consult Medical - DS: Meds - Discharge Medications Prescriptions: Cephalexin [Keflex] 500 mg PO QID #22 cap Active and Home Medications: Home Medications Enalapril Maleate [Vasotec] 20 mg PO BID 11/09/18 [History Confirmed 02/18/19 Last Taken 02/12/19 08:00] Methocarbamol [Robaxin] 500 mg PO TID 11/09/18 [History Confirmed 02/18/19 Last Taken 02/12/19 07:00] Oxybutynin Chloride [Ditropan] 5 mg PO TID 11/09/18 [History Confirmed 02/18/19 Last Taken 02/12/19 07:00] amLODIPine [Norvasc] 10 mg PO DAILY 11/09/18 [History Confirmed 02/18/19 Last Taken 02/12/19 08:00] metFORMIN [Glucophage] 425 mg PO BID 11/09/18 [History Confirmed 02/18/19 Last Taken 02/12/19 07:00] HYDROcodone/APAP 10/325MG [[place] 10-325Mg] 1 tab PO Q4H PRN #30 tab 11/28/18 [Rx Confirmed 02/18/19 Last Taken 02/12/19 07:00] metolazone 10 mg tablet 10 mg PO QDAY 12/05/18 [History Confirmed 02/18/19 Last Taken 02/12/19 07:00] mineral oil enema 118 ml MD ONCE PRN 12/05/18 [History Confirmed 02/18/19 Last Taken Unknown] polyethylene glycol 3350 17 gram/dose oral powder 17 gm PO PRN PRN g 12/05/18 [History Confirmed 02/18/19 Last Taken 02/12/19 09:00] potassium chloride ER 20 mEq tablet,extended release 20 meq PO QDAY 01/06/19 [History Confirmed 02/18/19 Last Taken 02/12/19 07:00] Ondansetron [Zofran ODT] 4 mg SL Q4-6HP PRN 02/12/19 [History Confirmed 02/18/19 Last Taken 02/12/19 07:00] Ondansetron [Zofran ODT] 4 mg SL Q4-6HP PRN #14 tab 02/12/19 [Rx Confirmed 02/18/19 Last Taken Unknown] Medical - DS: Hosp Hospital course: Ms. Gong is a 78 year old F with history of recent gastric perforation, history of dementia presents to the hospital today for evaluation of weakness diarrhea and decreased oral intake. The patient was also in the emergency room on 12 February for similar symptoms. The patient has dementia and does not endorse any complaints. History provided by son and her . The patient was admitted to this facility I believe for perforation of bowel, she had a patch placed on the stomach and then eventually discharged to assisted. She went home from the assisted around 2 weeks ago, at that time she was able to get out of bed and ambulate with the help of a walker. Over the last few days or perhaps a week the patient's condition has deteriorated, she has had nausea abdominal discomfort decreased oral intake and diarrhea. Diarrhea is watery 3-4 times a day, has had some accidents. She presented to this hospital on 12 February, the patient at that time was diagnosed with gastroenteritis given some ondansetron and discharged back. She again presents with similar and worsening symptoms. Patient on presentation is hemodynamically stable heart rate 106 blood pressure 124 x 78 saturating 97% on room air. She has an elevated WBC count at 14.1 was 12.6 on 12 February and normal prior to that her hemoglobin is 12 lactic acid is 1 sodium 139 potassium 3.9 bicarbonate 21 creatinine is 2.1 was 1.6 a few days ago calcium is 10.8. CT abdomen and pelvis is negative for any acute finding surgical site appears clean. The patient also has a small drainage from the incision wound with pus, this is a known issue with the patient and Dr. Schroeder is aware. 02/18 Patient seen and examined, no acute overnight events, patient is doing well. Renal function improved, patient is tested negative for C. difficile. UA suggestive of urinary tract infection she is on Rocephin. Pus still draining from the incision in the mid abdomen I have asked the surgeon to evaluate this further 02/19 Patient seen examined, no acute issues, appreciate Dr Sepulveda input started on bactrim, pt has received 3 days of rochein for UTI will be on bactrim for atleast 17-10 days which should cover her wound care nurse to do dressing change recommendations. Wound culture with MSSA. will change bactrim to keflex 500 qid Discharge diagnosis: Acute renal failure diarrhea UTI abdominal wound infection diabetes diarrhe Secondary discharge diagnosis: Hypertension weakness dementia hypercalcemia - Time Spent with Patient Total time spent providing and/or coordinating discharge services: Greater than 30 minutes Medical - DS: Exam - Constitutional Vitals: Vital Signs Temp Pulse Resp BP BP Pulse Ox 02/19/19 12:00 97.8 F 71 20 117/64 100 02/19/19 08:00 98.3 F 112 H 18 116/61 96 02/19/19 03:59 97.8 F 64 20 130/86 95 02/18/19 18:39 98.7 F 93 H 20 106/59 91 02/18/19 16:00 97.8 F 84 22 109/43 93 Intake and Output 02/19/19 02/19/19 02/19/19 05:59 13:59 21:59 Intake Total 270 360 Balance 270 360 Intake: Nourishment/Supplement quantity 240 (ml) Oral 270 120 Other: Meal Lunch Nourishment/Supplement Percent of Meal Consumed 50% 25% Feeding Ability Needs Supervision Nourishment/Supplement name ENSURE Stool Size Moderate Large Stool Color Brown Brown Green Green Stool Consistency Soft Soft Liquid # Bowel Movements 1 # of times incontinent of 1 Bowels Medical - DS: Data Labs on day of discharge: Labs from last 24 hours 02/19/19 02/19/19 03:40 03:40 WBC 8.4 RBC 3.73 L Hgb 10.3 L Hct 32.4 L MCV 86.9 MCH 27.6 MCHC 31.8 RDW 16.3 H Plt Count 255 MPV 8.0 Gran % 76.3 Lymph % (Auto) 1.3 L Wirt % (Auto) 19.0 H Eos % (Auto) 3.4 Baso % (Auto) 0 Gran # 6.4 Lymph # (Auto) 0.1 L Wirt # (Auto) 1.6 H Eos # (Auto) 0.3 Baso # (Auto) 0 Sodium 142 Potassium 3.5 Chloride 110 H Carbon Dioxide 20 L Anion Gap 12.0 BUN 19 Creatinine 0.8 GFR Calculation 72 Glucose 121 H Uric Acid 10.2 H Calcium 10.2 Phosphorus 1.8 L Magnesium 1.7 Total Bilirubin 0.3 Direct Bilirubin < 0.2 GGT 30 AST 18 ALT 18 Alkaline Phosphatase 47 Lactate Dehydrogenase 147 Total Protein 4.9 L Albumin 2.5 L Globulin 2.4 Albumin/Globulin Ratio 1.0 Triglycerides 163 H Preliminary micro results at discharge 02/17/19 10:41 Wound Culture - Preliminary Abdomen - Lower Staphylococcus aureus Medical - DS: A/P - Patient/Caregiver Discharge Instructions Activity: as per physical therapy, increase activity as tolerated Diet: Dysphagia Advanced Additional Instructions: Increase activity as tolerated. Turn frequently while in bed. Follow-up with wound care. - Follow up Plan Follow up with: Zonia Schroeder MD [Physician] - Richar Brand MD [Primary Care Provider] - (Please call and schedule hospital follow up.) Disposition: Xfer SNF Prognosis: Fair Rehab Potential: Fair I certify that the patient requires SNF services: Yes Overall status at discharge: patient is progressing back to baseline
[2019-02-19] MEDS: ONDANSETRON 4 MG/2 ML VIAL IV PRN ×2 (15:00→21:59)
[2019-02-19] MEDS: ACETAMINOPHEN 325 MG TABLET PO PRN (21:59)
[2019-02-20] MEDS: 0.9 % SODIUM CHLORIDE 10 ML SYRINGE IV SCH ×2 (05:04→15:09)
[2019-02-20 06:41] LABS: ALT/SGPT 28 U/l (0-40); Albumin 2.7 gm/dL (3.2-5.2); Alkaline Phosphatase 54 U/L (39-117); Bilirubin,Direct < 0.2 mg/dL (0.0-0.3); Blood Urea Nitrogen 13 mg/dl (8-23); Gamma Glutamyl Transpeptidase 33 U/L (5-36); Uric Acid 7.7 mg/dL (2.5-8.0)
[2019-02-20] MEDS ORDERED: MAGNESIUM SULFATE 8.12 MEQ in DEXTROSE 5% IN WATER 50 ML IV ONE (06:57)
--- NOTE | 2019-02-20 06:58 | Internal Med Progress Note ---
Medical - PN: Subj Patient information: Note initiated : 02/20/19 at 6:55 am Service Date, if different from initiated Date: [] Patient: Genna Gong a 78 y/o F admitted on 02/17/19 for Green drainage from surgical site. Chief Complaint: [] Interval history: Ms. Gong is a 78 year old F with history of recent gastric perforation, history of dementia presents to the hospital today for evaluation of weakness di arrhea and decreased oral intake. The patient was also in the emergency room on 12 February for similar symptoms. The patient has dementia and does not endorse any complaints. History provided by son and her . The patient was admitted to this facility I believe for perforation of bowel, she had a patch placed on the stomach and then eventually discharged to senior living. She went home from the senior living around 2 weeks ago, at that time she was able to get out of bed and ambulate with the help of a walker. Over the last few days or perhaps a week the patient's condition has deteriorated, she has had nausea abdominal discomfort decreased oral intake and diarrhea. Diarrhea is watery 3-4 times a day, has had some accidents. She presented to this hospital on 12 February, the patient at that time was diagnosed with gastroenteritis given some ondansetron and discharged back. She again presents with similar and worsening symptoms. Patient on presentation is hemodynamically stable heart rate 106 blood pressure 124 x 78 saturating 97% on room air. She has an elevated WBC count at 14.1 was 12.6 on 12 February and normal prior to that her hemoglobin is 12 lactic acid is 1 sodium 139 potassium 3.9 bicarbonate 21 creatinine is 2.1 was 1.6 a few days ago calcium is 10.8. CT abdomen and pelvis is negative for any acute finding surgical site appears clean. The patient also has a small drainage from the incision wound with pus, this is a known issue with the patient and Dr. Ernandez is aware. 02/18 Patient seen and examined, no acute overnight events, patient is doing well. Renal function improved, patient is tested negative for C. difficile. UA suggestive of urinary tract infection she is on Rocephin. Pus still draining from the incision in the mid abdomen I have asked the surgeon to evaluate this further 02/19 Patient seen examined, no acute issues, appreciate Dr Sepulveda input started on bactrim, pt has received 3 days of rochein for UTI will be on bactrim for atleast 7-10 days which should cover her wound care nurse to do dressing change recommendations. 02/20 Slept all right. Some nausea this morning but no vomiting. No overnight events. No new complaints. Review of Systems: denies headache/fever/chills/vomiting/chest or abdominal pain/cough/dyspnea/diarrhea. Otherwise see above. - Constitutional Vitals: Vital Signs Temp Pulse Resp BP Pulse Ox 97 F 80 18 104/69 95 02/20/19 04:00 02/20/19 04:00 02/20/19 04:00 02/20/19 04:00 02/20/19 04:00 Period Temp Pulse Resp BP Sys/Maldonado Pulse Ox Last 24 Hr 97 F-98.3 F 71-112 15-20 104-131/61-76 95-100 Intake and Output 02/19/19 02/20/19 02/20/19 21:59 05:59 13:59 Intake Total 610 200 Output Total 1 1 Balance 609 199 Weight 84.595 kg Intake & Output: Intake & Output 02/19/19 02/20/19 02/20/19 21:59 05:59 13:59 Intake Total 610 200 Output Total 1 1 Balance 609 199 Weight 84.595 kg Intake: Nourishment/Supplement quantity 240 (ml) Oral 370 200 Output: # of times incontinent of urine 1 1 Other: Meal Dinner Percent of Meal Consumed 50% Feeding Ability Assist with Tray Set Up Nourishment/Supplement name ENSURE Urine Color Bright Yellow Urine Odor Normal Stool Size Large Smear Stool Color Brown Brown Green Stool Consistency Soft Loose # Bowel Movements 1 Exam: General: Alert, Awake, No acute Distress Eyes/N/T: EOMI, Head/Neck: neck supple, CV: RRR, No murmurs, Pulm: Clear b/l, no wheezing/rhonchi/rales Abd: soft, nontender, +BS x4 Ext: no clubbing/cyanosis/edema Neuro: Alert, no focal deficits, moves all extremities, Skin: warm/dry Medical - PN: Obj Da - Labs CBC & Chem 7: 02/19/19 03:40 02/20/19 04:20 Labs: Abnormal Lab Results 02/20/19 02/19/19 02/19/19 04:20 03:40 03:40 WBC RBC 3.73 L Hgb 10.3 L Hct 32.4 L RDW 16.3 H Lymph % (Auto) 1.3 L [place] % (Auto) 19.0 H Gran # Lymph # (Auto) 0.1 L [place] # (Auto) 1.6 H Chloride 109 H 110 H Carbon Dioxide 20 L POC Total CO2 POC BUN BUN Creatinine POC Creatinine Glucose 140 H 121 H POC Glucose Uric Acid 10.2 H Calcium 10.6 H POC WB Ioniz Calcium Phosphorus 2.1 L 1.8 L Magnesium 1.4 L Total Protein 5.3 L 4.9 L Albumin 2.7 L 2.5 L Triglycerides 163 H 163 H Urine Occult Blood Urine Nitrate Ur Leukocyte Esterase Urine RBC Urine WBC Ur Squamous Epith Cells Urine Bacteria Hyaline Casts 02/18/19 02/18/19 02/17/19 03:45 03:45 14:40 WBC RBC 3.86 L Hgb 10.6 L Hct 33.6 L RDW 16.3 H Lymph % (Auto) [place] % (Auto) Gran # Lymph # (Auto) [place] # (Auto) Chloride 109 H Carbon Dioxide 19 L POC Total CO2 POC BUN BUN 31 H Creatinine 1.2 H POC Creatinine Glucose POC Glucose Uric Acid 12.0 H Calcium POC WB Ioniz Calcium Phosphorus 2.4 L Magnesium 1.4 L Total Protein 5.0 L Albumin 2.6 L Triglycerides 162 H Urine Occult Blood 0.03 A Urine Nitrate Pos A Ur Leukocyte Esterase 75 A Urine RBC 3 H Urine WBC 32 H Ur Squamous Epith Cells 5 H Urine Bacteria Many A Hyaline Casts 182 H 02/17/19 02/17/19 10:40 10:40 WBC 14.1 H RBC Hgb Hct RDW 16.4 H Lymph % (Auto) Mcd[place]ough % (Auto) Gran # 10.2 H Lymph # (Auto) Mcd[place]ough # (Auto) 1.3 H Chloride Carbon Dioxide 21 L POC Total CO2 21 L POC BUN 37 H BUN 37 H Creatinine 2.1 H POC Creatinine 2.5 H Glucose 127 H POC Glucose 126 H Uric Acid Calcium 10.8 H POC WB Ioniz Calcium 1.54 H Phosphorus Magnesium Total Protein Albumin Triglycerides Urine Occult Blood Urine Nitrate Ur Leukocyte Esterase Urine RBC Urine WBC Ur Squamous Epith Cells Urine Bacteria Hyaline Casts Meds: Medications Acetaminophen (Tylenol) 650 mg PO Q6HP PRN PRN Reason: PAIN/FEVER > 101 Last Admin: 02/19/19 21:59 Dose: 650 mg Documented by: Dextrose (Dextrose 50%) 0 ml IV UD PRN PRN Reason: Hypoglycemia Diagnostic Test (Pha) (Accu-Chek) 1 each FS [facility] Last Admin: 02/19/19 21:52 Dose: 1 each Documented by: Glucose (Insta-Glucose) 15 gm PO PRN PRN PRN Reason: Hypoglycemia Heparin Sodium (Porcine) (Heparin) 5,000 unit SQ Q12 [facility] Last Admin: 02/19/19 21:59 Dose: 5,000 unit Documented by: Insulin Human Lispro (Humalog) 0 unit SQ [facility]; Protocol Last Admin: 02/19/19 21:52 Dose: Not Given Documented by: Mupirocin (Bactroban Oint 2%) 1 dose TOPICAL TID [facility] Last Admin: 02/19/19 22:42 Dose: 1 dose Documented by: Naloxone HCl (Narcan) 0.1 mg IV Q2MIN PRN PRN Reason: Opiate Reversal Ondansetron HCl (Zofran) 4 mg IV Q6HP PRN PRN Reason: Nausea And Vomiting Last Admin: 02/19/19 21:59 Dose: 4 mg Documented by: Oxycodone HCl (Roxicodone) 5 mg PO Q4HP PRN PRN Reason: pain not controlled by apap Last Admin: 02/20/19 02:31 Dose: 5 mg Documented by: Sodium Chloride (Saline Flush) 10 ml IV Q8 [facility] Last Admin: 02/20/19 05:04 Dose: 10 ml Documented by: Trimethoprim/Sulfamethoxazole (Bactrim Ds) 1 tab PO BID [facility]; Protocol Last Admin: 02/19/19 22:00 Dose: 1 tab Documented by: Medical - PN: A/P - Time Spent With Patient Total time spent is greater than 50% in coordination of care (as documented) at patient's floor/unit and/or counseling patient: - Narrative A/P Narrative: A/P: *Acute Renal failure -CT neg for hydronephrosis -resoled *Diarrhea -resolving. *Urinary tract infection -s/p 3 days rocephin -on bactrim now. *Abdominal wound/Cutaneous fistula: -wound care nurse to do dressing changes -seen by Dr ernandez, advised bactrim for now abx 7 days pending final WC (prelim with Staph aureus) *Hypercalcemia -due to dehyration, improved *Diabetes -ssi insulin for glucose control *HTN -resumed meds *Weakness -due to dehydration & UTI -pt/ot, will need snf placement. *Dementia -high risk of delirium while in hospital, conservative management. *Oropharyngeal Dysphagia: video swallow this morning *ppx: hep sq Full code
[2019-02-20] MEDS: INSULIN LISPRO 1 UNIT/0.01 ML UNIT SQ SCH ×2 (07:24→11:24)
[2019-02-20] MEDS: MUPIROCIN OINT 2% 22GM TOPICAL SCH ×2 (10:08→15:09)
[2019-02-20] MEDS: SULFAMETHOXAZOLE/TRIMETHOPRIM 1 TABLET PO SCH (10:08)
[2019-02-20] MEDS: HEPARIN 5,000 UNIT/ML VIAL SQ SCH (10:08)
--- NOTE | 2019-02-20 19:24 | XRay Report ---
CLINICAL INFORMATION: ?aspiration COMPARISON: None. FINDINGS: The attached sheet. On thin clonally barium, the epiglottis and vocal cords including close allowing barium penetration laryngeal vestibule and trachea. It elicited only a weak cough reflex. Thicker viscosity barium and solid food were better tolerated Please see speech pathology report IMPRESSION: Small amount of descending aspiration with thin liquids due to a incompletely epiglottis and vocal cord closure Interpreted and Authenticated by: Vikas Whitley 02/20/19
== END 2019-02-20 15:05 | DRG 920 ==
LOC: ED 10:11 → MEDSUR 15:42
PROVIDERS: ADMIT Internal Medicine; ATTEND Internal Medicine

== ENCOUNTER 2019-09-10 13:33 | Inpatient (IN) ==
[2019-09-10] MEDS ORDERED: BENZONATATE 100 MG CAPSULE PO ONE (13:47)
--- NOTE | 2019-09-10 13:50 | Emergency Department Note ---
General Adult HPI - General Chief complaint: Cold/Flu Symptoms Stated complaint: Cough Time Seen by Provider: 09/10/19 13:36 Source: patient, family Mode of arrival: wheelchair Limitations: no limitations - History of Present Illness HPI Narrative: 78-year-old female patient presents to the emergency department with chief complaint of worsening productive cough and shortness of breath x2 weeks. Patient tells me she produces clear to green-colored sputum. She denies previous respiratory history. She denies hemoptysis. She admits to remote history of smoking but quit 20 years ago. She denies any systemic fever, sweats, chills. She denies any retrosternal chest pain or palpitations. She denies abdominal pain, nausea, vomiting, or diarrhea. She denies focal weakness. She denies other sick contacts at home with similar symptoms. She admits to getting her flu shot this year. A review of her active problem list shows the following: Hypoxia, sepsis, nicotine dependence, diarrhea, left hip pain, hypercalcemia, history of MRSA, diabetes, dementia, acute kidney failure, muscle weakness, dysphasia, gastroenteritis, diabetic neuropathy, left knee injury, hypokalemia, UTI, and perforated abdominal viscus. - Related Data Home Medications Medication Instructions Recorded Confirmed Enalapril Maleate [Vasotec] 20 mg PO BID 11/09/18 09/10/19 Methocarbamol [Robaxin] 500 mg PO TID 11/09/18 05/12/19 Oxybutynin Chloride [Ditropan] 5 mg PO TID 11/09/18 09/10/19 amLODIPine [Norvasc] 10 mg PO DAILY 11/09/18 09/10/19 metFORMIN [Glucophage] 425 mg PO BID 11/09/18 09/10/19 metolazone 10 mg tablet 10 mg PO QDAY 12/05/18 09/10/19 mineral oil 118 ml AK ONCE PRN 12/05/18 05/12/19 polyethylene glycol 3350 17 17 gm PO PRN PRN g 12/05/18 05/12/19 gram/dose oral powder potassium chloride 20 mEq 20 meq PO QDAY 01/06/19 05/12/19 tablet,extended release Ondansetron [Zofran ODT] 4 mg SL Q4-6HP PRN 05/08/19 08/05/19 Previous Rx's Medication Instructions Recorded HYDROcodone/APAP 10/325MG [[place] 1 tab PO Q4H PRN #20 tab 02/20/19 10-325Mg] estradiol 0.01% (0.1 mg/gram) 1 g VAGINAL 3XW #42.5 g 04/03/19 vaginal cream Ciprofloxacin [Cipro] 500 mg PO BID #12 tab 05/16/19 Allergies Allergy/AdvReac Type Severity Reaction Status Date / Time No Known Drug Allergies Allergy Verified 09/10/19 13:33 Review of Systems All systems ED: reviewed and negative except as stated. Past Medical History - Past Medical History Medical history: Reports: DM, other (Depression, cataract removal, hypertension, chronic back pain, diabetes type 2,) Surgical history ED: Reports: , cataract - Social History smoking status: Former smoker Alcohol use: Reports: Rarely Drug use: Reports: none Physical Exam Limitations: no limitations General appearance: alert, in no apparent distress (No respiratory distress.), other (Appears acutely ill.) Head: atraumatic, normocephalic Eye: Present: normal appearance, PERRL, EOMI. Absent: scleral icterus, conjunctival injection ENT: Present: normal oropharynx, mucous membranes dry Neck: Present: trachea midline. Absent: lymphadenopathy, thyromegaly Chest: Present: symmetric chest wall rise Respiratory: Present: prolonged expiratory phase (Throughout the chest), decreased breath sounds, other (Rhonchi heard to mid chest bilateral.). Absent: respiratory distress, rales/crackles, wheezes Cardiovascular: Present: regular rate, normal rhythm. Absent: systolic murmur, diastolic murmur Abdominal: Present: soft. Absent: distention, tenderness, guarding, rebound, rigidity, organomegaly, mass Extremities: Present: full ROM, normal capillary refill, pedal edema. Absent: pretibial edema, calf tenderness Back: Present: full ROM. Absent: tenderness Neurological: Present: alert, oriented X3 Psychiatric: Present: normal affect, normal mood Skin: Present: warm, dry, pallor Course Course Narrative: Patient was brought into the emergency department and a history and physical exam was performed. Saline lock was established and laboratory studies were drawn. Two-view chest x-ray was obtained and reviewed. Patient was given benzonatate 200 mg p.o. Review her laboratory studies show the following: CBC WBC elevated 20.7, RBC 3.71, hemoglobin 10.0, hematocrit 31.4, platelet count 473, granulocyte percent 7.3, grams a #14.8. Lactic acid 3.2. CMP BUN 27, glucose 173, ionized calcium 1.45, ALT is normal limits. Influenza swab negative for A/P. Chest x-ray was read by the radiologist as no acute or focal abnormality. After reviewing of the data I discussed these findings with the patient and her family. At this time she does have considerable leukocytosis with a left shift. Her lactic acid levels also elevated. Blood cultures were obtained x2 and the patient was started on vancomycin 1000 mg and Zosyn 3.337 g. I consulted with the hospitalist (Dr. Savage) about the patient and her developing sepsis presentation. He recommended a complete CMP and urinalysis to help differentiate the source of infection. Urinalysis was obtained and and sent to the lab for review. CMP showed BUN 28, glucose 167, calcium 11, ALT 47, all others normal limits. Procalcitonin 0.17. C-reactive protein 21.9. Urinalysis showed cloudy yellow urine with specific gravity 1.017 and pH 8.0. Positive proteinuria, significant leukocyte esterase, +9 RBC, greater than 182 WBC, moderate bacteria, and casts. C&S is going to be obtained. After reviewing all of the additional data I discussed the case once again with Dr. Savage who is consented to admit the patient to the hospital for further septic work-up. All further treatment decisions and modalities will be carried out by the hospitalist. Vital Signs Temperature 97.4 F 09/10/19 13:33 Pulse Rate 87 09/10/19 13:33 Respiratory Rate 20 09/10/19 13:33 Blood Pressure 107/50 09/10/19 13:33 Pulse Oximetry (%) 93 09/10/19 13:33 Temperature 97.6 F 09/10/19 15:53 Pulse Rate 87 09/10/19 15:53 Respiratory Rate 18 09/10/19 15:53 Blood Pressure 140/81 09/10/19 15:53 Pulse Oximetry (%) 97 09/10/19 15:53 Medical Decision Making - Lab Data Lab results reviewed: Yes I reviewed the patient's lab results. Result diagrams: 09/10/19 14:16 09/10/19 14:18 Lab Results 09/10/19 09/10/19 09/10/19 Range/Units 14:16 14:16 14:16 WBC 20.7 H (4.5-11.0) K/mcL RBC 3.71 L (4.00-5.20) M/mcL Hgb 10.0 L (12.0-15.0) g/dL Hct 31.4 L (36.0-48.0) % POC Hct 31.0 L (36.0-48.0) % MCV 84.6 (80.0-100.0) fL MCH 26.9 (26.0-34.0) pg MCHC 31.8 (31.0-36.0) g/dL RDW 13.2 (11.5-14.5) % Plt Count 473 H (140-440) K/mcL MPV 7.8 (7.4-10.4) fL Gran % 71.3 (38.0-78.0) % Lymph % (Auto) 18.0 (15.5-49.0) % Garza % (Auto) 9.7 (1.0-12.0) % Eos % (Auto) 0.8 (0.0-7.0) % Baso % (Auto) 0.2 (0.0-2.0) % Gran # 14.8 H (1.8-8.0) K/mcL Lymph # (Auto) 3.7 (1.5-4.8) K/mcL Garza # (Auto) 2.0 H (0.1-0.9) K/mcL Eos # (Auto) 0.2 (0.0-0.7) K/mcL Baso # (Auto) 0 (0.0-0.3) K/mcL Total Counted Seg Neutrophils % (38-78) % Band Neutrophils % (0-10) % Lymphocytes % (15-49) % Monocytes % (Manual) (1-12) % Platelet Estimate (NORMAL) RBC Morphology (NORMAL) VBG Lactic Acid (0.5-2.0) mmol/L POC Sodium 136 (133-145) mmol/L Sodium (133-145) mmol/L POC Potassium 3.9 (3.3-5.1) mmol/L Potassium (3.3-5.1) mmol/L POC Chloride 102 (96-108) mmol/L Chloride (96-108) mmol/L Carbon Dioxide (22-30) mmol/L POC Total CO2 25 (22-30) mmol/L Anion Gap (8-16) POC BUN 27 H (8-23) mg/dl BUN (8-23) mg/dl Creatinine (0.6-1.1) mg/dl POC Creatinine 1.0 (0.6-1.1) mg/dl GFR Calculation Glucose (70-105) mg/dL POC Glucose 173 H (70-105) mg/dL Calcium (8.6-10.4) mg/dl POC WB Ioniz Calcium 1.45 H (1.16-1.32) mmol/L Total Bilirubin (0.0-1.0) mg/dL AST (0-37) U/l ALT (0-40) U/l Alkaline Phosphatase (39-117) U/L C-Reactive Protein (0.0-0.8) mg/dl Total Protein (5.9-8.4) gm/dL Albumin (3.2-5.2) gm/dL Globulin (2.2-3.7) gm/dL Albumin/Globulin Ratio (1.0-2.3) Procalcitonin 0.17 (<0.10) ng/mL Urine Color Urine Appearance Urine pH (5.0-9.0) Ur Specific [place] (1.000-1.035) Urine Protein (NEG) mg/dL Urine Glucose (UA) (NEG) mg/dL Urine Ketones (NEG) mg/dL Urine Occult Blood (<0.03) mg/dL Urine Nitrate (NEG) Urine Bilirubin (NEG) mg/dL Urine Urobilinogen (NEG) mg/dL Ur Leukocyte Esterase (NEG) /uL Urine RBC (0-1) /hpf Urine WBC (0-4) /hpf Ur Squamous Epith Cells (0-4) /hpf Urine Bacteria (0) /hpf Hyaline Casts (0-2) /lpf Ur Culture Indicated? 09/10/19 09/10/19 09/10/19 Range/Units 14:18 14:18 14:18 WBC (4.5-11.0) K/mcL RBC (4.00-5.20) M/mcL Hgb (12.0-15.0) g/dL Hct (36.0-48.0) % POC Hct (36.0-48.0) % MCV (80.0-100.0) fL MCH (26.0-34.0) pg MCHC (31.0-36.0) g/dL RDW (11.5-14.5) % Plt Count (140-440) K/mcL MPV (7.4-10.4) fL Gran % (38.0-78.0) % Lymph % (Auto) (15.5-49.0) % Garza % (Auto) (1.0-12.0) % Eos % (Auto) (0.0-7.0) % Baso % (Auto) (0.0-2.0) % Gran # (1.8-8.0) K/mcL Lymph # (Auto) (1.5-4.8) K/mcL Garza # (Auto) (0.1-0.9) K/mcL Eos # (Auto) (0.0-0.7) K/mcL Baso # (Auto) (0.0-0.3) K/mcL Total Counted 100 Seg Neutrophils % 67 (38-78) % Band Neutrophils % 5 (0-10) % Lymphocytes % 23 (15-49) % Monocytes % (Manual) 5 (1-12) % Platelet Estimate Increased (NORMAL) RBC Morphology Normal (NORMAL) VBG Lactic Acid 3.2 H (0.5-2.0) mmol/L POC Sodium (133-145) mmol/L Sodium (133-145) mmol/L POC Potassium (3.3-5.1) mmol/L Potassium (3.3-5.1) mmol/L POC Chloride (96-108) mmol/L Chloride (96-108) mmol/L Carbon Dioxide (22-30) mmol/L POC Total CO2 (22-30) mmol/L Anion Gap (8-16) POC BUN (8-23) mg/dl BUN (8-23) mg/dl Creatinine (0.6-1.1) mg/dl POC Creatinine (0.6-1.1) mg/dl GFR Calculation Glucose (70-105) mg/dL POC Glucose (70-105) mg/dL Calcium (8.6-10.4) mg/dl POC WB Ioniz Calcium (1.16-1.32) mmol/L Total Bilirubin (0.0-1.0) mg/dL AST (0-37) U/l ALT (0-40) U/l Alkaline Phosphatase (39-117) U/L C-Reactive Protein (0.0-0.8) mg/dl Total Protein (5.9-8.4) gm/dL Albumin (3.2-5.2) gm/dL Globulin (2.2-3.7) gm/dL Albumin/Globulin Ratio (1.0-2.3) Procalcitonin TNP (<0.10) ng/mL Urine Color Urine Appearance Urine pH (5.0-9.0) Ur Specific [place] (1.000-1.035) Urine Protein (NEG) mg/dL Urine Glucose (UA) (NEG) mg/dL Urine Ketones (NEG) mg/dL Urine Occult Blood (<0.03) mg/dL Urine Nitrate (NEG) Urine Bilirubin (NEG) mg/dL Urine Urobilinogen (NEG) mg/dL Ur Leukocyte Esterase (NEG) /uL Urine RBC (0-1) /hpf Urine WBC (0-4) /hpf Ur Squamous Epith Cells (0-4) /hpf Urine Bacteria (0) /hpf Hyaline Casts (0-2) /lpf Ur Culture Indicated? 09/10/19 09/10/19 Range/Units 14:18 16:26 WBC (4.5-11.0) K/mcL RBC (4.00-5.20) M/mcL Hgb (12.0-15.0) g/dL Hct (36.0-48.0) % POC Hct (36.0-48.0) % MCV (80.0-100.0) fL MCH (26.0-34.0) pg MCHC (31.0-36.0) g/dL RDW (11.5-14.5) % Plt Count (140-440) K/mcL MPV (7.4-10.4) fL Gran % (38.0-78.0) % Lymph % (Auto) (15.5-49.0) % Garza % (Auto) (1.0-12.0) % Eos % (Auto) (0.0-7.0) % Baso % (Auto) (0.0-2.0) % Gran # (1.8-8.0) K/mcL Lymph # (Auto) (1.5-4.8) K/mcL Garza # (Auto) (0.1-0.9) K/mcL Eos # (Auto) (0.0-0.7) K/mcL Baso # (Auto) (0.0-0.3) K/mcL Total Counted Seg Neutrophils % (38-78) % Band Neutrophils % (0-10) % Lymphocytes % (15-49) % Monocytes % (Manual) (1-12) % Platelet Estimate (NORMAL) RBC Morphology (NORMAL) VBG Lactic Acid (0.5-2.0) mmol/L POC Sodium (133-145) mmol/L Sodium 136 (133-145) mmol/L POC Potassium (3.3-5.1) mmol/L Potassium 3.7 (3.3-5.1) mmol/L POC Chloride (96-108) mmol/L Chloride 99 (96-108) mmol/L Carbon Dioxide 22 (22-30) mmol/L POC Total CO2 (22-30) mmol/L Anion Gap 15.0 (8-16) POC BUN (8-23) mg/dl BUN 28 H (8-23) mg/dl Creatinine 1.1 (0.6-1.1) mg/dl POC Creatinine (0.6-1.1) mg/dl GFR Calculation 49 Glucose 167 H (70-105) mg/dL POC Glucose (70-105) mg/dL Calcium 11.0 H (8.6-10.4) mg/dl POC WB Ioniz Calcium (1.16-1.32) mmol/L Total Bilirubin 0.4 (0.0-1.0) mg/dL AST 30 (0-37) U/l ALT 47 H (0-40) U/l Alkaline Phosphatase 88 (39-117) U/L C-Reactive Protein 21.9 H (0.0-0.8) mg/dl Total Protein 7.4 (5.9-8.4) gm/dL Albumin 3.2 (3.2-5.2) gm/dL Globulin 4.2 H (2.2-3.7) gm/dL Albumin/Globulin Ratio 0.8 L (1.0-2.3) Procalcitonin (<0.10) ng/mL Urine Color Yellow Urine Appearance Cloudy Urine pH 8.0 (5.0-9.0) Ur Specific [place] 1.017 (1.000-1.035) Urine Protein 100 A (NEG) mg/dL Urine Glucose (UA) Negative (NEG) mg/dL Urine Ketones Neg (NEG) mg/dL Urine Occult Blood Neg (<0.03) mg/dL Urine Nitrate Neg (NEG) Urine Bilirubin Neg (NEG) mg/dL Urine Urobilinogen Neg (NEG) mg/dL Ur Leukocyte Esterase 500 A (NEG) /uL Urine RBC 9 H (0-1) /hpf Urine WBC > 182 H (0-4) /hpf Ur Squamous Epith Cells < 1 (0-4) /hpf Urine Bacteria Mod A (0) /hpf Hyaline Casts 9 H (0-2) /lpf Ur Culture Indicated? Yes - Radiology Data Radiology results reviewed: Yes I reviewed the patient's radiology results. Ordering Physician: Richar Mcdonald PA-C Date of Service: 09/10/19 Procedure(s): XR chest 2V Accession Number(s): [id number] CLINICAL INFORMATION:Cough. Dyspnea. TECHNIQUE: PA and lateral upright chest x-ray COMPARISON: Previous chest x-ray dated 05/14/2019 FINDINGS:Interstitial markings are mildly prominent bilaterally. No focal pulmonary parenchymal infiltrate or mass. No parenchymal consolidation. Heart size is within normal limits. No pulmonary edema or pulmonary congestion. There is no pleural fluid. Almaz and mediastinum are negative IMPRESSION: No acute or focal abnormality Interpreted and Authenticated by: Vikas Nunez 09/10/19 Disposition Pt seen by NON FOOD RECEIVING CLERK/PA only: Yes Clinical Impression: UTI (urinary tract infection) Qualifiers: Urinary tract infection type: site unspecified Hematuria presence: with he maturia Qualified Code(s): N39.0 - Urinary tract infection, site not specified; R31.9 - Hematuria, unspecified Sepsis Qualifiers: Sepsis type: sepsis due to unspecified organism Sepsis acute organ dysfunction status: without acute organ dysfunction Qualified Code(s): A41.9 - Sepsis, unspecified organism Disposition: Xfer As Inpt ([facility]) Condition: Fair Additional Instructions: Patient being admitted to the hospital via the hospitalist service (Dr. Savage). All further treatment decisions and modalities to be carried out by Dr. Savage. Referrals: Richar Brand MD [Primary Care Provider] -
--- NOTE | 2019-09-10 14:14 | XRay Report ---
CLINICAL INFORMATION:Cough. Dyspnea. TECHNIQUE: PA and lateral upright chest x-ray COMPARISON: Previous chest x-ray dated 05/14/2019 FINDINGS:Interstitial markings are mildly prominent bilaterally. No focal pulmonary parenchymal infiltrate or mass. No parenchymal consolidation. Heart size is within normal limits. No pulmonary edema or pulmonary congestion. There is no pleural fluid. Almaz and mediastinum are negative IMPRESSION: No acute or focal abnormality Interpreted and Authenticated by: Vikas Nunez 09/10/19
[2019-09-10 14:35] LABS: POC Blood Urea Nitrogen 27 mg/dl (8-23); POC CO2 25 mmol/L (22-30); POC Calcium, Ionized 1.45 mmol/L (1.16-1.32); POC Chloride 102 mmol/L (96-108); POC Glucose, Random 173 mg/dL (70-105); POC Potassium 3.9 mmol/L (3.3-5.1); POC Sodium 136 mmol/L (133-145)
[2019-09-10 15:03] LABS: Basophils # (Auto) 0 K/mcL (0.0-0.3); Basophils % (Auto) 0.2 % (0.0-2.0); Eosinophils # (Auto) 0.2 K/mcL (0.0-0.7); Eosinophils % (Auto) 0.8 % (0.0-7.0); Granulocytes % (Auto) 71.3 % (38.0-78.0); Hematocrit 31.4 % (36.0-48.0); Lymphocytes # (Auto) 3.7 K/mcL (1.5-4.8); Mean Cell Volume 84.6 fL (80.0-100.0); Mean Corpuscular HGB Conc 31.8 g/dL (31.0-36.0); Mean Platelet Volume 7.8 fL (7.4-10.4); Monocytes % (Auto) 9.7 % (1.0-12.0); Platelet Count 473 K/mcL (140-440); RBC 3.71 M/mcL (4.00-5.20); Red Cell Distribution Width 13.2 % (11.5-14.5); WBC 20.7 K/mcL (4.5-11.0)
[2019-09-10] MEDS ORDERED: PIPERACILLIN SODIUM/TAZOBACTAM 3.375 GM in DEXTROSE 5% IN WATER 50 ML IV ONE (15:24)
[2019-09-10] MEDS ORDERED: VANCOMYCIN 1,000 MG in 0.9 % SODIUM CHLORIDE 250 ML IV ONE (15:24)
[2019-09-10 16:49] LABS: ALT/SGPT 47 U/l (0-40); AST/SGOT 30 U/l (0-37); Albumin 3.2 gm/dL (3.2-5.2); Albumin/Globulin Ratio 0.8 (1.0-2.3); Alkaline Phosphatase 88 U/L (39-117); Bilirubin,Total 0.4 mg/dL (0.0-1.0); Blood Urea Nitrogen 28 mg/dl (8-23); C-Reactive Protein 21.9 mg/dl (0.0-0.8); Carbon Dioxide 22 mmol/L (22-30); Chloride 99 mmol/L (96-108); Globulin 4.2 gm/dL (2.2-3.7); Glomerular Filtration Rate 49; Glucose 167 mg/dL (70-105)
[2019-09-10 16:58] LABS: Appearance,Urine CLOUDY; Bacteria,Urine MOD /hpf (0); Bilirubin,Urine NEG (NEG); Color,Urine YELLOW; Culture Indicated,Urine YES; Glucose,Urine (UA) NEGATIVE (NEG); Ketones,Urine NEG (NEG); Leukocyte Esterase,Urine 500 /uL (NEG); Nitrate,Urine NEG (NEG); Protein,Urine 100 mg/dL (NEG); Specific Gravity,Urine 1.017 (1.000-1.035); Urine Blood NEG mg/dL (<0.03); Urine Hyaline Cast 9 /lpf (0-2); Urine RBC 9 /hpf (0-1); Urine Squamous Epithelial Cell < 1 /hpf (0-4); Urine WBC > 182 /hpf (0-4); Urobilinogen,Urine NEG (NEG)
[2019-09-10 17:03] LABS: Band Neutrophils % 5 % (0-10); Lymphocytes % 23 % (15-49); Monocytes % (Manual) 5 % (1-12); Platelet Estimate INCREASED (NORMAL); RBC Morphology NORMAL (NORMAL); Segmented Neutrophils % 67 % (38-78)
[2019-09-10] MEDS ORDERED: 0.9 % SODIUM CHLORIDE 1,000 ML IV ONE (17:17)
--- NOTE | 2019-09-10 17:26 | Internal Med History&Physical ---
Medical - H&P: [facility] Patient information: Note initiated : 09/10/19 at 5:18 pm Service Date, if different from initiated Date: [] Patient: Genna Gong a 78 y/o F admitted on for Cough. Chief Complaint: [] History of present illness: Ms. Gong is a 78 year old F She was sent in because a health healthcare project manager visited the home today and the patient who had been complaining of a continued cough was felt to have dimin ished lung sounds on auscultation by the healthcare aid. This was relayed to PCP office who asked the patient to go to the ER. In speaking with the patient and her , her offers that she is been coughing for 4 weeks, the last couple weeks he feels is gotten worse. She has had some shortness of breath with coughing. She is unable to produce any phlegm lately but did have some white phlegm earlier in the course but her states it was green. She complains of rhinorrhea sinus congestion and sinus drainage. Denies fevers or chills. Denies headache. Denies chest pain. When asked if she felt weaker than usual she seemed to stop and think about how she felt when her interjected and stated that she had been weak. Work-up in ER was unremarkable for any lower respiratory tract infection, chest x-ray unremarkable procalcitonin low. She is afebrile. However work-up was concerning for urinary tract infection. She had elevated lactate and white blood cell count. And elevated CRP. Her states that her urine has a stronger odor to it lately. Denies abdominal pain or GI symptoms. Review of Systems: Pertinent positives as above. Denies headache/fever/chills/nausea/vomiting/chest or abdominal pain/diarrhea. Remaining 10 point review of systems reviewed negative Medical - H&P: [facility] Medical history: Medical History (Last Reviewed 04/03/19 @ 13:57 by ASHLEY Eason) Nicotine dependence (Chronic) MCC (current) use of 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 drugs (Chronic) Diarrhea (Chronic) Nausea and vomiting (Chronic) Left hip pain (Chronic) Hypercalcemia (Chronic) Methicillin susceptible Staphylococcus aureus infection, unspecified site (Chronic) Diabetes mellitus (Chronic) Dementia (Chronic) Acute kidney failure (Chronic) Muscle weakness (Chronic) Difficulty walking (Chronic) Dysphagia (Chronic) Lack of coordination (Chronic) Other specified disorder of skin (Chronic) Urinary retention (Chronic) Knee cartilage, torn, left (Chronic) Diabetes 1.5, managed as type 2 (Chronic) Diabetic neuropathy (Chronic) Knee effusion, left (Chronic) Left knee injury (Chronic) Edema of left lower extremity (Chronic) Left hip pain (Chronic) Past Surgical History (Last Reviewed 04/03/19 @ 13:57 by ASHLEY Eason) History of hysterectomy (Chronic) Absence of both cervix and uterus, acquired (Chronic) History of appendectomy (Chronic) History of carpal tunnel surgery (Chronic) History of section (Chronic) History of laparotomy (Chronic) History of tubal ligation (Chronic) Family History (Last Reviewed 04/03/19 @ 13:57 by ASHLEY Eason) Family/Other Hypertension Diabetes mellitus -mother Leukemia Social History (Last Updated 04/03/19 @ 14:47 by ASHLEY Eason) Patient quit smoking 40 years ago, does not drink alcohol Uses a walker Lives at home with Medical - H&P: Meds Home Medications Medication Instructions Recorded Confirmed Type Enalapril Maleate [Vasotec] 20 mg PO BID 11/09/18 09/10/19 History Methocarbamol [Robaxin] 500 mg PO TID 11/09/18 05/12/19 History Oxybutynin Chloride [Ditropan] 5 mg PO TID 11/09/18 09/10/19 History amLODIPine [Norvasc] 10 mg PO DAILY 11/09/18 09/10/19 History metFORMIN [Glucophage] 425 mg PO BID 11/09/18 09/10/19 History metolazone 10 mg tablet 10 mg PO QDAY 12/05/18 09/10/19 History mineral oil 118 ml SD ONCE PRN 12/05/18 05/12/19 History polyethylene glycol 3350 17 17 gm PO PRN PRN g 12/05/18 05/12/19 History gram/dose oral powder potassium chloride 20 mEq 20 meq PO QDAY 01/06/19 05/12/19 History tablet,extended release Ondansetron [Zofran ODT] 4 mg SL Q4-6HP PRN 02/12/19 05/12/19 History HYDROcodone/APAP 10/325MG [[place] 1 tab PO Q4H PRN #20 tab 02/20/19 09/10/19 Rx 10-325Mg] estradiol 0.01% (0.1 mg/gram) 1 g VAGINAL 3XW #42.5 g 04/03/19 05/12/19 Rx vaginal cream Ciprofloxacin [Cipro] 500 mg PO BID #12 tab 05/16/19 Rx Allergies Allergy/AdvReac Type Severity Reaction Status Date / Time No Known Drug Allergies Allergy Verified 09/10/19 13:33 Medical - H&P: Exam - Constitutional Vitals: Temp Pulse Resp BP Pulse Ox 98.3 F 78 16 158/79 97 09/10/19 17:06 09/10/19 17:06 09/10/19 17:06 09/10/19 17:06 09/10/19 17:06 Exam: General: Alert, Awake, No acute Distress Eyes/N/T: EOMI, PERRL, DMM Head/Neck: neck supple, normocephalic atraumatic CV: Mildly tacky but regular, No murmurs, normal s1/s2 Pulm: Poor inspiratory effort and thus diminished bilaterally throughout, no rhonchi rales or wheezing Abd: soft, nontender, +BS x4 Ext: no clubbing/cyanosis, trace b/l LE edema, venous stasis changes Neuro: Alert, no focal deficits, moves all extremities, CN 2-12 grossly intact, symmetrical strength b/l upper/lower, sensations intact b/l upper/lower Skin: warm/dry Medical - H&P: Reslt - Labs CBC & Chem 7: 09/10/19 14:16 09/10/19 14:18 Labs: Short CBC 09/10/19 Range/Units 14:16 WBC 20.7 H (4.5-11.0) K/mcL Hgb 10.0 L (12.0-15.0) g/dL Hct 31.4 L (36.0-48.0) % Plt Count 473 H (140-440) K/mcL BMP 09/10/19 14:18 Sodium 136 Potassium 3.7 Chloride 99 Carbon Dioxide 22 BUN 28 H Creatinine 1.1 Glucose 167 H Calcium 11.0 H Liver Function 09/10/19 Range/Units 14:18 Total Bilirubin 0.4 (0.0-1.0) mg/dL AST 30 (0-37) U/l ALT 47 H (0-40) U/l Alkaline Phosphatase 88 (39-117) U/L Albumin 3.2 (3.2-5.2) gm/dL Urine 09/10/19 Range/Units 16:26 Urine Color Yellow Urine Appearance Cloudy Urine pH 8.0 (5.0-9.0) Ur Specific [place] 1.017 (1.000-1.035) Urine Protein 100 A (NEG) mg/dL Urine Glucose (UA) Negative (NEG) mg/dL - Impressions Chest x-ray no acute pathology Medical - H&P: A/P - Narrative A/P Narrative: A: *UTI (h/o e.coli bactermia from source): *Lactic Acidosis: concern for developing sepsis *Volume Depletion: *URI: *Hypercalcemia *DM/neuropathy: *HTN: on CCB/ACEI *Dementia. mild: *Chronic back pain: on norco P: -Rocephin, pending UC/BC -IVF, follow-up lactate - -IS, prn nebs -SSI -PT/OT -ppx: Lovenox DNR
[2019-09-10] MEDS ORDERED: 0.9 % SODIUM CHLORIDE 1,000 ML IV SCH (19:16)
[2019-09-10] MEDS ORDERED: MAGNESIUM SULFATE 2 GM/50 ML BAG IV PRN (19:16)
[2019-09-10] MEDS ORDERED: POTASSIUM CHLORIDE 20 MEQ TABLET PO PRN ×2 (19:16)
[2019-09-10] MEDS ORDERED: SENNOSIDES 1 TABLET PO PRN (19:16)
[2019-09-10] MEDS ORDERED: ACETAMINOPHEN 325 MG TABLET PO PRN (19:16)
[2019-09-10] MEDS ORDERED: hydrALAZINE 20 MG/ML VIAL IV PRN (19:16)
[2019-09-10] MEDS ORDERED: DEXTROSE 50% 50 ML VIAL IV PRN (19:16)
[2019-09-10] MEDS ORDERED: POLYETHYLENE GLYCOL 3350 17 GM PACKET PO PRN (19:16)
[2019-09-10] MEDS ORDERED: ONDANSETRON 4 MG/2 ML VIAL IV PRN (19:16)
[2019-09-10] MEDS ORDERED: DEXTROSE 31 GM ORAL.SUSP PO PRN (19:16)
[2019-09-10] MEDS ORDERED: POTASSIUM CHLORIDE 40 MEQ in DEXTROSE 5% IN WATER 500 ML IV PRN (19:16)
[2019-09-10] MEDS: IPRATROPIUM/ALBUTEROL 3 ML AMPUL.NEB NEB PRN (20:05)
[2019-09-10] MEDS ORDERED: ENALAPRIL MALEATE 20 MG PO SCH (21:00)
[2019-09-10] MEDS: OXYBUTYNIN CHLORIDE 5 MG TABLET PO SCH (21:26)
[2019-09-10] MEDS: LISINOPRIL 20 MG TABLET PO SCH (21:26)
[2019-09-10] MEDS: DOCUSATE SODIUM 100 MG CAPSULE PO SCH (21:26)
[2019-09-10] MEDS: INSULIN LISPRO 1 UNIT/0.01 ML UNIT SQ SCH (22:07)
[2019-09-10] MEDS: 0.9 % SODIUM CHLORIDE 10 ML SYRINGE IV SCH (22:19)
[2019-09-10] MEDS ORDERED: PIPERACILLIN SODIUM/TAZOBACTAM 3.375 GM in DEXTROSE 5% IN WATER 50 ML IV SCH (23:45)
[2019-09-11] MEDS: IPRATROPIUM/ALBUTEROL 3 ML AMPUL.NEB NEB PRN (03:55)
[2019-09-11] MEDS: 0.9 % SODIUM CHLORIDE 10 ML SYRINGE IV SCH ×3 (05:45→20:05)
[2019-09-11 06:10] LABS: Basophils # (Auto) 0 K/mcL (0.0-0.3); Basophils % (Auto) 0.1 % (0.0-2.0); Eosinophils # (Auto) 0.1 K/mcL (0.0-0.7); Eosinophils % (Auto) 1.2 % (0.0-7.0); Granulocytes % (Auto) 65.9 % (38.0-78.0); Hematocrit 26.8 % (36.0-48.0); Hemoglobin 8.6 g/dL (12.0-15.0); Lymphocytes # (Auto) 2.6 K/mcL (1.5-4.8); Lymphocytes % (Auto) 21.7 % (15.5-49.0); Mean Cell Volume 84.2 fL (80.0-100.0); Mean Corpuscular HGB Conc 32.1 g/dL (31.0-36.0); Mean Platelet Volume 7.4 fL (7.4-10.4); Monocytes # (Auto) 1.3 K/mcL (0.1-0.9); Monocytes % (Auto) 11.1 % (1.0-12.0); Platelet Count 371 K/mcL (140-440); RBC 3.18 M/mcL (4.00-5.20); Red Cell Distribution Width 13.1 % (11.5-14.5); WBC 12.1 K/mcL (4.5-11.0)
[2019-09-11 06:54] LABS: ALT/SGPT 36 U/l (0-40); AST/SGOT 25 U/l (0-37); Albumin 2.7 gm/dL (3.2-5.2); Albumin/Globulin Ratio 0.8 (1.0-2.3); Alkaline Phosphatase 74 U/L (39-117); Bilirubin,Direct < 0.2 mg/dL (0.0-0.3); Bilirubin,Total 0.5 mg/dL (0.0-1.0); Blood Urea Nitrogen 23 mg/dl (8-23); Carbon Dioxide 21 mmol/L (22-30); Chloride 104 mmol/L (96-108); Globulin 3.6 gm/dL (2.2-3.7); Glomerular Filtration Rate 62; Glucose 149 mg/dL (70-105); Lactate Dehydrogenase 161 U/L (94-250); Phosphorous 3.1 mg/dL (2.7-4.5); Triglycerides 109 mg/dl (<150); Uric Acid 7.8 mg/dL (2.5-8.0)
[2019-09-11 07:04] LABS: Calcium 10.1 mg/dl (8.6-10.4)
[2019-09-11] MEDS ORDERED: MAGNESIUM SULFATE 2 GM/50 ML BAG IV ONE (07:24)
--- NOTE | 2019-09-11 07:25 | Internal Med Progress Note ---
Medical - PN: Subj Patient information: Note initiated : 09/11/19 at 7:22 am Service Date, if different from initiated Date: [] Patient: Genna Gong a 78 y/o F admitted on 09/10/19 for Cough. Chief Complaint: [] Interval history: Ms. Gong is a 78 year old F She was sent in because a health care director visited the home today and the patient who had been complaining of a continued cough was felt to have dimini shed lung sounds on auscultation by the healthcare aid. This was relayed to PCP office who asked the patient to go to the ER. In speaking with the patient and her , her offers that she is been coughing for 4 weeks, the last couple weeks he feels is gotten worse. She has had some shortness of breath with coughing. She is unable to produce any phlegm lately but did have some white phlegm earlier in the course but her states it was green. She complains of rhinorrhea sinus congestion and sinus drainage. Denies fevers or chills. Denies headache. Denies chest pain. When asked if she felt weaker than usual she seemed to stop and think about how she felt when her interjected and stated that she had been weak. Work-up in ER was unremarkable for any lower respiratory tract infection, chest x-ray unremarkable procalcitonin low. She is afebrile. However work-up was concerning for urinary tract infection. She had elevated lactate and white blood cell count. And elevated CRP. Her states that her urine has a stronger odor to it lately. Denies abdominal pain or GI symptoms. 09/11 Feeling better. Slept all right. No new complaints. No overnight events. Denied cough/shortness of breath Review of Systems: denies headache/fever/chills/nausea/vomiting/chest or abdominal pain/diarrhea. Otherwise see above. - Constitutional Vitals: Vital Signs Temp Pulse Resp BP Pulse Ox 97.6 F 82 32 H 118/69 91 09/11/19 04:36 09/11/19 04:36 09/11/19 04:36 09/11/19 04:36 09/11/19 07:09 Period Temp Pulse Resp BP Sys/[place]aldon[place] Pulse Ox Last 24 Hr 97.4 F-99.6 F 78-109 15-32 101-168/50-107 90-99 Intake and Output 09/10/19 09/11/19 09/11/19 21:59 05:59 13:59 Intake Total 1300 50 Balance 1300 50 Weight 82.327 kg Intake & Output: Intake & Output 09/10/19 09/11/19 09/11/19 21:59 05:59 13:59 Intake Total 1300 50 Balance 1300 50 Weight 82.327 kg Intake: IV 1300 50 Sodium Chloride 0.9% 1,000 ml @ 1000 Wide Open IV BOLUS ONE Rx#: [id number] Zosyn 3.375 gm In Dextrose 5% 50 50 in Water 50 ml @ 100 mls/hr IV Q6H [facility] Rx#:[id number] Vancomycin 1,000 mg In Sodium 250 Chloride 0.9% 250 ml @ 250 mls/ hr IV ONCE ONE Rx#:[id number] Other: Urine Appearance Fem Cath Cloudy Urine Color Fem Cath Bright Yellow Urine Odor Fem Cath Strong Stool Size Large Stool Color Brown Stool Consistency Soft Formed # Voids 2 Exam: General: Alert, Awake, No acute Distress Eyes/N/T: EOMI, Head/Neck: neck supple, CV: RRR, No murmurs, Pulm: no rhonchi/ rales or wheezing Abd: soft, nontender, +BS x4 Ext: no clubbing/cyanosis, trace b/l LE edema, venous stasis changes Neuro: Alert, no focal deficits, moves all extremities, Skin: warm/dry Medical - PN: Obj Da - Labs CBC & Chem 7: 09/11/19 04:25 09/11/19 04:25 Labs: Abnormal Lab Results 09/11/19 09/11/19 09/10/19 04:25 04:25 16:26 WBC 12.1 H RBC 3.18 L Hgb 8.6 L Hct 26.8 L POC Hct Plt Count Gran # [place] # (Auto) 1.3 H VBG Lactic Acid Carbon Dioxide 21 L POC BUN BUN Glucose 149 H POC Glucose Calcium POC WB Ioniz Calcium Magnesium 1.4 L ALT C-Reactive Protein Albumin 2.7 L Globulin Albumin/Globulin Ratio 0.8 L Urine Protein 100 A Ur Leukocyte Esterase 500 A Urine RBC 9 H Urine WBC > 182 H Urine Bacteria Mod A Hyaline Casts 9 H 09/10/19 09/10/19 09/10/19 14:18 14:18 14:16 WBC RBC Hgb Hct POC Hct 31.0 L Plt Count Gran # [place] # (Auto) VBG Lactic Acid 3.2 H Carbon Dioxide POC BUN 27 H BUN 28 H Glucose 167 H POC Glucose 173 H Calcium 11.0 H POC WB Ioniz Calcium 1.45 H Magnesium ALT 47 H C-Reactive Protein 21.9 H Albumin Globulin 4.2 H Albumin/Globulin Ratio 0.8 L Urine Protein Ur Leukocyte Esterase Urine RBC Urine WBC Urine Bacteria Hyaline Casts 09/10/19 14:16 WBC 20.7 H RBC 3.71 L Hgb 10.0 L Hct 31.4 L POC Hct Plt Count 473 H Gran # 14.8 H [place] # (Auto) 2.0 H VBG Lactic Acid Carbon Dioxide POC BUN BUN Glucose POC Glucose Calcium POC WB Ioniz Calcium Magnesium ALT C-Reactive Protein Albumin Globulin Albumin/Globulin Ratio Urine Protein Ur Leukocyte Esterase Urine RBC Urine WBC Urine Bacteria Hyaline Casts Meds: Medications Acetaminophen (Tylenol) 650 mg PO Q6HP PRN PRN Reason: PAIN/FEVER > 101 Albuterol/Ipratropium (Duoneb) 3 ml NEB Q4HP PRN PRN Reason: Shortness Of Breath Last Admin: 09/11/19 03:55 Dose: 3 ml Documented by: Amlodipine Besylate (Norvasc) 10 mg PO DAILY [facility] Dextrose (Dextrose 50%) 0 ml IV UD PRN PRN Reason: Hypoglycemia Diagnostic Test (Pha) (Accu-Chek) 1 each FS ACHS [facility] Last Admin: 09/10/19 21:25 Dose: 1 each Documented by: Docusate Sodium (Colace) 100 mg PO BID [facility] Last Admin: 09/10/19 21:26 Dose: 100 mg Documented by: Enoxaparin Sodium (Lovenox) 40 mg SQ DAILY [facility] Glucose (Insta-Glucose) 15 gm PO PRN PRN PRN Reason: Hypoglycemia Hydralazine HCl (Apresoline) 0 mg IV Q2HP PRN PRN Reason: Hypertension Potassium Chloride 40 meq/ (Dextrose) 520 mls @ 130 mls/hr IV UD PRN PRN Reason: Potassium < 3 Magnesium Sulfate (Magnesium Sulfate) 2 gm in 50 mls @ 50 mls/hr IV UD PRN PRN Reason: Magnesium </= 1.6 Ceftriaxone Sodium 2 gm/ (Dextrose) 50 mls @ 100 mls/hr IV Q24H [facility]; Protocol Insulin Human Lispro (Humalog) 0 unit SQ ACHS [facility]; Protocol Last Admin: 09/10/19 22:07 Dose: Not Given Documented by: Lisinopril (Zestril) 20 mg PO BID [facility] Last Admin: 09/10/19 21:26 Dose: 20 mg Documented by: Non-Formulary Medication (Hydrocodone/Apap 10/325mg [[place] 10-325mg]) 1 tab PO Q4H PRN; Protocol PRN Reason: Pain Ondansetron HCl (Zofran) 4 mg IV Q4HP PRN PRN Reason: Nausea And Vomiting Oxybutynin Chloride (Ditropan) 5 mg PO TID [facility] Last Admin: 09/10/19 21:26 Dose: 5 mg Documented by: Polyethylene Glycol (Miralax) 17 gm PO DAILYP PRN PRN Reason: Constipation Potassium Chloride (Kdur) 40 meq PO UD PRN PRN Reason: Potssium is 3-3.5 Potassium Chloride (Kdur) 40 meq PO UD PRN PRN Reason: Potassium < 3 Senna (Senokot) 2 tab PO DAILYP PRN PRN Reason: Constipation Sodium Chloride (Saline Flush) 10 ml IV Q8 [facility] Last Admin: 09/11/19 05:45 Dose: Not Given Documented by: Medical - PN: A/P - Time Spent With Patient Total time spent is greater than 50% in coordination of care (as documented) at patient's floor/unit and/or counseling patient: - Narrative A/P Narrative: A: *UTI (h/o e.coli bacteremia from source in May): *Lactic Acidosis: concern for developing sepsis -resolved *SIRS: Improved *Volume Depletion: improved *URI: *Hypercalcemia/Hypomag: *DM/neuropathy: *HTN: on CCB/ACEI *Dementia, mild: *Chronic back pain: on norco P: -Rocephin, pending UC/BC -electrolyte replacement prn -IS, prn nebs -SSI -PT/OT -ppx: Lovenox DNR
[2019-09-11] MEDS ORDERED: cefTRIAXone 2 GM in DEXTROSE 5% IN WATER 50 ML IV SCH (08:00)
[2019-09-11] MEDS: cefTRIAXone 2 GM in DEXTROSE 5% IN WATER 50 ML IV SCH (08:44)
[2019-09-11] MEDS: INSULIN LISPRO 1 UNIT/0.01 ML UNIT SQ SCH ×4 (08:44→20:05)
[2019-09-11] MEDS: ENOXAPARIN 40 MG/0.4 ML SYRINGE SQ SCH (08:46)
[2019-09-11] MEDS: amLODIPine 10 MG TABLET PO SCH (08:46)
[2019-09-11] MEDS: DOCUSATE SODIUM 100 MG CAPSULE PO SCH ×2 (08:46→20:05)
[2019-09-11] MEDS: LISINOPRIL 20 MG TABLET PO SCH ×2 (08:46→20:05)
[2019-09-11] MEDS: OXYBUTYNIN CHLORIDE 5 MG TABLET PO SCH ×3 (08:46→20:05)
[2019-09-11] MEDS ORDERED: PSEUDOEPHEDRINE 30 MG TABLET PO ONE (10:20)
[2019-09-11] MEDS ORDERED: LORATADINE 10 MG TABLET PO ONE (10:20)
[2019-09-11] MEDS: HYDROcodone/APAP 10/325MG TABLET PO PRN (19:58)
[2019-09-12 05:29] LABS: Basophils # (Auto) 0 K/mcL (0.0-0.3); Basophils % (Auto) 0.3 % (0.0-2.0); Eosinophils # (Auto) 0.2 K/mcL (0.0-0.7); Eosinophils % (Auto) 2.9 % (0.0-7.0); Granulocytes % (Auto) 64.9 % (38.0-78.0); Hematocrit 25.6 % (36.0-48.0); Hemoglobin 8.4 g/dL (12.0-15.0); Lymphocytes # (Auto) 1.8 K/mcL (1.5-4.8); Mean Cell Volume 84.2 fL (80.0-100.0); Mean Corpuscular HGB Conc 32.9 g/dL (31.0-36.0); Mean Platelet Volume 7.5 fL (7.4-10.4); Monocytes # (Auto) 0.9 K/mcL (0.1-0.9); Monocytes % (Auto) 10.9 % (1.0-12.0); Platelet Count 384 K/mcL (140-440); RBC 3.04 M/mcL (4.00-5.20); Red Cell Distribution Width 12.9 % (11.5-14.5); WBC 8.5 K/mcL (4.5-11.0)
[2019-09-12] MEDS: 0.9 % SODIUM CHLORIDE 10 ML SYRINGE IV SCH ×3 (05:42→21:46)
[2019-09-12 05:55] LABS: ALT/SGPT 33 U/l (0-40); AST/SGOT 20 U/l (0-37); Albumin 2.5 gm/dL (3.2-5.2); Albumin/Globulin Ratio 0.7 (1.0-2.3); Alkaline Phosphatase 63 U/L (39-117); Bilirubin,Direct < 0.2 mg/dL (0.0-0.3); Bilirubin,Total 0.2 mg/dL (0.0-1.0); Blood Urea Nitrogen 22 mg/dl (8-23); Calcium 10.2 mg/dl (8.6-10.4); Carbon Dioxide 23 mmol/L (22-30); Chloride 106 mmol/L (96-108); Globulin 3.6 gm/dL (2.2-3.7); Glomerular Filtration Rate 62; Glucose 141 mg/dL (70-105); Lactate Dehydrogenase 111 U/L (94-250); Phosphorous 4.2 mg/dL (2.7-4.5); Triglycerides 94 mg/dl (<150); Uric Acid 7.8 mg/dL (2.5-8.0)
[2019-09-12] MEDS: INSULIN LISPRO 1 UNIT/0.01 ML UNIT SQ SCH ×4 (08:00→21:51)
[2019-09-12] MEDS: DOCUSATE SODIUM 100 MG CAPSULE PO SCH ×2 (08:59→21:46)
[2019-09-12] MEDS: amLODIPine 10 MG TABLET PO SCH (08:59)
[2019-09-12] MEDS: LISINOPRIL 20 MG TABLET PO SCH ×2 (09:00→21:46)
[2019-09-12] MEDS: OXYBUTYNIN CHLORIDE 5 MG TABLET PO SCH ×3 (09:00→21:46)
[2019-09-12] MEDS: cefTRIAXone 2 GM in DEXTROSE 5% IN WATER 50 ML IV SCH (09:00)
[2019-09-12] MEDS: ENOXAPARIN 40 MG/0.4 ML SYRINGE SQ SCH (09:00)
--- NOTE | 2019-09-12 09:06 | Internal Med Progress Note ---
Medical - PN: Subj Patient information: Note initiated : 09/12/19 at 9:03 am Service Date, if different from initiated Date: [] Patient: Genna Gong 78 y/o F admitted on 09/10/19 for Cough. Chief Complaint: [] Interval history: She was sent in because a health client care representative visited the home today and the patient who had been complaining of a continued cough was felt to have diminished lung sounds on auscultation by the healthcare aid. This was relayed to PCP office who asked the patient to go to the ER. In speaking with the patient and her , her offers that she is been coughing for 4 weeks, the last couple weeks he feels is gotten worse. She has had some shortness of breath with coughing. She is unable to produce any phlegm lately but did have some white phlegm earlier in the course but her states it was green. She complains of rhinorrhea sinus congestion and sinus drainage. Denies fevers or chills. Denies headache. Denies chest pain. When asked if she felt weaker than usual she seemed to stop and think about how she felt when her interjected and stated that she had been weak. Work-up in ER was unremarkable for any lower respiratory tract infection, chest x-ray unremarkable procalcitonin low. She is afebrile. However work-up was concerning for urinary tract infection. She had elevated lactate and white blood cell count. And elevated CRP. Her states that her urine has a stronger odor to it lately. Denies abdominal pain or GI symptoms. 09/11 Feeling better. Slept all right. No new complaints. No overnight events. Denied cough/shortness of breath 09/12-patient doing better. White count downtrending. No overnight fever chills or abdominal pain. Anticipate discharge home in 24 hours pending urine cultures. Continue PT OT/nutrition support. - Constitutional Vitals: Vital Signs Temp Pulse Resp BP Pulse Ox 98.5 F 100 H 16 124/51 92 09/12/19 06:47 09/12/19 07:33 09/12/19 07:33 09/12/19 06:47 09/12/19 07:33 Period Temp Pulse Resp BP Sys/[place]on[place] Pulse Ox Last 24 Hr 97.2 F-99.0 F 78-104 16-24 119-128/46-81 88-100 Intake and Output 09/11/19 09/12/19 09/12/19 21:59 05:59 13:59 Intake Total 250 180 Output Total 1 1 1 Balance 249 -1 179 Weight 182 lb 8 oz Intake & Output: Intake & Output 09/11/19 09/12/19 09/12/19 21:59 05:59 13:59 Intake Total 250 180 Output Total 1 1 1 Balance 249 -1 179 Weight 182 lb 8 oz Intake: Oral 250 180 Output: # of times incontinent of urine 1 1 1 Other: Meal Breakfast Percent of Meal Consumed 100% Feeding Ability Assist with Tray Set Up # Voids 1 1 # Bowel Movements 1 General appearance: no acute distress Exam: Alert oriented nonlabored breathing Nondistended abdomen No anxiety Medical - PN: Obj Da - Labs CBC & Chem 7: 09/12/19 04:07 09/12/19 04:07 Labs: Abnormal Lab Results 09/12/19 09/12/19 09/12/19 04:07 04:07 04:07 WBC RBC 3.04 L Hgb 8.4 L Hct 25.6 L POC Hct Plt Count Gran # [place] # (Auto) VBG Lactic Acid Carbon Dioxide POC BUN BUN Glucose 141 H POC Glucose Calcium POC WB Ioniz Calcium Magnesium ALT C-Reactive Protein 11.6 H Albumin 2.5 L Globulin Albumin/Globulin Ratio 0.7 L Urine Protein Ur Leukocyte Esterase Urine RBC Urine WBC Urine Bacteria Hyaline Casts 09/11/19 09/11/19 09/10/19 04:25 04:25 16:26 WBC 12.1 H RBC 3.18 L Hgb 8.6 L Hct 26.8 L POC Hct Plt Count Gran # [place] # (Auto) 1.3 H VBG Lactic Acid Carbon Dioxide 21 L POC BUN BUN Glucose 149 H POC Glucose Calcium POC WB Ioniz Calcium Magnesium 1.4 L ALT C-Reactive Protein Albumin 2.7 L Globulin Albumin/Globulin Ratio 0.8 L Urine Protein 100 A Ur Leukocyte Esterase 500 A Urine RBC 9 H Urine WBC > 182 H Urine Bacteria Mod A Hyaline Casts 9 H 09/10/19 09/10/19 09/10/19 14:18 14:18 14:16 WBC RBC Hgb Hct POC Hct 31.0 L Plt Count Gran # [place] # (Auto) VBG Lactic Acid 3.2 H Carbon Dioxide POC BUN 27 H BUN 28 H Glucose 167 H POC Glucose 173 H Calcium 11.0 H POC WB Ioniz Calcium 1.45 H Magnesium ALT 47 H C-Reactive Protein 21.9 H Albumin Globulin 4.2 H Albumin/Globulin Ratio 0.8 L Urine Protein Ur Leukocyte Esterase Urine RBC Urine WBC Urine Bacteria Hyaline Casts 09/10/19 14:16 WBC 20.7 H RBC 3.71 L Hgb 10.0 L Hct 31.4 L POC Hct Plt Count 473 H Gran # 14.8 H [place] # (Auto) 2.0 H VBG Lactic Acid Carbon Dioxide POC BUN BUN Glucose POC Glucose Calcium POC WB Ioniz Calcium Magnesium ALT C-Reactive Protein Albumin Globulin Albumin/Globulin Ratio Urine Protein Ur Leukocyte Esterase Urine RBC Urine WBC Urine Bacteria Hyaline Casts Meds: Medications Acetaminophen (Tylenol) 650 mg PO Q6HP PRN PRN Reason: PAIN/FEVER > 101 Hydrocodone Bitart/Acetaminophen ([place] 10/325mg) 1 tab PO Q4HP PRN; Protocol PRN Reason: Pain Last Admin: 09/11/19 19:58 Dose: 1 tab Documented by: Albuterol/Ipratropium (Duoneb) 3 ml NEB Q4HP PRN PRN Reason: Shortness Of Breath Last Admin: 09/11/19 03:55 Dose: 3 ml Documented by: Amlodipine Besylate (Norvasc) 10 mg PO DAILY [facility] Last Admin: 09/12/19 08:59 Dose: 10 mg Documented by: Dextrose (Dextrose 50%) 0 ml IV UD PRN PRN Reason: Hypoglycemia Diagnostic Test (Pha) (Accu-Chek) 1 each FS ACHS [facility] Last Admin: 09/12/19 07:53 Dose: 1 each Documented by: Docusate Sodium (Colace) 100 mg PO BID [facility] Last Admin: 09/12/19 08:59 Dose: 100 mg Documented by: Enoxaparin Sodium (Lovenox) 40 mg SQ DAILY [facility] Last Admin: 09/12/19 09:00 Dose: 40 mg Documented by: Glucose (Insta-Glucose) 15 gm PO PRN PRN PRN Reason: Hypoglycemia Hydralazine HCl (Apresoline) 0 mg IV Q2HP PRN PRN Reason: Hypertension Potassium Chloride 40 meq/ (Dextrose) 520 mls @ 130 mls/hr IV UD PRN PRN Reason: Potassium < 3 Magnesium Sulfate (Magnesium Sulfate) 2 gm in 50 mls @ 50 mls/hr IV UD PRN PRN Reason: Magnesium </= 1.6 Ceftriaxone Sodium 2 gm/ (Dextrose) 50 mls @ 100 mls/hr IV Q24H [facility]; Protocol Last Admin: 09/12/19 09:00 Dose: 100 mls/hr Documented by: Insulin Human Lispro (Humalog) 0 unit SQ ACHS [facility]; Protocol Last Admin: 09/12/19 08:00 Dose: 2 units Documented by: Lisinopril (Zestril) 20 mg PO BID [facility] Last Admin: 09/12/19 09:00 Dose: 20 mg Documented by: Ondansetron HCl (Zofran) 4 mg IV Q4HP PRN PRN Reason: Nausea And Vomiting Oxybutynin Chloride (Ditropan) 5 mg PO TID [facility] Last Admin: 09/12/19 09:00 Dose: 5 mg Documented by: Polyethylene Glycol (Miralax) 17 gm PO DAILYP PRN PRN Reason: Constipation Potassium Chloride (Kdur) 40 meq PO UD PRN PRN Reason: Potssium is 3-3.5 Potassium Chloride (Kdur) 40 meq PO UD PRN PRN Reason: Potassium < 3 Senna (Senokot) 2 tab PO DAILYP PRN PRN Reason: Constipation Sodium Chloride (Saline Flush) 10 ml IV Q8 [facility] Last Admin: 09/12/19 05:42 Dose: 10 ml Documented by: Medical - PN: A/P - Time Spent With Patient Total time spent is greater than 50% in coordination of care (as documented) at patient's floor/unit and/or counseling patient: 15 - 24 minutes - Narrative A/P Narrative: * Complicated UTI-on antibiotic coverage. De-escalate based on C/S. Continue Rocephin * Severe sepsis with lactic acidosis clinically improved. * Diabetes and neuropathy-CC diet/stable * History of hypertension restarted on JOSE D inhibitor/amlodipine * DNR * Prophylaxis enoxaparin Plan * Continue antibiotic coverage and de-escalate based on sensitivities * Possible discharge in 24 hours pending clinical improvement * PT OT/nutrition support * Home medications as above
[2019-09-12] MEDS: HYDROcodone/APAP 10/325MG TABLET PO PRN ×2 (09:56→21:51)
[2019-09-12] MEDS: CIPROFLOXACIN 500 MG TABLET PO SCH (21:46)
[2019-09-13] MEDS: 0.9 % SODIUM CHLORIDE 10 ML SYRINGE IV SCH (05:18)
[2019-09-13] MEDS: DOCUSATE SODIUM 100 MG CAPSULE PO SCH (08:57)
[2019-09-13] MEDS: CIPROFLOXACIN 500 MG TABLET PO SCH (08:57)
[2019-09-13] MEDS: LISINOPRIL 20 MG TABLET PO SCH (08:57)
[2019-09-13] MEDS: amLODIPine 10 MG TABLET PO SCH (08:57)
[2019-09-13] MEDS: ENOXAPARIN 40 MG/0.4 ML SYRINGE SQ SCH (08:58)
[2019-09-13] MEDS: OXYBUTYNIN CHLORIDE 5 MG TABLET PO SCH (08:58)
[2019-09-13] MEDS: INSULIN LISPRO 1 UNIT/0.01 ML UNIT SQ SCH ×2 (09:01→11:45)
--- NOTE | 2019-09-13 09:59 | Discharge Summary ---
Medical - DS: Prov Patient information: Note initiated : 09/13/19 at 9:57 am Service Date, if different from initiated Date: [] Patient: Genna Gong 78 y/o F admitted on 09/10/19 for Cough. Chief Complaint: [] Date of admission: 09/10/19 19:11 Discharge date: 09/13/19 Primary care physician: Richar Brand Consults: 09/10/19 Consult to Physician [CONS] Stat Comment: Consulting Provider: Obi Savage Reason For Exam: Physician to Consult Medical - DS: Meds - Discharge Medications Prescriptions: Ciprofloxacin [Cipro] 500 mg PO BID #10 tab Transmission Status: Pending to [facility] #[id number] Active and Home Medications: Home Medications Enalapril Maleate [Vasotec] 20 mg PO BID 11/09/18 [History Confirmed 09/10/19 Last Taken 02/12/19 08:00] Methocarbamol [Robaxin] 500 mg PO TID 11/09/18 [History Confirmed 09/12/19 Last Taken 02/12/19 07:00] Oxybutynin Chloride [Ditropan] 5 mg PO TID 11/09/18 [History Confirmed 09/10/19 Last Taken 02/12/19 07:00] amLODIPine [Norvasc] 10 mg PO DAILY 11/09/18 [History Confirmed 09/10/19 Last Taken 02/12/19 08:00] metFORMIN [Glucophage] 425 mg PO ACB 11/09/18 [History Confirmed 09/12/19 Last Taken 02/12/19 07:00] metolazone 10 mg tablet 10 mg PO QDAY 12/05/18 [History Confirmed 09/10/19 Last Taken 02/12/19 07:00] potassium chloride 20 mEq tablet,extended release 10 meq PO BID 01/06/19 [History Confirmed 09/12/19 Last Taken 02/12/19 07:00] Ondansetron [Zofran ODT] 4 mg SL Q4-6HP PRN 02/12/19 [History Confirmed 09/12/19 Last Taken 02/12/19 07:00] HYDROcodone/APAP 10/325MG [[place] 10-325Mg] 1 tab PO Q4H PRN #20 tab 02/20/19 [Rx Confirmed 09/10/19 Last Taken Unknown] Cholecalciferol (Vitamin D3) [Vitamin D3] 1 cap PO BID 09/12/19 [History Confirmed 09/12/19 Last Taken Unknown] Cinnamon Bark [Cinnamon] 1,000 mg PO BID 09/12/19 [History Confirmed 09/12/19 Last Taken Unknown] Daily Probiotic 1 tab PO BID 09/12/19 [History Confirmed 09/12/19 Last Taken Unknown] Ord-3 Fatty Acids/Fish Oil [Fish Oil 1,000 mg Capsule] 1 cap PO BID 09/12/19 [History Confirmed 09/12/19 Last Taken Unknown] metFORMIN [Glucophage] 1 tab PO 1800 09/12/19 [History Confirmed 09/12/19 Last Taken Unknown] Ciprofloxacin [Cipro] 500 mg PO BID #10 tab 09/13/19 [Rx Last Taken Unknown] Medical - DS: Hosp Hospital Course: Discharge diagnosis * Complicated Proteus UTI-antibiotic this is the escalated to quinolone. Clinically improved. * Severe sepsis with lactic acidosis clinically resolved with normalization of white count to 8.5 * Diabetes and neuropathy-remained stable on CC diet * History of hypertension managed on JOSE D inhibitor/amlodipine Brief hospital course Ms. Gong is a 78 year old F She was sent in because a health urgent care physician visited the home today and the patient who had been complaining of a continued cough was felt to have diminished lung sounds on auscultation by the healthcare aid. This was relayed to PCP office who asked the patient to go to the ER. In speaking with the patient and her , her offers that she is been coughing for 4 weeks, the last couple weeks he feels is gotten worse. She has had some shortness of breath with coughing. She is unable to produce any phlegm lately but did have some white phlegm earlier in the course but her states it was green. She complains of rhinorrhea sinus congestion and sinus drainage. Denies fevers or chills. Denies headache. Denies chest pain. When asked if she felt weaker than usual she seemed to stop and think about how she felt when her interjected and stated that she had been weak. Work-up in ER was unremarkable for any lower respiratory tract infection, chest x-ray unremarkable procalcitonin low. She is afebrile. However work-up was concerning for urinary tract infection. She had elevated lactate and white blood cell count. And elevated CRP. Her states that her urine has a stronger odor to it lately. Denies abdominal pain or GI symptoms. 09/11 Feeling better. Slept all right. No new complaints. No overnight events. Denied cough/shortness of breath 09/12-patient doing better. White count downtrending. No overnight fever chills or abdominal pain. Anticipate discharge home in 24 hours pending urine cultures. Continue PT OT/nutrition support. 09/13-patient doing markedly better. Urine culture Proteus antibiotics de- escalate it to ciprofloxacin for additional 5 days. Discharging with advised to follow primary care physician and continue antibiotics as advised. Detailed discharge instructions as below Discharge diagnosis: . - Time Spent with Patient Total time spent providing and/or coordinating discharge services: Greater than 30 minutes Medical - DS: Exam - Constitutional Vitals: Vital Signs Temp Pulse Pulse Resp BP BP Pulse Ox 09/13/19 09:44 95 09/13/19 08:35 98.0 F 85 16 150/100 96 09/13/19 08:00 85 09/13/19 03:36 97.9 F 69 16 125/46 97 09/12/19 23:25 98.1 F 84 20 133/88 97 09/12/19 19:18 98.1 F 82 16 134/100 98 09/12/19 19:06 98 09/12/19 18:00 97 H 18 96 09/12/19 16:10 97.9 F 16 136/68 100 09/12/19 14:16 96 09/12/19 11:22 98.3 F 20 128/52 96 Intake and Output 09/12/19 09/13/19 09/13/19 21:59 05:59 13:59 Intake Total 120 500 Output Total 2 2 Balance 118 498 Intake: Oral 120 500 Output: # of times incontinent of urine 2 2 Other: Meal Dinner Percent of Meal Consumed 75% Weight 174 lb 8 oz Medical - DS: Data Labs on day of discharge: Preliminary micro results at discharge 09/10/19 11:59 Blood Culture - Preliminary Blood 09/10/19 16:14 Blood Culture - Preliminary Blood Medical - DS: A/P - Patient/Caregiver Discharge Instructions Activity: increase activity as tolerated Diet: Consistent Carbohydrate Additional Instructions: Follow-up primary care physician 5 to 7 days Return to ER if abdominal pain nausea vomiting noted. Continue antibiotic for additional 5 days Prescriptions: Ciprofloxacin [Cipro] 500 mg PO BID #10 tab Transmission Status: Pending to [facility] #[id number] - Follow up Plan Follow up with: Richar Brand MD [Primary Care Provider] - Disposition: Home, Self-Care Prognosis: Fair Rehab Potential: Fair I certify that the patient requires SNF services: No Overall status at discharge: patient is progressing back to baseline
== END 2019-09-13 13:55 | disposition home or self-care (01) | DRG 689 ==
LOC: ED 13:33 → ICU 19:11
PROVIDERS: ADMIT Internal Medicine; ATTEND Internal Medicine

== ENCOUNTER 2019-09-16 09:29 | Inpatient (IN) ==
[2019-09-16] MEDS ORDERED: IOPAMIDOL 100 ML BOTTLE IV ONE (09:30)
[2019-09-16 10:38] LABS: Hematocrit 32.9 % (36.0-48.0); Hemoglobin 10.3 g/dL (12.0-15.0); Mean Cell Volume 83.8 fL (80.0-100.0); Mean Corpuscular HGB Conc 31.4 g/dL (31.0-36.0); Mean Platelet Volume 6.7 fL (7.4-10.4); Platelet Count 471 K/mcL (140-440); RBC 3.92 M/mcL (4.00-5.20); Red Cell Distribution Width 13.6 % (11.5-14.5); WBC 11.2 K/mcL (4.5-11.0)
[2019-09-16 10:51] LABS: ALT/SGPT 26 U/l (0-40); AST/SGOT 21 U/l (0-37); Albumin 3.4 gm/dL (3.2-5.2); Albumin/Globulin Ratio 0.9 (1.0-2.3); Alkaline Phosphatase 63 U/L (39-117); Bilirubin,Total 0.4 mg/dL (0.0-1.0); Blood Urea Nitrogen 19 mg/dl (8-23); Calcium 10.8 mg/dl (8.6-10.4); Carbon Dioxide 26 mmol/L (22-30); Chloride 101 mmol/L (96-108); Globulin 3.9 gm/dL (2.2-3.7); Glomerular Filtration Rate 49; Glucose 219 mg/dL (70-105)
[2019-09-16] MEDS ORDERED: LACTATED RINGERS 1,000 ML IV ONE (11:15)
[2019-09-16] MEDS ORDERED: ONDANSETRON 4 MG/2 ML VIAL IV ONE (11:15)
[2019-09-16] MEDS ORDERED: ACETAMINOPHEN 325 MG TABLET PO ONE (11:15)
--- NOTE | 2019-09-16 11:19 | Emergency Department Note ---
Weakness HPI - General Chief complaint: Weakness Stated complaint: weakness Time Seen by Provider: 09/16/19 10:51 Source: patient, family Mode of arrival: wheelchair Limitations: language barrier - History of Present Illness HPI Narrative: This 78-year-old female arrives via private vehicle after being discharged from the hospital on Sunday. She was found to have urosepsis, Proteus urinary tract infection, normalized white count back to 8500 on discharge, is brought in by her this morning secondary to generalized profound weakness of. She does tell me that she has a cough. She also has chest pain, she also complains of abdominal pain. The. She is a little bit nauseated, denies vomiting, but she had a large stool and was incontinent of a large stool on the way to the hospital. She had extreme amount of fecal soiling, there is no association with vomiting, but she does have GI discomfort, states that she had an abdominal infection, which was addressed by surgery in January of this year. She does not recall what surgery she had a. She also had diarrhea last night with a large stool out, currently is on Cipro 500 twice a day and she has 3 days of antibiotics left. MD Complaint: generalized weakness - Related Data Home Medications Medication Instructions Recorded Confirmed Enalapril Maleate [Vasotec] 20 mg PO BID 11/09/18 09/16/19 Methocarbamol [Robaxin] 500 mg PO TID 11/09/18 09/16/19 Oxybutynin Chloride [Ditropan] 5 mg PO TID 11/09/18 09/16/19 amLODIPine [Norvasc] 10 mg PO DAILY 11/09/18 09/16/19 metFORMIN [Glucophage] 425 mg PO ACB 11/09/18 09/16/19 metolazone 10 mg tablet 10 mg PO QDAY 12/05/18 09/16/19 potassium chloride 20 mEq 10 meq PO BID 01/06/19 09/16/19 tablet,extended release Ondansetron [Zofran ODT] 4 mg SL Q4-6HP PRN 02/12/19 09/16/19 Cholecalciferol (Vitamin D3) 1 cap PO BID 09/12/19 09/16/19 [Vitamin D3] Cinnamon Bark [Cinnamon] 1,000 mg PO BID 09/12/19 09/16/19 Daily Probiotic 1 tab PO BID 09/12/19 09/16/19 [place]-3 Fatty Acids/Fish Oil [Fish 1 cap PO BID 09/12/19 09/16/19 Oil 1,000 mg Capsule] metFORMIN [Glucophage] 1 tab PO 1800 09/12/19 09/16/19 Multivit,Iron,Mins/Folic Acid 2 each PO DAILY 09/16/19 09/16/19 [[place] Cardio Tablet] Allergies Allergy/AdvReac Type Severity Reaction Status Date / Time No Known Drug Allergies Allergy Verified 09/16/19 09:32 Review of Systems Limitations: ROS unobtainable due to patients medical condition Constitutional: Reports: weakness ENT ED: Denies: ear pain, throat pain Cardiovascular: Denies: chest pain Respiratory: Reports: shortness of breath Gastrointestinal: Reports: abdominal pain, nausea, diarrhea. Denies: vomiting Genitourinary: Denies: dysuria Musculoskeletal: Reports: back pain Integumentary: Reports: rash Neurological: Reports: weakness. Denies: headache Endocrine: Reports: fatigue Past Medical History - Past Medical History PMF Narrative: Nicotine dependence (Chronic) [employer] (current) use of 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 drugs (Chronic) Diarrhea (Chronic) Nausea and vomiting (Chronic) Left hip pain (Chronic) Hypercalcemia (Chronic) Methicillin susceptible Staphylococcus aureus infection, unspecified site (Chronic) Diabetes mellitus (Chronic) Dementia (Chronic) Acute kidney failure (Chronic) Muscle weakness (Chronic) Difficulty walking (Chronic) Dysphagia (Chronic) Lack of coordination (Chronic) Other specified disorder of skin (Chronic) Urinary retention (Chronic) Knee cartilage, torn, left (Chronic) Diabetes 1.5, managed as type 2 (Chronic) Continue diabetic management as you have at home Diabetic neuropathy (Chronic) Knee effusion, left (Chronic) Left knee injury (Chronic) Edema of left lower extremity (Chronic) Left hip pain (Chronic) Surgical History History of hysterectomy (Chronic) Absence of both cervix and uterus, acquired (Chronic) History of appendectomy (Chronic) History of carpal tunnel surgery (Chronic) History of section (Chronic) History of laparotomy (Chronic) 11/09/2018-laparotomy with jackie patch with closure of perforated gastric ulcer History of tubal ligation (Chronic) Medical history: Reports: DM, other (Depression, cataract removal, hypertension, chronic back pain, diabetes type 2,) Surgical history ED: Reports: , cataract Family history: Reports: CAD/[place] - Social History smoking status: Former smoker Alcohol use: Reports: Rarely Drug use: Reports: none Physical Exam Limitations: language barrier General appearance: lethargic, sleepy Head: atraumatic, normocephalic, normal inspection Eye: Present: normal appearance, PERRL, EOMI ENT: Present: mucous membranes dry Neck: Present: normal inspection, full ROM Chest: Present: normal inspection, symmetric chest wall rise Respiratory: Present: normal lung sounds bilaterally. Absent: respiratory distress, wheezes Cardiovascular: Present: regular rate, normal rhythm, normal heart sounds Abdominal: Present: soft. Absent: distention, tenderness, guarding Extremities: Present: normal inspection, pedal edema, other (extension deficit of about 10 to the right knee) Back: Present: normal inspection. Absent: CVA tenderness (R), CVA tenderness (L), vertebral tenderness Neurological: Present: alert, oriented X3, CN II-XII intact, other (generally weak in all fours). Absent: motor sensory deficit Psychiatric: Present: depressed, flat affect Skin: Present: warm, dry, normal color Course - Reevaluation(s) Reevaluation #1: Case discussed with Dr. Murphy. Repeat abdominal exam does reveal a little bit of tenderness in the right lower quadrant, also the right upper quadrant. The concern is with her elevated sedimentation rate and her recent diarrhea that she may have another infection, not just the urinary tract infection. Repeat urinalysis was much improved. It does not appear that she states still has a urinary tract infection. Of concern is also that her calcium level came back 10.8. Thus, it may be a combination of different factors that is causing the profound weakness. The. She is not able to stand or walk on her own at this time, I spoke about custodial versus swing bed and Dr. Welsh indicated that when she was in the hospital. She did not want to go to a custodial. We will order CT scan of the abdomen and pelvis to see if there is any other infection other than the urinary tract infection, continue IV hydration at this point and then consideration for hospital admission or observation. Vital Signs Temperature 97 F 09/16/19 09:29 Pulse Rate 103 H 09/16/19 09:29 Respiratory Rate 28 H 09/16/19 09:29 Blood Pressure 102/78 09/16/19 09:29 Pulse Oximetry (%) 99 09/16/19 09:29 Temperature 98.1 F 09/16/19 19:13 Pulse Rate 77 09/16/19 19:13 Respiratory Rate 24 H 09/16/19 19:13 Blood Pressure 128/65 09/16/19 19:13 Pulse Oximetry (%) 93 09/16/19 19:13 Weakness - MDM Narrative Medical decision making narrative: CT scan of the abdomen and pelvis was done. R subsequently admitted to the medical floor by Dr. Murphy. Case discussed with our hospitalist donny. Final diagnosis is urinary tract infection, complicated partially treated - Lab Data Lab results reviewed: Yes I reviewed the patient's lab results. Result diagrams: 09/16/19 09:59 09/16/19 09:59 Lab Results 09/16/19 09/16/19 09/16/19 Range/Units 09:59 09:59 09:59 WBC 11.2 H (4.5-11.0) K/mcL RBC 3.92 L (4.00-5.20) M/mcL Hgb 10.3 L (12.0-15.0) g/dL Hct 32.9 L (36.0-48.0) % MCV 83.8 (80.0-100.0) fL MCH 26.3 (26.0-34.0) pg MCHC 31.4 (31.0-36.0) g/dL RDW 13.6 (11.5-14.5) % Plt Count 471 H (140-440) K/mcL MPV 6.7 L (7.4-10.4) fL Total Counted 100 Seg Neutrophils % 77 (38-78) % Band Neutrophils % Not Reportable Lymphocytes % 16 (15-49) % Monocytes % (Manual) 6 (1-12) % Eosinophils % (Manual) 1 (0-7) % Platelet Estimate Increased (NORMAL) RBC Morphology Abnorm A (NORMAL) Polychromasia Few A (NONE SEEN) ESR (0-20) mm/hr VBG Lactic Acid 2.8 H (0.5-2.0) mmol/L Sodium 139 (133-145) mmol/L Potassium 3.6 (3.3-5.1) mmol/L Chloride 101 (96-108) mmol/L Carbon Dioxide 26 (22-30) mmol/L Anion Gap 12.0 (8-16) BUN 19 (8-23) mg/dl Creatinine 1.1 (0.6-1.1) mg/dl GFR Calculation 49 Glucose 219 H (70-105) mg/dL Calcium 10.8 H (8.6-10.4) mg/dl Total Bilirubin 0.4 (0.0-1.0) mg/dL AST 21 (0-37) U/l ALT 26 (0-40) U/l Alkaline Phosphatase 63 (39-117) U/L Troponin T (0-0.03) ng/ml Total Protein 7.3 (5.9-8.4) gm/dL Albumin 3.4 (3.2-5.2) gm/dL Globulin 3.9 H (2.2-3.7) gm/dL Albumin/Globulin Ratio 0.9 L (1.0-2.3) Urine Color Urine Appearance Urine pH (5.0-9.0) Ur Specific [place] (1.000-1.035) Urine Protein (NEG) mg/dL Urine Glucose (UA) (NEG) mg/dL Urine Ketones (NEG) mg/dL Urine Occult Blood (<0.03) mg/dL Urine Nitrate (NEG) Urine Bilirubin (NEG) mg/dL Urine Urobilinogen (NEG) mg/dL Ur Leukocyte Esterase (NEG) /uL Urine RBC (0-1) /hpf Urine WBC (0-4) /hpf Ur Squamous Epith Cells (0-4) /hpf Urine Bacteria (0) /hpf Hyaline Casts (0-2) /lpf Urine Mucus (0) /hpf Ur Culture Indicated? 09/16/19 09/16/19 09/16/19 Range/Units 09:59 09:59 11:41 WBC (4.5-11.0) K/mcL RBC (4.00-5.20) M/mcL Hgb (12.0-15.0) g/dL Hct (36.0-48.0) % MCV (80.0-100.0) fL MCH (26.0-34.0) pg MCHC (31.0-36.0) g/dL RDW (11.5-14.5) % Plt Count (140-440) K/mcL MPV (7.4-10.4) fL Total Counted Seg Neutrophils % (38-78) % Band Neutrophils % Lymphocytes % (15-49) % Monocytes % (Manual) (1-12) % Eosinophils % (Manual) (0-7) % Platelet Estimate (NORMAL) RBC Morphology (NORMAL) Polychromasia (NONE SEEN) ESR 67 H (0-20) mm/hr VBG Lactic Acid (0.5-2.0) mmol/L Sodium (133-145) mmol/L Potassium (3.3-5.1) mmol/L Chloride (96-108) mmol/L Carbon Dioxide (22-30) mmol/L Anion Gap (8-16) BUN (8-23) mg/dl Creatinine (0.6-1.1) mg/dl GFR Calculation Glucose (70-105) mg/dL Calcium (8.6-10.4) mg/dl Total Bilirubin (0.0-1.0) mg/dL AST (0-37) U/l ALT (0-40) U/l Alkaline Phosphatase (39-117) U/L Troponin T 0.03 (0-0.03) ng/ml Total Protein (5.9-8.4) gm/dL Albumin (3.2-5.2) gm/dL Globulin (2.2-3.7) gm/dL Albumin/Globulin Ratio (1.0-2.3) Urine Color Yellow Urine Appearance Clear Urine pH 6.0 (5.0-9.0) Ur Specific [place] 1.016 (1.000-1.035) Urine Protein Neg (NEG) mg/dL Urine Glucose (UA) 50 A (NEG) mg/dL Urine Ketones Neg (NEG) mg/dL Urine Occult Blood Neg (<0.03) mg/dL Urine Nitrate Neg (NEG) Urine Bilirubin Neg (NEG) mg/dL Urine Urobilinogen Neg (NEG) mg/dL Ur Leukocyte Esterase Neg (NEG) /uL Urine RBC 2 H (0-1) /hpf Urine WBC 2 (0-4) /hpf Ur Squamous Epith Cells 1 (0-4) /hpf Urine Bacteria 0 (0) /hpf Hyaline Casts 15 H (0-2) /lpf Urine Mucus Few (0) /hpf Ur Culture Indicated? No - Radiology Data Radiology results reviewed: Yes I reviewed the patient's radiology results. Disposition Pt seen by BREAK OUT WORKER/PA only: No Clinical Impression: Dehydration, Diarrhea Urinary tract infection Qualifiers: Urinary tract infection type: site unspecified Hematuria presence: with hematur ia Qualified Code(s): N39.0 - Urinary tract infection, site not specified Disposition: Xfer As Inpt ([facility]) Condition: Fair
[2019-09-16 11:30] LABS: Eosinophils % (Manual) 1 % (0-7); Lymphocytes % 16 % (15-49); Monocytes % (Manual) 6 % (1-12); Platelet Estimate INCREASED (NORMAL); Polychromasia FEW (NONE SEEN); RBC Morphology ABNORM (NORMAL); Segmented Neutrophils % 77 % (38-78)
--- NOTE | 2019-09-16 11:38 | XRay Report ---
CLINICAL INFORMATION:Cough TECHNIQUE: AP portable upright chest x-ray COMPARISON: Previous examinations dated 09/10/2019, 05/14/2019, 05/12/2019 FINDINGS:Heart size is within normal limits considering AP positioning. Left costophrenic angle is not well visualized. This is probably due to epicardial fat. This appearance is unchanged. No acute pulmonary parenchymal infiltrate. No pulmonary parenchymal mass. There is no evidence for pulmonary edema. Almaz and mediastinum are negative. No interval change IMPRESSION: 1. No acute abnormality. 2. No interval change Interpreted and Authenticated by: Vikas Nunez 09/16/19
[2019-09-16 12:36] LABS: Appearance,Urine CLEAR; Bacteria,Urine 0 /hpf (0); Bilirubin,Urine NEG (NEG); Color,Urine YELLOW; Culture Indicated,Urine NO; Glucose,Urine (UA) 50 mg/dL (NEG); Ketones,Urine NEG (NEG); Leukocyte Esterase,Urine NEG /uL (NEG); Mucus,Urine FEW /hpf (0); Nitrate,Urine NEG (NEG); Protein,Urine NEG (NEG); Specific Gravity,Urine 1.016 (1.000-1.035); Urine Blood NEG mg/dL (<0.03); Urine Hyaline Cast 15 /lpf (0-2); Urine RBC 2 /hpf (0-1); Urine Squamous Epithelial Cell 1 /hpf (0-4); Urine WBC 2 /hpf (0-4); Urobilinogen,Urine NEG (NEG)
[2019-09-16] MEDS ORDERED: LACTATED RINGERS 1,000 ML IV SCH (13:15)
--- NOTE | 2019-09-16 16:18 | Cat Scan Report ---
CLINICAL INFORMATION: Weakness. Abdominal pain. COMPARISON: Previous examinations dated 04/11/2019, 04/16/2015 TECHNIQUE: Axial images were obtained through the abdomen and pelvis. Sagittally and coronally reformatted images. 80 mL Isovue 370 injected intravenously. Oral contrast material was administered FINDINGS: Lung bases:There are multiple pulmonary parenchymal densities. These are subpleural and probably represent focal areas of atelectasis. There is no parenchymal consolidation. No significant pleural effusion. There is cardiomegaly. No pericardial effusion. Liver:Liver contour is smooth. There is a 1.5 cm low density lesion in the left lobe of the liver. This is unchanged since 04/11/2019 and larger than on 04/16/2015. This is considered benign. Liver is otherwise negative. Gallbladder, billary:There are surgical clips in the gallbladder fossa. Common bile duct measures 5 mm. No intrahepatic bile duct dilatation Spleen:Single 6 mm low-density lesion in the spleen is of uncertain significance. This is new since previous examination. There is no splenomegaly. Pancreas:Negative. No pancreatic mass. No peripancreatic abnormality Adrenal glands:Negative right adrenal gland. There is a 4.1 cm left adrenal mass. This contains fat. This unchanged since 04/16/2015 and is benign Kidneys, ureters, bladder:There is no solid renal mass. No hydronephrosis. No obstructing or nonobstructing calculi. There is no hydroureter. No bladder calculi. Gastrointestinal:Colon is negative. No significant diverticulosis. No diverticulitis. No detectable colonic mass. Negative appendix. Small bowel is negative. No mechanical small bowel obstruction Vascular:Extensive calcification of the abdominal aorta. No abdominal aortic aneurysm. There is calcification at the origin of the celiac trunk and superior mesenteric artery. 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 Renal arteries are calcified in stenosis is suspected. There are prominent retroperitoneal varices extending from the spleen to be left renal artery. Splenic and portal veins remain patent. There is no recanalized umbilical vein. Inferior vena cava and hepatic veins appear normal. Lymphatic:No retroperitoneal, para-aortic adenopathy. No mesenteric adenopathy Mesentery, peritoneum, retroperitoneum:No free pelvic fluid. No intra-abdominal abscess. There is no pneumoperitoneum. At the level of the kidneys there is extensive retroperitoneal fat. The kidneys are displaced anteriorly. The peritoneal space is displaced anteriorly. A well-defined mass is not identified. Appearance is consistent with retroperitoneal lipomatosis. Reproductive:Uterus is anteflexed. No adnexal mass Musculoskeletal:Previous posterior spinal fusion at L4-5. No acute lumbar compression fractures. There is lumbar scoliosis. Sacrum and pelvis are negative. No fracture. No lytic lesion. IMPRESSION: 1. Findings consistent with retroperitoneal lipomatosis. Anterior displacement of kidneys and peritoneal space 2. Retroperitoneal varices. There is no splenomegaly. Normal enhancement of the splenic and portal veins 3. Severe calcified atherosclerotic disease. Probable stenoses of the celiac trunk and superior mesenteric artery as well as bilateral renal arteries 4. Benign left adrenal mass, unchanged since 2015 5. Bilateral lower lobe pulmonary parenchymal densities consistent with round atelectasis. The exam was performed using radiation dose optimization techniques including, but not limited to, automated exposure control, adjustment of the mA and/or kV according to patient size and use of iterative reconstruction technique. Interpreted and Authenticated by: Vikas Nunez 09/16/19
--- NOTE | 2019-09-16 16:46 | Internal Med History&Physical ---
Medical - H&P: [facility] Patient information: Note initiated : 09/16/19 at 4:45 pm Service Date, if different from initiated Date: [] Patient: Genna Gong a 78 y/o F admitted on for weakness. Chief Complaint: [] Chief complaint: Diarrhea, weakness and inability get out of bed History of present illness: Ms. Gong is a 78 year old F with recent hospitalization from sepsis and Proteus UTI and was discharged home on 09/13 on antibiotics. She presents today with her to the ER following 3 days of gradually progressing weakness and inability get out of bed or function, her Ed who is her primary help has not been able to provide for her needs. She has also experienced in the interim multiple diarrheal episode with incontinence further limiting 's ability to take care of her. She however denies abdominal pain, associated fever or bloody stool. She endorses to loss of appetite. With increasing concerns she presents to the ER Initial work-up there was essentially unremarkable with a negative CT abdomen/serial study however consistent with volume depletion with hypercalcemia, elevated lactate at 2.8. Hospitalist service was consulted for admission in light of persistent diarrhea/hypercalcemia and volume depletion. At the time evaluation patient is accompanied with her and. She does not seem to apparent distress. She endorses history as above. She denies medication changes. She is completed ciprofloxacin course. She denies vertigo but endorses lightheadedness on movement. She denies skin rash or joint pain Review of systems A 10 point review system was performed and is negative except for ones cussed ab beard Medical - H&P: PM Medical history: Nicotine dependence (Chronic) half-way (current) use of 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 drugs (Chronic) Diarrhea (Chronic) Nausea and vomiting (Chronic) Left hip pain (Chronic) Hypercalcemia (Chronic) Methicillin susceptible Staphylococcus aureus infection, unspecified site (Chronic) Diabetes mellitus (Chronic) Dementia (Chronic) Acute kidney failure (Chronic) Muscle weakness (Chronic) Difficulty walking (Chronic) Dysphagia (Chronic) Lack of coordination (Chronic) Other specified disorder of skin (Chronic) Urinary retention (Chronic) Knee cartilage, torn, left (Chronic) Diabetes 1.5, managed as type 2 (Chronic) Continue diabetic management as you have at home Diabetic neuropathy (Chronic) Knee effusion, left (Chronic) Left knee injury (Chronic) Edema of left lower extremity (Chronic) Left hip pain (Chronic) Surgical History History of hysterectomy (Chronic) Absence of both cervix and uterus, acquired (Chronic) History of appendectomy (Chronic) History of carpal tunnel surgery (Chronic) History of section (Chronic) History of laparotomy (Chronic) 11/09/2018-laparotomy with jackie patch with closure of perforated gastric ulcer History of tubal ligation (Chronic) Family History Family/Other Hypertension Diabetes mellitus Leukemia Social History smoking status: Former smoker alcohol intake frequency: does not drink Medical - H&P: Meds Home Medications Medication Instructions Recorded Confirmed Type Enalapril Maleate [Vasotec] 20 mg PO BID 11/09/18 09/16/19 History Methocarbamol [Robaxin] 500 mg PO TID 11/09/18 09/16/19 History Oxybutynin Chloride [Ditropan] 5 mg PO TID 11/09/18 09/16/19 History amLODIPine [Norvasc] 10 mg PO DAILY 11/09/18 09/16/19 History metFORMIN [Glucophage] 425 mg PO ACB 11/09/18 09/16/19 History metolazone 10 mg tablet 10 mg PO QDAY 12/05/18 09/16/19 History potassium chloride 20 mEq 10 meq PO BID 01/06/19 09/16/19 History tablet,extended release Ondansetron [Zofran ODT] 4 mg SL Q4-6HP PRN 02/12/19 09/16/19 History Cholecalciferol (Vitamin D3) 1 cap PO BID 09/12/19 09/16/19 History [Vitamin D3] Cinnamon Bark [Cinnamon] 1,000 mg PO BID 09/12/19 09/16/19 History Daily Probiotic 1 tab PO BID 09/12/19 09/16/19 History [place]-3 Fatty Acids/Fish Oil [Fish 1 cap PO BID 09/12/19 09/16/19 History Oil 1,000 mg Capsule] metFORMIN [Glucophage] 1 tab PO 1800 09/12/19 09/16/19 History Multivit,Iron,Mins/Folic Acid 2 each PO DAILY 09/16/19 09/16/19 History [Cent[place] Cardio Tablet] Allergies Allergy/AdvReac Type Severity Reaction Status Date / Time No Known Drug Allergies Allergy Verified 09/16/19 09:32 Medical - H&P: Exam - Constitutional Vitals: Temp Pulse Resp BP Pulse Ox 97 F 72 20 142/60 90 09/16/19 09:29 09/16/19 16:24 09/16/19 16:24 09/16/19 16:24 09/16/19 16:24 General appearance: obese Exam: Alert and oriented Head normocephalic Oral cavity dry No ear nose discharge Eye movement symmetrical Neck no lymphadenopathy S1-S2 regular rhythm no murmur Diminished breath sounds bases Abdomen soft nontender nondistended, normal bowel sounds Lower extremity no cyanosis clubbing no joint swelling or erythema Skin no suspicious lesion Psych alert cooperative Neuro nonfocal Medical - H&P: Reslt - Labs CBC & Chem 7: 09/16/19 09:59 09/16/19 09:59 Labs: Short CBC 09/16/19 Range/Units 09:59 WBC 11.2 H (4.5-11.0) K/mcL Hgb 10.3 L (12.0-15.0) g/dL Hct 32.9 L (36.0-48.0) % Plt Count 471 H (140-440) K/mcL BMP 09/16/19 09:59 Sodium 139 Potassium 3.6 Chloride 101 Carbon Dioxide 26 BUN 19 Creatinine 1.1 Glucose 219 H Calcium 10.8 H Cardiac Enzymes 09/16/19 Range/Units 09:59 Troponin T 0.03 (0-0.03) ng/ml Liver Function 09/16/19 Range/Units 09:59 Total Bilirubin 0.4 (0.0-1.0) mg/dL AST 21 (0-37) U/l ALT 26 (0-40) U/l Alkaline Phosphatase 63 (39-117) U/L Albumin 3.4 (3.2-5.2) gm/dL Urine 09/16/19 Range/Units 11:41 Urine Color Yellow Urine Appearance Clear Urine pH 6.0 (5.0-9.0) Ur Specific [place] 1.016 (1.000-1.035) Urine Protein Neg (NEG) mg/dL Urine Glucose (UA) 50 A (NEG) mg/dL Medical - H&P: A/P (1) Diarrhea due to drug Current visit: Yes Status: Acute * Diarrhea likely secondary to antibiotic use. C. difficile negative. Check stool studies. CT abdomen unremarkable. Continue crystalloid/supportive management/DC antibiotics * Weakness and deconditioning secondary recent hospitalization-patient refused SNF placement during previous hospitalization however now considering the option to be placed for continued rehab. Case management consultation for SNF/swing bed transfer * Recent Proteus UTI. Completed course. UA shows resolution. * Mild hypercalcemia likely secondary to volume depletion. Continue crystalloids * Volume depletion secondary diarrhea continue crystalloids * DM type II-continue prandial insulin/CC diet * Hypertension -continue continue amlodipine, JOSE D inhibitor * History of dementia- delirium watch, avoid sedative-hypnotics * Oropharyngeal dysphagia-continue diet per ST recommendations during previous hospitalization * Full code * Prophylax Heparin Plan * Inpatient admission * DC antibiotics * Crystalloids and antidiarrheals * Supportive management * PT OT/nutrition support * SNF placement evaluation
[2019-09-16] MEDS ORDERED: POTASSIUM CHLORIDE 20 MEQ PACKET PO PRN (18:44)
[2019-09-16] MEDS ORDERED: DEXTROSE 31 GM ORAL.SUSP PO PRN (18:44)
[2019-09-16] MEDS ORDERED: ACETAMINOPHEN 325 MG TABLET PO PRN (18:44)
[2019-09-16] MEDS ORDERED: DEXTROSE 50% 50 ML VIAL IV PRN (18:44)
[2019-09-16] MEDS ORDERED: MELATONIN 3 MG TABLET PO PRN (18:44)
[2019-09-16] MEDS ORDERED: ACETAMINOPHEN 650 MG/65 ML BOTTLE IV PRN (18:44)
[2019-09-16] MEDS ORDERED: POTASSIUM CHLORIDE 40 MEQ in DEXTROSE 5% IN WATER 500 ML IV PRN (18:44)
[2019-09-16] MEDS ORDERED: MAGNESIUM SULFATE 2 GM/50 ML BAG IV PRN (18:44)
[2019-09-16] MEDS ORDERED: ONDANSETRON 4 MG/2 ML VIAL IV PRN (18:44)
[2019-09-16] MEDS ORDERED: ONDANSETRON 4 MG ODT TABLET SL PRN (18:44)
[2019-09-16] MEDS: LACTATED RINGERS 1,000 ML IV SCH ×2 (20:51→20:55)
[2019-09-16] MEDS: 0.9 % SODIUM CHLORIDE 10 ML SYRINGE IV SCH (20:53)
[2019-09-16] MEDS: DOCUSATE SODIUM 100 MG CAPSULE PO SCH (20:56)
[2019-09-16] MEDS: INSULIN LISPRO 1 UNIT/0.01 ML UNIT SQ SCH ×2 (21:06→21:07)
[2019-09-17] MEDS: LACTATED RINGERS 1,000 ML IV SCH ×8 (02:02→20:45)
[2019-09-17] MEDS: INSULIN LISPRO 1 UNIT/0.01 ML UNIT SQ SCH ×4 (07:32→20:52)
[2019-09-17] MEDS: 0.9 % SODIUM CHLORIDE 10 ML SYRINGE IV SCH ×3 (07:32→20:45)
[2019-09-17] MEDS: DOCUSATE SODIUM 100 MG CAPSULE PO SCH ×2 (10:14→20:46)
[2019-09-17] MEDS: MULTIVIT,THER IRON,CA,FA & MIN 1 TABLET PO SCH (10:14)
[2019-09-17] MEDS: THIAMINE 100 MG TABLET PO SCH (10:14)
[2019-09-17 10:40] LABS: ALT/SGPT 23 U/l (0-40); AST/SGOT 22 U/l (0-37); Albumin 2.9 gm/dL (3.2-5.2); Albumin/Globulin Ratio 0.8 (1.0-2.3); Alkaline Phosphatase 54 U/L (39-117); Bilirubin,Direct < 0.2 mg/dL (0.0-0.3); Bilirubin,Total 0.3 mg/dL (0.0-1.0); Blood Urea Nitrogen 13 mg/dl (8-23); Calcium 10.2 mg/dl (8.6-10.4); Carbon Dioxide 28 mmol/L (22-30); Chloride 99 mmol/L (96-108); Globulin 3.7 gm/dL (2.2-3.7); Glomerular Filtration Rate 84; Glucose 112 mg/dL (70-105); Lactate Dehydrogenase 172 U/L (94-250); Phosphorous 3.3 mg/dL (2.7-4.5); Triglycerides 164 mg/dl (<150)
--- NOTE | 2019-09-17 15:21 | Internal Med Progress Note ---
Medical - PN: Subj Patient information: Note initiated : 09/17/19 at 3:20 pm Service Date, if different from initiated Date: [] Patient: Genna Gong a 78 y/o F admitted on 09/16/19 for weakness. Chief Complaint: [] Interval history: Ms. Gong is a 78 year old F with recent hospitalization from sepsis and Proteus UTI and was discharged home on 09/13 on antibiotics. She presents today with her to the ER following 3 days of gradually progressing weakness and inability get out of bed or function, her Ed who is her primary help has not been able to provide for her needs. She has also experienced in the interim multiple diarrheal episode with incontinence further limiting 's ability to take care of her. She however denies abdominal pain, associated fever or bloody stool. She endorses to loss of appetite. With increasing concerns she presents to the ER Initial work-up there was essentially unremarkable with a negative CT abdomen/serial study however consistent with volume depletion with hypercalcemia, elevated lactate at 2.8. Hospitalist service was consulted for admission in light of persistent diarrhea/hypercalcemia and volume depletion. At the time evaluation patient is accompanied with her and. She does not seem to apparent distress. She endorses history as above. She denies medication changes. She is completed ciprofloxacin course. She denies vertigo but endorses lightheadedness on movement. She denies skin rash or joint pain 09/17-improving diarrhea. No overnight events. at bedside. Patient feels weak with over 6-8 episodes of diarrhea throughout the day. Denies fever chills or abdominal pain. Tolerating diet. Continue physical therapy. Stool studies negative so far. - Constitutional Vitals: Vital Signs Temp Pulse Resp BP Pulse Ox 98.0 F 96 H 18 108/56 90 09/17/19 11:00 09/17/19 11:00 09/17/19 11:00 09/17/19 11:00 09/17/19 11:00 Period Temp Pulse Resp BP Sys/Maldonado Pulse Ox Last 24 Hr 97 F-98.4 F 50-108 16-24 102-156/46-135 88-97 Intake and Output 09/17/19 09/17/19 09/17/19 05:59 13:59 21:59 Intake Total 1000 Balance 1000 Weight 175 lb 14.4 oz Patient Weight 09/18/19 05:59 Weight 175 lb 14.4 oz Intake & Output: Intake & Output 09/17/19 09/17/19 09/17/19 05:59 13:59 21:59 Intake Total 1000 Balance 1000 Weight 175 lb 14.4 oz Intake: IV 1000 Lactated Ringers 1,000 ml @ 150 1000 mls/hr IV .Q6H40M [facility] Rx#: [id number] General appearance: no acute distress Exam: Alert oriented Nonlabored breathing No anxiety Nondistended abdomen No lymphedema Medical - PN: Obj Da - Labs CBC & Chem 7: 09/16/19 09:59 09/18/19 05:00 Labs: Abnormal Lab Results 09/17/19 09/16/19 09/16/19 06:39 11:41 09:59 WBC RBC Hgb Hct Plt Count MPV RBC Morphology Polychromasia ESR 67 H VBG Lactic Acid Glucose 112 H Uric Acid 9.0 H Calcium Magnesium 1.3 L Albumin 2.9 L Globulin Albumin/Globulin Ratio 0.8 L Triglycerides 164 H Urine Glucose (UA) 50 A Urine RBC 2 H Hyaline Casts 15 H 09/16/19 09/16/19 09/16/19 09:59 09:59 09:59 WBC 11.2 H RBC 3.92 L Hgb 10.3 L Hct 32.9 L Plt Count 471 H MPV 6.7 L RBC Morphology Abnorm A Polychromasia Few A ESR VBG Lactic Acid 2.8 H Glucose 219 H Uric Acid Calcium 10.8 H Magnesium Albumin Globulin 3.9 H Albumin/Globulin Ratio 0.9 L Triglycerides Urine Glucose (UA) Urine RBC Hyaline Casts Meds: Medications Acetaminophen (Tylenol) 650 mg PO Q4-6HP PRN; Protocol PRN Reason: Per Pain Protocol/Fever > 101 Last Admin: 09/17/19 10:24 Dose: 650 mg Documented by: Dextrose (Dextrose 50%) 0 ml IV UD PRN PRN Reason: Hypoglycemia Diagnostic Test (Pha) (Accu-Chek) 1 each FS ACHS [facility] Last Admin: 09/17/19 11:43 Dose: 1 each Documented by: Docusate Sodium (Colace) 100 mg PO BID [facility] Last Admin: 09/17/19 10:14 Dose: Not Given Documented by: Glucose (Insta-Glucose) 15 gm PO PRN PRN PRN Reason: Hypoglycemia Lactated Ringer's (Lactated Ringers) 1,000 mls @ 150 mls/hr IV .Q6H40M [facility] Last Admin: 09/17/19 15:19 Dose: 150 mls/hr Documented by: Lactated Ringer's (Lactated Ringers) 1,000 mls @ 100 mls/hr IV .Q10H [facility] Stop: 09/18/19 00:43 Last Admin: 09/17/19 05:18 Dose: Not Given Documented by: Acetaminophen (Ofirmev) 650 mg in 65 mls @ 130 mls/hr IV Q6HP PRN; Protocol PRN Reason: Per Pain Protocol/Fever > 101 Magnesium Sulfate (Magnesium Sulfate) 2 gm in 50 mls @ 50 mls/hr IV UD PRN PRN Reason: MG = or < 1.7 Last Admin: 09/17/19 11:53 Dose: 50 mls/hr Documented by: Potassium Chloride 40 meq/ (Dextrose) 520 mls @ 130 mls/hr IV UD PRN PRN Reason: K+ = or < 3.5 Insulin Human Lispro (Humalog) 0 unit SQ ACHS [facility]; Protocol Last Admin: 09/17/19 11:44 Dose: Not Given Documented by: Iron Carb/Multivit/[employer] Scheduler/Folic Acid (Multivitamin W/Minerals) 1 tab PO DAILY [facility] Last Admin: 09/17/19 10:14 Dose: 1 tab Documented by: Melatonin (Melatonin 3mg Tablet) 3 mg PO HSP PRN PRN Reason: Insomnia Ondansetron HCl (Zofran Odt) 4 mg SL Q4-6HP PRN; Protocol PRN Reason: Nausea And Vomiting Ondansetron HCl (Zofran) 4 mg IV Q4-6HP PRN; Protocol PRN Reason: Nausea And Vomiting Potassium Chloride (Klor-Con) 40 meq PO DAILYP PRN PRN Reason: K+ < 3.5 Sodium Chloride (Saline Flush) 10 ml IV Q8 [facility] Last Admin: 09/17/19 07:32 Dose: Not Given Documented by: Thiamine HCl (Vitamin B1) 100 mg PO DAILY [facility] Last Admin: 09/17/19 10:14 Dose: 100 mg Documented by: Medical - PN: A/P - Time Spent With Patient Total time spent is greater than 50% in coordination of care (as documented) at patient's floor/unit and/or counseling patient: 25 - 35 minutes (1) Diarrhea due to drug Status: Acute Assessment and plan: * Diarrhea likely secondary to antibiotic use. C. difficile negative. Clinical ly improving with less frequent stooling * Weakness and deconditioning secondary recent hospitalization-continue aggressive PT OT. * Recent Proteus UTI. Completed course. UA shows resolution. * Mild hypercalcemia likely secondary to volume depletion. Improved with crystalloids down to 10.2 * Volume depletion secondary diarrhea improved with crystalloids * DM type II-continue prandial insulin/CC diet * Hypertension -stable on home dose amlodipine, JOSE D inhibitor * History of dementia- delirium watch, avoid sedative-hypnotics * Oropharyngeal dysphagia-continue diet per ST recommendations during previous hospitalization * Full code * Prophylax Heparin Plan * Continue crystalloids and antidiarrheals * Supportive management * PT OT/nutrition support * SNF placement evaluation per case management Current Visit: Yes Medical - PN: Qual - VTE Deep Vein Thrombosis/Pulmonary Embolism Present on Admission: No
[2019-09-17] MEDS ORDERED: LACTATED RINGERS 1,000 ML IV SCH (17:30)
[2019-09-18] MEDS: LACTATED RINGERS 1,000 ML IV SCH ×3 (01:30→12:34)
[2019-09-18 07:14] LABS: ALT/SGPT 19 U/l (0-40); AST/SGOT 18 U/l (0-37); Albumin/Globulin Ratio 0.9 (1.0-2.3); Alkaline Phosphatase 53 U/L (39-117); Bilirubin,Direct < 0.2 mg/dL (0.0-0.3); Bilirubin,Total 0.4 mg/dL (0.0-1.0); Blood Urea Nitrogen 13 mg/dl (8-23); Calcium 10.3 mg/dl (8.6-10.4); Carbon Dioxide 29 mmol/L (22-30); Chloride 98 mmol/L (96-108); Globulin 3.2 gm/dL (2.2-3.7); Glomerular Filtration Rate 84; Glucose 136 mg/dL (70-105); Lactate Dehydrogenase 168 U/L (94-250); Phosphorous 3.1 mg/dL (2.7-4.5); Triglycerides 145 mg/dl (<150); Uric Acid 7.4 mg/dL (2.5-8.0)
[2019-09-18] MEDS: 0.9 % SODIUM CHLORIDE 10 ML SYRINGE IV SCH ×3 (07:33→20:14)
[2019-09-18] MEDS: INSULIN LISPRO 1 UNIT/0.01 ML UNIT SQ SCH ×4 (09:28→20:05)
[2019-09-18] MEDS: MULTIVIT,THER IRON,CA,FA & MIN 1 TABLET PO SCH (09:29)
[2019-09-18] MEDS: HEPARIN 5,000 UNIT/ML VIAL SQ SCH ×2 (09:29→20:06)
[2019-09-18] MEDS: THIAMINE 100 MG TABLET PO SCH (09:29)
[2019-09-18] MEDS: DOCUSATE SODIUM 100 MG CAPSULE PO SCH ×2 (11:30→20:14)
[2019-09-18] MEDS ORDERED: ACETAMINOPHEN 325 MG TABLET PO PRN (12:48)
--- NOTE | 2019-09-18 13:37 | Internal Med Progress Note ---
Medical - PN: Subj Patient information: Note initiated : 09/18/19 at 1:37 pm Service Date, if different from initiated Date: [] Patient: Genna Gong a 78 y/o F admitted on 09/16/19 for weakness. Chief Complaint: [] Interval history: Ms. Gong is a 78 year old F with recent hospitalization from sepsis and Proteus UTI and was discharged home on 09/13 on antibiotics. She presents today with her to the ER following 3 days of gradually progressing weakness and inability get out of bed or function, her Ed who is her primary help has not been able to provide for her needs. She has also experienced in the interim multiple diarrheal episode with incontinence further limiting 's ability to take care of her. She however denies abdominal pain, associated fever or bloody stool. She endorses to loss of appetite. With increasing concerns she presents to the ER Initial work-up there was essentially unremarkable with a negative CT abdomen/serial study however consistent with volume depletion with hypercalcemia, elevated lactate at 2.8. Hospitalist service was consulted for admission in light of persistent diarrhea/hypercalcemia and volume depletion. At the time evaluation patient is accompanied with her and. She does not seem to apparent distress. She endorses history as above. She denies medication changes. She is completed ciprofloxacin course. She denies vertigo but endorses lightheadedness on movement. She denies skin rash or joint pain 09/17-improving diarrhea. No overnight events. at bedside. Patient feels weak with over 6-8 episodes of diarrhea throughout the day. Denies fever chills or abdominal pain. Tolerating diet. Continue physical therapy. Stool studies negative so far. 09/18-potassium 3.1 on replacement. Diarrhea much improved with only 2 episodes since diet. However patient dizzy this morning while ambulating. Continue PT OT. Continue crystalloids. Nutrition support. Family agreeable to SNF placement. Case management coordinating. Anticipate discharge in 24 hours. - Constitutional Vitals: Vital Signs Temp Pulse Resp BP Pulse Ox 96.5 F L 88 16 134/74 91 09/18/19 07:00 09/18/19 07:00 09/18/19 07:00 09/18/19 07:00 09/18/19 07:00 Period Temp Pulse Resp BP Sys/Maldonado Pulse Ox Last 24 Hr 96.5 F-97.9 F 71-97 16-24 134-143/55-74 90-92 Intake and Output 09/17/19 09/18/19 09/18/19 21:59 05:59 13:59 Intake Total 1115 480 Output Total 1 1 Balance 1114 -1 480 Weight 183 lb 3.2 oz Intake & Output: Intake & Output 09/17/19 09/18/19 09/18/19 21:59 05:59 13:59 Intake Total 1115 480 Output Total 1 1 Balance 1114 -1 480 Weight 183 lb 3.2 oz Intake: IV 1115 Lactated Ringers 1,000 ml @ 150 1000 mls/hr IV .Q6H40M [facility] Rx#: [id number] Oral 480 Output: # of times incontinent of urine 1 1 Other: Meal Breakfast Percent of Meal Consumed 100% Stool Size Small Moderate Stool Color Brown Brown Yellow Stool Consistency Loose # Voids 1 1 # of times incontinent of 1 1 Bowels General appearance: no acute distress Exam: Alert oriented Nonlabored breathing No anxiety Nondistended abdomen Medical - PN: Obj Da - Labs CBC & Chem 7: 09/16/19 09:59 09/18/19 05:00 Labs: Abnormal Lab Results 09/18/19 09/17/19 09/16/19 05:00 06:39 11:41 WBC RBC Hgb Hct Plt Count MPV RBC Morphology Polychromasia ESR VBG Lactic Acid Potassium 3.2 L Glucose 136 H 112 H Uric Acid 9.0 H Calcium Magnesium 1.3 L Albumin 3.0 L 2.9 L Globulin Albumin/Globulin Ratio 0.9 L 0.8 L Triglycerides 164 H Urine Glucose (UA) 50 A Urine RBC 2 H Hyaline Casts 15 H 09/16/19 09/16/19 09/16/19 09:59 09:59 09:59 WBC RBC Hgb Hct Plt Count MPV RBC Morphology Polychromasia ESR 67 H VBG Lactic Acid 2.8 H Potassium Glucose 219 H Uric Acid Calcium 10.8 H Magnesium Albumin Globulin 3.9 H Albumin/Globulin Ratio 0.9 L Triglycerides Urine Glucose (UA) Urine RBC Hyaline Casts 09/16/19 09:59 WBC 11.2 H RBC 3.92 L Hgb 10.3 L Hct 32.9 L Plt Count 471 H MPV 6.7 L RBC Morphology Abnorm A Polychromasia Few A ESR VBG Lactic Acid Potassium Glucose Uric Acid Calcium Magnesium Albumin Globulin Albumin/Globulin Ratio Triglycerides Urine Glucose (UA) Urine RBC Hyaline Casts Meds: Medications Acetaminophen (Tylenol) 650 mg PO Q4-6HP PRN; Protocol PRN Reason: Per Pain Protocol/Fever > 101 Last Admin: 09/17/19 10:24 Dose: 650 mg Documented by: Acetaminophen (Tylenol) 650 mg PO Q6HP PRN; Protocol PRN Reason: Per Pain Protocol/Fever > 101 Dextrose (Dextrose 50%) 0 ml IV UD PRN PRN Reason: Hypoglycemia Diagnostic Test (Pha) (Accu-Chek) 1 each FS [facility] Last Admin: 09/18/19 12:00 Dose: 1 each Documented by: Docusate Sodium (Colace) 100 mg PO BID [facility] Last Admin: 09/18/19 11:30 Dose: Not Given Documented by: Glucose (Insta-Glucose) 15 gm PO PRN PRN PRN Reason: Hypoglycemia Heparin Sodium (Porcine) (Heparin) 5,000 unit SQ Q12 [facility] Last Admin: 09/18/19 09:29 Dose: 5,000 unit Documented by: Magnesium Sulfate (Magnesium Sulfate) 2 gm in 50 mls @ 50 mls/hr IV UD PRN PRN Reason: MG = or < 1.7 Last Infusion: 09/17/19 15:28 Dose: Infused Documented by: Potassium Chloride 40 meq/ (Dextrose) 520 mls @ 130 mls/hr IV UD PRN PRN Reason: K+ = or < 3.5 Insulin Human Lispro (Humalog) 0 unit SQ [facility]; Protocol Last Admin: 09/18/19 12:06 Dose: 2 unit Documented by: Iron Carb/Multivit/Site Surveyor/Folic Acid (Multivitamin W/Minerals) 1 tab PO DAILY [facility] Last Admin: 09/18/19 09:29 Dose: 1 tab Documented by: Melatonin (Melatonin 3mg Tablet) 3 mg PO HSP PRN PRN Reason: Insomnia Ondansetron HCl (Zofran Odt) 4 mg SL Q4-6HP PRN; Protocol PRN Reason: Nausea And Vomiting Last Admin: 09/18/19 10:09 Dose: 4 mg Documented by: Ondansetron HCl (Zofran) 4 mg IV Q4-6HP PRN; Protocol PRN Reason: Nausea And Vomiting Potassium Chloride (Klor-Con) 40 meq PO DAILYP PRN PRN Reason: K+ < 3.5 Sodium Chloride (Saline Flush) 10 ml IV Q8 [facility] Last Admin: 09/18/19 07:33 Dose: 10 ml Documented by: Thiamine HCl (Vitamin B1) 100 mg PO DAILY [facility] Last Admin: 09/18/19 09:29 Dose: 100 mg Documented by: Medical - PN: A/P - Time Spent With Patient Total time spent is greater than 50% in coordination of care (as documented) at patient's floor/unit and/or counseling patient: 15 - 24 minutes (1) Diarrhea due to drug Status: Acute Assessment and plan: * Weakness and deconditioning secondary recent hospitalization-Case management coordinate SNF transfer * Volume depletion secondary to diarrhea. Clinically improved. * Diarrhea likely secondary to antibiotic use. C. difficile negative. Clinically resolved. * Hypokalemia continue replacement * Recent Proteus UTI. Clinically resolved. Completed antibiotic course. * Mild hypercalcemia likely secondary to volume depletion. Resolved with crystalloids * DM type II-stable on prandial insulin/CC diet * Hypertension -stable on home dose amlodipine, JOSE D inhibitor * History of dementia- delirium watch, avoid sedative-hypnotics * Oropharyngeal dysphagia-continue diet per ST recommendations during previous hospitalization * Full code * Prophylax Heparin Plan * Continue supportive management * PT OT nutrition support * Ambulate as tolerated * Case management coordinate SNF transfer likely in 24 hours Current Visit: Yes Medical - PN: Qual - VTE Deep Vein Thrombosis/Pulmonary Embolism Present on Admission: No
[2019-09-19] MEDS: 0.9 % SODIUM CHLORIDE 10 ML SYRINGE IV SCH (05:20)
[2019-09-19] MEDS: INSULIN LISPRO 1 UNIT/0.01 ML UNIT SQ SCH ×2 (07:48→12:13)
[2019-09-19] MEDS: THIAMINE 100 MG TABLET PO SCH (09:15)
[2019-09-19] MEDS: HEPARIN 5,000 UNIT/ML VIAL SQ SCH (09:15)
[2019-09-19] MEDS: MULTIVIT,THER IRON,CA,FA & MIN 1 TABLET PO SCH (09:15)
[2019-09-19] MEDS: DOCUSATE SODIUM 100 MG CAPSULE PO SCH (09:15)
--- NOTE | 2019-09-19 12:04 | Discharge Summary ---
Medical - DS: Prov Patient information: Note initiated : 09/19/19 at 12:02 pm Service Date, if different from initiated Date: [] Patient: Genna Gong 78 y/o F admitted on 09/16/19 for weakness. Chief Complaint: [] Date of admission: 09/16/19 18:36 Discharge date: 09/19/19 Primary care physician: Richar Brand Consults: 09/17/19 07:15 Consult to Physician [CONS] Routine Comment: Consulting Provider: Jaiden Bolanos Reason For Exam: Physician to Consult Medical - DS: Meds - Discharge Medications Active and Home Medications: Home Medications Enalapril Maleate [Vasotec] 20 mg PO BID 11/09/18 [History Confirmed 09/16/19 Last Taken 02/12/19 08:00] Methocarbamol [Robaxin] 500 mg PO TID 11/09/18 [History Confirmed 09/16/19 Last Taken 09/16/19] Oxybutynin Chloride [Ditropan] 5 mg PO TID 11/09/18 [History Confirmed 09/16/19 Last Taken 09/16/19] amLODIPine [Norvasc] 10 mg PO DAILY 11/09/18 [History Confirmed 09/16/19 Last Taken 09/16/19] metFORMIN [Glucophage] 425 mg PO ACB 11/09/18 [History Confirmed 09/16/19 Last Taken 09/16/19] metolazone 10 mg tablet 10 mg PO QDAY 12/05/18 [History Confirmed 09/16/19 Last Taken 09/16/19] potassium chloride 20 mEq tablet,extended release 10 meq PO BID 01/06/19 [History Confirmed 09/16/19 Last Taken 09/16/19] Ondansetron [Zofran ODT] 4 mg SL Q4-6HP PRN 02/12/19 [History Confirmed 09/16/19 Last Taken 09/16/19] Cholecalciferol (Vitamin D3) [Vitamin D3] 1 cap PO BID 09/12/19 [History Confirmed 09/16/19 Last Taken 09/16/19] Cinnamon Bark [Cinnamon] 1,000 mg PO BID 09/12/19 [History Confirmed 09/16/19 Last Taken 09/16/19] Daily Probiotic 1 tab PO BID 09/12/19 [History Confirmed 09/16/19 Last Taken 09/16/19] Maddock-3 Fatty Acids/Fish Oil [Fish Oil 1,000 mg Capsule] 1 cap PO BID 09/12/19 [History Confirmed 09/16/19 Last Taken 09/16/19] metFORMIN [Glucophage] 1 tab PO 1800 09/12/19 [History Confirmed 09/16/19 Last Taken 09/16/19] Multivit,Iron,Mins/Folic Acid [Century Cardio Tablet] 2 each PO DAILY 09/16/19 [History Confirmed 09/16/19 Last Taken 09/16/19] Medical - DS: Hosp Hospital Course: Discharge diagnosis * Weakness and deconditioning secondary to severe diarrhea and volume depletion. Clinically improved. Undergoing aggressive PT OT. Discharging to SNF for continued posthospitalization rehab * Volume depletion secondary to diarrhea. Clinically resolved with crystalloids. * Diarrhea likely secondary to antibiotic use. C. difficile negative. Clinically resolved * Hypokalemia -resolved with replacement * Recent Proteus UTI. Clinically resolved. Completed antibiotic course. * Mild hypercalcemia-secondary to dehydration. Resolved with crystalloids * DM type II-stable on prandial insulin/CC diet * Hypertension -stable on home dose amlodipine, JOSE D inhibitor * History of dementia-continue delirium watch, avoid sedative-hypnotics * Oropharyngeal dysphagia-continue diet per ST recommendations during previous hospitalization Brief hospital course Ms. Gong is a 78 year old F with recent hospitalization from sepsis and Proteus UTI and was discharged home on 09/13 on antibiotics. She presents today with her to the ER following 3 days of gradually progressing weakness and inability get out of bed or function, her Ed who is her primary help has not been able to provide for her needs. She has also experienced in the interim multiple diarrheal episode with incontinence further limiting 's ability to take care of her. She however denies abdominal pain, associated fever or bloody stool. She endorses to loss of appetite. With increasing concerns she presents to the ER Initial work-up there was essentially unremarkable with a negative CT abdomen/serial study however consistent with volume depletion with hyp ercalcemia, elevated lactate at 2.8. Hospitalist service was consulted for admission in light of persistent diarrhea/hypercalcemia and volume depletion. At the time evaluation patient is accompanied with her and. She does not seem to apparent distress. She endorses history as above. She denies medication changes. She is completed ciprofloxacin course. She denies vertigo but endorses lightheadedness on movement. She denies skin rash or joint pain 09/17-improving diarrhea. No overnight events. at bedside. Patient feels weak with over 6-8 episodes of diarrhea throughout the day. Denies fever chills or abdominal pain. Tolerating diet. Continue physical therapy. Stool studies negative so far. 09/18-potassium 3.1 on replacement. Diarrhea much improved with only 2 episodes since diet. However patient dizzy this morning while ambulating. Continue PT OT. Continue crystalloids. Nutrition support. Family agreeable to SNF placement. Case management coordinating. Anticipate discharge in 24 hours. 09/19-patient doing well. Diarrhea resolved. Feels a lot better. Complains of minimal right shoulder outside of pain. Ongoing physical therapy. Overnight intermittent confusion however consistent with underlying dementia with occasional paranoia. No agitation. Patient ready for discharge to SNF for continued posthospitalization rehab. Detailed instructions as below Discharge diagnosis: . - Time Spent with Patient Total time spent providing and/or coordinating discharge services: Greater than 30 minutes Medical - DS: Exam - Constitutional Vitals: Vital Signs Temp Pulse Resp BP Pulse Ox 09/19/19 07:53 88 18 90 09/19/19 07:00 98.7 F 84 18 131/76 90 09/18/19 23:35 97.7 F 88 18 143/79 92 09/18/19 19:00 98.5 F 82 20 127/68 91 09/18/19 15:00 97.2 F 76 16 145/73 90 Intake and Output 09/18/19 09/19/19 09/19/19 21:59 05:59 13:59 Intake Total 800 100 Output Total 3 1 Balance 797 99 Intake: Oral 800 100 Output: # of times incontinent of urine 3 1 Other: Meal Breakfast Percent of Meal Consumed 100% Urine Color Bright Yellow # Voids 1 Weight 181 lb 6.4 oz Medical - DS: A/P - Patient/Caregiver Discharge Instructions Activity: as per physical therapy Diet: Regular Diet (As per ST recommendations) Additional Instructions: Follow-up PCP in 5 to [address] recommendations Fall risk/delirium watch Aggressive PT OT ST eval - Problem Maintenance (1) Diarrhea due to drug Status: Acute - Follow up Plan Follow up with: Richar Brand MD [Primary Care Provider] - Disposition: Xfer SNF Prognosis: Fair Rehab Potential: Fair I certify that the patient requires SNF services: Yes Overall status at discharge: patient is back to baseline Medical - DS: Qual - VTE Deep Vein Thrombosis/Pulmonary Embolism Present on Admission: No
== END 2019-09-19 13:08 | DRG 394 ==
LOC: ED 09:29 → MEDSUR 18:36
PROVIDERS: ADMIT Internal Medicine; ATTEND Internal Medicine

== ENCOUNTER 2020-03-12 04:54 | Inpatient (IN) ==
--- NOTE | 2020-03-09 11:58 | XRay Report ---
CLINICAL INFORMATION: Pre-Op COMPARISON: 11/25/2019 and 09/16/2019 FINDINGS: Mild cardiomegaly is unchanged. Mediastinum and pulmonary vasculature are normal. Lungs are clear. No effusions. IMPRESSION: Mild cardiomegaly stable. No acute disease Interpreted and Authenticated by: Vikas Whitley 03/09/20
[2020-03-09 16:04] LABS: Prothrombin Time 13.2 sec (11.9-14.5)
[2020-03-09 17:01] LABS: ALT/SGPT 28 U/l (0-40); AST/SGOT 21 U/l (0-37); Albumin 4.4 gm/dL (3.2-5.2); Albumin/Globulin Ratio 1.6 (1.0-2.3); Alkaline Phosphatase 65 U/L (39-117); Bilirubin,Total 0.5 mg/dL (0.0-1.0); Blood Urea Nitrogen 39 mg/dl (8-23); Calcium 10.6 mg/dl (8.6-10.4); Carbon Dioxide 27 mmol/L (22-30); Chloride 97 mmol/L (96-108); Globulin 2.8 gm/dL (2.2-3.7); Glomerular Filtration Rate 71; Glucose 139 mg/dL (70-105)
[2020-03-09 17:13] LABS: Basophils # (Auto) 0.04 K/mcL (0.00-0.30); Basophils % (Auto) 0.5 % (0.0-2.0); Eosinophils # (Auto) 0.14 K/mcL (0.00-0.70); Eosinophils % (Auto) 1.6 % (0.0-7.0); Granulocytes % (Auto) 54.6 % (38.0-78.0); Hematocrit 40.1 % (34.1-44.9); Hemoglobin 12.2 g/dL (11.2-15.7); Lymphocytes # (Auto) 3.12 K/mcL (1.50-4.80); Lymphocytes % (Auto) 35.5 % (15.5-49.0); Mean Cell Volume 93.7 fL (80.0-100.0); Mean Corpuscular HGB Conc 30.4 g/dL (31.0-36.0); Mean Platelet Volume 9.7 fL (7.4-10.4); Monocytes # (Auto) 0.69 K/mcL (0.10-0.90); Monocytes % (Auto) 7.8 % (1.0-12.0); Platelet Count 270 K/mcL (140-440); RBC 4.28 M/mcL (3.59-5.38); Red Cell Distribution Width 13.2 % (11.5-14.5); WBC 8.8 K/mcL (4.50-11.00)
[2020-03-09 17:17] LABS: Estimated Average Glucose(eAG) 120 mg/dL; Hemoglobin A1C 5.8 % HGB (4.0-6.0)
[~2020-03-12 04:54] MED LIST: LEVOFLOXACIN 750 MG/150 ML BAG IV SCH; VANCOMYCIN 1,000 MG in 0.9 % SODIUM CHLORIDE 250 ML IV SCH
[2020-03-12] MEDS ORDERED: SCOPOLAMINE 1 PATCH PATCH TOPICAL PRN (05:00)
[2020-03-12] MEDS ORDERED: IPRATROPIUM/ALBUTEROL 3 ML AMPUL.NEB NEB PRN ×2 (05:00→09:33)
[2020-03-12] MEDS ORDERED: LEVOFLOXACIN 750 MG/150 ML BAG IV SCH (06:00)
[2020-03-12] MEDS ORDERED: VANCOMYCIN 1,000 MG in 0.9 % SODIUM CHLORIDE 250 ML IV SCH (06:00)
[2020-03-12] MEDS ORDERED: PHENYLEPHRINE 10 MG/ML VIAL IV ONE (07:30)
[2020-03-12] MEDS ORDERED: DEXAMETHASONE 10 MG/ML VIAL IV ONE (07:30)
[2020-03-12] MEDS ORDERED: ROCURONIUM 10 MG/ML ML IV ONE (07:30)
[2020-03-12] MEDS ORDERED: LIDOCAINE HCL/PF 100 MG/5 ML SYRINGE IV ONE (07:30)
[2020-03-12] MEDS ORDERED: MIDAZOLAM 2 MG/2 ML VIAL IV ONE (07:30)
[2020-03-12] MEDS ORDERED: PROPOFOL 200 MG/20 ML VIAL IV ONE (07:30)
[2020-03-12] MEDS ORDERED: KETAMINE 100 MG/ML ML IV ONE (07:30)
[2020-03-12] MEDS ORDERED: VERAPAMIL 2.5 MG/ML VIAL IV ONE (07:30)
[2020-03-12] MEDS ORDERED: SUGAMMADEX SODIUM 200 MG/2 ML VIAL IV ONE (07:30)
[2020-03-12] MEDS ORDERED: ONDANSETRON 4 MG/2 ML VIAL IV ONE (07:30)
[2020-03-12] MEDS ORDERED: fentaNYL 100 MCG/2 ML VIAL IV ONE ×2 (07:30→10:02)
[2020-03-12] MEDS ORDERED: GLYCOPYRROLATE 0.2 MG/ML VIAL IV ONE (07:30)
[2020-03-12] MEDS ORDERED: BACITRACIN 50,000 UNIT VIAL IR ONE (09:11)
[2020-03-12] MEDS ORDERED: ACETAMINOPHEN 1,000 MG/100 ML BOTTLE IV ONE (09:33)
[2020-03-12] MEDS ORDERED: KETOROLAC 15 MG/ML VIAL IV PRN (09:33)
[2020-03-12] MEDS ORDERED: ONDANSETRON 4 MG/2 ML VIAL IV PRN ×2 (09:33→10:03)
[2020-03-12] MEDS ORDERED: MEPERIDINE 25 MG/ML SYRINGE IV PRN (09:33)
[2020-03-12] MEDS ORDERED: LACTATED RINGERS 1,000 ML IV SCH (09:45)
--- NOTE | 2020-03-12 09:55 | Brief Operative Note ---
Date of procedure: 03/12/20 Pre-op diagnosis: INCISIONAL HERNIA Post-op diagnosis: other (INCISIONAL HERNIA) Procedure: INCISIONAL HERNIA REPAIR WITH MESH Grafts/Implants: Yes (SURGIMESH [id number] OVAL SKIRTED) Anesthesia: GETA Findings: TOTAL SEPARATION OF MIDLINE INCISION FROM XYPHOID TO INFRAUMBILICAL AREA Complications: none Surgeon: Zonia Schroeder Estimated blood loss (cc): 40 Specimens Removed/Pathology: none sent Condition: stable Disposition: PACU
[2020-03-12] MEDS: fentaNYL 100 MCG/2 ML VIAL IV PRN ×4 (09:59→10:07)
[2020-03-12] MEDS ORDERED: METHOCARBAMOL 1,000 MG/10 ML VIAL IV ONE (10:11)
[2020-03-12] MEDS ORDERED: METHOCARBAMOL 1,000 MG/10 ML VIAL ONE (10:16)
[2020-03-12] MEDS: HYDROmorphone 1 MG/ML SYRINGE IV PRN ×4 (11:16→23:27)
[2020-03-12] MEDS: 0.9 % SODIUM CHLORIDE 1,000 ML IV SCH (11:17)
[2020-03-12] MEDS: CEFEPIME 1 GM VIAL IV SCH ×2 (12:41→23:20)
[2020-03-12] MEDS: 0.9 % SODIUM CHLORIDE 10 ML SYRINGE IV SCH ×2 (14:20→21:11)
[2020-03-12] MEDS: metFORMIN 500 MG TABLET PO SCH (17:54)
[2020-03-12] MEDS: VANCOMYCIN 1,000 MG in 0.9 % SODIUM CHLORIDE 250 ML IV SCH (20:15)
[2020-03-12] MEDS: LISINOPRIL 20 MG TABLET PO SCH (20:15)
[2020-03-12] MEDS: SENNOSIDES 1 TABLET PO SCH (20:15)
[2020-03-12] MEDS: FAMOTIDINE 20 MG TABLET PO SCH (20:15)
[2020-03-12] MEDS: DOCUSATE SODIUM 100 MG CAPSULE PO SCH (20:15)
[2020-03-13] MEDS ORDERED: INSULIN LISPRO 1 UNIT/0.01 ML UNIT SQ ONE (00:06)
[2020-03-13] MEDS: 0.9 % SODIUM CHLORIDE 1,000 ML IV SCH ×3 (01:00→15:45)
[2020-03-13] MEDS: HYDROmorphone 1 MG/ML SYRINGE IV PRN ×8 (01:48→23:42)
[2020-03-13] MEDS: INSULIN LISPRO 1 UNIT/0.01 ML UNIT SQ SCH ×5 (05:45→23:47)
[2020-03-13] MEDS: CEFEPIME 1 GM VIAL IV SCH ×3 (05:49→23:01)
[2020-03-13] MEDS: 0.9 % SODIUM CHLORIDE 10 ML SYRINGE IV SCH ×4 (05:51→22:33)
[2020-03-13 06:33] LABS: Basophils # (Auto) 0.04 K/mcL (0.00-0.30); Basophils % (Auto) 0.3 % (0.0-2.0); Eosinophils # (Auto) 0 K/mcL (0.00-0.70); Eosinophils % (Auto) 0 % (0.0-7.0); Granulocytes % (Auto) 73.2 % (38.0-78.0); Hemoglobin 10.5 g/dL (11.2-15.7); Lymphocytes # (Auto) 2.52 K/mcL (1.50-4.80); Lymphocytes % (Auto) 16.5 % (15.5-49.0); Mean Cell Volume 92.1 fL (80.0-100.0); Mean Corpuscular HGB Conc 30.9 g/dL (31.0-36.0); Mean Platelet Volume 9.4 fL (7.4-10.4); Monocytes # (Auto) 1.52 K/mcL (0.10-0.90); Platelet Count 256 K/mcL (140-440); RBC 3.69 M/mcL (3.59-5.38); Red Cell Distribution Width 13.5 % (11.5-14.5); WBC 15.3 K/mcL (4.50-11.00)
[2020-03-13 06:52] LABS: ALT/SGPT 30 U/l (0-40); AST/SGOT 24 U/l (0-37); Albumin 3.3 gm/dL (3.2-5.2); Albumin/Globulin Ratio 1.3 (1.0-2.3); Alkaline Phosphatase 40 U/L (39-117); Bilirubin,Direct < 0.2 mg/dL (0.0-0.3); Bilirubin,Total 0.5 mg/dL (0.0-1.0); Blood Urea Nitrogen 24 mg/dl (8-23); Carbon Dioxide 24 mmol/L (22-30); Chloride 102 mmol/L (96-108); Globulin 2.5 gm/dL (2.2-3.7); Glomerular Filtration Rate 71; Glucose 131 mg/dL (70-105); Lactate Dehydrogenase 152 U/L (94-250); Phosphorous 2.8 mg/dL (2.7-4.5); Triglycerides 156 mg/dl (<150); Uric Acid 6.2 mg/dL (2.5-8.0)
[2020-03-13] MEDS ORDERED: VANCOMYCIN PER PHARMACY IV SCH (07:45)
[2020-03-13] MEDS: FAMOTIDINE 20 MG TABLET PO SCH ×2 (08:30→21:30)
[2020-03-13] MEDS: amLODIPine 10 MG TABLET PO SCH (08:31)
[2020-03-13] MEDS: DOCUSATE SODIUM 100 MG CAPSULE PO SCH ×2 (08:31→21:31)
[2020-03-13] MEDS: metFORMIN 500 MG TABLET PO SCH ×2 (08:31→17:02)
[2020-03-13] MEDS: LISINOPRIL 20 MG TABLET PO SCH ×2 (08:31→21:39)
[2020-03-13] MEDS: VANCOMYCIN 1,000 MG in 0.9 % SODIUM CHLORIDE 250 ML IV SCH ×2 (09:36→21:29)
--- NOTE | 2020-03-13 13:38 | General Surgery Progress Note ---
Subjective Patient reports: no new complaints, still having pain, tolerating liquids well, flatus, afebrile Narrative: Note initiated : 03/13/20 at 1:36 pm Service Date, if different from initiated Date: [] Patient: Genna Gong 79 y/o F admitted on 03/12/20 for Incisional Hernia Repair with Mesh. Chief Complaint: [patient is status post repair of her large incisional hernia with mesh graft. She is stable except for the anticipated pain. She does not have nausea and is tolerating clear liquids. She has had flatus but no bowel movement. White blood count 15.3, hemoglobin 10.5, hematocrit 34, BUN 24, creatinine 0.8. PATTI drains with bloody drainage.] Objective Temp Pulse Resp BP Pulse Ox 98.5 F 74 14 131/47 93 03/13/20 11:58 03/13/20 11:58 03/13/20 11:58 03/13/20 11:58 03/13/20 11:58 - Additional Data Intake & Output - Last 24 hours: Intake & Output 03/11/20 03/12/20 03/13/20 03/14/20 05:59 05:59 05:59 05:59 Intake Total 3720 860 Output Total 2085 105 Balance 1635 755 Weight 193 lb 9.6 oz 194 lb 8 oz - General physical appearance well developed, well nourished, no distress - Eyes PERRL, normal ocular movement - ENT normal pinna, normal nares, normal mucosa, no hearing loss, no congestion - Neck no masses, no bruits, trachea midline, no lymphadenopathy, no venous distension - Respiratory normal expansion, normal respiratory effort, clear to auscultation - Cardiovascular Cardiovascular exam: Present: normal rate and rhythm, RRR, +S1, +S2. Absent: JVD, tachycardia - Abdomen tender, distended (mild distention; anticipated tenderness around the suture line) - Integumentary no rash, no growths, no abnormal pigmentation - Neurologic normal coordination, normal sensation - Musculoskeletal normal gait, normal posture - Psychiatric oriented to time, oriented to person, oriented to place, speech is normal, memory intact - Labs 03/13/20 04:43 03/13/20 04:43 Diabetes panel 03/13/20 Range/Units 04:43 Sodium 137 (133-145) mmol/L Potassium 4.1 (3.3-5.1) mmol/L Chloride 102 (96-108) mmol/L Carbon Dioxide 24 (22-30) mmol/L BUN 24 H (8-23) mg/dl Creatinine 0.8 (0.6-1.1) mg/dl Glucose 131 H (70-105) mg/dL Calcium 9.0 (8.6-10.4) mg/dl AST 24 (0-37) U/l ALT 30 (0-40) U/l Alkaline Phosphatase 40 (39-117) U/L Total Protein 5.8 L (5.9-8.4) gm/dL Albumin 3.3 (3.2-5.2) gm/dL Triglycerides 156 H (<150) mg/dl Calcium panel 03/13/20 Range/Units 04:43 Calcium 9.0 (8.6-10.4) mg/dl Phosphorus 2.8 (2.7-4.5) mg/dL Albumin 3.3 (3.2-5.2) gm/dL Pituitary panel 03/13/20 Range/Units 04:43 Sodium 137 (133-145) mmol/L Potassium 4.1 (3.3-5.1) mmol/L Chloride 102 (96-108) mmol/L Carbon Dioxide 24 (22-30) mmol/L BUN 24 H (8-23) mg/dl Creatinine 0.8 (0.6-1.1) mg/dl Glucose 131 H (70-105) mg/dL Calcium 9.0 (8.6-10.4) mg/dl Adrenal panel 03/13/20 Range/Units 04:43 Sodium 137 (133-145) mmol/L Potassium 4.1 (3.3-5.1) mmol/L Chloride 102 (96-108) mmol/L Carbon Dioxide 24 (22-30) mmol/L BUN 24 H (8-23) mg/dl Creatinine 0.8 (0.6-1.1) mg/dl Glucose 131 H (70-105) mg/dL Calcium 9.0 (8.6-10.4) mg/dl Total Bilirubin 0.5 (0.0-1.0) mg/dL AST 24 (0-37) U/l ALT 30 (0-40) U/l Alkaline Phosphatase 40 (39-117) U/L Total Protein 5.8 L (5.9-8.4) gm/dL Albumin 3.3 (3.2-5.2) gm/dL Assessment and Plan (1) Incisional hernia of anterior abdominal wall without obstruction or gangrene Status: Acute Assessment and plan: Continue present therapy Current Visit: Yes (2) Diabetes mellitus Status: Chronic Current Visit: No - Time Spent With Patient Total time spent is greater than 50% in coordination of care (as documented) at patient's floor/unit and/or counseling patient:
[2020-03-13] MEDS: SENNOSIDES 1 TABLET PO SCH (21:31)
[2020-03-14] MEDS: HYDROmorphone 1 MG/ML SYRINGE IV PRN ×4 (02:42→22:31)
[2020-03-14] MEDS: CEFEPIME 1 GM VIAL IV SCH ×3 (05:21→21:46)
[2020-03-14] MEDS: 0.9 % SODIUM CHLORIDE 10 ML SYRINGE IV SCH ×3 (05:22→20:23)
[2020-03-14] MEDS: 0.9 % SODIUM CHLORIDE 1,000 ML IV SCH (07:44)
[2020-03-14] MEDS: INSULIN LISPRO 1 UNIT/0.01 ML UNIT SQ SCH ×4 (07:48→20:53)
[2020-03-14] MEDS: amLODIPine 10 MG TABLET PO SCH (09:00)
[2020-03-14] MEDS: DOCUSATE SODIUM 100 MG CAPSULE PO SCH ×2 (09:00→20:19)
[2020-03-14] MEDS: FAMOTIDINE 20 MG TABLET PO SCH ×2 (09:00→20:20)
[2020-03-14] MEDS: metFORMIN 500 MG TABLET PO SCH ×2 (09:01→17:27)
[2020-03-14] MEDS: LISINOPRIL 20 MG TABLET PO SCH ×2 (09:01→20:20)
[2020-03-14] MEDS: VANCOMYCIN 1,000 MG in 0.9 % SODIUM CHLORIDE 250 ML IV SCH ×2 (09:02→20:22)
--- NOTE | 2020-03-14 14:09 | General Surgery Progress Note ---
Subjective Patient reports: feels better, still having pain, pain is less, no flatus, no bowel movement, afebrile Narrative: Note initiated : 03/14/20 at 2:07 pm Service Date, if different from initiated Date: [] Patient: Genna Gong 79 y/o F admitted on 03/12/20 for Incisional Hernia Repair with Mesh. Chief Complaint: [patient is feeling better from her surgery however she has coarse upper airway sounds with rhonchi in mid lung. She has an ineffective cough. Drainage is serous sanguinous.] Objective Temp Pulse Resp BP Pulse Ox 99.9 F H 100 H 20 129/66 93 03/14/20 11:35 03/14/20 11:35 03/14/20 11:35 03/14/20 11:35 03/14/20 11:35 - Additional Data Intake & Output - Last 24 hours: Intake & Output 03/12/20 03/13/20 03/14/20 03/15/20 05:59 05:59 05:59 05:59 Intake Total 3720 4140 360 Output Total 2085 2542 1100 Balance 1635 1598 -740 Weight 193 lb 9.6 oz 194 lb 8 oz 195 lb - General physical appearance well developed, well nourished, no distress - Eyes PERRL, normal ocular movement - ENT normal pinna, normal nares, normal mucosa, no hearing loss, no congestion - Neck no masses, no bruits, trachea midline, no lymphadenopathy, no venous distension - Respiratory normal expansion, other (poor inspiratory effort with coarse tubular breath sounds and rhonchi bilaterally. Cough is very ineffective.) - Cardiovascular Cardiovascular exam: Present: normal rate and rhythm, RRR, +S1, +S2. Absent: JVD, tachycardia - Abdomen tender ( Tenderness all around the incision; good active bowel sounds; PATTI drainage is serosanguineous), bowel sounds (present), surgical scars (none), masses (none) - Integumentary no rash, no growths, no abnormal pigmentation - Neurologic normal coordination, normal sensation - Musculoskeletal normal gait, normal posture - Psychiatric oriented to time, oriented to person, oriented to place, speech is normal, memory intact - Labs 03/13/20 04:43 03/13/20 04:43 Assessment and Plan (1) Incisional hernia of anterior abdominal wall without obstruction or gangrene Status: Acute Assessment and plan: Continue present therapy Current Visit: Yes (2) Diabetes mellitus Status: Chronic Current Visit: No - Time Spent With Patient Total time spent is greater than 50% in coordination of care (as documented) at patient's floor/unit and/or counseling patient:
--- NOTE | 2020-03-14 14:15 | General Surgery Progress Note ---
Subjective Patient reports: feels better, pain is less, tolerating a regular diet (8), no bowel movement Narrative: Note initiated : 03/14/20 at 2:05 pm Service Date, if different from initiated Date: [] Patient: Genna Gong 79 y/o F admitted on 03/12/20 for Incisional Hernia Repair with Mesh. Chief Complaint: [] Objective Temp Pulse Resp BP Pulse Ox 99.9 F H 100 H 20 129/66 93 03/14/20 11:35 03/14/20 11:35 03/14/20 11:35 03/14/20 11:35 03/14/20 11:35 - Additional Data Intake & Output - Last 24 hours: Intake & Output 03/12/20 03/13/20 03/14/20 03/15/20 05:59 05:59 05:59 05:59 Intake Total 3720 4140 360 Output Total 2085 2542 1100 Balance 1635 1598 -740 Weight 193 lb 9.6 oz 194 lb 8 oz 195 lb - Labs 03/13/20 04:43 03/13/20 04:43 Assessment and Plan (1) Incisional hernia of anterior abdominal wall without obstruction or gangrene Status: Acute Assessment and plan: Continue present therapy Current Visit: Yes (2) Diabetes mellitus Status: Chronic Current Visit: No - Time Spent With Patient Total time spent is greater than 50% in coordination of care (as documented) at patient's floor/unit and/or counseling patient:
[2020-03-14] MEDS: IPRATROPIUM/ALBUTEROL 3 ML AMPUL.NEB NEB SCH (17:33)
--- NOTE | 2020-03-14 19:01 | XRay Report ---
CLINICAL INFORMATION: coarse tubular breath sounds and rhonchi and cough COMPARISON: 03/09/2020 FINDINGS: Heart is mildly enlarged - accentuated by portable technique, lordotic positioning and rotation. Mediastinum and pulmonary vessels are normal. Minor bibasilar atelectasis/scarring is appreciated. No infiltrates or effusion. Small eventration right diaphragm seen as before IMPRESSION: Mild stable cardiomegaly - no acute disease Interpreted and Authenticated by: Vikas Whitley 03/14/20
[2020-03-14] MEDS: SENNOSIDES 1 TABLET PO SCH (20:19)
[2020-03-15] MEDS: HYDROmorphone 1 MG/ML SYRINGE IV PRN ×5 (00:55→23:21)
[2020-03-15] MEDS: IPRATROPIUM/ALBUTEROL 3 ML AMPUL.NEB NEB SCH ×4 (00:56→19:14)
[2020-03-15] MEDS: CEFEPIME 1 GM VIAL IV SCH ×3 (05:32→20:07)
[2020-03-15] MEDS: 0.9 % SODIUM CHLORIDE 10 ML SYRINGE IV SCH ×3 (05:32→20:08)
[2020-03-15 06:38] LABS: Basophils # (Auto) 0.02 K/mcL (0.00-0.30); Basophils % (Auto) 0.2 % (0.0-2.0); Eosinophils # (Auto) 0.09 K/mcL (0.00-0.70); Eosinophils % (Auto) 0.8 % (0.0-7.0); Granulocytes % (Auto) 75.2 % (38.0-78.0); Hematocrit 33.1 % (34.1-44.9); Lymphocytes # (Auto) 1.37 K/mcL (1.50-4.80); Lymphocytes % (Auto) 12.9 % (15.5-49.0); Mean Cell Volume 95.1 fL (80.0-100.0); Mean Corpuscular HGB Conc 30.2 g/dL (31.0-36.0); Mean Platelet Volume 9.5 fL (7.4-10.4); Monocytes # (Auto) 1.15 K/mcL (0.10-0.90); Monocytes % (Auto) 10.9 % (1.0-12.0); Platelet Count 217 K/mcL (140-440); RBC 3.48 M/mcL (3.59-5.38); Red Cell Distribution Width 13.5 % (11.5-14.5); WBC 10.6 K/mcL (4.50-11.00)
[2020-03-15 06:45] LABS: ALT/SGPT 19 U/l (0-40); AST/SGOT 16 U/l (0-37); Albumin 2.9 gm/dL (3.2-5.2); Albumin/Globulin Ratio 1.2 (1.0-2.3); Alkaline Phosphatase 37 U/L (39-117); Bilirubin,Direct 0.3 mg/dL (0.0-0.3); Bilirubin,Total 0.7 mg/dL (0.0-1.0); Calcium 8.9 mg/dl (8.6-10.4); Carbon Dioxide 21 mmol/L (22-30); Chloride 105 mmol/L (96-108); Globulin 2.4 gm/dL (2.2-3.7); Glomerular Filtration Rate 84; Glucose 161 mg/dL (70-105); Lactate Dehydrogenase 142 U/L (94-250); Triglycerides 116 mg/dl (<150); Uric Acid 6.9 mg/dL (2.5-8.0)
[2020-03-15 06:49] LABS: Blood Urea Nitrogen 17 mg/dl (8-23); Phosphorous 2.1 mg/dL (2.7-4.5)
[2020-03-15] MEDS: INSULIN LISPRO 1 UNIT/0.01 ML UNIT SQ SCH ×4 (07:44→20:08)
[2020-03-15] MEDS: metFORMIN 500 MG TABLET PO SCH ×2 (07:45→17:48)
[2020-03-15] MEDS ORDERED: POTASSIUM PHOSPHATE 40 MEQ in DEXTROSE 5% IN WATER 500 ML IV ONE (08:41)
[2020-03-15] MEDS: FAMOTIDINE 20 MG TABLET PO SCH ×2 (08:59→20:07)
[2020-03-15] MEDS: DOCUSATE SODIUM 100 MG CAPSULE PO SCH ×2 (08:59→20:07)
[2020-03-15] MEDS: amLODIPine 10 MG TABLET PO SCH (08:59)
[2020-03-15] MEDS: LISINOPRIL 20 MG TABLET PO SCH ×2 (08:59→20:07)
[2020-03-15] MEDS: VANCOMYCIN 1,000 MG in 0.9 % SODIUM CHLORIDE 250 ML IV SCH ×2 (09:00→20:07)
--- NOTE | 2020-03-15 14:37 | General Surgery Progress Note ---
Subjective Patient reports: feels better, pain is less, tolerating a regular diet, no flatus, no bowel movement, afebrile Narrative: Note initiated : 03/15/20 at 2:35 pm Service Date, if different from initiated Date: [] Patient: Genna Gong 79 y/o F admitted on 03/12/20 for Incisional Hernia Repair with Mesh. Chief Complaint: [patient is significantly improved. She has much clear upper and lower airway and rhonchi and tubular breath sounds are clear to she states that she is breathing much better. She still has not passed gas yet and is complaining of constipation. White count 10.6, hemoglobin 10, hematocrit 33.1, potassium 2.8, BUN 17, creatinine 0.7, phosphorus 2.1.] Objective Temp Pulse Resp BP Pulse Ox 98.9 F 100 H 20 130/68 100 03/15/20 12:00 03/15/20 13:30 03/15/20 13:30 03/15/20 12:00 03/15/20 12:00 - Additional Data Intake & Output - Last 24 hours: Intake & Output 03/13/20 03/14/20 03/15/20 03/16/20 05:59 05:59 05:59 05:59 Intake Total 3720 4140 1785 360 Output Total 2085 2542 2710 Balance 1635 1598 -925 360 Weight 194 lb 8 oz 195 lb 200 lb 8 oz - General physical appearance well developed, well nourished, no distress - Eyes PERRL, normal ocular movement - ENT normal pinna, normal nares, normal mucosa, no congestion, decreased hearing - Neck no masses, no bruits, trachea midline, no lymphadenopathy, no venous distension - Respiratory normal expansion, normal respiratory effort, clear to auscultation, other (no rales rhonchi or wheezes) - Cardiovascular Cardiovascular exam: Present: normal rate and rhythm, RRR, +S1, +S2. Absent: JVD, tachycardia - Abdomen tender (mild incisional tenderness; mild distention; good active bowel sounds; PATTI drainage is serosanguineous), bowel sounds (present), surgical scars (none), masses (none) - Integumentary no rash, no growths, no abnormal pigmentation - Neurologic normal coordination, normal sensation - Musculoskeletal normal gait, normal posture - Psychiatric oriented to time, oriented to person, oriented to place, speech is normal, memory intact - Labs 03/15/20 04:53 03/15/20 04:53 Diabetes panel 03/15/20 Range/Units 04:53 Sodium 136 (133-145) mmol/L Potassium 2.8 L* (3.3-5.1) mmol/L Chloride 105 (96-108) mmol/L Carbon Dioxide 21 L (22-30) mmol/L BUN 17 (8-23) mg/dl Creatinine 0.7 (0.6-1.1) mg/dl Glucose 161 H (70-105) mg/dL Calcium 8.9 (8.6-10.4) mg/dl AST 16 (0-37) U/l ALT 19 (0-40) U/l Alkaline Phosphatase 37 L (39-117) U/L Total Protein 5.3 L (5.9-8.4) gm/dL Albumin 2.9 L (3.2-5.2) gm/dL Triglycerides 116 (<150) mg/dl Calcium panel 03/15/20 Range/Units 04:53 Calcium 8.9 (8.6-10.4) mg/dl Phosphorus 2.1 L (2.7-4.5) mg/dL Albumin 2.9 L (3.2-5.2) gm/dL Pituitary panel 03/15/20 Range/Units 04:53 Sodium 136 (133-145) mmol/L Potassium 2.8 L* (3.3-5.1) mmol/L Chloride 105 (96-108) mmol/L Carbon Dioxide 21 L (22-30) mmol/L BUN 17 (8-23) mg/dl Creatinine 0.7 (0.6-1.1) mg/dl Glucose 161 H (70-105) mg/dL Calcium 8.9 (8.6-10.4) mg/dl Adrenal panel 03/15/20 Range/Units 04:53 Sodium 136 (133-145) mmol/L Potassium 2.8 L* (3.3-5.1) mmol/L Chloride 105 (96-108) mmol/L Carbon Dioxide 21 L (22-30) mmol/L BUN 17 (8-23) mg/dl Creatinine 0.7 (0.6-1.1) mg/dl Glucose 161 H (70-105) mg/dL Calcium 8.9 (8.6-10.4) mg/dl Total Bilirubin 0.7 (0.0-1.0) mg/dL AST 16 (0-37) U/l ALT 19 (0-40) U/l Alkaline Phosphatase 37 L (39-117) U/L Total Protein 5.3 L (5.9-8.4) gm/dL Albumin 2.9 L (3.2-5.2) gm/dL Assessment and Plan (1) Incisional hernia of anterior abdominal wall without obstruction or gangrene Status: Acute Assessment and plan: Patient is clinically improved except for decreased intestinal function. We'll add milk of magnesia daily until she has bowel movement Current Visit: Yes (2) Diabetes mellitus Status: Chronic Current Visit: No - Time Spent With Patient Total time spent is greater than 50% in coordination of care (as documented) at patient's floor/unit and/or counseling patient:
[2020-03-15] MEDS: MAGNESIUM HYDROXIDE 30 ML ORAL.SUSP PO SCH ×2 (14:59→18:56)
[2020-03-15] MEDS: POTASSIUM CHLORIDE 20 MEQ TABLET PO SCH (17:48)
[2020-03-15] MEDS: SENNOSIDES 1 TABLET PO SCH (20:07)
[2020-03-16] MEDS: IPRATROPIUM/ALBUTEROL 3 ML AMPUL.NEB NEB SCH ×4 (01:24→19:07)
[2020-03-16] MEDS: HYDROmorphone 1 MG/ML SYRINGE IV PRN ×3 (01:34→09:00)
[2020-03-16] MEDS: 0.9 % SODIUM CHLORIDE 10 ML SYRINGE IV SCH ×3 (04:31→22:24)
[2020-03-16] MEDS: CEFEPIME 1 GM VIAL IV SCH ×3 (05:52→22:24)
[2020-03-16 06:43] LABS: Basophils # (Auto) 0.02 K/mcL (0.00-0.30); Basophils % (Auto) 0.2 % (0.0-2.0); Eosinophils # (Auto) 0.18 K/mcL (0.00-0.70); Eosinophils % (Auto) 1.7 % (0.0-7.0); Granulocytes % (Auto) 68.5 % (38.0-78.0); Hematocrit 34.5 % (34.1-44.9); Hemoglobin 10.7 g/dL (11.2-15.7); Lymphocytes # (Auto) 1.73 K/mcL (1.50-4.80); Lymphocytes % (Auto) 16.3 % (15.5-49.0); Mean Platelet Volume 9.4 fL (7.4-10.4); Monocytes # (Auto) 1.41 K/mcL (0.10-0.90); Monocytes % (Auto) 13.3 % (1.0-12.0); Platelet Count 240 K/mcL (140-440); RBC 3.75 M/mcL (3.59-5.38); Red Cell Distribution Width 13.5 % (11.5-14.5); WBC 10.6 K/mcL (4.50-11.00)
[2020-03-16 06:52] LABS: ALT/SGPT 22 U/l (0-40); AST/SGOT 16 U/l (0-37); Albumin 3.2 gm/dL (3.2-5.2); Albumin/Globulin Ratio 1.1 (1.0-2.3); Alkaline Phosphatase 46 U/L (39-117); Bilirubin,Direct 0.3 mg/dL (0.0-0.3); Bilirubin,Total 0.8 mg/dL (0.0-1.0); Blood Urea Nitrogen 16 mg/dl (8-23); Calcium 9.6 mg/dl (8.6-10.4); Chloride 100 mmol/L (96-108); Globulin 2.9 gm/dL (2.2-3.7); Glomerular Filtration Rate 71; Glucose 169 mg/dL (70-105); Lactate Dehydrogenase 149 U/L (94-250); Triglycerides 132 mg/dl (<150); Uric Acid 7.2 mg/dL (2.5-8.0)
[2020-03-16 06:56] LABS: Carbon Dioxide 27 mmol/L (22-30); Phosphorous 2.1 mg/dL (2.7-4.5)
[2020-03-16] MEDS: INSULIN LISPRO 1 UNIT/0.01 ML UNIT SQ SCH ×4 (08:24→20:26)
[2020-03-16] MEDS: metFORMIN 500 MG TABLET PO SCH ×2 (08:51→17:09)
[2020-03-16] MEDS: DOCUSATE SODIUM 100 MG CAPSULE PO SCH ×2 (08:51→20:17)
[2020-03-16] MEDS: FAMOTIDINE 20 MG TABLET PO SCH ×2 (08:51→20:18)
[2020-03-16] MEDS: VANCOMYCIN 1,000 MG in 0.9 % SODIUM CHLORIDE 250 ML IV SCH ×2 (08:51→20:17)
[2020-03-16] MEDS: LISINOPRIL 20 MG TABLET PO SCH ×2 (08:51→20:18)
[2020-03-16] MEDS: POTASSIUM CHLORIDE 20 MEQ TABLET PO SCH ×2 (08:51→17:09)
[2020-03-16] MEDS: amLODIPine 10 MG TABLET PO SCH (08:51)
[2020-03-16] MEDS: HYDROCODONE/APAP 7.5/325MG TABLET PO SCH ×3 (13:47→20:17)
[2020-03-16] MEDS ORDERED: POTASSIUM PHOSPHATE 40 MEQ in DEXTROSE 5% IN WATER 500 ML IV ONE (14:12)
--- NOTE | 2020-03-16 14:15 | General Surgery Progress Note ---
Subjective Patient reports: still having pain, no flatus, no bowel movement, afebrile Narrative: Note initiated : 03/16/20 at 2:13 pm Service Date, if different from initiated Date: [] Patient: Genna Gong 79 y/o F admitted on 03/12/20 for Incisional Hernia Repair with Mesh. Chief Complaint: [patient is having significant abdominal crampy pain. She has not had flatus or bowel movement so far. She received milk of magnesia orally earlier today. White blood count 10.6, hemoglobin 10.7, hematocrit 34.5, potas sium 3.5, BUN 16, creatinine 0.8, phosphorus 2.1.] Objective Temp Pulse Resp BP Pulse Ox 97.7 F 103 H 22 125/61 96 03/16/20 12:00 03/16/20 13:35 03/16/20 13:35 03/16/20 12:00 03/16/20 12:00 - Additional Data Intake & Output - Last 24 hours: Intake & Output 03/14/20 03/15/20 03/16/20 03/17/20 05:59 05:59 05:59 05:59 Intake Total 4140 1785 3599.0909 250 Output Total 2542 2710 1235 1 Balance 1598 -925 2364.0909 249 Weight 195 lb 200 lb 8 oz 198 lb - General physical appearance well developed, well nourished, moderate distress, moderate pain, obese - Eyes PERRL, normal ocular movement - ENT normal pinna, normal nares, normal mucosa, no hearing loss, no congestion - Neck no masses, no bruits, trachea midline, no lymphadenopathy, no venous distension - Respiratory normal expansion, normal respiratory effort, clear to auscultation - Cardiovascular Cardiovascular exam: Present: normal rate and rhythm, RRR, +S1, +S2. Absent: tachycardia - Abdomen tender ( moderate tenderness throughout abdomen), bowel sounds ( hypoactive bowel sounds), surgical scars ( surgical scar looks unremarkable), distended (diffusely distended and tympanitic) - Integumentary no rash, no growths, no abnormal pigmentation - Neurologic normal coordination, normal sensation - Musculoskeletal normal gait, normal posture - Psychiatric oriented to time, oriented to person, oriented to place, speech is normal, memory intact - Labs 03/16/20 05:08 03/16/20 05:08 Diabetes panel 03/16/20 Range/Units 05:08 Sodium 139 (133-145) mmol/L Potassium 3.5 (3.3-5.1) mmol/L Chloride 100 (96-108) mmol/L Carbon Dioxide 27 (22-30) mmol/L BUN 16 (8-23) mg/dl Creatinine 0.8 (0.6-1.1) mg/dl Glucose 169 H (70-105) mg/dL Calcium 9.6 (8.6-10.4) mg/dl AST 16 (0-37) U/l ALT 22 (0-40) U/l Alkaline Phosphatase 46 (39-117) U/L Total Protein 6.1 (5.9-8.4) gm/dL Albumin 3.2 (3.2-5.2) gm/dL Triglycerides 132 (<150) mg/dl Calcium panel 03/16/20 Range/Units 05:08 Calcium 9.6 (8.6-10.4) mg/dl Phosphorus 2.1 L (2.7-4.5) mg/dL Albumin 3.2 (3.2-5.2) gm/dL Pituitary panel 03/16/20 Range/Units 05:08 Sodium 139 (133-145) mmol/L Potassium 3.5 (3.3-5.1) mmol/L Chloride 100 (96-108) mmol/L Carbon Dioxide 27 (22-30) mmol/L BUN 16 (8-23) mg/dl Creatinine 0.8 (0.6-1.1) mg/dl Glucose 169 H (70-105) mg/dL Calcium 9.6 (8.6-10.4) mg/dl Adrenal panel 03/16/20 Range/Units 05:08 Sodium 139 (133-145) mmol/L Potassium 3.5 (3.3-5.1) mmol/L Chloride 100 (96-108) mmol/L Carbon Dioxide 27 (22-30) mmol/L BUN 16 (8-23) mg/dl Creatinine 0.8 (0.6-1.1) mg/dl Glucose 169 H (70-105) mg/dL Calcium 9.6 (8.6-10.4) mg/dl Total Bilirubin 0.8 (0.0-1.0) mg/dL AST 16 (0-37) U/l ALT 22 (0-40) U/l Alkaline Phosphatase 46 (39-117) U/L Total Protein 6.1 (5.9-8.4) gm/dL Albumin 3.2 (3.2-5.2) gm/dL Assessment and Plan (1) Incisional hernia of anterior abdominal wall without obstruction or gangrene Status: Acute Assessment and plan: Patient is clinically improved except for decreased intestinal function. Dulcolax suppositories daily Current Visit: Yes (2) Diabetes mellitus Status: Chronic Current Visit: No - Time Spent With Patient Total time spent is greater than 50% in coordination of care (as documented) at patient's floor/unit and/or counseling patient:
[2020-03-16] MEDS: BISACODYL 10 MG SUPP.RECT PR SCH (14:33)
[2020-03-16] MEDS: SENNOSIDES 1 TABLET PO SCH (20:18)
[2020-03-17] MEDS: IPRATROPIUM/ALBUTEROL 3 ML AMPUL.NEB NEB SCH ×3 (01:44→13:10)
[2020-03-17] MEDS: HYDROmorphone 1 MG/ML SYRINGE IV PRN ×2 (02:49→11:32)
[2020-03-17] MEDS: CEFEPIME 1 GM VIAL IV SCH ×2 (05:34→13:15)
[2020-03-17] MEDS: 0.9 % SODIUM CHLORIDE 10 ML SYRINGE IV SCH ×2 (05:34→13:16)
[2020-03-17 07:06] LABS: Basophils # (Auto) 0.04 K/mcL (0.00-0.30); Basophils % (Auto) 0.4 % (0.0-2.0); Eosinophils # (Auto) 0.35 K/mcL (0.00-0.70); Eosinophils % (Auto) 3.6 % (0.0-7.0); Granulocytes % (Auto) 64.2 % (38.0-78.0); Hemoglobin 9.3 g/dL (11.2-15.7); Lymphocytes # (Auto) 1.92 K/mcL (1.50-4.80); Lymphocytes % (Auto) 19.5 % (15.5-49.0); Mean Cell Volume 94.8 fL (80.0-100.0); Mean Platelet Volume 9.4 fL (7.4-10.4); Monocytes # (Auto) 1.21 K/mcL (0.10-0.90); Monocytes % (Auto) 12.3 % (1.0-12.0); Platelet Count 219 K/mcL (140-440); RBC 3.27 M/mcL (3.59-5.38); Red Cell Distribution Width 13.7 % (11.5-14.5); WBC 9.8 K/mcL (4.50-11.00)
[2020-03-17] MEDS: INSULIN LISPRO 1 UNIT/0.01 ML UNIT SQ SCH ×2 (07:14→11:32)
[2020-03-17 07:27] LABS: ALT/SGPT 30 U/l (0-40); AST/SGOT 22 U/l (0-37); Albumin 2.9 gm/dL (3.2-5.2); Albumin/Globulin Ratio 1.3 (1.0-2.3); Alkaline Phosphatase 50 U/L (39-117); Bilirubin,Direct 0.3 mg/dL (0.0-0.3); Bilirubin,Total 0.6 mg/dL (0.0-1.0); Calcium 8.9 mg/dl (8.6-10.4); Carbon Dioxide 24 mmol/L (22-30); Chloride 107 mmol/L (96-108); Globulin 2.3 gm/dL (2.2-3.7); Glomerular Filtration Rate 62; Glucose 132 mg/dL (70-105); Lactate Dehydrogenase 155 U/L (94-250); Triglycerides 105 mg/dl (<150); Uric Acid 7.2 mg/dL (2.5-8.0)
[2020-03-17 07:51] LABS: Blood Urea Nitrogen 27 mg/dl (8-23); Phosphorous 2.8 mg/dL (2.7-4.5)
[2020-03-17] MEDS: amLODIPine 10 MG TABLET PO SCH (08:07)
[2020-03-17] MEDS: POTASSIUM CHLORIDE 20 MEQ TABLET PO SCH (08:07)
[2020-03-17] MEDS: DOCUSATE SODIUM 100 MG CAPSULE PO SCH (08:07)
[2020-03-17] MEDS: metFORMIN 500 MG TABLET PO SCH (08:07)
[2020-03-17] MEDS: LISINOPRIL 20 MG TABLET PO SCH (08:08)
[2020-03-17] MEDS: HYDROCODONE/APAP 7.5/325MG TABLET PO SCH ×2 (08:08→12:32)
[2020-03-17] MEDS: FAMOTIDINE 20 MG TABLET PO SCH (08:08)
[2020-03-17] MEDS: VANCOMYCIN 1,000 MG in 0.9 % SODIUM CHLORIDE 250 ML IV SCH (08:15)
[2020-03-17] MEDS: BISACODYL 10 MG SUPP.RECT PR SCH (08:21)
--- NOTE | 2020-03-17 12:18 | Discharge Summary ---
Providers - Providers Patient information: Note initiated : 03/17/20 at 12:15 pm Service Date, if different from initiated Date: [] Patient: Genna Gong 79 y/o F admitted on 03/12/20 for Incisional Hernia Repair with Mesh. Chief Complaint: [] Date of admission: 03/12/20 Discharge date: 03/17/20 Attending physician: Zonia Schroeder Hospitalization Hospital Course: 79-year-old female who was admitted on 12 March after repair of an incisional hernia. She had primary repair of the hernia with mesh graft and separation of components. She was admitted postoperatively. She had decreased respiratory effort because of the abdominal binder and the tightness of the repair. She developed increased rhonchi with hypoventilation. She was treated with increased pulmonary toilet since our care and DuoNeb's. She was also encouraged to be out of bed. She did well and her lungs cleared. She complained of constipation and was treated with milk of magnesia and Dulcolax suppositories. She had a positive response to this and had 2 large bowel movements. The patient is now stable for discharge home. She however is too weak to manage with activities of daily living so she will be transferred to rehabilitation for aggressive physical and occupational therapy and continued nursing care. Patient will be seen in the office in 2 weeks. 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 Reason for admission: postoperative care status post incisional hernia repair Pertinent studies/significant findings: None Complications: 9 Exam Temp Pulse Resp BP Pulse Ox 98.9 F 92 H 20 110/54 93 03/17/20 11:42 03/17/20 11:42 03/17/20 11:42 03/17/20 11:42 03/17/20 11:42 - General physical appearance well developed, well nourished, no distress, moderate pain, chronically ill - Eyes PERRL, normal ocular movement - ENT normal pinna, normal nares, normal mucosa, no hearing loss, no congestion - Head Head exam IM: Present: atraumatic, normal inspection, normocephalic - Neck no masses, no bruits, trachea midline, no lymphadenopathy, no venous distension - Cardiovascular Cardiovascular exam IM: Present: normal rate and rhythm, RRR, +S1, +S2. Absent: JVD, tachycardia - Respiratory normal expansion, normal respiratory effort, clear to auscultation, other (lungs are clear and rhonchi rales have resolved) - Abdomen Abdomen: Present: soft, tender (mild tenderness of incision; active bowel sounds; PATTI drainage with serosanguineous drainage), bowel sounds Hernia: Present: none - Genitourinary Present: normal external genitalia - Integumentary Present: no rash, no growths, no abnormal pigmentation - Neurologic Present: normal coordination, normal sensation - Musculoskeletal Present: normal gait, normal posture - Psychiatric Present: oriented to time, oriented to person, oriented to place, speech is normal, memory intact Discharge Plan - Patient/Caregiver Discharge Instructions Activity: as per physical therapy, increase activity as tolerated Diet: Regular Diet Additional Instructions: INSPIRO-care every 2 hours while awake EMPTY PATTI drains once twice daily as needed Follow-up in the office in 2 weeks Prescriptions: HYDROcodone/APAP 10/325MG [Newnan 10-325Mg] 1 tab PO Q4H PRN #42 tab PRN Reason: Pain Transmission Status: Received by [facility] #[id number] - Follow up Plan Follow up with: Zonia Schroeder MD [Physician] - 03/12/20 7:30 am Disposition: Home, Self-Care Care Plan Goals: This discharge packet is provided to you to help keep you informed about your care. We want to ensure you get everything you need when you go home. You will also be receiving a call from us in a few days to follow up with you and see how you are doing since your discharge. This gives us a chance to listen to any concerns you maybe experiencing since you were discharged or any additional needs you may have, as well as providing us feedback on your care experience. We strive to always provide excellent care and thank you for your feedback and for choosing [facility]. Prognosis: Good Rehab Potential: Good I certify that the patient requires SNF services.: No Overall status at discharge: patient is progressing back to baseline Pending Studies Resuscitation Status Full Code Diet GI Soft/Transitional Start Sat Isauro 6 1341 Hydrocodone Bitart/Acetaminophen (Newnan 7.5/325mg) 1 tab PO QID JOHN; Protocol Last Admin: 03/17/20 08:08 Dose: 1 tab Documented by: Admin: 03/16/20 20:17 Dose: 1 tab Documented by: Admin: 03/16/20 17:09 Dose: 1 tab Documented by: Admin: 03/16/20 13:47 Dose: 1 tab Documented by: JESSE Albuterol/Ipratropium (Duoneb) 3 ml NEB Q6HRT [facility] Last Admin: 03/17/20 07:43 Dose: 3 ml Documented by: Admin: 03/17/20 01:44 Dose: 3 ml Documented by: Admin: 03/16/20 19:07 Dose: 3 ml Documented by: Admin: 03/16/20 13:35 Dose: 3 ml Documented by: Admin: 03/16/20 07:12 Dose: 3 ml Documented by: Admin: 03/16/20 01:24 Dose: 3 ml Documented by: Admin: 03/15/20 19:14 Dose: 3 ml Documented by: Admin: 03/15/20 13:31 Dose: 3 ml Documented by: Admin: 03/15/20 07:10 Dose: 3 ml Documented by: Admin: 03/15/20 00:56 Dose: 3 ml Documented by: Admin: 03/14/20 17:33 Dose: 3 ml Documented by: DENIZ Amlodipine Besylate (Norvasc) 10 mg PO DAILY [facility] Last Admin: 03/17/20 08:07 Dose: 10 mg Documented by: Admin: 03/16/20 08:51 Dose: 10 mg Documented by: Admin: 03/15/20 08:59 Dose: 10 mg Documented by: Admin: 03/14/20 09:00 Dose: 10 mg Documented by: Admin: 03/13/20 08:31 Dose: 10 mg Documented by: PRIYA Bisacodyl (Dulcolax) 10 mg [place] DAILY [facility] Last Admin: 03/17/20 08:21 Dose: 10 mg Documented by: Admin: 03/16/20 14:33 Dose: 10 mg Documented by: JESSE Cefepime HCl (Maxipime) 1 gm IV Q8H [facility]; Protocol Last Admin: 03/17/20 05:34 Dose: 1 gm Documented by: Admin: 03/16/20 22:24 Dose: 1 gm Documented by: Admin: 03/16/20 14:33 Dose: 1 gm Documented by: Admin: 03/16/20 05:52 Dose: 1 gm Documented by: Admin: 03/15/20 20:07 Dose: 1 gm Documented by: Admin: 03/15/20 14:59 Dose: 1 gm Documented by: Admin: 03/15/20 05:32 Dose: 1 gm Documented by: Admin: 03/14/20 21:46 Dose: 1 gm Documented by: Admin: 03/14/20 13:05 Dose: 1 gm Documented by: Admin: 03/14/20 05:21 Dose: 1 gm Documented by: Admin: 03/13/20 23:01 Dose: 1 gm Documented by: Admin: 03/13/20 13:25 Dose: 1 gm Documented by: Admin: 03/13/20 05:49 Dose: 1 gm Documented by: Admin: 03/12/20 23:20 Dose: 1 gm Documented by: Admin: 03/12/20 12:41 Dose: 1 gm Documented by: HWIDENER Diagnostic Test (Pha) (Accu-Chek) 1 each FS ACHS JOHN Last Admin: 03/17/20 11:27 Dose: 1 each Documented by: Admin: 03/17/20 07:14 Dose: 1 each Documented by: Admin: 03/16/20 20:25 Dose: 1 each Documented by: Admin: 03/16/20 17:10 Dose: 1 each Documented by: Admin: 03/16/20 11:59 Dose: 1 each Documented by: Admin: 03/16/20 08:25 Dose: 1 each Documented by: Admin: 03/15/20 20:06 Dose: 1 each Documented by: Admin: 03/15/20 17:32 Dose: 1 each Documented by: Admin: 03/15/20 11:43 Dose: 1 each Documented by: Admin: 03/15/20 07:44 Dose: 1 each Documented by: Admin: 03/14/20 20:20 Dose: 1 each Documented by: Admin: 03/14/20 17:24 Dose: 1 each Documented by: PRIYA Docusate Sodium (Colace) 100 mg PO BID [facility] Last Admin: 03/17/20 08:07 Dose: 100 mg Documented by: Admin: 03/16/20 20:17 Dose: 100 mg Documented by: Admin: 03/16/20 08:51 Dose: 100 mg Documented by: Admin: 03/15/20 20:07 Dose: 100 mg Documented by: Admin: 03/15/20 08:59 Dose: 100 mg Documented by: Admin: 03/14/20 20:19 Dose: 100 mg Documented by: Admin: 03/14/20 09:00 Dose: 100 mg Documented by: Admin: 03/13/20 21:31 Dose: 100 mg Documented by: Admin: 03/13/20 08:31 Dose: 100 mg Documented by: Admin: 03/12/20 20:15 Dose: 100 mg Documented by: ALONSO Famotidine (Pepcid) 20 mg PO BID [facility] Admin: 03/17/20 08:08 Dose: 20 mg Documented by: Admin: 03/16/20 20:18 Dose: 20 mg Documented by: Admin: 03/16/20 08:51 Dose: 20 mg Documented by: Admin: 03/15/20 20:07 Dose: 20 mg Documented by: Admin: 03/15/20 08:59 Dose: 20 mg Documented by: Admin: 03/14/20 20:20 Dose: 20 mg Documented by: Admin: 03/14/20 09:00 Dose: 20 mg Documented by: Admin: 03/13/20 21:30 Dose: 20 mg Documented by: Admin: 03/13/20 08:30 Dose: 20 mg Documented by: Admin: 03/12/20 20:15 Dose: 20 mg Documented by: ALONSO Hydromorphone HCl (Dilaudid) 1 mg IV Q2HP PRN; Protocol PRN Reason: Per Pain Protocol Last Admin: 03/17/20 11:32 Dose: 1 mg Documented by: Admin: 03/17/20 02:49 Dose: 1 mg Documented by: Admin: 03/16/20 09:00 Dose: 1 mg Documented by: Admin: 03/16/20 04:31 Dose: 1 mg Documented by: Admin: 03/16/20 01:34 Dose: 1 mg Documented by: Admin: 03/15/20 23:21 Dose: 1 mg Documented by: Admin: 03/15/20 17:56 Dose: 1 mg Documented by: Admin: 03/15/20 06:04 Dose: 1 mg Documented by: Admin: 03/15/20 04:00 Dose: 1 mg Documented by: Admin: 03/15/20 00:55 Dose: 1 mg Documented by: Admin: 03/14/20 22:31 Dose: 1 mg Documented by: Admin: 03/14/20 18:37 Dose: 1 mg Documented by: Admin: 03/14/20 13:05 Dose: 1 mg Documented by: Admin: 03/14/20 02:42 Dose: 1 mg Documented by: Admin: 03/13/20 23:42 Dose: 1 mg Documented by: Admin: 03/13/20 21:39 Dose: 1 mg Documented by: Admin: 03/13/20 18:38 Dose: 1 mg Documented by: Admin: 03/13/20 13:25 Dose: 1 mg Documented by: Admin: 03/13/20 08:27 Dose: 1 mg Documented by: Admin: 03/13/20 06:02 Dose: 1 mg Documented by: Admin: 03/13/20 03:49 Dose: 1 mg Documented by: Admin: 03/13/20 01:48 Dose: 1 mg Documented by: Admin: 03/12/20 23:27 Dose: 1 mg Documented by: Admin: 03/12/20 20:14 Dose: 1 mg Documented by: Admin: 03/12/20 14:21 Dose: 1 mg Documented by: SIMONAIDENEMoriah Admin: 03/12/20 11:16 Dose: 1 mg Documented by: SIMONAIDENEMoriah Vancomycin HCl 1,000 mg/ (Sodium Chloride) 250 mls @ 250 mls/hr IV Q12H JOHN; Protocol Last Infusion: 03/17/20 09:35 Dose: 0 mls/hr Documented by: Admin: 03/17/20 08:15 Dose: 250 mls/hr Documented by: Infusion: 03/16/20 21:20 Dose: 0 mls/hr Documented by: Admin: 03/16/20 20:17 Dose: 250 mls/hr Documented by: Infusion: 03/16/20 09:51 Dose: 0 mls/hr Documented by: Admin: 03/16/20 08:51 Dose: 250 mls/hr Documented by: Infusion: 03/15/20 21:10 Dose: 0 mls/hr Documented by: Admin: 03/15/20 20:07 Dose: 250 mls/hr Documented by: Infusion: 03/15/20 10:00 Dose: 250 mls/hr Documented by: Admin: 03/15/20 09:00 Dose: 250 mls/hr Documented by: Infusion: 03/14/20 21:30 Dose: 0 mls/hr Documented by: Admin: 03/14/20 20:22 Dose: 250 mls/hr Documented by: Infusion: 03/14/20 10:02 Dose: 0 mls/hr Documented by: Admin: 03/14/20 09:02 Dose: 250 mls/hr Documented by: Infusion: 03/13/20 22:33 Dose: 0 mls/hr Documented by: Admin: 03/13/20 21:29 Dose: 250 mls/hr Documented by: Infusion: 03/13/20 10:36 Dose: 250 mls/hr Documented by: Admin: 03/13/20 09:36 Dose: 250 mls/hr Documented by: Infusion: 03/12/20 21:15 Dose: 250 mls/hr Documented by: Admin: 03/12/20 20:15 Dose: 250 mls/hr Documented by: ALONSO Insulin Human Lispro (Humalog) 0 unit SQ ACHS [facility]; Protocol Last Admin: 03/17/20 11:32 Dose: 6 units Documented by: Admin: 03/17/20 07:14 Dose: Not Given Documented by: Admin: 03/16/20 20:26 Dose: 6 units Documented by: Admin: 03/16/20 17:49 Dose: 4 units Documented by: Admin: 03/16/20 11:59 Dose: 2 units Documented by: Admin: 03/16/20 08:24 Dose: 2 units Documented by: Admin: 03/15/20 20:08 Dose: 4 units Documented by: Admin: 03/15/20 17:32 Dose: Not Given Documented by: Admin: 03/15/20 11:43 Dose: 2 units Documented by: Admin: 03/15/20 07:44 Dose: 4 units Documented by: Admin: 03/14/20 20:53 Dose: 6 units Documented by: Admin: 03/14/20 17:24 Dose: Not Given Documented by: PRIYA Lisinopril (Zestril) 20 mg PO BID [facility] Last Admin: 03/17/20 08:08 Dose: 20 mg Documented by: Admin: 03/16/20 20:18 Dose: 20 mg Documented by: Admin: 03/16/20 08:51 Dose: 20 mg Documented by: Admin: 03/15/20 20:07 Dose: 20 mg Documented by: Admin: 03/15/20 08:59 Dose: 20 mg Documented by: Admin: 03/14/20 20:20 Dose: 20 mg Documented by: Admin: 03/14/20 09:01 Dose: 20 mg Documented by: Admin: 03/13/20 21:39 Dose: 20 mg Documented by: Admin: 03/13/20 08:31 Dose: 20 mg Documented by: Admin: 03/12/20 20:15 Dose: 20 mg Documented by: ALONSO Metformin HCl (Glucophage) 500 mg PO BIDCC [facility] Last Admin: 03/17/20 08:07 Dose: 500 mg Documented by: Admin: 03/16/20 17:09 Dose: 500 mg Documented by: Admin: 03/16/20 08:51 Dose: 500 mg Documented by: Admin: 03/15/20 17:48 Dose: 500 mg Documented by: Admin: 03/15/20 07:45 Dose: 500 mg Documented by: Admin: 03/14/20 17:27 Dose: 500 mg Documented by: Admin: 03/14/20 09:01 Dose: 500 mg Documented by: Admin: 03/13/20 17:02 Dose: 500 mg Documented by: Admin: 03/13/20 08:31 Dose: 500 mg Documented by: Admin: 03/12/20 17:54 Dose: 500 mg Documented by: RENALDO Ondansetron HCl (Zofran) 4 mg IV Q6HP PRN PRN Reason: Nausea And Vomiting Last Admin: 03/13/20 08:27 Dose: 4 mg Documented by: PRIYA Potassium Chloride (Kdur) 40 meq PO BIDCC [facility] Stop: 03/18/20 08:01 Last Admin: 03/17/20 08:07 Dose: 40 meq Documented by: Admin: 03/16/20 17:09 Dose: 40 meq Documented by: Admin: 03/16/20 08:51 Dose: 40 meq Documented by: Admin: 03/15/20 17:48 Dose: 40 meq Documented by: JESSE Vásquez (Senokot) 2 tab PO HS [facility] Last Admin: 03/16/20 20:18 Dose: 2 tab Documented by: Admin: 03/15/20 20:07 Dose: 2 tab Documented by: Admin: 03/14/20 20:19 Dose: 2 tab Documented by: Admin: 03/13/20 21:31 Dose: 2 tab Documented by: Admin: 03/12/20 20:15 Dose: 2 tab Documented by: ALONSO Sodium Chloride (Saline Flush) 10 ml IV Q8 [facility] Last Admin: 03/17/20 05:34 Dose: 10 ml Documented by: Admin: 03/16/20 22:24 Dose: 10 ml Documented by: Admin: 03/16/20 14:33 Dose: 10 ml Documented by: Admin: 03/16/20 04:31 Dose: 10 ml Documented by: Admin: 03/15/20 20:08 Dose: 10 ml Documented by: Admin: 03/15/20 14:59 Dose: 10 ml Documented by: Admin: 03/15/20 05:32 Dose: 10 ml Documented by: Admin: 03/14/20 20:23 Dose: 10 ml Documented by: Admin: 03/14/20 13:05 Dose: 10 ml Documented by: Admin: 03/14/20 05:22 Dose: Not Given Documented by: Admin: 03/13/20 22:33 Dose: Not Given Documented by: Admin: 03/13/20 15:45 Dose: Not Given Documented by: Admin: 03/13/20 05:51 Dose: Not Given Documented by: Admin: 03/12/20 21:11 Dose: Not Given Documented by: Admin: 03/12/20 14:20 Dose: Not Given Documented by: RENALDO Shift Summary 03/17/20 03:31 Shift Summary by Bella Brush Pt is A&Ox3 forgetful at times. IV to left FA SL. Pt is up with one assist to BSC. Inc of several large voids this shift, no c/o bladder discomfort. Pt had large BM on commode past evening. Pt is taking scheduled Newnan for pain and PRN Dilaudid for breakthrough. Pt has agreed to go to SNF on discharge. Midline abdominal incision with almaz and steri strips. PATTI drains x3 with minimal output. Pt is turn Q2 and has heels up in room. SCD on when in bed. Pt has been using call light and is able to make needs known. Will update with verbal report Selected Entries 03/16/20 23:24 Temperature 98.1 F Pulse Rate [Monitor Reading] 89 Blood Pressure [Right Wrist] 119/49 Pulse Oximetry (%) 94 Oxygen Delivery Method Room Air Laboratory Tests 03/13/20 03/15/20 03/15/20 04:43 04:53 04:53 WBC 15.3 H 10.6 Potassium 2.8 L* Phosphorus 2.1 L Magnesium 1.6 03/16/20 03/16/20 05:08 05:08 WBC 10.6 Potassium 3.5 Phosphorus 2.1 L Magnesium 2.3 Initialized on 03/17/20 03:31 - END OF NOTE
--- NOTE | 2020-03-17 14:30 | Operative Note ---
DATE OF OPERATION: 03/12/2020 PREOPERATIVE DIAGNOSIS: Incisional hernia. POSTOPERATIVE DIAGNOSIS: Incisional hernia. PROCEDURE: Incisional hernia repair with mesh. SURGEON: Zonia Schroeder M.D. FINDINGS: Total separation of midline incision from xiphoid to infraumbilical area with retraction of muscle and fascia. DESCRIPTION OF PROCEDURE: Under general anesthesia, the patient's abdomen was prepped and draped in a sterile field. Timeout procedure was carried out as per protocol. Midline incision was made. The hernia sac was entered. Circumferential dissection of the hernia sac was carried out. The contents were reintroduced back into the peritoneal cavity. The muscle and fascia was from the underlying viscera. The subcutaneous fascia was from the overlying muscle and fascia circumferentially, extending laterally to the lateral border of the rectus and superior and inferior to normal viable muscle and fascia. The viscera were protected with [place] visceral retractor. A 15 x 22 oval skirted mesh was placed. It was sutured [id number] to the muscle and fascia using multiple interrupted 0 Prolene sutures. Once they were placed, these were tied to secure the mesh. The visceral retractor was removed near the end and the final sutures were tied. A 10-Divehi Dipak-Small drain was placed over the mesh and the mesh was irrigated with bacitracin solution. The muscle and fascia was closed with interrupted [id number] sutures of #1 Prolene over the mesh. Irrigation was carried out in the subcutaneous tissue and #10 drains were placed on either side and brought out through separate incisions. The subcutaneous tissue was closed over the drains using 2-0 Monocryl. The skin was closed with almaz. Drains were secured with 3-0 nylon. Tegaderm dressings were placed over the incision and dressings were placed around the drains. The patient tolerated the procedure well. She was awakened, transferred to a bed, and taken to the postanesthetic care unit in stable, satisfactory condition. LCS:cherise Job ID: [id number] Doc ID: [id number] Zonia Schroeder M.D.
== END 2020-03-17 14:10 | disposition home or self-care (01) | DRG 354 ==
LOC: MEDSUR 04:54
PROVIDERS: ADMIT Family Medicine Adult Medicine; ATTEND Family Medicine Adult Medicine

== ENCOUNTER 2020-07-08 16:24 | Inpatient (IN) ==
--- NOTE | 2020-07-08 18:11 | XRay Report ---
CLINICAL INFORMATION: dyspnea COMPARISON: 03/14/2020 FINDINGS: Mild cardiomegaly is unchanged. Mediastinum and pulmonary vessels are normal. Moderate infiltrate in the right middle and lower lobe have developed. Small right pleural effusion present. IMPRESSION: Moderate patchy right middle and lower lobe infiltrates and small effusion. Interpreted and Authenticated by: Vikas Whitley 07/08/20
[2020-07-08 18:21] LABS: Basophils # (Auto) 0.05 K/mcL (0.00-0.30); Basophils % (Auto) 0.4 % (0.0-2.0); Eosinophils # (Auto) 0.17 K/mcL (0.00-0.70); Eosinophils % (Auto) 1.2 % (0.0-7.0); Granulocytes % (Auto) 61.3 % (38.0-78.0); Hematocrit 36.7 % (34.1-44.9); Hemoglobin 10.9 g/dL (11.2-15.7); Lymphocytes % (Auto) 25.9 % (15.5-49.0); Mean Cell Volume 93.9 fL (80.0-100.0); Mean Corpuscular HGB Conc 29.7 g/dL (31.0-36.0); Mean Platelet Volume 9.4 fL (7.4-10.4); Monocytes % (Auto) 11.2 % (1.0-12.0); Platelet Count 266 K/mcL (140-440); RBC 3.91 M/mcL (3.59-5.38); Red Cell Distribution Width 12.6 % (11.5-14.5); WBC 14.3 K/mcL (4.50-11.00)
[2020-07-08 18:42] LABS: proBNP 402.6 pg/ml (0-450)
[2020-07-08 18:46] LABS: ALT/SGPT 37 U/l (0-40); AST/SGOT 27 U/l (0-37); Albumin 3.5 gm/dL (3.2-5.2); Alkaline Phosphatase 79 U/L (39-117); Bilirubin,Total 0.8 mg/dL (0.0-1.0); Blood Urea Nitrogen 47 mg/dl (8-23); Calcium 10.1 mg/dl (8.6-10.4); Carbon Dioxide 25 mmol/L (22-30); Chloride 96 mmol/L (96-108); Globulin 3.5 gm/dL (2.2-3.7); Glomerular Filtration Rate 44; Glucose 145 mg/dL (70-105)
--- NOTE | 2020-07-08 19:41 | Emergency Department Note ---
SOB HPI General Chief Complaint: Shortness of Breath/Dyspnea Stated Complaint: Shortness of Breath, Increased Edema Time Seen by Provider: 07/08/20 16:58 Source: patient and family Mode of arrival: wheelchair Limitations: no limitations History of Present Illness HPI Narrative: Narrative: This pleasant 79-year-old female is here accompanied with her . She has been short of breath with activity and has had an increase in bilateral lower extremity edema. She takes metolazone twice a day. She is not having any specific pain. In triage her saturations were 90%. She felt cold yesterday but has not been having fevers chills or sweats. She has not had any sore throat or runny nose. She has had a little bit of a cough and shortness of breath she attributes to "stuff in my throat". Even with sitting she will be a little short of breath. It seems to be worse with walking. Patient has been in and out of the hospital a few times with hernia surgeries x3 with the last one being in the summer of this year and [facility] afterwards. These were either ventral or umbilical hernias and required a significant amount of mesh apparently. Of note is that she takes a narcotic pain pill twice a day chronically for the problems in her low back. Related Data Home Medications Medication Instructions Recorded Confirmed amlodipine 10 mg PO DAILY 11/09/18 07/08/20 enalapril maleate 5 mg PO BID 11/09/18 07/08/20 methocarbamol 500 mg PO TID 11/09/18 07/08/20 potassium chloride 20 mEq 10 meq PO BIDCC 01/06/19 07/08/20 tablet,extended release ondansetron 4 mg SL Q4-6HP PRN 02/12/19 07/08/20 cinnamon bark 1,000 mg PO BID 09/12/19 07/08/20 omega-3 fatty acids-fish oil 1 cap PO QDAY 09/12/19 07/08/20 Lactobacillus acidophilus 1 tab PO BID 12/25/19 07/08/20 metformin 500 mg PO BIDCC 12/25/19 07/08/20 metolazone 10 mg PO DAILY 12/25/19 07/08/20 mirabegron 50 mg PO DAILY 03/12/20 07/08/20 bisacodyl 10 mg rectal suppository 10 mg IA QDAY PRN 03/29/20 04/06/20 glucagon HCl 1 mg solution for 1 mg SUB-Q Q20M PRN 03/29/20 04/06/20 injection magnesium hydroxide 400 mg/5 mL 30 ml PO QDAY PRN ml 03/29/20 04/06/20 oral suspension sodium phosphates 19 gram-7 118 ml IA ONCE 03/29/20 04/06/20 gram/197 mL enema cholecalciferol (vitamin D3) 1,250 1,250 mcg PO ONCE tab 04/06/20 07/08/20 mcg (50,000 unit) tablet Previous Rx's Medication Instructions Recorded hydrocodone-acetaminophen 1 tab PO Q4H PRN #42 tab 03/17/20 Allergies Allergy/AdvReac Type Severity Reaction Status Date / Time No Known Drug Allergies Allergy Verified 04/06/20 08:44 Review of Systems ROS ROS Narrative: Narrative: Occasional constipation 12 system Review of Systems negative except as mentioned above. 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) Diarrhea (Chronic) Nausea and vomiting (Chronic) Left hip pain (Chronic) Hypercalcemia (Chronic) Methicillin susceptible Staphylococcus aureus infection, unspecified site (Chronic) Diabetes mellitus (Chronic) Dementia (Chronic) Acute kidney failure (Chronic) Muscle weakness (Chronic) Difficulty walking (Chronic) Dysphagia (Chronic) Lack of coordination (Chronic) Other specified disorder of skin (Chronic) Urinary retention (Chronic) Gastroenteritis (Chronic) Abdominal pain (Chronic) Creatinine elevation (Chronic) Generalized weakness (Chronic) Cutaneous fistula (Chronic) History of surgical site infection (Chronic) History of hysterectomy (Chronic) Knee cartilage, torn, left (Chronic) Diabetes 1.5, managed as type 2 (Chronic) Diabetic neuropathy (Chronic) Knee effusion, left (Chronic) Left knee injury (Chronic) Edema of left lower extremity (Chronic) Left hip pain (Chronic) Hypokalemia (Chronic) Fracture of rib (Chronic) Acute kidney injury (Chronic) Sepsis (Chronic) Peritoneal cavity free air (Chronic) UTI (urinary tract infection) (Chronic) Perforated abdominal viscus (Chronic) Medical History Acute kidney failure (Chronic) Dementia (Chronic) Diabetes 1.5, managed as type 2 (Chronic) Continue diabetic management as you have at home Diabetes mellitus (Chronic) Diabetic neuropathy (Chronic) Diarrhea (Chronic) Difficulty walking (Chronic) Dysphagia (Chronic) Edema of left lower extremity (Chronic) Hypercalcemia (Chronic) Knee cartilage, torn, left (Chronic) Knee effusion, left (Chronic) Lack of coordination (Chronic) Left hip pain (Chronic) Left hip pain (Chronic) Left knee injury (Chronic) 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) Methicillin susceptible Staphylococcus aureus infection, unspecified site (Chronic) Muscle weakness (Chronic) Nausea and vomiting (Chronic) Nicotine dependence (Chronic) Other specified disorder of skin (Chronic) Urinary retention (Chronic) Surgical History Absence of both cervix and uterus, acquired (Chronic) History of appendectomy (Chronic) History of carpal tunnel surgery (Chronic) History of section (Chronic) History of hysterectomy (Chronic) History of incisional hernia repair (Acute) 03/12/2020 History of laparotomy (Chronic) 11/09/2018-laparotomy with jackie patch with closure of perforated gastric ulcer History of tubal ligation (Chronic) Family History Diabetes mellitus Family/Other Leukemia Family/Other Hypertension Family/Other Social History Smoking Status: Former smoker Alcohol Intake Frequency: does not drink Substance Use: does not use Exam Narrative Narrative: Narrative: General Limitations: no limitations General appearance: Present alert, in no apparent distress, nontoxic and obese; Absent grimacing Head Head: Present atraumatic and normocephalic Eye Eye: Present normal appearance and EOMI ENT ENT: Present normal oropharynx and mucous membranes moist Neck Neck: Present trachea midline; Absent lymphadenopathy and thyromegaly Chest Chest: Present symmetric chest wall rise Respiratory Respiratory: Present normal lung sounds bilaterally and decreased breath sounds (mildly); Absent respiratory distress, rales/crackles, wheezes, stridor, accessory muscle use and prolonged expiratory phase Cardiovascular Cardiovascular: Present regular rate and normal rhythm; Absent systolic murmur and diastolic murmur Adbominal Abdominal: Present soft; Absent distention, tenderness, guarding, rebound, rigidity, organomegaly and mass Extremities Extremities: Present normal capillary refill; Absent pedal edema, pretibial edema, calf tenderness and cyanosis Back Back: Neurological Neurological: Present alert and oriented X3 Psychiatric Psychiatric: Present normal affect, serious, polite and pleasant; Absent depressed, agitated, anxious and poor eye contact Skin Skin: Present warm (WNL) and dry; Absent cyanosis and pallor Course Vital Signs Vital signs: Vital Signs Temperature 99.1 F H 07/08/20 16:25 Pulse Rate 99 H 07/08/20 16:25 Respiratory Rate 24 H 07/08/20 16:25 Blood Pressure 104/77 07/08/20 16:25 Pulse Oximetry (%) 90 07/08/20 16:25 Temperature 98.7 F 07/08/20 17:34 Pulse Rate 91 H 07/08/20 21:48 Respiratory Rate 23 H 07/08/20 21:48 Blood Pressure 136/85 07/08/20 21:48 Pulse Oximetry (%) 96 07/08/20 21:48 MDM MDM Narrative Medical decision making narrative: Narrative: 4:59 PM - 79-year-old with increasing shortness of breath, bilateral lower extremity edema already on metaxalone twice daily and having saturations around 90%. She has had a little bit of cough possibly phlegm. Rule out pneumonia. Rule out ACS. Unlikely PE but at risk based on body habitus so will do d-dimer. Chest x-ray. Fingerstick 146. (Patient is diabetic adding also to her risk factors and concerns. EKG demonstrates a first-degree AV block, no ACS First repeat temperature 98.7. Chest x-ray demonstrates some small infiltrates in the bases according to the official report. Labs demonstrate mild elevation of the white count of 14.3. Patient saturations of intermittently dropped to 86%. Oxygen added. I discussed briefly with patient her circumstances of probable mild pneumonia, mildly elevated white count, needing a little oxygen, and these swollen lower extremities and that it is reasonable to be put into the hospital and she is agreeable. has gone for her medications to bring back because she is due for a pain medication that she attributes to chronic low back conditions taking it twice a day but not every day. COVID test added. I will discuss with him that blood cultures are necessary with the hospitalist and admission. I discussed with Dr. Rowland patient's clinical case and scenario with agreement for admission. He does request blood cultures. We agreed to go ahead and do ceftriaxone and azithromycin. Lab Data Result diagrams: 07/08/20 17:35 07/08/20 17:35 Labs: Lab Results 07/08/20 07/08/20 07/08/20 Range/Units 17:34 17:35 17:35 WBC 14.3 H (4.50-11.00) K/mcL RBC 3.91 (3.59-5.38) M/mcL Hgb 10.9 L (11.2-15.7) g/dL Hct 36.7 (34.1-44.9) % MCV 93.9 (80.0-100.0) fL MCH 27.9 (26.0-34.0) pg MCHC 29.7 L (31.0-36.0) g/dL RDW 12.6 (11.5-14.5) % Plt Count 266 (140-440) K/mcL MPV 9.4 (7.4-10.4) fL Gran % 61.3 (38.0-78.0) % Lymph % (Auto) 25.9 (15.5-49.0) % [place] % (Auto) 11.2 (1.0-12.0) % Eos % (Auto) 1.2 (0.0-7.0) % Baso % (Auto) 0.4 (0.0-2.0) % Gran # 8.74 H (1.80-8.00) K/mcL Lymph # (Auto) 3.70 (1.50-4.80) K/mcL [place] # (Auto) 1.60 H (0.10-0.90) K/mcL Eos # (Auto) 0.17 (0.00-0.70) K/mcL Baso # (Auto) 0.05 (0.00-0.30) K/mcL D-Dimer 0.41 H (0.00-0.40) ug/ml VBG Lactic Acid 1.2 (0.5-2.0) mmol/L Sodium (133-145) mmol/L Potassium (3.3-5.1) mmol/L Chloride (96-108) mmol/L Carbon Dioxide (22-30) mmol/L Anion Gap (8-16) BUN (8-23) mg/dl Creatinine (0.6-1.1) mg/dl GFR Calculation Glucose (70-105) mg/dL Calcium (8.6-10.4) mg/dl Magnesium (1.6-2.5) mg/dL Total Bilirubin (0.0-1.0) mg/dL AST (0-37) U/l ALT (0-40) U/l Alkaline Phosphatase (39-117) U/L Troponin T (0-0.03) ng/ml NT-Pro-B Natriuret Pep (0-450) pg/ml Total Protein (5.9-8.4) gm/dL Albumin (3.2-5.2) gm/dL Globulin (2.2-3.7) gm/dL Albumin/Globulin Ratio (1.0-2.3) Procalcitonin (<0.10) ng/mL 07/08/20 07/08/20 07/08/20 Range/Units 17:35 17:35 17:35 WBC (4.50-11.00) K/mcL RBC (3.59-5.38) M/mcL Hgb (11.2-15.7) g/dL Hct (34.1-44.9) % MCV (80.0-100.0) fL MCH (26.0-34.0) pg MCHC (31.0-36.0) g/dL RDW (11.5-14.5) % Plt Count (140-440) K/mcL MPV (7.4-10.4) fL Gran % (38.0-78.0) % Lymph % (Auto) (15.5-49.0) % [place] % (Auto) (1.0-12.0) % Eos % (Auto) (0.0-7.0) % Baso % (Auto) (0.0-2.0) % Gran # (1.80-8.00) K/mcL Lymph # (Auto) (1.50-4.80) K/mcL [place] # (Auto) (0.10-0.90) K/mcL Eos # (Auto) (0.00-0.70) K/mcL Baso # (Auto) (0.00-0.30) K/mcL D-Dimer (0.00-0.40) ug/ml VBG Lactic Acid (0.5-2.0) mmol/L Sodium 136 (133-145) mmol/L Potassium 4.0 (3.3-5.1) mmol/L Chloride 96 (96-108) mmol/L Carbon Dioxide 25 (22-30) mmol/L Anion Gap 15.0 (8-16) BUN 47 H (8-23) mg/dl Creatinine 1.2 H (0.6-1.1) mg/dl GFR Calculation 44 Glucose 145 H (70-105) mg/dL Calcium 10.1 (8.6-10.4) mg/dl Magnesium 2.3 (1.6-2.5) mg/dL Total Bilirubin 0.8 (0.0-1.0) mg/dL AST 27 (0-37) U/l ALT 37 (0-40) U/l Alkaline Phosphatase 79 (39-117) U/L Troponin T 0.02 (0-0.03) ng/ml NT-Pro-B Natriuret Pep 402.6 (0-450) pg/ml Total Protein 7.0 (5.9-8.4) gm/dL Albumin 3.5 (3.2-5.2) gm/dL Globulin 3.5 (2.2-3.7) gm/dL Albumin/Globulin Ratio 1.0 (1.0-2.3) Procalcitonin 0.20 H (<0.10) ng/mL Discharge Plan Patient/Caregiver Discharge Instructions Pt seen by HEAD GRINDER/PA only: No Clinical Impression: Community acquired pneumonia, Hypoxia, Elevated white blood cell count, Localized edema Patient Disposition: Xfer As Outpt/Obs ([facility]) Follow up with: Richar Brand MD [Primary Care Provider] - Prescriptions: No Action potassium chloride 20 mEq tablet extended release 10 meq PO BIDCC RF: 0 bisacodyl [Dulcolax (bisacodyl)] 10 mg suppository 10 mg IA QDAY PRNRF: 0 Fleet Enema Extra 19-7 gram/197 mL enema 118 ml IA ONCE RF: 0 Glucagon (HCl) Emergency Kit 1 mg recon soln 1 mg SUB-Q Q20M PRNRF: 0 magnesium hydroxide [Milk of Magnesia] 400 mg/5 mL suspension 30 ml PO QDAY PRNRF: 0 cholecalciferol (vitamin D3) 1,250 mcg (50,000 unit) tablet 1,250 mcg PO ONCE RF: 0 methocarbamol 500 MG tablet 500 mg PO TID RF: 0 enalapril maleate 20 MG tablet 5 mg PO BID RF: 0 amlodipine 10 MG tablet 10 mg PO DAILY RF: 0 ondansetron 4 MG tablet 4 mg SL Q4-6HP PRN (Reason: Nausea) RF: 0 cinnamon bark 500 MG capsule 1,000 mg PO BID RF: 0 omega-3 fatty acids-fish oil 1 EACH capsule 1 cap PO QDAY RF: 0 metformin 500 MG tablet 500 mg PO BIDCC RF: 0 Lactobacillus acidophilus 1 EACH capsule 1 tab PO BID RF: 0 metolazone 5 MG tablet 10 mg PO DAILY RF: 0 mirabegron 50 MG tablet extended release 24 hr 50 mg PO DAILY RF: 0 hydrocodone-acetaminophen 1 TAB tablet 1 tab PO Q4H PRN (Reason: Pain) Qty: 42 RF: 0
[2020-07-08] MEDS ORDERED: cefTRIAXone 1 GM VIAL IV ONE (20:22)
[2020-07-08] MEDS ORDERED: AZITHROMYCIN 250 MG TABLET PO ONE (20:24)
[2020-07-08] MEDS ORDERED: METHOCARBAMOL 500 MG TABLET PO ONE (21:13)
[2020-07-08] MEDS ORDERED: POTASSIUM CHLORIDE 10 MEQ TABLET PO ONE (21:13)
[2020-07-08] MEDS ORDERED: IPRATROPIUM/ALBUTEROL 3 ML AMPUL.NEB NEB PRN ×2 (21:56→23:24)
[2020-07-08] MEDS ORDERED: ONDANSETRON 4 MG/2 ML VIAL IV PRN ×2 (21:56→23:24)
[2020-07-08] MEDS ORDERED: DEXTROSE 50% 50 ML VIAL IV PRN ×2 (21:56→23:24)
[2020-07-08] MEDS ORDERED: DEXTROSE 31 GM ORAL.SUSP PO PRN ×2 (21:56→23:24)
[2020-07-08] MEDS ORDERED: AZITHROMYCIN 500 MG in DEXTROSE 5% IN WATER 250 ML IV SCH (22:00)
[2020-07-08] MEDS ORDERED: 0.9 % SODIUM CHLORIDE 10 ML SYRINGE IV SCH (22:00)
[2020-07-08] MEDS ORDERED: cefTRIAXone 2 GM in DEXTROSE 5% IN WATER 50 ML IV SCH (22:00)
[2020-07-08] MEDS ORDERED: HYDROcodone/APAP 10/325MG TABLET PO PRN (22:02)
[2020-07-08] MEDS ORDERED: metroNIDAZOLE 500 MG/100 ML BAG IV SCH (22:15)
--- NOTE | 2020-07-08 22:27 | Internal Med History&Physical ---
HPI History of Present Illness Patient information: Note initiated : 07/08/20 at 10:15 pm Service Date, if different from initiated Date: [] Patient: Genna Gong a 79 y/o F admitted on for Shortness of Breath, Increased Edema. Chief Complaint: [] History of present illness: Ms. Gong is a 79 year old F with a past medical history of diabetes type 2, current smoker, and history of dysphagia who presented to the ER due to worsening shortness of breath and both leg swelling. She also complains of mild cough and stuffy nose but no sputum. In the ER, she was found to have oxygen desaturation. Chest x-ray showed possible pneumonia. COVID-19 test negative. Lactic acid 1.2, procalcitonin 0.20, and a d-dimer 0.41. 1 dose of ceftriaxone and azithromycin was given. When I saw this patient in the ER, other than the symptoms mentioned above, she was fine. Denied headache, dizziness, chest pain, abdominal pain, dysuria, nausea or vomiting. Denies recent travel or sick contact. 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) Diarrhea (Chronic) Nausea and vomiting (Chronic) Left hip pain (Chronic) Hypercalcemia (Chronic) Methicillin susceptible Staphylococcus aureus infection, unspecified site (Chronic) Diabetes mellitus (Chronic) Dementia (Chronic) Acute kidney failure (Chronic) Muscle weakness (Chronic) Difficulty walking (Chronic) Dysphagia (Chronic) Lack of coordination (Chronic) Other specified disorder of skin (Chronic) Urinary retention (Chronic) Gastroenteritis (Chronic) Abdominal pain (Chronic) Creatinine elevation (Chronic) Generalized weakness (Chronic) Cutaneous fistula (Chronic) History of surgical site infection (Chronic) History of hysterectomy (Chronic) Knee cartilage, torn, left (Chronic) Diabetes 1.5, managed as type 2 (Chronic) Diabetic neuropathy (Chronic) Knee effusion, left (Chronic) Left knee injury (Chronic) Edema of left lower extremity (Chronic) Left hip pain (Chronic) Hypokalemia (Chronic) Fracture of rib (Chronic) Acute kidney injury (Chronic) Sepsis (Chronic) Peritoneal cavity free air (Chronic) UTI (urinary tract infection) (Chronic) Perforated abdominal viscus (Chronic) Medical History Acute kidney failure (Chronic) Dementia (Chronic) Diabetes 1.5, managed as type 2 (Chronic) Continue diabetic management as you have at home Diabetes mellitus (Chronic) Diabetic neuropathy (Chronic) Diarrhea (Chronic) Difficulty walking (Chronic) Dysphagia (Chronic) Edema of left lower extremity (Chronic) Hypercalcemia (Chronic) Knee cartilage, torn, left (Chronic) Knee effusion, left (Chronic) Lack of coordination (Chronic) Left hip pain (Chronic) Left hip pain (Chronic) Left knee injury (Chronic) 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) Methicillin susceptible Staphylococcus aureus infection, unspecified site (Chronic) Muscle weakness (Chronic) Nausea and vomiting (Chronic) Nicotine dependence (Chronic) Other specified disorder of skin (Chronic) Urinary retention (Chronic) Surgical History Absence of both cervix and uterus, acquired (Chronic) History of appendectomy (Chronic) History of carpal tunnel surgery (Chronic) History of section (Chronic) History of hysterectomy (Chronic) History of incisional hernia repair (Acute) 03/12/2020 History of laparotomy (Chronic) 11/09/2018-laparotomy with jackie patch with closure of perforated gastric ulcer History of tubal ligation (Chronic) Family History Family/Other Hypertension Diabetes mellitus Leukemia Social History smoking status: Former smoker alcohol intake frequency: does not drink substance use type: does not use MEDS/ALLERGIES Home Medications and Allergies Home Medications Medication Instructions Recorded Confirmed Type amlodipine 10 mg PO DAILY 11/09/18 07/08/20 History enalapril maleate 5 mg PO BID 11/09/18 07/08/20 History methocarbamol 500 mg PO TID 11/09/18 07/08/20 History potassium chloride 20 mEq 10 meq PO BIDCC 01/06/19 07/08/20 History tablet,extended release ondansetron 4 mg SL Q4-6HP PRN 02/12/19 07/08/20 History cinnamon bark 1,000 mg PO BID 09/12/19 07/08/20 History omega-3 fatty acids-fish oil 1 cap PO QDAY 09/12/19 07/08/20 History Lactobacillus acidophilus 1 tab PO BID 12/25/19 07/08/20 History metformin 500 mg PO BIDCC 12/25/19 07/08/20 History metolazone 10 mg PO DAILY 12/25/19 07/08/20 History mirabegron 50 mg PO DAILY 03/12/20 07/08/20 History hydrocodone-acetaminophen 1 tab PO Q4H PRN #42 tab 03/17/20 07/08/20 Rx bisacodyl 10 mg rectal suppository 10 mg IA QDAY PRN 03/29/20 04/06/20 History glucagon HCl 1 mg solution for 1 mg SUB-Q Q20M PRN 03/29/20 04/06/20 History injection magnesium hydroxide 400 mg/5 mL 30 ml PO QDAY PRN ml 03/29/20 04/06/20 History oral suspension sodium phosphates 19 gram-7 118 ml IA ONCE 03/29/20 04/06/20 History gram/197 mL enema cholecalciferol (vitamin D3) 1,250 1,250 mcg PO ONCE tab 04/06/20 07/08/20 History mcg (50,000 unit) tablet Allergies Allergy/AdvReac Type Severity Reaction Status Date / Time No Known Drug Allergies Allergy Verified 04/06/20 08:44 EXAM Constitutional Vitals: Temp Pulse Resp BP Pulse Ox 98.7 F 91 H 23 H 136/85 96 07/08/20 17:34 07/08/20 21:48 07/08/20 21:48 07/08/20 21:48 07/08/20 21:48 Additional findings Additional findings: General - No acute distress Eyes - PERRLA, EOM intact ENT no rhinorrhea, no noticeable or palpable swelling, no redness or rash around throat or on face Neck supple, no JVD, no thyromegaly Respiratory: Lungs -coarse breathing sounds, no wheezing or crackles. Cardiovascular - RRR no m/r/g, GI - Normal bowel sounds, no distended, soft. Extremeties -pitting edema 1-2+ in both legs, no cyanosis or clubbing Hemo/lymphatic/immune no lymphadenopathy Neurological Alert and oriented x 3, no focal neurological deficits. Psychiatry flat affect DATA Data Completed and Pending Labs: Labs from last 24 hours 07/08/20 07/08/20 07/08/20 21:56 21:56 17:35 WBC RBC Hgb Hct MCV MCH MCHC RDW Plt Count MPV Gran % Lymph % (Auto) [place] % (Auto) Eos % (Auto) Baso % (Auto) Gran # Lymph # (Auto) [place] # (Auto) Eos # (Auto) Baso # (Auto) D-Dimer VBG Lactic Acid Sodium Potassium Chloride Carbon Dioxide Anion Gap BUN Creatinine GFR Calculation Glucose Calcium Magnesium Total Bilirubin AST ALT Alkaline Phosphatase Troponin T Pending NT-Pro-B Natriuret Pep Pending Total Protein Albumin Globulin Albumin/Globulin Ratio Procalcitonin 0.20 H 07/08/20 07/08/20 07/08/20 17:35 17:35 17:35 WBC RBC Hgb Hct MCV MCH MCHC RDW Plt Count MPV Gran % Lymph % (Auto) [place] % (Auto) Eos % (Auto) Baso % (Auto) Gran # Lymph # (Auto) [place] # (Auto) Eos # (Auto) Baso # (Auto) D-Dimer 0.41 H VBG Lactic Acid Sodium 136 Potassium 4.0 Chloride 96 Carbon Dioxide 25 Anion Gap 15.0 BUN 47 H Creatinine 1.2 H GFR Calculation 44 Glucose 145 H Calcium 10.1 Magnesium 2.3 Total Bilirubin 0.8 AST 27 ALT 37 Alkaline Phosphatase 79 Troponin T 0.02 NT-Pro-B Natriuret Pep 402.6 Total Protein 7.0 Albumin 3.5 Globulin 3.5 Albumin/Globulin Ratio 1.0 Procalcitonin 07/08/20 07/08/20 17:35 17:34 WBC 14.3 H RBC 3.91 Hgb 10.9 L Hct 36.7 MCV 93.9 MCH 27.9 MCHC 29.7 L RDW 12.6 Plt Count 266 MPV 9.4 Gran % 61.3 Lymph % (Auto) 25.9 [place] % (Auto) 11.2 Eos % (Auto) 1.2 Baso % (Auto) 0.4 Gran # 8.74 H Lymph # (Auto) 3.70 [place] # (Auto) 1.60 H Eos # (Auto) 0.17 Baso # (Auto) 0.05 D-Dimer VBG Lactic Acid 1.2 Sodium Potassium Chloride Carbon Dioxide Anion Gap BUN Creatinine GFR Calculation Glucose Calcium Magnesium Total Bilirubin AST ALT Alkaline Phosphatase Troponin T NT-Pro-B Natriuret Pep Total Protein Albumin Globulin Albumin/Globulin Ratio Procalcitonin A/P Narrative A/P Narrative: 1. Acute hypoxic respiratory failure Pulse ox Oxygen therapy to keep oxygen saturation greater than 92% 2. Pneumonia, CAP, aspiration, Covid 19? CXR - Moderate patchy right middle and lower lobe infiltrates and small effusion. COVID-19 negative MRSA screen Respiratory panel Blood culture and sputum culture History of dysphasia Ceftriaxone, azithromycin, and Flagyl 3. Tobacco dependance Smoking cessation counseling Nicotine patch if necessary 4. DM type 2, with neuropathy, Hba1c 5.8 on 03/09/20 Hemoglobin A1c Metformin is on hold Insulin sliding scale 5. Hx of dysphagia Speech pathologist consult 6. First-degree AV block Asymptomatic Monitor 7. LEODAN, creatinine 0.9 on 03/17/20 Urine sodium and creatinine Intake and output Avoid nephrotoxic meds Repeat renal function in the morning 8. Bilateral lower leg edema home metolazone is on hold Lasix 20mg iv bid Monitor renal function 9. Elevation of D-dimer, 0.41 Mild elevated, normal limit-less than 0.4 Chest x-ray showed pneumonia Elevation of creatinine VQ scan not available in this hospital I would not order CT angios chest because I feel patient less likely to have PE But I will order ultrasound Doppler for both legs to rule out DVTs 10. DVT prophylaxis: Heparin 11. 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
[2020-07-08] MEDS ORDERED: cefTRIAXone 1 GM VIAL ONE (23:34)
[2020-07-08] MEDS ORDERED: metroNIDAZOLE 500 MG/100 ML BAG IV ONE (23:34)
--- NOTE | 2020-07-09 00:05 | Event Note ---
Event Note Event Note: Advanced Care Planning Documents: Parties in Attendance: pt and pt's decisional Capacity: yes POLST form completed: not. I explained CPR and intubation in detail to pt and . Both agreed with CPR but intubation.
[2020-07-09] MEDS: 0.9 % SODIUM CHLORIDE 10 ML SYRINGE IV SCH ×6 (00:11→23:45)
[2020-07-09] MEDS ORDERED: HYDROcodone/APAP 10/325MG TABLET PO ONE (05:06)
[2020-07-09] MEDS ORDERED: metroNIDAZOLE 500 MG/100 ML BAG IV ONE (05:24)
[2020-07-09] MEDS ORDERED: metroNIDAZOLE 500 MG/100 ML BAG IV SCH (06:15)
[2020-07-09 06:39] LABS: Basophils # (Auto) 0.04 K/mcL (0.00-0.30); Basophils % (Auto) 0.4 % (0.0-2.0); Eosinophils # (Auto) 0.14 K/mcL (0.00-0.70); Eosinophils % (Auto) 1.4 % (0.0-7.0); Granulocytes % (Auto) 66.9 % (38.0-78.0); Hematocrit 32.2 % (34.1-44.9); Lymphocytes # (Auto) 1.87 K/mcL (1.50-4.80); Lymphocytes % (Auto) 18.4 % (15.5-49.0); Mean Cell Volume 91.2 fL (80.0-100.0); Mean Corpuscular HGB Conc 31.1 g/dL (31.0-36.0); Mean Platelet Volume 9.6 fL (7.4-10.4); Monocytes # (Auto) 1.31 K/mcL (0.10-0.90); Monocytes % (Auto) 12.9 % (1.0-12.0); Platelet Count 239 K/mcL (140-440); RBC 3.53 M/mcL (3.59-5.38); Red Cell Distribution Width 12.7 % (11.5-14.5); WBC 10.2 K/mcL (4.50-11.00)
[2020-07-09] MEDS: HYDROcodone/APAP 10/325MG TABLET PO PRN ×2 (07:23→18:05)
[2020-07-09] MEDS: FUROSEMIDE 20 MG/2 ML VIAL IV SCH ×2 (07:23→16:00)
[2020-07-09] MEDS: INSULIN LISPRO 1 UNIT/0.01 ML UNIT SQ SCH ×4 (07:27→21:00)
[2020-07-09] MEDS ORDERED: INSULIN LISPRO 1 UNIT/0.01 ML UNIT SQ SCH (07:30)
[2020-07-09 07:38] LABS: Estimated Average Glucose(eAG) 108 mg/dL; Hemoglobin A1C 5.4 % HGB (4.0-6.0)
[2020-07-09 07:54] LABS: ALT/SGPT 26 U/l (0-40); AST/SGOT 16 U/l (0-37); Albumin 3.2 gm/dL (3.2-5.2); Albumin/Globulin Ratio 1.1 (1.0-2.3); Alkaline Phosphatase 57 U/L (39-117); Bilirubin,Total 0.4 mg/dL (0.0-1.0); Blood Urea Nitrogen 37 mg/dl (8-23); Calcium 9.9 mg/dl (8.6-10.4); Carbon Dioxide 26 mmol/L (22-30); Chloride 101 mmol/L (96-108); Globulin 2.8 gm/dL (2.2-3.7); Glomerular Filtration Rate 62; Glucose 169 mg/dL (70-105)
[2020-07-09] MEDS ORDERED: LACTOBACILLUS ACIDOPHILUS PO SCH (09:00)
[2020-07-09] MEDS ORDERED: MIRABEGRON 50 MG PO SCH (09:00)
[2020-07-09] MEDS ORDERED: METHOCARBAMOL 500 MG TABLET PO SCH (09:00)
[2020-07-09] MEDS ORDERED: amLODIPine 10 MG TABLET PO SCH ×2 (09:00)
[2020-07-09] MEDS ORDERED: HEPARIN 5,000 UNIT/ML VIAL SQ SCH (09:00)
[2020-07-09] MEDS ORDERED: DOCUSATE SODIUM 100 MG CAPSULE PO SCH (09:00)
[2020-07-09] MEDS: DOCUSATE SODIUM 100 MG CAPSULE PO SCH ×2 (09:10→21:00)
[2020-07-09] MEDS: METHOCARBAMOL 500 MG TABLET PO SCH ×3 (09:10→21:01)
[2020-07-09] MEDS: LACTOBACILLUS 1 CAPSULE PO SCH ×2 (09:10→21:01)
[2020-07-09] MEDS: HEPARIN 5,000 UNIT/ML VIAL SQ SCH ×2 (09:10→21:00)
[2020-07-09] MEDS: cefTRIAXone 2 GM in DEXTROSE 5% IN WATER 50 ML IV SCH (09:22)
[2020-07-09] MEDS: MUPIROCIN OINT 2% 22GM NARES SCH ×2 (09:22→20:59)
[2020-07-09] MEDS: AZITHROMYCIN 500 MG in DEXTROSE 5% IN WATER 250 ML IV SCH (10:05)
--- NOTE | 2020-07-09 12:42 | Ultrasound Report ---
CLINICAL INFORMATION: Bilateral leg edema COMPARISON: None. FINDINGS: The entire deep venous system, of both lower extremities, including the common femoral, superficial femoral, popliteal and paired trifurcation calf veins are easily compressible and show normal venous blood flow on color and spectral Doppler. No evidence of thrombus IMPRESSION: Negative exam - no evidence of deep vein thrombosis in either lower extremity. Interpreted and Authenticated by: Vikas Whitley 07/09/20
[2020-07-09] MEDS: metroNIDAZOLE 500 MG/100 ML BAG IV SCH ×2 (13:17→22:47)
--- NOTE | 2020-07-09 16:20 | Internal Med Progress Note ---
SUBJECTIVE Subjective Patient information: Note initiated : 07/09/20 at 4:11 pm Service Date, if different from initiated Date: [] Patient: Genna Gong a 79 y/o F admitted on 07/08/20 for Shortness of Breath, Increased Edema. Chief Complaint: [] Interval history: History of present illness: Ms. Gong is a 79 year old F with a past medical history of diabetes type 2, current smoker, and history of dysphagia who presented to the ER due to worsening shortness of breath and both leg swelling. She also complains of mild cough and stuffy nose but no sputum. In the ER, she was found to have oxygen desaturation. Chest x-ray showed possible pneumonia. COVID-19 test negative. Lactic acid 1.2, procalcitonin 0.20, and a d-dimer 0.41. 1 dose of ceftriaxone and azithromycin was given. When I saw this patient in the ER, other than the symptoms mentioned above, she was fine. Denied headache, dizziness, chest pain, abdominal pain, dysuria, na usea or vomiting. Denies recent travel or sick contact. *Event Note: Advanced Care Planning Documents: Parties in Attendance: pt and pt's decisional Capacity: yes POLST form completed: not. I explained CPR and intubation in detail to pt and . Both agreed with CPR but intubation. 07/09 Pt feels much better. She is now on 2L with good oxygen saturation. WBC normalized, 10.2 today 07/10 Constitutional Vitals: Vital Signs Temp Pulse Resp BP Pulse Ox 98.4 F 82 18 140/56 97 07/09/20 12:00 07/09/20 12:00 07/09/20 12:00 07/09/20 12:00 07/09/20 12:00 Period Temp Pulse Resp BP Sys/[place] Pulse Ox Last 24 Hr 97.9 F-99.8 F 77-108 18-28 81-150/38-108 85-100 Intake and Output 07/09/20 07/09/20 07/09/20 05:59 13:59 21:59 Intake Total 120 850 Output Total 3 451 Balance 117 399 Weight 88.904 kg 88.904 kg Patient Weight 07/10/20 05:59 Weight 88.904 kg Intake & Output: Intake & Output 07/09/20 07/09/2007/09/20 05:59 13:59 21:59 Intake Total 120 850 Output Total 3 451 Balance 117 399 Weight 88.904 kg 88.904 kg Intake: IV 150 Rocephin 2 gm In Dextrose 5% in 50 Water 50 ml @ 100 mls/hr IV Q24H [facility] Rx#:[id number] FLAGYL 500 mg In 100 ml @ 0 mls 100 /hr IV .STK-MED ONE Rx#: [id number] Oral 120 700 Output: Urine Catheter Amount 450 # of times incontinent of urine 3 1 Other: Meal Lunch Percent of Meal Consumed 100% Urine Appearance Clear Urine Color Bright Yellow Pale Straw Urine Odor Strong Normal Exam: General: Alert, Awake, No acute Distress, obese Eyes/N/T: EOMI, Head/Neck: neck supple, CV: RRR, No murmurs, Pulm: Rhonchi b/l, no wheezing Abd: soft, nontender, +BS x4 Ext: no clubbing/cyanosis, b/l LE edema Neuro: Alert, no focal deficits, moves all extremities, Skin: warm/dry OBJ DATA Labs CBC & Chem 7: 07/09/20 05:30 07/09/20 05:30 Labs: Abnormal Lab Results 07/09/20 07/09/20 07/08/20 05:30 05:30 17:35 WBC RBC 3.53 L Hgb 10.0 L Hct 32.2 L MCHC [place] % (Auto) 12.9 H Gran # [place] # (Auto) 1.31 H D-Dimer BUN 37 H Creatinine Glucose 169 H Procalcitonin 0.20 H 07/08/20 07/08/20 07/08/20 17:35 17:35 17:35 WBC 14.3 H RBC Hgb 10.9 L Hct MCHC 29.7 L [place] % (Auto) Gran # 8.74 H [place] # (Auto) 1.60 H D-Dimer 0.41 H BUN 47 H Creatinine 1.2 H Glucose 145 H Procalcitonin Meds: Medications Hydrocodone Bitart/Acetaminophen ([place] 10/325mg) 1 tab PO Q4H PRN; Protocol PRN Reason: Pain Last Admin: 07/09/20 07:23 Dose: 1 tab Documented by: Albuterol/Ipratropium (Duoneb) 3 ml NEB Q4HRT PRN PRN Reason: Shortness Of Breath Or Wheezing Amlodipine Besylate (Norvasc) 10 mg PO DAILY [facility] Last Admin: 07/09/20 09:10 Dose: 10 mg Documented by: Dextrose (Dextrose 50%) 0 ml IV UD PRN PRN Reason: Hypoglycemia Diagnostic Test (Pha) (Accu-Chek) 1 each FS ACHS [facility] Last Admin: 07/09/20 11:08 Dose: 1 each Documented by: Docusate Sodium (Colace) 100 mg PO BID [facility] Last Admin: 07/09/20 09:10 Dose: 100 mg Documented by: Furosemide (Lasix) 20 mg IV BIDD [facility] Last Admin: 07/09/20 07:23 Dose: 20 mg Documented by: Glucose (Insta-Glucose) 15 gm PO PRN PRN PRN Reason: Hypoglycemia Heparin Sodium (Porcine) (Heparin) 5,000 unit SQ Q12 [facility] Last Admin: 07/09/20 09:10 Dose: 5,000 unit Documented by: Azithromycin 500 mg/ Dextrose 250 mls @ 250 mls/hr IV Q24H [facility]; Protocol Stop: 07/11/20 10:59 Last Admin: 07/09/20 10:05 Dose: 250 mls/hr Documented by: Ceftriaxone Sodium 2 gm/ (Dextrose) 50 mls @ 100 mls/hr IV Q24H [facility] Last Infusion: 07/09/20 10:06 Dose: Infused Documented by: Metronidazole (Flagyl) 500 mg in 100 mls @ 100 mls/hr IV Q8H [facility]; Protocol Last Admin: 07/09/20 13:17 Dose: 100 mls/hr Documented by: Insulin Human Lispro (Humalog) 0 unit SQ [facility]; Protocol Last Admin: 07/09/20 11:08 Dose: 2 unit Documented by: Lactobacillus Rhamnosus (Culturelle) 1 cap PO BID [facility] Last Admin: 07/09/20 09:10 Dose: 1 cap Documented by: Methocarbamol (Robaxin) 500 mg PO TID [facility] Last Admin: 07/09/20 14:44 Dose: 500 mg Documented by: Mupirocin (Bactroban Oint 2%) 1 dose NARES BID [facility] Last Admin: 07/09/20 09:22 Dose: 1 dose Documented by: Ondansetron HCl (Zofran) 4 mg IV Q6HP PRN PRN Reason: Nausea And Vomiting Mirabegron [ (Myrbetriq] 50 Mg Tab) 1 dose PO DAILY [facility] Last Admin: 07/09/20 08:31 Dose: Not Given Documented by: Sodium Chloride (Saline Flush) 10 ml IV Q8 [facility] Last Admin: 07/09/20 13:17 Dose: 10 ml Documented by: A/P Time Spent With Patient Time: A: *Acute hypoxic respiratory failure: -on 2L NC *Pneumonia, CAP vs Aspiration: -COVID-19 negative / MRSA screen / Respiratory panel negative -Blood culture and sputum culture *h/o Dysphagia: ST eval pending *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 may add diuretic or coreg if needed -compression wraps to legs and elevate -pt/ot -Smoking cessation counseling, Nicotine patch if necessary -ppx: Heparin CODE STATUS: Full QUALITY VTE Deep Vein Thrombosis/Pulmonary Embolism Present on Admission: No
[2020-07-09] MEDS ORDERED: hydrALAZINE 20 MG/ML VIAL IV PRN (16:27)
[2020-07-09] MEDS ORDERED: LABETALOL 5 MG/ML ML IV PRN (16:27)
[2020-07-09] MEDS: LISINOPRIL 5 MG TABLET PO SCH (21:01)
--- NOTE | 2020-07-09 21:45 | Internal Med Progress Note ---
SUBJECTIVE Subjective Patient information: Note initiated : 07/09/20 at 9:41 pm Service Date, if different from initiated Date: [] Patient: Genna Gong a 79 y/o F admitted on 07/08/20 for Shortness of Breath, Increased Edema. Chief Complaint: [] Ms. Gong is a 79 year old F with a past medical history of diabetes type 2, current smoker, and history of dysphagia who presented to the ER due to worsening shortness of breath and both leg swelling. She also complains of mild cough and stuffy nose but no sputum. In the ER, she was found to have oxygen desaturation. Chest x-ray showed possible pneumonia. COVID-19 test negative. Lactic acid 1.2, procalcitonin 0.20, and a d-dimer 0.41. 1 dose of ceftriaxone and azithromycin was given. When I saw this patient in the ER, other than the symptoms mentioned above, she was fine. Denied headache, dizziness, chest pain, abdominal pain, dysuria, nausea or vomiting. Denies recent travel or sick contact. 07/09 Pt feels much better. She is now on 2L with good oxygen saturation. WBC normalized, 10.2 today need to f/u MRSA screen result Review of Systems All systems: reviewed and no additional remarkable complaints except as stated Constitutional Vitals: Vital Signs Temp Pulse Resp BP Pulse Ox 98.1 F 94 H 20 149/76 94 07/09/20 18:30 07/09/20 18:30 07/09/20 18:30 07/09/20 18:30 07/09/20 18:30 Period Temp Pulse Resp BP Sys/[place] Pulse Ox Last 24 Hr 97.9 F-99.8 F 77-105 18-28 116-150/54-105 91-97 Intake and Output 07/09/20 07/09/20 07/09/20 05:59 13:59 21:59 Intake Total 637 825 4887 Output Total 3 451 2 Balance 581 528 4348 Weight 88.904 kg 88.904 kg 90.492 kg Patient Weight 07/10/20 05:59 Weight 90.492 kg Intake & Output: Intake & Output 07/09/20 07/09/20 07/09/20 05:59 13:59 21:59 Intake Total 100 250 4652 Output Total 3 451 2 Balance 174 017 2580 Weight 88.904 kg 88.904 kg 90.492 kg Intake: IV 100 150 350 Zithromax 500 mg In Dextrose 5% 250 in Water 250 ml @ 250 mls/hr IV Q24H REPLACED BY [facility] Rx#:[id number] Rocephin 2 gm In Dextrose 5% in 50 Water 50 ml @ 100 mls/hr IV Q24H REPLACED BY [facility] Rx#:[id number] FLAGYL 500 mg In 100 ml @ 0 mls 100 100 /hr IV .STK-MED ONE Rx#: [id number] Oral 120 700 720 Output: Urine Catheter Amount 450 # of times incontinent of urine 3 1 2 Other: Meal Lunch Percent of Meal Consumed 100% Urine Appearance Clear Urine Color Bright Yellow Pale Straw Urine Odor Strong Normal Stool Size Large Stool Color Brown Stool Consistency Dry and Hard Formed Juliane Additional findings Additional findings: General - No acute distress Eyes - PERRLA, EOM intact ENT no rhinorrhea, no noticeable or palpable swelling, no redness or rash around throat or on face Neck supple, no JVD, no thyromegaly Respiratory: Lungs -coarse breathing sounds, no wheezing or crackles. Cardiovascular - RRR no m/r/g, GI - Normal bowel sounds, no distended, soft. Extremeties -pitting edema 1-2+ in both legs, no cyanosis or clubbing Hemo/lymphatic/immune no lymphadenopathy Neurological Alert and oriented x 3, no focal neurological deficits. Psychiatry flat affect OBJ DATA Labs CBC & Chem 7: 07/09/20 05:30 07/09/20 05:30 Labs: Abnormal Lab Results 07/09/20 07/09/20 07/08/20 05:30 05:30 17:35 WBC RBC 3.53 L Hgb 10.0 L Hct 32.2 L MCHC [place] % (Auto) 12.9 H Gran # [place] # (Auto) 1.31 H D-Dimer BUN 37 H Creatinine Glucose 169 H Procalcitonin 0.20 H 07/08/20 07/08/20 07/08/20 17:35 17:35 17:35 WBC 14.3 H RBC Hgb 10.9 L Hct MCHC 29.7 L [place] % (Auto) Gran # 8.74 H [place] # (Auto) 1.60 H D-Dimer 0.41 H BUN 47 H Creatinine 1.2 H Glucose 145 H Procalcitonin Meds: Medications Hydrocodone Bitart/Acetaminophen ([place] 10/325mg) 1 tab PO Q4H PRN; Protocol PRN Reason: Pain Last Admin: 07/09/20 18:05 Dose: 1 tab Documented by: Albuterol/Ipratropium (Duoneb) 3 ml NEB Q4HRT PRN PRN Reason: Shortness Of Breath Or Wheezing Dextrose (Dextrose 50%) 0 ml IV UD PRN PRN Reason: Hypoglycemia Diagnostic Test (Pha) (Accu-Chek) 1 each [facility] REPLACED BY [facility] Last Admin: 07/09/20 20:45 Dose: 1 each Documented by: Docusate Sodium (Colace) 100 mg PO BID REPLACED BY [facility] Last Admin: 07/09/20 21:00 Dose: 100 mg Documented by: Glucose (Insta-Glucose) 15 gm PO PRN PRN PRN Reason: Hypoglycemia Heparin Sodium (Porcine) (Heparin) 5,000 unit SQ Q12 REPLACED BY [facility] Last Admin: 07/09/20 21:00 Dose: 5,000 unit Documented by: Hydralazine HCl (Apresoline) 0 mg IV Q2HP PRN PRN Reason: Hypertension Azithromycin 500 mg/ Dextrose 250 mls @ 250 mls/hr IV Q24H REPLACED BY [facility]; Protocol Stop: 07/11/20 10:59 Last Infusion: 07/09/20 16:33 Dose: Infused Documented by: Ceftriaxone Sodium 2 gm/ (Dextrose) 50 mls @ 100 mls/hr IV Q24H REPLACED BY [facility] Last Infusion: 07/09/20 10:06 Dose: Infused Documented by: Metronidazole (Flagyl) 500 mg in 100 mls @ 100 mls/hr IV Q8H REPLACED BY [facility]; Protocol Last Infusion: 07/09/20 16:40 Dose: Infused Documented by: Insulin Human Lispro (Humalog) 0 unit SQ [facility] REPLACED BY [facility]; Protocol Last Admin: 07/09/20 21:00 Dose: 1 unit Documented by: Labetalol HCl (Trandate) 0 mg IV Q2HP PRN PRN Reason: Hypertension Lactobacillus Rhamnosus (Culturelle) 1 cap PO BID REPLACED BY [facility] Last Admin: 07/09/20 21:01 Dose: 1 cap Documented by: Lisinopril (Zestril) 5 mg PO BID REPLACED BY [facility] Last Admin: 07/09/20 21:01 Dose: 5 mg Documented by: Methocarbamol (Robaxin) 500 mg PO TID REPLACED BY [facility] Last Admin: 07/09/20 21:01 Dose: 500 mg Documented by: Mupirocin (Bactroban Oint 2%) 1 dose NARES BID REPLACED BY [facility] Last Admin: 07/09/20 20:59 Dose: 1 dose Documented by: Ondansetron HCl (Zofran) 4 mg IV Q6HP PRN PRN Reason: Nausea And Vomiting Mirabegron [ (Myrbetriq] 50 Mg Tab) 1 dose PO DAILY REPLACED BY [facility] Last Admin: 07/09/20 08:31 Dose: Not Given Documented by: Sodium Chloride (Saline Flush) 10 ml IV Q8 REPLACED BY [facility] Last Admin: 07/09/20 18:30 Dose: 10 ml Documented by: A/P Narrative A/P Narrative: 1. Acute hypoxic respiratory failure Pulse ox Oxygen therapy to keep oxygen saturation greater than 92% 2. Pneumonia, CAP, aspiration, Covid 19? CXR - Moderate patchy right middle and lower lobe infiltrates and small effusion. COVID-19 negative MRSA screen - Respiratory panel negative Blood culture and sputum culture now growth so far History of dysphasia - ST consult Ceftriaxone, azithromycin, and Flagyl 3. Tobacco dependance Smoking cessation counseling Nicotine 4. DM type 2, with neuropathy, Hba1c 5.8 on 03/09/20 Hemoglobin A1c - 5.4 Metformin is on hold Insulin sliding scale 5. Hx of dysphagia Speech pathologist consult 6. First-degree AV block Asymptomatic Monitor 7. LEODAN, creatinine 0.9 on 03/17/20 creatinine 0.9 today Intake and output Avoid nephrotoxic meds Repeat renal function in the morning 8. Bilateral lower leg edema home metolazone is on hold US doppler negative for DVT Lasix 20mg iv bid Monitor renal function 9. Elevation of D-dimer, 0.41 Mild elevated, normal limit-less than 0.4 Chest x-ray showed pneumonia Elevation of creatinine VQ scan not available in this hospital I would not order CT angios chest because I feel patient less likely to have PE But I will order ultrasound Doppler for both legs to rule out DVTs 10. DVT prophylaxis: Heparin Time Spent With Patient Time: Total time spent is greater than 50% in coordination of care (as documented) at patient's floor/unit and/or counseling patient: QUALITY VTE Deep Vein Thrombosis/Pulmonary Embolism Present on Admission: No
[2020-07-10] MEDS: HYDROcodone/APAP 10/325MG TABLET PO PRN ×4 (00:08→19:26)
[2020-07-10] MEDS: 0.9 % SODIUM CHLORIDE 10 ML SYRINGE IV SCH ×3 (05:53→22:01)
[2020-07-10] MEDS: metroNIDAZOLE 500 MG/100 ML BAG IV SCH ×3 (05:54→22:00)
[2020-07-10 06:44] LABS: Basophils # (Auto) 0.04 K/mcL (0.00-0.30); Basophils % (Auto) 0.5 % (0.0-2.0); Eosinophils # (Auto) 0.24 K/mcL (0.00-0.70); Granulocytes % (Auto) 57.2 % (38.0-78.0); Hematocrit 33.9 % (34.1-44.9); Hemoglobin 10.3 g/dL (11.2-15.7); Lymphocytes # (Auto) 2.07 K/mcL (1.50-4.80); Mean Cell Volume 93.1 fL (80.0-100.0); Mean Corpuscular HGB Conc 30.4 g/dL (31.0-36.0); Mean Platelet Volume 9.6 fL (7.4-10.4); Monocytes # (Auto) 1.06 K/mcL (0.10-0.90); Monocytes % (Auto) 13.3 % (1.0-12.0); Platelet Count 242 K/mcL (140-440); RBC 3.64 M/mcL (3.59-5.38); Red Cell Distribution Width 12.3 % (11.5-14.5)
[2020-07-10] MEDS: INSULIN LISPRO 1 UNIT/0.01 ML UNIT SQ SCH ×4 (07:14→20:12)
[2020-07-10 07:31] LABS: ALT/SGPT 21 U/l (0-40); AST/SGOT 15 U/l (0-37); Alkaline Phosphatase 51 U/L (39-117); Bilirubin,Total 0.4 mg/dL (0.0-1.0); Blood Urea Nitrogen 34 mg/dl (8-23); Calcium 9.8 mg/dl (8.6-10.4); Carbon Dioxide 30 mmol/L (22-30); Chloride 97 mmol/L (96-108); Globulin 2.9 gm/dL (2.2-3.7); Glomerular Filtration Rate 54; Glucose 124 mg/dL (70-105)
[2020-07-10] MEDS ORDERED: POTASSIUM CHLORIDE 20 MEQ TABLET PO ONE (08:07)
--- NOTE | 2020-07-10 08:09 | Internal Med Progress Note ---
SUBJECTIVE Subjective Patient information: Note initiated : 07/10/20 at 8:05 am Service Date, if different from initiated Date: [] Patient: Genna Gong a 79 y/o F admitted on 07/08/20 for Shortness of Breath, Increased Edema. Chief Complaint: [] Interval history: History of present illness: Ms. Gong is a 79 year old F with a past medical history of diabetes type 2, current smoker, and history of dysphagia who presented to the ER due to worsening shortness of breath and both leg swelling. She also complains of mild cough and stuffy nose but no sputum. In the ER, she was found to have oxygen desaturation. Chest x-ray showed possible pneumonia. COVID-19 test negative. Lactic acid 1.2, procalcitonin 0.20, and a d-dimer 0.41. 1 dose of ceftriaxone and azithromycin was given. When I saw this patient in the ER, other than the symptoms mentioned above, she was fine. Denied headache, dizziness, chest pain, abdominal pain, dysuria, na usea or vomiting. Denies recent travel or sick contact. *Event Note: Advanced Care Planning Documents: Parties in Attendance: pt and pt's decisional Capacity: yes POLST form completed: not. I explained CPR and intubation in detail to pt and . Both agreed with CPR but intubation. 07/09 Pt feels much better. She is now on 2L with good oxygen saturation. WBC normalized, 10.2 today 07/10 Patient continues to feel better. She has been occasional cough productive. Shortness of breath not noticeable at rest. Review of Systems: denies headache/fever/chills/nausea/vomiting/chest or abdominal pain/diarrhea. Otherwise see above. Constitutional Vitals: Vital Signs Temp Pulse Resp BP Pulse Ox 98.2 F 68 18 142/56 93 07/10/20 06:32 07/10/20 06:32 07/10/20 07:21 07/10/20 06:32 07/10/20 07:21 Period Temp Pulse Resp BP Sys/[place] Pulse Ox Last 24 Hr 98.1 F-98.7 F 68-97 16-20 121-149/56-77 93-98 Intake and Output 07/09/20 07/10/20 07/10/20 21:59 05:59 13:59 Intake Total 1070 340 Output Total 2 4 Balance 1068 336 Weight 90.492 kg Intake & Output: Intake & Output 07/09/20 07/10/20 07/10/20 21:59 05:59 13:59 Intake Total 1070 340 Output Total 2 4 Balance 1068 336 Weight 90.492 kg Intake: IV 350 100 Zithromax 500 mg In Dextrose 5% 250 in Water 250 ml @ 250 mls/hr IV Q24H [facility] Rx#:[id number] Oral 720 240 Output: # of times incontinent of urine 2 4 Other: Stool Size Large Stool Color Brown Stool Consistency Dry and Hard Formed Juliane Exam: General: Alert, Awake, No acute Distress, obese Eyes/N/T: EOMI, Head/Neck: neck supple, CV: RRR, No murmurs, Pulm: diminished b/l, mild left base rales, no wheezing Abd: soft, nontender, +BS x4 Ext: no clubbing/cyanosis, b/l LE edema much improved with wraps now trace-1+ Neuro: Alert, no focal deficits, moves all extremities, Skin: warm/dry OBJ DATA Labs CBC & Chem 7: 07/10/20 05:28 07/10/20 05:28 Labs: Abnormal Lab Results 07/10/20 07/10/20 07/09/20 05:28 05:28 05:30 WBC RBC 3.53 L Hgb 10.3 L 10.0 L Hct 33.9 L 32.2 L MCHC 30.4 L [place] % (Auto) 13.3 H 12.9 H Gran # [place] # (Auto) 1.06 H 1.31 H D-Dimer Potassium 3.2 L BUN 34 H Creatinine Glucose 124 H Albumin 3.0 L Procalcitonin 07/09/20 07/08/20 07/08/20 05:30 17:35 17:35 WBC RBC Hgb Hct MCHC [place] % (Auto) Gran # [place] # (Auto) D-Dimer Potassium BUN 37 H 47 H Creatinine 1.2 H Glucose 169 H 145 H Albumin Procalcitonin 0.20 H 07/08/20 07/08/20 17:35 17:35 WBC 14.3 H RBC Hgb 10.9 L Hct MCHC 29.7 L [place] % (Auto) Gran # 8.74 H [place] # (Auto) 1.60 H D-Dimer 0.41 H Potassium BUN Creatinine Glucose Albumin Procalcitonin Meds: Medications Hydrocodone Bitart/Acetaminophen ([place] 10/325mg) 1 tab PO Q4H PRN; Protocol PRN Reason: Pain Last Admin: 07/10/20 07:15 Dose: 1 tab Documented by: Albuterol/Ipratropium (Duoneb) 3 ml NEB Q4HRT PRN PRN Reason: Shortness Of Breath Or Wheezing Dextrose (Dextrose 50%) 0 ml IV UD PRN PRN Reason: Hypoglycemia Diagnostic Test (Pha) (Accu-Chek) 1 each FS [facility] COUNT INCLUDES THE [facility] Last Admin: 07/10/20 07:15 Dose: 1 each Documented by: Docusate Sodium (Colace) 100 mg PO BID [facility] Last Admin: 07/09/20 21:00 Dose: 100 mg Documented by: Glucose (Insta-Glucose) 15 gm PO PRN PRN PRN Reason: Hypoglycemia Heparin Sodium (Porcine) (Heparin) 5,000 unit SQ Q12 [facility] Last Admin: 07/09/20 21:00 Dose: 5,000 unit Documented by: Hydralazine HCl (Apresoline) 0 mg IV Q2HP PRN PRN Reason: Hypertension Azithromycin 500 mg/ Dextrose 250 mls @ 250 mls/hr IV Q24H [facility]; Protocol Stop: 07/11/20 10:59 Last Infusion: 07/09/20 16:33 Dose: Infused Documented by: Ceftriaxone Sodium 2 gm/ (Dextrose) 50 mls @ 100 mls/hr IV Q24H [facility] Last Infusion: 07/09/20 10:06 Dose: Infused Documented by: Metronidazole (Flagyl) 500 mg in 100 mls @ 100 mls/hr IV Q8H [facility]; Protocol Last Admin: 07/10/20 05:54 Dose: 100 mls/hr Documented by: Insulin Human Lispro (Humalog) 0 unit SQ [facility] COUNT INCLUDES THE [facility]; Protocol Last Admin: 07/10/20 07:14 Dose: 1 unit Documented by: Labetalol HCl (Trandate) 0 mg IV Q2HP PRN PRN Reason: Hypertension Lactobacillus Rhamnosus (Culturelle) 1 cap PO BID [facility] Last Admin: 07/09/20 21:01 Dose: 1 cap Documented by: Lisinopril (Zestril) 5 mg PO BID [facility] Last Admin: 07/09/20 21:01 Dose: 5 mg Documented by: Methocarbamol (Robaxin) 500 mg PO TID [facility] Last Admin: 07/09/20 21:01 Dose: 500 mg Documented by: Mupirocin (Bactroban Oint 2%) 1 dose NARES BID COUNT [facility]CLUDES [facility] Last Admin: 07/09/20 20:59 Dose: 1 dose Documented by: Ondansetron HCl (Zofran) 4 mg IV Q6HP PRN PRN Reason: Nausea And Vomiting Mirabegron [ (Myrbetriq] 50 Mg Tab) 1 dose PO DAILY [facility] Last Admin: 07/09/20 08:31 Dose: Not Given Documented by: Sodium Chloride (Saline Flush) 10 ml IV Q8 COUNT [facility]CLUD[facility] Last Admin: 07/10/20 05:53 Dose: 10 ml Documented by: A/P Narrative A/P Narrative: A: *Acute hypoxic respiratory failure: -on 1-2L NC *Pneumonia, CAP vs Aspiration: -COVID-19 negative / MRSA screen / Respiratory panel negative -Blood culture and sputum culture *h/o Dysphagia: ST eval pending *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 may add diuretic or coreg if needed -lasix stopped -compression wraps to legs and elevate -pt/ot -Smoking cessation counseling, Nicotine patch if necessary -ppx: Heparin CODE STATUS: Manager Lpn Spent With Patient Time: Total time spent is greater than 50% in coordination of care (as documented) at patient's floor/unit and/or counseling patient: QUALITY VTE Deep Vein Thrombosis/Pulmonary Embolism Present on Admission: No
[2020-07-10] MEDS: LISINOPRIL 5 MG TABLET PO SCH ×2 (08:36→20:14)
[2020-07-10] MEDS: LACTOBACILLUS 1 CAPSULE PO SCH ×2 (08:36→20:13)
[2020-07-10] MEDS: METHOCARBAMOL 500 MG TABLET PO SCH ×3 (08:36→20:13)
[2020-07-10] MEDS: DOCUSATE SODIUM 100 MG CAPSULE PO SCH ×2 (08:36→20:13)
[2020-07-10] MEDS: HEPARIN 5,000 UNIT/ML VIAL SQ SCH ×2 (08:37→20:13)
[2020-07-10] MEDS: MUPIROCIN OINT 2% 22GM NARES SCH ×2 (08:37→20:13)
[2020-07-10] MEDS: cefTRIAXone 2 GM in DEXTROSE 5% IN WATER 50 ML IV SCH (08:57)
[2020-07-10] MEDS ORDERED: LACTOBACILLUS 1 CAPSULE PO SCH (09:00)
[2020-07-10] MEDS: AZITHROMYCIN 500 MG in DEXTROSE 5% IN WATER 250 ML IV SCH (09:43)
--- NOTE | 2020-07-10 11:00 | Discharge Summary ---
Discharge Provider Provider Patient information: Note initiated : 07/10/20 at 10:57 am Service Date, if different from initiated Date: [] Patient: Genna Gong 79 y/o F admitted on 07/08/20 for Shortness of Breath, Increased Edema. Chief Complaint: [] Date of admission: 07/08/20 23:23 Discharge date: 07/12/20 Primary care physician: Richar Brand Consults: 07/09/20 07:21 Consult to Physician [CONS] Routine Comment: Consulting Provider: Jolanta Rowland Reason For Exam: Physician to Consult Discharge Meds Discharge Medications Home Medications enalapril maleate 5 mg PO BID 11/09/18 [History Confirmed 07/09/20 Last Taken 07/08/20 08:00] methocarbamol 500 mg PO TID 11/09/18 [History Confirmed 07/09/20 Last Taken 07/08/20 08:00] potassium chloride 20 mEq tablet,extended release 10 meq PO BIDCC 01/06/19 [H istory Confirmed 07/09/20 Last Taken 07/08/20 08:00] ondansetron 4 mg SL Q4-6HP PRN 02/12/19 [History Confirmed 07/09/20 Last Taken 09/16/19] cinnamon bark 1,000 mg PO BID 09/12/19 [History Confirmed 07/09/20 Last Taken 07/08/20 08:00] omega-3 fatty acids-fish oil 1 cap PO QDAY 09/12/19 [History Confirmed 07/09/20 Last Taken 07/08/20 08:00] Lactobacillus acidophilus 1 tab PO BID 12/25/19 [History Confirmed 07/09/20 Last Taken 07/08/20] metformin 500 mg PO BIDCC 12/25/19 [History Confirmed 07/09/20 Last Taken 07/08/20 08:00] metolazone 10 mg PO DAILY 12/25/19 [History Confirmed 07/09/20 Last Taken 07/08/20 08:00] mirabegron 50 mg PO DAILY 03/12/20 [History Confirmed 07/09/20 Last Taken 07/08/20 08:00] hydrocodone-acetaminophen 1 tab PO Q4H PRN #42 tab 03/17/20 [Rx Confirmed 07/09/20 Last Taken 07/08/20 08:00] bisacodyl 10 mg rectal suppository 10 mg WA QDAY PRN 03/29/20 [History Confirmed 07/09/20 Last Taken Unknown] glucagon HCl 1 mg solution for injection 1 mg SUB-Q Q20M PRN 03/29/20 [History Confirmed 07/09/20 Last Taken Unknown] magnesium hydroxide 400 mg/5 mL oral suspension 30 ml PO QDAY PRN ml 03/29/20 [History Confirmed 07/09/20 Last Taken Unknown] sodium phosphates 19 gram-7 gram/197 mL enema 118 ml WA ONCE 03/29/20 [History Confirmed 07/09/20 Last Taken Unknown] cholecalciferol (vitamin D3) 1,250 mcg (50,000 unit) tablet 1,250 mcg PO ONCE tab 04/06/20 [History Confirmed 07/09/20 Last Taken Unknown] amoxicillin-pot clavulanate [Augmentin] 1 tab PO Q12H #4 tab 07/10/20 [Rx Last Taken Unknown] amlodipine 5 mg PO QDAY #30 tab 07/12/20 [Rx Last Taken Unknown] COURSE Hospital Course Hospital course: History of present illness: Ms. Gong is a 79 year old F with a past medical history of diabetes type 2, current smoker, and history of dysphagia who presented to the ER due to worsening shortness of breath and both leg swelling. She also complains of mild cough and stuffy nose but no sputum. In the ER, she was found to have oxygen desaturation. Chest x-ray showed possible pneumonia. COVID-19 test negative. Lactic acid 1.2, procalcitonin 0.20, and a d-dimer 0.41. 1 dose of ceftriaxone and azithromycin was given. When I saw this patient in the ER, other than the symptoms mentioned above, she was fine. Denied headache, dizziness, chest pain, abdominal pain, dysuria, nausea or vomiting. Denies recent travel or sick contact. *Event Note: Advanced Care Planning Documents: Parties in Attendance: pt and pt's decisional Capacity: yes POLST form completed: not. I explained CPR and intubation in detail to pt and . Both agreed with CPR but intubation. 07/09 Pt feels much better. She is now on 2L with good oxygen saturation. WBC normalized, 10.2 today 07/10 Patient continues to feel better. She has been occasional cough productive. Shortness of breath not noticeable at rest. 07/11 No new complaints overnight events. Patient on 2 L when I arrived to evaluate with high sats, dropped her down to room air, monitor. She does have a cough of clear sputum. Does have short of breath with exertion. 07/12 Doing well. On room air. She did note that while she was sleeping her sats dropped a little bit. Likely patient has obstructive sleep apnea and likely COPD, refer to pulmonology. *Amlodipine decreased d/t peripheral edema, may need alternative. pt to monitor BP daily and bring log to PCP. 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 *LEODAN on CKD II: resolved *Anemia, chronic: *HTN: on norvasc and enalapril *chronic b/l LE edema: home metolazone *Tobacco dependance and suspected COPD: *Obesity: *Dementia, mild: *chronic back pain: Discharge diagnosis: Acute hypoxic respite failure pneumonia oropharyngeal dysphagia Secondary discharge diagnosis: Diabetes acute kidney injury on chronic chronic anemia hypertension tobacco abuse obesity dementia chronic back pain Time Spent with Patient Time attestation: Total time spent providing and/or coordinating discharge services: Time spent: Greater than 30 minutes EXAM Constitutional Vitals: Temp Pulse Resp BP Pulse Ox 98.2 F 68 18 142/56 93 07/10/20 06:32 07/10/20 06:32 07/10/20 07:21 07/10/20 06:32 07/10/20 07:21 Discharge Data Data Completed and Pending Labs on day of discharge: Labs from last 24 hours 07/10/20 07/10/20 05:28 05:28 WBC 8.0 RBC 3.64 Hgb 10.3 L Hct 33.9 L MCV 93.1 MCH 28.3 MCHC 30.4 L RDW 12.3 Plt Count 242 MPV 9.6 Gran % 57.2 Lymph % (Auto) 26.0 [place] % (Auto) 13.3 H Eos % (Auto) 3.0 Baso % (Auto) 0.5 Gran # 4.55 Lymph # (Auto) 2.07 [place] # (Auto) 1.06 H Eos # (Auto) 0.24 Baso # (Auto) 0.04 Sodium 138 Potassium 3.2 L Chloride 97 Carbon Dioxide 30 Anion Gap 11.0 BUN 34 H Creatinine 1.0 GFR Calculation 54 Glucose 124 H Calcium 9.8 Total Bilirubin 0.4 AST 15 ALT 21 Alkaline Phosphatase 51 Total Protein 5.9 Albumin 3.0 L Globulin 2.9 Albumin/Globulin Ratio 1.0 Preliminary micro results at discharge 07/08/20 20:22 Blood Culture - Preliminary Blood 07/08/20 21:45 Blood Culture - Preliminary Blood Discharge Plan Patient/Caregiver Discharge Instructions Activity: increase activity as tolerated Diet: Consistent Carbohydrate Activity Restrictions/Additional Instructions: 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 Monitor blood pressure twice daily, keep a log and bring to PCP. Norvasc decreased d/t edema. Prescriptions: New amoxicillin-pot clavulanate [Augmentin] 875-125 mg tablet 1 tab PO Q12H Qty: 4 RF: 0 amlodipine 5 mg tablet 5 mg PO QDAY Qty: 30 RF: 0 Continued potassium chloride 20 mEq tablet extended release 10 meq PO BIDCC RF: 0 bisacodyl [Dulcolax (bisacodyl)] 10 mg suppository 10 mg WA QDAY PRN (Reason: Constipation) RF: 0 Fleet Enema Extra 19-7 gram/197 mL enema 118 ml WA ONCE RF: 0 Glucagon (HCl) Emergency Kit 1 mg recon soln 1 mg SUB-Q Q20M PRN (Reason: Hypoglycemia) RF: 0 magnesium hydroxide [Milk of Magnesia] 400 mg/5 mL suspension 30 ml PO QDAY PRN (Reason: Constipation) RF: 0 cholecalciferol (vitamin D3) 1,250 mcg (50,000 unit) tablet 1,250 mcg PO ONCE RF: 0 methocarbamol 500 MG tablet 500 mg PO TID RF: 0 enalapril maleate 20 MG tablet 5 mg PO BID RF: 0 ondansetron 4 MG tablet 4 mg SL Q4-6HP PRN (Reason: Nausea) RF: 0 cinnamon bark 500 MG capsule 1,000 mg PO BID RF: 0 omega-3 fatty acids-fish oil 1 EACH capsule 1 cap PO QDAY RF: 0 metformin 500 MG tablet 500 mg PO BIDCC RF: 0 Lactobacillus acidophilus 1 EACH capsule 1 tab PO BID RF: 0 metolazone 5 MG tablet 10 mg PO DAILY RF: 0 mirabegron 50 MG tablet extended release 24 hr 50 mg PO DAILY RF: 0 hydrocodone-acetaminophen 1 TAB tablet 1 tab PO Q4H PRN (Reason: Pain) Qty: 42 RF: 0 Discontinued amlodipine 10 MG tablet 10 mg PO DAILY RF: 0 Follow Up Plan Follow up with: Richar Brand MD [Primary Care Provider] - Patient Disposition: Xfer SNF Prognosis: Undetermined Rehab Potential: Fair I certify that the patient requires SNF services: Yes Overall status at discharge: patient is progressing back to baseline Discharge Orders: Discharge Order (Routine); Ordered 07/12/20 Ordered By: Obi Savage [facility] Deep Vein Thrombosis/Pulmonary Embolism Present on Admission: No
--- NOTE | 2020-07-10 19:37 | XRay Report ---
CLINICAL INFORMATION: Follow-up right lung infiltrate COMPARISON: 07/08/2020 FINDINGS: Mild cardiomegaly is unchanged. Mediastinum and pulmonary vessels are normal. Right basilar infiltrate is improved now small. No effusion IMPRESSION: Small right lung infiltrate - improved Interpreted and Authenticated by: Vikas Whitley 07/10/20
[2020-07-11] MEDS: HYDROcodone/APAP 10/325MG TABLET PO PRN ×4 (02:14→20:50)
[2020-07-11] MEDS: 0.9 % SODIUM CHLORIDE 10 ML SYRINGE IV SCH ×3 (05:51→21:03)
[2020-07-11] MEDS: metroNIDAZOLE 500 MG/100 ML BAG IV SCH ×3 (05:51→21:03)
[2020-07-11] MEDS: INSULIN LISPRO 1 UNIT/0.01 ML UNIT SQ SCH ×4 (07:09→20:48)
[2020-07-11 07:10] LABS: Blood Urea Nitrogen 29 mg/dL (8-23); Calcium 9.6 mg/dL (8.6-10.4); Carbon Dioxide 27 mmol/L (22-30); Chloride 102 mmol/L (96-108); Glomerular Filtration Rate 71; Glucose 142 mg/dL (70-105)
--- NOTE | 2020-07-11 08:28 | Internal Med Progress Note ---
SUBJECTIVE Subjective Patient information: Note initiated : 07/11/20 at 8:25 am Service Date, if different from initiated Date: [] Patient: Genna Gong a 79 y/o F admitted on 07/08/20 for Shortness of Breath, Increased Edema. Chief Complaint: [] Interval history: History of present illness: Ms. Gong is a 79 year old F with a past medical history of diabetes type 2, current smoker, and history of dysphagia who presented to the ER due to worsening shortness of breath and both leg swelling. She also complains of mild cough and stuffy nose but no sputum. In the ER, she was found to have oxygen desaturation. Chest x-ray showed possible pneumonia. COVID-19 test negative. Lactic acid 1.2, procalcitonin 0.20, and a d-dimer 0.41. 1 dose of ceftriaxone and azithromycin was given. When I saw this patient in the ER, other than the symptoms mentioned above, she was fine. Denied headache, dizziness, chest pain, abdominal pain, dysuria, na usea or vomiting. Denies recent travel or sick contact. *Event Note: Advanced Care Planning Documents: Parties in Attendance: pt and pt's decisional Capacity: yes POLST form completed: not. I explained CPR and intubation in detail to pt and . Both agreed with CPR but intubation. 10 Pt feels much better. She is now on 2L with good oxygen saturation. WBC normalized, 10.2 today 10 Patient continues to feel better. She has been occasional cough productive. Shortness of breath not noticeable at rest. 07/11 No new complaints overnight events. Patient on 2 L when I arrived to evaluate with high sats, dropped her down to room air, monitor. She does have a cough of clear sputum. Does have short of breath with exertion. Review of Systems: denies headache/fever/chills/nausea/vomiting/chest or abdominal pain/diarrhea. Otherwise see above. Constitutional Vitals: Vital Signs Temp Pulse Resp BP Pulse Ox 98.0 F 82 20 149/49 97 07/11/20 03:41 07/11/20 03:41 07/11/20 03:41 07/11/20 03:41 07/11/20 03:41 Period Temp Pulse Resp BP Sys/[place] Pulse Ox Last 24 Hr 97.8 F-99.4 F 82-92 - 117-162/49-105 93-97 Intake and Output 07/10/20 07/11/20 07/11/20 21:59 05:59 13:59 Intake Total 100 250 Output Total 1 1 1 Balance 99 249 -1 Weight 90.775 kg Intake & Output: Intake & Output 07/10/20 07/11/20 07/11/20 21:59 05:59 13:59 Intake Total 100 250 Output Total 1 1 1 Balance 99 249 -1 Weight 90.775 kg Intake: IV 100 100 Oral 150 Output: # of times incontinent of urine 1 1 1 Exam: General: Alert, Awake, No acute Distress, obese Eyes/N/T: EOMI, Head/Neck: neck supple, CV: RRR, No murmurs, Pulm: diminished b/l, no wheezing Abd: soft, nontender, +BS x4 Ext: no clubbing/cyanosis, b/l LE edema much improved with wraps now 1+ Neuro: Alert, no focal deficits, moves all extremities, Skin: warm/dry OBJ DATA Labs CBC & Chem 7: 07/10/20 05:28 07/11/20 05:45 Labs: Abnormal Lab Results 07/11/20 07/10/20 07/10/20 05:45 05:28 05:28 WBC RBC Hgb 10.3 L Hct 33.9 L MCHC 30.4 L [place] % (Auto) 13.3 H Gran # [place] # (Auto) 1.06 H D-Dimer Potassium 3.2 L BUN 29 H 34 H Creatinine Glucose 142 H 124 H Albumin 3.0 L Procalcitonin 07/09/20 07/09/20 07/08/20 05:30 05:30 17:35 WBC RBC 3.53 L Hgb 10.0 L Hct 32.2 L MCHC [place] % (Auto) 12.9 H Gran # [place] # (Auto) 1.31 H D-Dimer Potassium BUN 37 H Creatinine Glucose 169 H Albumin Procalcitonin 0.20 H 07/08/20 07/08/20 07/08/20 17:35 17:35 17:35 WBC 14.3 H RBC Hgb 10.9 L Hct MCHC 29.7 L [place] % (Auto) Gran # 8.74 H [place] # (Auto) 1.60 H D-Dimer 0.41 H Potassium BUN 47 H Creatinine 1.2 H Glucose 145 H Albumin Procalcitonin Meds: Medications Hydrocodone Bitart/Acetaminophen (Olin 10/325mg) 1 tab PO Q4H PRN; Protocol PRN Reason: Pain Last Admin: 07/11/20 06:26 Dose: 1 tab Documented by: Albuterol/Ipratropium (Duoneb) 3 ml NEB Q4HRT PRN PRN Reason: Shortness Of Breath Or Wheezing Last Admin: 07/10/20 16:13 Dose: 3 ml Documented by: Dextrose (Dextrose 50%) 0 ml IV UD PRN PRN Reason: Hypoglycemia Diagnostic Test (Pha) (Accu-Chek) 1 each FS [facility] Last Admin: 07/11/20 07:09 Dose: 1 each Documented by: Docusate Sodium (Colace) 100 mg PO BID [facility] Last Admin: 07/10/20 20:13 Dose: 100 mg Documented by: Glucose (Insta-Glucose) 15 gm PO PRN PRN PRN Reason: Hypoglycemia Heparin Sodium (Porcine) (Heparin) 5,000 unit SQ Q12 JOHN Last Admin: 07/10/20 20:13 Dose: 5,000 unit Documented by: Hydralazine HCl (Apresoline) 0 mg IV Q2HP PRN PRN Reason: Hypertension Last Admin: 07/10/20 16:19 Dose: 10 mg Documented by: Azithromycin 500 mg/ Dextrose 250 mls @ 250 mls/hr IV Q24H [facility]; Protocol Stop: 07/11/20 10:59 Last Infusion: 07/10/20 10:50 Dose: Infused Documented by: Ceftriaxone Sodium 2 gm/ (Dextrose) 50 mls @ 100 mls/hr IV Q24H [facility] Last Infusion: 07/10/20 09:30 Dose: Infused Documented by: Metronidazole (Flagyl) 500 mg in 100 mls @ 100 mls/hr IV Q8H [facility]; Protocol Last Admin: 07/11/20 05:51 Dose: 100 mls/hr Documented by: Insulin Human Lispro (Humalog) 0 unit SQ ACHS [facility]; Protocol Last Admin: 07/11/20 07:09 Dose: Not Given Documented by: Labetalol HCl (Trandate) 0 mg IV Q2HP PRN PRN Reason: Hypertension Last Admin: 07/10/20 19:27 Dose: 10 mg Documented by: Lactobacillus Rhamnosus (Culturelle) 1 cap PO BID [facility] Last Admin: 07/10/20 20:13 Dose: 1 cap Documented by: Lisinopril (Zestril) 5 mg PO BID [facility] Last Admin: 07/10/20 20:14 Dose: 5 mg Documented by: Methocarbamol (Robaxin) 500 mg PO TID [facility] Last Admin: 07/10/20 20:13 Dose: 500 mg Documented by: Mupirocin (Bactroban Oint 2%) 1 dose NARES BID [facility] Last Admin: 07/10/20 20:13 Dose: 1 dose Documented by: Ondansetron HCl (Zofran) 4 mg IV Q6HP PRN PRN Reason: Nausea And Vomiting Mirabegron [ (Myrbetriq] 50 Mg Tab) 1 dose PO DAILY [facility] Last Admin: 07/10/20 08:52 Dose: Not Given Documented by: Sodium Chloride (Saline Flush) 10 ml IV Q8 [facility] Last Admin: 07/11/20 05:51 Dose: 10 ml Documented by: A/P Narrative A/P Narrative: A: *Acute hypoxic respiratory failure: -on 1-2L NC, place on room air this morning will monitor *Pneumonia, CAP vs Aspiration: -COVID-19 negative / MRSA screen / Respiratory panel negative -Blood culture and sputum culture *h/o Dysphagia: ST eval pending *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 start loop diuretic -compression wraps to legs and elevate -pt/ot -Smoking cessation counseling, Nicotine patch if necessary -ppx: Heparin CODE STATUS: Rig Manager Spent With Patient Time: Total time spent is greater than 50% in coordination of care (as documented) at patient's floor/unit and/or counseling patient: QUALITY VTE Deep Vein Thrombosis/Pulmonary Embolism Present on Admission: No
[2020-07-11] MEDS ORDERED: ALBUMIN HUMAN 12.5 GM/50 ML BAG IV ONE (08:55)
[2020-07-11] MEDS ORDERED: FUROSEMIDE 40 MG/4 ML VIAL IV ONE (08:55)
[2020-07-11] MEDS: HEPARIN 5,000 UNIT/ML VIAL SQ SCH ×2 (09:29→20:48)
[2020-07-11] MEDS: LACTOBACILLUS 1 CAPSULE PO SCH ×2 (09:30→20:49)
[2020-07-11] MEDS: LISINOPRIL 5 MG TABLET PO SCH ×2 (09:30→20:49)
[2020-07-11] MEDS: MUPIROCIN OINT 2% 22GM NARES SCH ×2 (09:30→20:50)
[2020-07-11] MEDS: METHOCARBAMOL 500 MG TABLET PO SCH ×3 (09:30→20:49)
[2020-07-11] MEDS: DOCUSATE SODIUM 100 MG CAPSULE PO SCH ×2 (09:30→20:50)
[2020-07-11] MEDS: cefTRIAXone 2 GM in DEXTROSE 5% IN WATER 50 ML IV SCH (10:17)
[2020-07-11] MEDS: AZITHROMYCIN 500 MG in DEXTROSE 5% IN WATER 250 ML IV SCH (10:51)
[2020-07-12] MEDS: 0.9 % SODIUM CHLORIDE 10 ML SYRINGE IV SCH (05:49)
[2020-07-12] MEDS: metroNIDAZOLE 500 MG/100 ML BAG IV SCH (05:50)
[2020-07-12] MEDS: HYDROcodone/APAP 10/325MG TABLET PO PRN (05:51)
[2020-07-12] MEDS: INSULIN LISPRO 1 UNIT/0.01 ML UNIT SQ SCH ×2 (08:00→11:58)
[2020-07-12] MEDS ORDERED: FUROSEMIDE 40 MG TABLET PO SCH (09:00)
[2020-07-12] MEDS: HEPARIN 5,000 UNIT/ML VIAL SQ SCH (09:32)
[2020-07-12] MEDS: METHOCARBAMOL 500 MG TABLET PO SCH (09:32)
[2020-07-12] MEDS: cefTRIAXone 2 GM in DEXTROSE 5% IN WATER 50 ML IV SCH (09:32)
[2020-07-12] MEDS: DOCUSATE SODIUM 100 MG CAPSULE PO SCH (09:32)
[2020-07-12] MEDS: LACTOBACILLUS 1 CAPSULE PO SCH (09:32)
[2020-07-12] MEDS: LISINOPRIL 5 MG TABLET PO SCH (09:33)
[2020-07-12] MEDS: MUPIROCIN OINT 2% 22GM NARES SCH (09:33)
== END 2020-07-12 12:40 | disposition home or self-care (01) | DRG 189 ==
LOC: ED 16:24 → MEDSUR 23:23
PROVIDERS: ADMIT Internal Medicine; ATTEND Internal Medicine

== ENCOUNTER 2021-10-13 10:47 | Inpatient (IN) ==
--- NOTE | 2021-10-13 11:06 | Emergency Department Note ---
HPI General Chief complaint: Fever Stated complaint: Weakness, Fever Time Seen by Provider: 10/13/21 11:06 Source: patient and EMS Mode of arrival: EMS Limitations: no limitations History of Present Illness HPI Narrative: 81-year-old female with past medical history of type 2 diabetes, hypertension, and GERD presenting with generalized weakness. States she has felt generally weak over the past few days. She endorses mild shortness of breath and a nonproductive cough. Also with a fever and chills at home. Blood glucose for EMS was in the 300s. Patient denies vomiting, chest pain, or abdominal pain. She does endorse some pain with urination. No blood in the stool or melena. She has received 2 doses of the Covid vaccine. Related Data Home Medications Medication Instructions Recorded Confirmed glucagon HCl 1 mg solution for 1 mg SUB-Q Q20M PRN 03/29/20 07/26/21 injection (Glucagon (HCl) Emergency Kit) enalapril maleate 20 mg tablet 20 mg PO BID tab 07/20/21 07/26/21 Previous Rx's Medication Instructions Recorded amlodipine 5 mg tablet 5 mg PO QDAY #30 tab 07/12/20 omeprazole 40 mg capsule,delayed See Rx Instructions .ROUTE 07/26/21 release .COMPLEX #90 cap metformin 500 mg tablet 500 mg PO BID #180 tab 09/19/21 methocarbamol 500 mg tablet See Rx Instructions .ROUTE 09/21/21 .COMPLEX #270 tablet hydrocodone 10 mg-acetaminophen 1 tab PO Q6H PRN #90 tab 09/28/21 325 mg tablet metolazone 10 mg tablet See Rx Instructions .ROUTE 10/06/21 .COMPLEX #135 tab oxybutynin chloride 5 mg tablet 5 mg PO TID #90 tab 10/06/21 Allergies Allergy/AdvReac Type Severity Reaction Status Date / Time 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 Unknown Unknown Verified 07/26/21 07:54 perfume Allergy Unknown Unknown Verified 07/26/21 07:54 Review of Systems ROS ROS Narrative: Narrative: Constitutional: Reports fever and chills ENT ED: Denies throat pain Cardiovascular: Denies chest pain or palpitations Respiratory: Reports shortness of breath and cough Gastrointestinal: Denies abdominal pain, nausea, vomiting, diarrhea or melena Genitourinary: Reports dysuria; Denies frequency or hematuria Musculoskeletal: Denies back pain Integumentary: Denies rash Neurological: Reports weakness; Denies headache or dizziness Psychiatric: Denies anxiety Endocrine: Denies fatigue Hematological/Lymphatic: Denies easy bleeding PFSH Narrative Patient History Narrative: Narrative: Medical/Surgical/Family History All Active Problems (Updated 10/13/21 @ 14:21 by Dany Man MD) Urinary tract infection (Acute) COVID-19 (Acute) Chronic wound of extremity (Chronic) GERD (gastroesophageal reflux disease) (Chronic) DM type 2 (diabetes mellitus, type 2) (Acute) Rash (Chronic) Fatigue (Chronic) Community acquired pneumonia (Chronic) Hypoxia (Chronic) Elevated white blood cell count (Chronic) Localized edema (Chronic) Hypoxia (Chronic) Sepsis (Chronic) Diarrhea due to drug (Chronic) Dehydration (Chronic) Incisional hernia of anterior abdominal wall without obstruction or gangrene (Chronic) Nicotine dependence (Chronic) 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) Diarrhea (Chronic) Nausea and vomiting (Chronic) Left hip pain (Chronic) Hypercalcemia (Chronic) Methicillin susceptible Staphylococcus aureus infection, unspecified site (Chronic) Diabetes mellitus (Chronic) Dementia (Chronic) Acute kidney failure (Chronic) Muscle weakness (Chronic) Difficulty walking (Chronic) Dysphagia (Chronic) Lack of coordination (Chronic) Other specified disorder of skin (Chronic) Urinary retention (Chronic) Gastroenteritis (Chronic) Abdominal pain (Chronic) Creatinine elevation (Chronic) Generalized weakness (Chronic) Cutaneous fistula (Chronic) History of surgical site infection (Chronic) History of hysterectomy (Chronic) Knee cartilage, torn, left (Chronic) Diabetes 1.5, managed as type 2 (Chronic) Diabetic neuropathy (Chronic) Knee effusion, left (Chronic) Left knee injury (Chronic) Edema of left lower extremity (Chronic) Left hip pain (Chronic) Hypokalemia (Chronic) Fracture of rib (Chronic) Acute kidney injury (Chronic) Sepsis (Chronic) Peritoneal cavity free air (Chronic) UTI (urinary tract infection) (Chronic) Perforated abdominal viscus (Chronic) Medical History (Updated 10/13/21 @ 14:21 by Dany Man MD) Acute kidney failure Chronic wound of extremity Dementia Diabetes 1.5, managed as type 2 Continue diabetic management as you have at home Diabetes mellitus Diabetic neuropathy Diarrhea Difficulty walking DM type 2 (diabetes mellitus, type 2) Dysphagia Edema of left lower extremity Fatigue GERD (gastroesophageal reflux disease) Hypercalcemia Knee cartilage, torn, left Knee effusion, left Lack of coordination Left hip pain Left hip pain Left 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 injury 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 of 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 drugs Methicillin susceptible Staphylococcus aureus infection, unspecified site Muscle weakness Nausea and vomiting Nicotine dependence Other specified disorder of skin Rash Recurring leg rash Urinary retention Surgical History Absence of both cervix and uterus, acquired History of appendectomy History of back surgery x2 History of carpal tunnel surgery History of section History of hysterectomy History of incisional hernia repair 03/12/2020 History of knee surgery Left History of laparotomy (~11/09/18) Laparotomy with jackie patch with closure of perforated gastric ulcer History of shoulder surgery History of surgery on wrist Bilateral History of tubal ligation Family History (Updated 07/26/21 @ 08:30 by Ap Cifuentes MD) Mother Diabetes mellitus, type II Hypertension Father Leukemia Sister Heart attack Social History Smoking Status: Never smoker Alcohol Intake Frequency: does not drink Substance Use: does not use Exam Narrative Narrative: Narrative: General Limitations: no limitations General appearance: Present alert and in no apparent distress Head Head: Present atraumatic and normocephalic Eye Eye: Present normal appearance, PERRL and EOMI; Absent scleral icterus or conjunctival injection ENT ENT: Present mucous membranes dry Neck Neck: Present normal inspection, full ROM and trachea midline; Absent meningismus or lymphadenopathy Chest Chest: Present symmetric chest wall rise Respiratory Respiratory: Present other (Coarse breath sounds at bilateral bases); Absent respiratory distress, wheezes, stridor, accessory muscle use or prolonged expiratory phase Cardiovascular Cardiovascular: Present normal rhythm and tachycardia; Absent systolic murmur or diastolic murmur Adbominal Abdominal: Present soft; Absent distention, tenderness, guarding, rebound, rigidity, organomegaly or mass Extremities Extremities: Present other (Chronic bilateral lower extremity venous stasis changes, no warmth or drainage.) Back Back: Absent CVA tenderness (R) or CVA tenderness (L) Neurological Neurological: Present alert and oriented X3 Psychiatric Psychiatric: Present normal affect and normal mood Skin Skin: Present warm (WNL) and dry Course Consultations Consultation #1: Dr. Savage, hospitalist Time: 14:18 Vital Signs Vital signs: Vital Signs Temperature 101.1 F H 10/13/21 10:49 Pulse Rate 120 H 10/13/21 10:49 Respiratory Rate 18 10/13/21 10:49 Blood Pressure 153/122 10/13/21 10:49 Pulse Oximetry (%) 94 10/13/21 10:49 Temperature 98.0 F 10/13/21 14:05 Pulse Rate 91 H 10/13/21 14:05 Respiratory Rate 18 10/13/21 10:49 Blood Pressure 141/94 10/13/21 13:46 Pulse Oximetry (%) 95 10/13/21 14:05 MDM MDM Narrative Medical decision making narrative: 81-year-old female presenting with weakness and fever. She was febrile and tachycardic on arrival. She was also reportedly hypotensive initially for EMS. Concern for sepsis as well as DKA with elevated glucose. Will obtain labs, chest x-ray, UA, Covid and influenza swabs, and reevaluate. Normal saline bolus ordered. UA is consistent with a urinary tract infection. 1 g IV Rocephin ordered. Lactate is normal. Patient also was tested positive for COVID-19. I discussed the patient with Dr. Savage, admitting hospitalist. Will give monoclonal antibodies. Lab Data Lab results reviewed: Yes I reviewed the patient's lab results. Result diagrams: 10/13/21 12:00 10/13/21 12:00 Labs: Lab Results 10/13/21 10/13/21 10/13/21 Range/Units 11:59 12:00 12:00 WBC 5.3 (4.5-11.0) K/mcL RBC 4.23 (3.59-5.38) M/mcL Hgb 12.0 (11.2-15.7) g/dL Hct 39.0 (34.1-44.9) % MCV 92.2 (80.0-100.0) fL MCH 28.4 (26.0-34.0) pg MCHC 30.8 L (31.0-36.0) g/dL RDW 12.3 (11.5-14.5) % Plt Count 146 (140-440) K/mcL MPV 10.4 (7.4-10.4) fL Neut % (Auto) 65.7 (38.0-78.0) % Lymph % (Auto) 27.7 (15.5-49.0) % [place] % (Auto) 6.2 (1.0-12.0) % Eos % (Auto) 0.2 (0.0-7.0) % Baso % (Auto) 0.2 (0.0-2.0) % Lymph # (Auto) 1.47 L (1.50-4.80) K/mcL [place] # (Auto) 0.33 (0.10-0.90) K/mcL Eos # (Auto) 0.01 (0.00-0.70) K/mcL Baso # (Auto) 0.01 (0.00-0.30) K/mcL Absolute Neutrophils 3.49 (1.80-8.00) K/mcL ABG Methemoglobin 0.3 L (0.4-1.5) % VBG pH 7.37 (7.32-7.42) U VBG pCO2 49.2 (41.0-51.0) mmHg VBG pO2 41.7 H (25.0-40.0) mmHg VBG HCO3 27.8 (24.0-28.0) mmol/L VBG Total CO2 29.3 H (25.0-29.0) mmol/L VBG O2 Saturation 68.7 (40.0-70.0) % VBG Base Excess 2 (-2-2) VBG Lactic Acid (0.5-2.0) mmol/L Carboxyhemoglobin 7.1 H (0.0-1.5) % THgb Total Hemoglobin 11.9 L (12.0-15.0) gm/Dl Sodium 137 (133-145) mmol/L Potassium 3.2 L (3.3-5.1) mmol/L Chloride 100 (96-108) mmol/L Carbon Dioxide 25 (22-30) mmol/L Anion Gap 12.0 (8.0-16.0) BUN 28 H (8-23) mg/dL Creatinine 1.0 (0.6-1.1) mg/dL GFR Calculation 54 Glucose 249 H (70-105) mg/dL Calcium 7.8 L (8.6-10.4) mg/dL Total Bilirubin 0.4 (0.1-1.0) mg/dL AST 33 H (<32) U/L ALT 29 (<40) U/L Alkaline Phosphatase 61 (39-117) U/L Total Protein 5.7 L (5.9-8.4) gm/dL Albumin 3.3 (3.2-5.2) gm/dL Globulin 2.4 (2.2-3.7) gm/dL Albumin/Globulin Ratio 1.4 (1.0-2.3) Beta-Hydroxybutyrate 0.19 (<0.27) mmol/L Urine Color Urine Appearance (Clear) Urine pH (5.0-9.0) Ur Specific Gregory (1.000-1.035) Urine Protein (Negative) mg/dL Urine Glucose (UA) (Negative) mg/dL Urine Ketones (Negative) mg/dL Urine Occult Blood (Negative) dede/mcL Urine Nitrate (Negative) Urine Bilirubin (Negative) mg/dL Urine Urobilinogen mg/dL Ur Leukocyte Esterase (Negative) /uL Urine RBC (0-3) /hpf Urine WBC (0-4) /hpf Ur Squamous Epith Cells (0-4) /hpf Urine Bacteria (0) /hpf Urine Mucus (None) /hpf Ur Culture Indicated? 10/13/21 10/13/21 Range/Units 12:00 12:30 WBC (4.5-11.0) K/mcL RBC (3.59-5.38) M/mcL Hgb (11.2-15.7) g/dL Hct (34.1-44.9) % MCV (80.0-100.0) fL MCH (26.0-34.0) pg MCHC (31.0-36.0) g/dL RDW (11.5-14.5) % Plt Count (140-440) K/mcL MPV (7.4-10.4) fL Neut % (Auto) (38.0-78.0) % Lymph % (Auto) (15.5-49.0) % [place] % (Auto) (1.0-12.0) % Eos % (Auto) (0.0-7.0) % Baso % (Auto) (0.0-2.0) % Lymph # (Auto) (1.50-4.80) K/mcL [place] # (Auto) (0.10-0.90) K/mcL Eos # (Auto) (0.00-0.70) K/mcL Baso # (Auto) (0.00-0.30) K/mcL Absolute Neutrophils (1.80-8.00) K/mcL ABG Methemoglobin (0.4-1.5) % VBG pH (7.32-7.42) U VBG pCO2 (41.0-51.0) mmHg VBG pO2 (25.0-40.0) mmHg VBG HCO3 (24.0-28.0) mmol/L VBG Total CO2 (25.0-29.0) mmol/L VBG O2 Saturation (40.0-70.0) % VBG Base Excess (-2-2) VBG Lactic Acid 1.1 (0.5-2.0) mmol/L Carboxyhemoglobin (0.0-1.5) % THgb Total Hemoglobin (12.0-15.0) gm/Dl Sodium (133-145) mmol/L Potassium (3.3-5.1) mmol/L Chloride (96-108) mmol/L Carbon Dioxide (22-30) mmol/L Anion Gap (8.0-16.0) BUN (8-23) mg/dL Creatinine (0.6-1.1) mg/dL GFR Calculation Glucose (70-105) mg/dL Calcium (8.6-10.4) mg/dL Total Bilirubin (0.1-1.0) mg/dL AST (<32) U/L ALT (<40) U/L Alkaline Phosphatase (39-117) U/L Total Protein (5.9-8.4) gm/dL Albumin (3.2-5.2) gm/dL Globulin (2.2-3.7) gm/dL Albumin/Globulin Ratio (1.0-2.3) Beta-Hydroxybutyrate (<0.27) mmol/L Urine Color Yellow Urine Appearance Slightly cloudy A (Clear) Urine pH 5.5 (5.0-9.0) Ur Specific Gregory 1.020 (1.000-1.035) Urine Protein 30 mg/dl A (Negative) mg/dL Urine Glucose (UA) 500 mg/dl A (Negative) mg/dL Urine Ketones Negative (Negative) mg/dL Urine Occult Blood Small A (Negative) dede/mcL Urine Nitrate Positive A (Negative) Urine Bilirubin Negative (Negative) mg/dL Urine Urobilinogen Normal mg/dL Ur Leukocyte Esterase Small A (Negative) /uL Urine RBC 14 H (0-3) /hpf Urine WBC 102 H (0-4) /hpf Ur Squamous Epith Cells 2 (0-4) /hpf Urine Bacteria Many A (0) /hpf Urine Mucus Many A (None) /hpf Ur Culture Indicated? yes ED POC Tests ED POC Tests: VALERI - Influenza A Negative VALERI - Influenza B Negative VALERI - SARS Antigen Positive Radiology Data Radiology results reviewed: Yes I reviewed the patient's radiology results. Radiology results narrative: Ordering Physician:Dany Man M.D. Date of Service:10/13/21 Procedure(s):XR chest 1V portable HISTORY: Fever and weakness FINDINGS: There is a nonspecific opacity in the left lung base, behind the left heart border. There are multiple overlying artifacts from large breasts and subcutaneous fat. Right lung is clear. The heart is borderline enlarged but magnified by portable technique. No pleural effusion is detected. IMPRESSION: Pneumonia versus artifact in the left lower lobe. Conventional upright PA and lateral view of the chest is recommended. Interpreted and Authenticated by: Arturo Castillo 10/13/21 EKG Data EKG #1: EKG attestation: Yes I reviewed and interpreted this EKG. and Yes There are no EKG findings of acute coronary syndrome EKG results narrative: Normal sinus rhythm at [address] elevation or depression. Interpretation: no acute changes Discharge Plan Patient/Caregiver Discharge Instructions Pt seen by MEN'S SWIM COACH/PA only: No Clinical Impression: Urinary tract infection, COVID-19 Patient Disposition: Xfer As Inpt ([facility]) Condition: Fair Follow up with: Ap Cifuentes MD [Primary Care Provider] - Prescriptions: No Action omeprazole 40 mg capsule,delayed release(DR/EC) See Rx Instructions .ROUTE .COMPLEX Qty: 90 1RF Dose Instruction: TAKE 1 CAPSULE BY MOUTH EVERY DAY Rx Instructions: TAKE 1 CAPSULE BY MOUTH EVERY DAY metformin 500 mg tablet 500 mg PO BID Qty: 180 1RF methocarbamol 500 mg tablet See Rx Instructions .ROUTE .COMPLEX Qty: 270 0RF Dose Instruction: TAKE 1 TABLET BY MOUTH THREE TIMES DAILY Rx Instructions: TAKE 1 TABLET BY MOUTH THREE TIMES DAILY hydrocodone-acetaminophen 10-325 mg tablet 1 tab PO Q6H PRN (Reason: Pain) Qty: 90 0RF Rx Instructions: Must last 30 days. metolazone 10 mg tablet See Rx Instructions .ROUTE .COMPLEX Qty: 135 1RF Dose Instruction: TAKE 1 AND ONE-HALF TABLETS BY MOUTH ONCE DAILY Rx Instructions: TAKE 1 AND ONE-HALF TABLETS BY MOUTH ONCE DAILY oxybutynin chloride 5 mg tablet 5 mg PO TID Qty: 90 2RF Glucagon (HCl) Emergency Kit 1 mg recon soln 1 mg SUB-Q Q20M PRN (Reason: Hypoglycemia) 0RF Rx Instructions: until target blood sugar attained enalapril maleate 20 mg tablet 20 mg PO BID 0RF amlodipine 5 mg tablet 5 mg PO QDAY Qty: 30 0RF
[2021-10-13] MEDS ORDERED: 0.9 % SODIUM CHLORIDE 1,000 ML IV ONE (11:13)
--- NOTE | 2021-10-13 11:55 | XRay Report ---
HISTORY: Fever and weakness FINDINGS: There is a nonspecific opacity in the left lung base, behind the left heart border. There are multiple overlying artifacts from large breasts and subcutaneous fat. Right lung is clear. The heart is borderline enlarged but magnified by portable technique. No pleural effusion is detected. IMPRESSION: Pneumonia versus artifact in the left lower lobe. Conventional upright PA and lateral view of the chest is recommended. Interpreted and Authenticated by: Arturo Castillo 10/13/21
[2021-10-13 12:27] LABS: ABG Methemoglobin 0.3 % (0.4-1.5); Total Hemoglobin 11.9 gm/Dl (12.0-15.0); VBG Base Excess 2 (-2-2); VBG HCO3 27.8 mmol/L (24.0-28.0); VBG Oxygen Saturation 68.7 % (40.0-70.0); VBG PCO2 49.2 mmHg (41.0-51.0); VBG PH 7.37 U (7.32-7.42); VBG PO2 41.7 mmHg (25.0-40.0); VBG Total CO2 29.3 mmol/L (25.0-29.0)
[2021-10-13 12:36] LABS: Basophils # (Auto) 0.01 K/mcL (0.00-0.30); Basophils % (Auto) 0.2 % (0.0-2.0); Eosinophils # (Auto) 0.01 K/mcL (0.00-0.70); Eosinophils % (Auto) 0.2 % (0.0-7.0); Lymphocytes # (Auto) 1.47 K/mcL (1.50-4.80); Lymphocytes % (Auto) 27.7 % (15.5-49.0); Mean Cell Volume 92.2 fL (80.0-100.0); Mean Corpuscular HGB Conc 30.8 g/dL (31.0-36.0); Mean Platelet Volume 10.4 fL (7.4-10.4); Monocytes # (Auto) 0.33 K/mcL (0.10-0.90); Monocytes % (Auto) 6.2 % (1.0-12.0); Neutrophils % (Auto) 65.7 % (38.0-78.0); Platelet Count 146 K/mcL (140-440); RBC 4.23 M/mcL (3.59-5.38); Red Cell Distribution Width 12.3 % (11.5-14.5); WBC 5.3 K/mcL (4.5-11.0)
--- NOTE | 2021-10-13 12:40 | EKG ---
[facility] Test Date: 2021-10-13 Pat Name: Genna Gong Department: ED Room: Gender: Female Sensor Technician: SKINNY : 1940 Requested By: Dany Man Order Number: [id number] Reading MD: Vikas Castillo M.D. Measurements Intervals [place] Rate: 84 P: 69 PA: 184 QRS: 83 QRSD: 88 T: 78 QT: 353 QTc: 418 Interpretive Statements Sinus rhythm Borderline right axis deviation Nonspecific T abnormalities, anterior leads Electronically Signed On 10-13-2021 12:40:22 PST by Vikas Castillo M.D. /[id number]/[email or web address]/[id number]
[2021-10-13 12:55] LABS: ALT/SGPT 29 U/L (<40); AST/SGOT 33 U/L (<32); Albumin 3.3 gm/dL (3.2-5.2); Albumin/Globulin Ratio 1.4 (1.0-2.3); Alkaline Phosphatase 61 U/L (39-117); Beta Hydroxybutyrate 0.19 mmol/L (<0.27); Bilirubin,Total 0.4 mg/dL (0.1-1.0); Blood Urea Nitrogen 28 mg/dL (8-23); Calcium 7.8 mg/dL (8.6-10.4); Carbon Dioxide 25 mmol/L (22-30); Chloride 100 mmol/L (96-108); Globulin 2.4 gm/dL (2.2-3.7); Glomerular Filtration Rate 54; Glucose 249 mg/dL (70-105)
[2021-10-13 13:46] LABS: Appearance,Urine Slightly Cloudy (Clear); Bacteria,Urine MANY /hpf (0); Bilirubin,Urine Negative (Negative); Color,Urine Yellow; Culture Indicated,Urine yes; Ketones,Urine Negative (Negative); Leukocyte Esterase,Urine Small /uL (Negative); Mucus,Urine MANY /hpf; Nitrate,Urine Positive (Negative); PH,Urine 5.5 (5.0-9.0); Urine Blood Small ery/mcL (Negative); Urine RBC 14 /hpf (0-3); Urine Squamous Epithelial Cell 2 /hpf (0-4); Urine WBC 102 /hpf (0-4); Urobilinogen,Urine Normal
[2021-10-13] MEDS ORDERED: cefTRIAXone 1 GM VIAL IV ONE (13:47)
[2021-10-13] MEDS ORDERED: diphenhydrAMINE 50 MG/ML VIAL IV PRN (14:17)
[2021-10-13] MEDS ORDERED: EPINEPHrine 1 MG/ML AMPUL SQ PRN (14:17)
[2021-10-13] MEDS ORDERED: methylPREDNISolone SOD SUCC 40 MG/ML VIAL IV PRN (14:17)
[2021-10-13] MEDS ORDERED: ALBUTEROL SULFATE 200 PUFF INHALER INH PRN (14:17)
--- NOTE | 2021-10-13 14:21 | Internal Med History&Physical ---
HPI History of Present Illness Patient information: Note initiated : 10/13/21 at 2:19 pm Service Date, if different from initiated Date: [] Patient: Genna Gong a 81 y/o F admitted on for Weakness, Fever. Chief Complaint: [] History of present illness: Ms. Gong is a 81 year old F History is obtained from the as patient has underlying dementia and is a poor historian. He seemed to deny every symptom for which I was told she was here although when asked about discomfort when she urinates she does say yes. Per her he called ambulance to bring her in because she has been progressively weak over the past weeks and he cannot take care of her anymore. When asked about any recent illnesses he does admit that she does have a cough lately and she did seem a little bit more labored with her breathing lately. He does not recall any fevers or chest or abdominal pain. She got the vaccine with her second dose in January 2020 but has not had the booster dose yet. Work-up in the ED was found to be Covid positive. Flu negative. Urine was consistent with a UTI. She looks volume depleted. Lactate was okay. In the ED she was found to be febrile with a heart rate of 116. Systolic blood pressure by EMS was 88. Here in the ED she has been systolics of 130s. Portable chest x-ray showed a nonspecific opacity in the left lung unable to tell if it was infiltrate versus a low artifact left lower lobe. A 2 view is pending. Review of systems: Unable to obtain accurately given patient's dementia history. 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) Diarrhea (Chronic) Nausea and vomiting (Chronic) Left hip pain (Chronic) Hypercalcemia (Chronic) Methicillin susceptible Staphylococcus aureus infection, unspecified site (Chronic) Diabetes mellitus (Chronic) Dementia (Chronic) Acute kidney failure (Chronic) Muscle weakness (Chronic) Difficulty walking (Chronic) Dysphagia (Chronic) Lack of coordination (Chronic) Other specified disorder of skin (Chronic) Urinary retention (Chronic) Gastroenteritis (Chronic) Abdominal pain (Chronic) Creatinine elevation (Chronic) Generalized weakness (Chronic) Cutaneous fistula (Chronic) History of surgical site infection (Chronic) History of hysterectomy (Chronic) Knee cartilage, torn, left (Chronic) Diabetes 1.5, managed as type 2 (Chronic) Diabetic neuropathy (Chronic) Knee effusion, left (Chronic) Left knee injury (Chronic) Edema of left lower extremity (Chronic) Left hip pain (Chronic) Hypokalemia (Chronic) Fracture of rib (Chronic) Acute kidney injury (Chronic) Sepsis (Chronic) Peritoneal cavity free air (Chronic) UTI (urinary tract infection) (Chronic) Perforated abdominal viscus (Chronic) Medical History (Updated 10/13/21 @ 14:21 by Dany Man MD) Acute kidney failure Chronic wound of extremity Dementia Diabetes 1.5, managed as type 2 Continue diabetic management as you have at home Diabetes mellitus Diabetic neuropathy Diarrhea Difficulty walking DM type 2 (diabetes mellitus, type 2) Dysphagia Edema of left lower extremity Fatigue GERD (gastroesophageal reflux disease) Hypercalcemia Knee cartilage, torn, left Knee effusion, left Lack of coordination Left hip pain Left hip pain Left knee injury care home (current) use of 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 drugs Methicillin susceptible Staphylococcus aureus infection, unspecified site Muscle weakness Nausea and vomiting Nicotine dependence Other specified disorder of skin Rash Recurring leg rash Urinary retention Surgical History Absence of both cervix and uterus, acquired History of appendectomy History of back surgery x2 History of carpal tunnel surgery History of section History of hysterectomy History of incisional hernia repair 03/12/2020 History of knee surgery Left History of laparotomy (~11/09/18) Laparotomy with jackie patch with closure of perforated gastric ulcer History of shoulder surgery History of surgery on wrist Bilateral History of tubal ligation Family History (Updated 07/26/21 @ 08:30 by Ap Cifuentes MD) Mother Diabetes mellitus, type II Hypertension Father Leukemia Sister Heart attack Social History (Updated 07/26/21 @ 08:05 by Melania Mittal [facility]) household members: spouse housing: house marital status: smoking status: Former smoker smoking status start date: 10/08/1959 smoking status stop date: 10/08/90 alcohol intake frequency: does not drink substance use type: does not use MEDS/ALLERGIES Home Medications and Allergies Home Medications Medication Instructions Recorded Confirmed Type glucagon HCl 1 mg solution for 1 mg SUB-Q Q20M PRN 03/29/20 07/26/21 History injection (Glucagon (HCl) Emergency Kit) amlodipine 5 mg tablet 5 mg PO QDAY #30 tab 07/12/20 07/26/21 Rx enalapril maleate 20 mg tablet 20 mg PO BID tab 07/20/21 07/26/21 History omeprazole 40 mg capsule,delayed See Rx Instructions .ROUTE 07/26/21 Rx release .COMPLEX #90 cap metformin 500 mg tablet 500 mg PO BID #180 tab 09/19/21 Rx methocarbamol 500 mg tablet See Rx Instructions .ROUTE 09/21/21 Rx .COMPLEX #270 tablet hydrocodone 10 mg-acetaminophen 1 tab PO Q6H PRN #90 tab 09/28/21 Rx 325 mg tablet metolazone 10 mg tablet See Rx Instructions .ROUTE 10/06/21 Rx .COMPLEX #135 tab oxybutynin chloride 5 mg tablet 5 mg PO TID #90 tab 10/06/21 Rx Allergies Allergy/AdvReac Type Severity Reaction Status Date / Time 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 Allergy Unknown Unknown Verified 07/26/21 07:54 perfume Allergy Unknown Unknown Verified 07/26/21 07:54 EXAM Constitutional Vitals: Temp Pulse Resp BP Pulse Ox 98.0 F 91 H 18 141/94 95 10/13/21 14:05 10/13/21 14:05 10/13/21 10:49 10/13/21 13:46 10/13/21 14:05 Exam: General: Alert, Awake, No acute Distress, obese Eyes/N/T: EOMI, PERRL, MM Head/Neck: neck supple, normocephalic atraumatic CV: RRR, No murmurs, normal s1/s2 Pulm: Clear b/l, no wheezing/rhonchi/rales Abd: soft, nontender, +BS x4 Ext: no clubbing/cyanosis/edema Neuro: Alert, no focal deficits, moves all extremities, CN 2-12 grossly intact, sensations intact b/l upper/lower Skin: warm/dry DATA Data Completed and Pending Labs: Labs from last 24 hours 10/13/21 10/13/21 10/13/21 12:30 12:00 12:00 WBC 5.3 RBC 4.23 Hgb 12.0 Hct 39.0 MCV 92.2 MCH 28.4 MCHC 30.8 L RDW 12.3 Plt Count 146 MPV 10.4 Neut % (Auto) 65.7 Lymph % (Auto) 27.7 [place] % (Auto) 6.2 Eos % (Auto) 0.2 Baso % (Auto) 0.2 Lymph # (Auto) 1.47 L [place] # (Auto) 0.33 Eos # (Auto) 0.01 Baso # (Auto) 0.01 Absolute Neutrophils 3.49 ABG Methemoglobin VBG pH VBG pCO2 VBG pO2 VBG HCO3 VBG Total CO2 VBG O2 Saturation VBG Base Excess VBG Lactic Acid 1.1 Carboxyhemoglobin Total Hemoglobin Sodium Potassium Chloride Carbon Dioxide Anion Gap BUN Creatinine GFR Calculation Glucose Calcium Total Bilirubin AST ALT Alkaline Phosphatase Total Protein Albumin Globulin Albumin/Globulin Ratio Beta-Hydroxybutyrate Urine Color Yellow Urine Appearance Slightly cloudy A Urine pH 5.5 Ur Specific [place]lette 1.020 Urine Protein 30 mg/dl A Urine Glucose (UA) 500 mg/dl A Urine Ketones Negative Urine Occult Blood Small A Urine Nitrate Positive A Urine Bilirubin Negative Urine Urobilinogen Normal Ur Leukocyte Esterase Small A Urine RBC 14 H Urine WBC 102 H Ur Squamous Epith Cells 2 Urine Bacteria Many A Urine Mucus Many A Ur Culture Indicated? yes 10/13/21 10/13/21 12:00 11:59 WBC RBC Hgb Hct MCV MCH MCHC RDW Plt Count MPV Neut % (Auto) Lymph % (Auto) [place] % (Auto) Eos % (Auto) Baso % (Auto) Lymph # (Auto) [place] # (Auto) Eos # (Auto) Baso # (Auto) Absolute Neutrophils ABG Methemoglobin 0.3 L VBG pH 7.37 VBG pCO2 49.2 VBG pO2 41.7 H VBG HCO3 27.8 VBG Total CO2 29.3 H VBG O2 Saturation 68.7 VBG Base Excess 2 VBG Lactic Acid Carboxyhemoglobin 7.1 H Total Hemoglobin 11.9 L Sodium 137 Potassium 3.2 L Chloride 100 Carbon Dioxide 25 Anion Gap 12.0 BUN 28 H Creatinine 1.0 GFR Calculation 54 Glucose 249 H Calcium 7.8 L Total Bilirubin 0.4 AST 33 H ALT 29 Alkaline Phosphatase 61 Total Protein 5.7 L Albumin 3.3 Globulin 2.4 Albumin/Globulin Ratio 1.4 Beta-Hydroxybutyrate 0.19 Urine Color Urine Appearance Urine pH Ur Specific Roulette Urine Protein Urine Glucose (UA) Urine Ketones Urine Occult Blood Urine Nitrate Urine Bilirubin Urine Urobilinogen Ur Leukocyte Esterase Urine RBC Urine WBC Ur Squamous Epith Cells Urine Bacteria Urine Mucus Ur Culture Indicated? A/P Narrative A/P Narrative: A: *Generalized weakness/deconditioning: *UTI: *Covid infection w/cough: -pending CXR -not requiring oxygen, no indication for rem/dex at this point *SIRS: *Volume depletion: *DM/neuropathy w/hyperglycemia: *HTN: ccb/acei *CKD II: *Anemia, chronic: *Chronic LBP: *GERD: *Dementia: *Obesity: *chr LE edema: on metolazone P: -IVF -Rocephin, pending UC -pt/ot -monitor oxygen needs -Continue home Norvasc/ACEI -SSI, Metformin -CM for placement -Home medication reconciliation -ppx: Lovenox /home PPI Time Spent With Patient Time: Total time spent is greater than 50% in coordination of care (as documented) at patient's floor/unit and/or counseling patient:
[2021-10-13] MEDS ORDERED: CASIRIVIMAB/IMDEVIMAB 10 ML in 0.9 % SODIUM CHLORIDE 50 ML IV SCH (14:30)
--- NOTE | 2021-10-13 15:25 | XRay Report ---
HISTORY: Fever, weakness, possible left lower lobe infiltrate FINDINGS: PA and lateral views were obtained. The lungs are clear, without evidence of pneumonia. The heart is enlarged. No congestive heart failure is present. There is no pleural effusion or adenopathy. There is improved aeration of the left lower lobe compared with the prior portable chest x-ray done on the same date. IMPRESSION: Cardiomegaly No evidence of pneumonia Interpreted and Authenticated by: Arturo Castillo 10/13/21
[2021-10-13] MEDS ORDERED: 0.9 % SODIUM CHLORIDE 1,000 ML IV SCH (17:17)
[2021-10-13] MEDS ORDERED: cefTRIAXone 1 GM in DEXTROSE 5% IN WATER 50 ML IV SCH (17:17)
[2021-10-13] MEDS ORDERED: DEXTROSE 50% 50 ML VIAL IV PRN (17:17)
[2021-10-13] MEDS ORDERED: SENNOSIDES 1 TABLET PO PRN (17:17)
[2021-10-13] MEDS ORDERED: DEXTROSE 31 GM ORAL.SUSP PO PRN (17:17)
[2021-10-13] MEDS ORDERED: METOCLOPRAMIDE 10 MG/2 ML VIAL IV PRN (17:17)
[2021-10-13] MEDS ORDERED: ONDANSETRON 4 MG/2 ML VIAL IV PRN (17:17)
[2021-10-13] MEDS ORDERED: POLYETHYLENE GLYCOL 3350 17 GM PACKET PO PRN (17:17)
[2021-10-13] MEDS ORDERED: POTASSIUM CHLORIDE 20 MEQ TABLET PO PRN (17:17)
[2021-10-13] MEDS ORDERED: MAGNESIUM SULFATE 2 GM/50 ML BAG IV PRN (17:17)
[2021-10-13] MEDS ORDERED: POTASSIUM CHLORIDE 40 MEQ in DEXTROSE 5% IN WATER 500 ML IV PRN (17:17)
[2021-10-13] MEDS ORDERED: IPRATROPIUM/ALBUTEROL 3 ML AMPUL.NEB NEB PRN (17:17)
[2021-10-13 18:13] LABS: Lymphocytes % 25 % (15-49); Monocytes % (Manual) 6 % (1-12); Platelet Estimate NORMAL (Normal); RBC Morphology NORMAL (Normal); Segmented Neutrophils % 69 % (38-78)
[2021-10-13] MEDS: INSULIN LISPRO 1 UNIT/0.01 ML UNIT SQ SCH ×2 (18:17→21:40)
[2021-10-13] MEDS: POTASSIUM CHLORIDE 20 MEQ TABLET PO PRN (20:14)
[2021-10-13] MEDS: DOCUSATE SODIUM 100 MG CAPSULE PO SCH (20:14)
[2021-10-13] MEDS ORDERED: HYDROcodone/APAP 10/325MG TABLET PO PRN (20:34)
[2021-10-13] MEDS: 0.9 % SODIUM CHLORIDE 10 ML SYRINGE IV SCH (21:36)
[2021-10-13] MEDS: METHOCARBAMOL 500 MG TABLET PO SCH (21:36)
[2021-10-13] MEDS: LISINOPRIL 20 MG TABLET PO SCH (21:36)
[2021-10-14] MEDS: 0.9 % SODIUM CHLORIDE 10 ML SYRINGE IV SCH ×3 (04:04→19:35)
[2021-10-14 07:06] LABS: Basophils # (Auto) 0.01 K/mcL (0.00-0.30); Basophils % (Auto) 0.2 % (0.0-2.0); Eosinophils # (Auto) 0.04 K/mcL (0.00-0.70); Eosinophils % (Auto) 0.8 % (0.0-7.0); Hematocrit 35.6 % (34.1-44.9); Hemoglobin 11.1 g/dL (11.2-15.7); Lymphocytes # (Auto) 1.41 K/mcL (1.50-4.80); Lymphocytes % (Auto) 26.5 % (15.5-49.0); Mean Cell Volume 92.2 fL (80.0-100.0); Mean Corpuscular HGB Conc 31.2 g/dL (31.0-36.0); Mean Platelet Volume 10.4 fL (7.4-10.4); Monocytes # (Auto) 0.57 K/mcL (0.10-0.90); Monocytes % (Auto) 10.7 % (1.0-12.0); Neutrophils % (Auto) 61.8 % (38.0-78.0); Platelet Count 157 K/mcL (140-440); RBC 3.86 M/mcL (3.59-5.38); Red Cell Distribution Width 12.2 % (11.5-14.5); WBC 5.3 K/mcL (4.5-11.0)
[2021-10-14] MEDS: OMEPRAZOLE 20 MG CAPSULE PO SCH (07:21)
[2021-10-14 07:51] LABS: ALT/SGPT 23 U/L (<40); AST/SGOT 30 U/L (<32); Albumin 2.7 gm/dL (3.2-5.2); Albumin/Globulin Ratio 1.1 (1.0-2.3); Alkaline Phosphatase 53 U/L (39-117); Bilirubin,Direct 0.2 mg/dL (<0.3); Bilirubin,Total 0.4 mg/dL (0.1-1.0); Blood Urea Nitrogen 17 mg/dL (8-23); Calcium 7.4 mg/dL (8.6-10.4); Carbon Dioxide 23 mmol/L (22-30); Chloride 104 mmol/L (96-108); Globulin 2.4 gm/dL (2.2-3.7); Glomerular Filtration Rate 70; Glucose 162 mg/dL (70-105); Lactate Dehydrogenase 176 U/L (135-225); Phosphorous 1.7 mg/dL (2.5-4.5); Triglycerides 214 mg/dL (<150); Uric Acid 9.6 mg/dL (2.5-8.0)
[2021-10-14] MEDS ORDERED: MAGNESIUM SULFATE 2 GM/50 ML BAG IV ONE (08:01)
--- NOTE | 2021-10-14 08:04 | Internal Med Progress Note ---
SUBJECTIVE Subjective Patient information: Note initiated : 10/14/21 at 7:57 am Service Date, if different from initiated Date: [] Patient: Genna Gong a 81 y/o F admitted on 10/13/21 for Weakness, Fever. Chief Complaint: [] Interval history: History of present illness: Ms. Gong is a 81 year old F History is obtained from the as patient has underlying dementia and is a poor historian. He seemed to deny every symptom for which I was told she was here although when asked about discomfort when she urinates she does say yes. Per her he called ambulance to bring her in because she has been progressively weak over the past weeks and he cannot take care of her anymore. When asked about any recent illnesses he does admit that she does have a cough lately and she did seem a little bit more labored with her breathing lately. He does not recall any fevers or chest or abdominal pain. She got the vaccine with her second dose in January 2020 but has not had the booster dose yet. Work-up in the ED was found to be Covid positive. Flu negative. Urine was consistent with a UTI. She looks volume depleted. Lactate was okay. In the ED she was found to be febrile with a heart rate of 116. Systolic blood pressure by EMS was 88. Here in the ED she has been systolics of 130s. Portable chest x-ray showed a nonspecific opacity in the left lung unable to tell if it was infiltrate versus a low artifact left lower lobe. A 2 view is pending. 10/14 No overnight events. Mag and Phos low will replace. PT OT and placement. Monitor oxygen given Covid positivity. Family gather review of systems given dementia Constitutional Vitals: Vital Signs Temp Pulse Resp BP Pulse Ox 98.8 F 122 H 30 H 125/57 92 10/14/21 07:13 10/14/21 07:13 10/14/21 07:13 10/14/21 07:13 10/14/21 07:13 Period Temp Pulse Resp BP Sys/[place] Pulse Ox Last 24 Hr 98.0 F-101.1 F 84-122 18-30 104-168/52-134 89-98 Intake and Output 10/13/21 10/14/21 10/14/21 21:59 05:59 13:59 Intake Total 60 480 1000 Balance 60 480 1000 Weight 89.63 kg Intake & Output: Intake & Output 10/13/21 10/14/21 10/14/21 21:59 05:59 13:59 Intake Total 60 480 1000 Balance 60 480 1000 Weight 89.63 kg Intake: IV 60 1000 Sodium Chloride 0.9% 1,000 ml @ 1000 75 mls/hr IV .[id number] JOHN Rx#: [id number] Regen-Cov 600-600 mg/10Ml(Eua) 60 10 ml In Sodium Chloride 0.9% 50 ml @ 180 mls/hr IV ONCE JOHN Rx#:[id number] Oral 480 Exam: General: Alert, Awake, No acute Distress, obese Eyes/N/T: EOMI, Head/Neck: neck supple, CV: RRR, No murmurs, Pulm: Clear b/l, no wheezing/rhonchi/rales Abd: soft, nontender, +BS x4 Ext: no clubbing/cyanosis/edema Neuro: Alert, no focal deficits, moves all extremities, Skin: warm/dry OBJ DATA Labs CBC & Chem 7: 10/14/21 05:20 10/14/21 05:20 Labs: Abnormal Lab Results 10/14/21 10/14/21 10/13/21 05:20 05:20 12:30 Hgb 11.1 L MCHC Lymph # (Auto) 1.41 L ABG Methemoglobin VBG pO2 VBG Total CO2 Carboxyhemoglobin Total Hemoglobin Potassium BUN Glucose 162 H Uric Acid 9.6 H Calcium 7.4 L Phosphorus 1.7 L Magnesium 1.5 L GGT 53 H AST Total Protein 5.1 L Albumin 2.7 L Triglycerides 214 H Procalcitonin Urine Appearance Slightly cloudy A Urine Protein 30 mg/dl A Urine Glucose (UA) 500 mg/dl A Urine Occult Blood Small A Urine Nitrate Positive A Ur Leukocyte Esterase Small A Urine RBC 14 H Urine WBC 102 H Urine Bacteria Many A Urine Mucus Many A 10/13/21 10/13/21 10/13/21 12:00 12:00 12:00 Hgb MCHC 30.8 L Lymph # (Auto) 1.47 L ABG Methemoglobin VBG pO2 VBG Total CO2 Carboxyhemoglobin Total Hemoglobin Potassium 3.2 L BUN 28 H Glucose 249 H Uric Acid Calcium 7.8 L Phosphorus Magnesium GGT AST 33 H Total Protein 5.7 L Albumin Triglycerides Procalcitonin 0.17 H Urine Appearance Urine Protein Urine Glucose (UA) Urine Occult Blood Urine Nitrate Ur Leukocyte Esterase Urine RBC Urine WBC Urine Bacteria Urine Mucus 10/13/21 11:59 Hgb MCHC Lymph # (Auto) ABG Methemoglobin 0.3 L VBG pO2 41.7 H VBG Total CO2 29.3 H Carboxyhemoglobin 7.1 H Total Hemoglobin 11.9 L Potassium BUN Glucose Uric Acid Calcium Phosphorus Magnesium GGT AST Total Protein Albumin Triglycerides Procalcitonin Urine Appearance Urine Protein Urine Glucose (UA) Urine Occult Blood Urine Nitrate Ur Leukocyte Esterase Urine RBC Urine WBC Urine Bacteria Urine Mucus Meds: Medications Hydrocodone Bitart/Acetaminophen (Hydrocodone/Apap 10/325mg Tablet) 1 tab PO Q6HP PRN; Protocol PRN Reason: Pain Albuterol/Ipratropium (Ipratropium/Albuterol 3 Ml Ampul.Neb) 3 ml NEB Q4HP PRN PRN Reason: Shortness Of Breath Amlodipine Besylate (Amlodipine 5 Mg Tablet) 5 mg PO QDAY [facility] Ceftriaxone Sodium (Ceftriaxone 1 Gm Vial) 1 gm IV Q24H [facility] Dextrose (Dextrose 50% 50 Ml Vial) 0 ml IV UD PRN PRN Reason: Hypoglycemia Diagnostic Test (Pha) (Accu-Chek 1 Each Strip) [address] [facility] Last Admin: 10/14/21 07:21 Dose: 1 each Documented by: Docusate Sodium (Docusate Sodium 100 Mg Capsule) 100 mg PO BID [facility] Last Admin: 10/13/21 20:14 Dose: Not Given Documented by: Glucose (Dextrose 31 Gm Oral.Susp) 15 gm PO PRN PRN PRN Reason: Hypoglycemia Potassium Chloride 40 meq/ (Dextrose) 520 mls @ 130 mls/hr IV UD PRN PRN Reason: Potassium < 3 Magnesium Sulfate (Magnesium Sulfate) 2 gm in 50 mls @ 50 mls/hr IV UD PRN PRN Reason: Magnesium </= 1.6 Insulin Human Lispro (Insulin Lispro 1 Unit/0.01 Ml Unit) [address] [facility]; Protocol Last Admin: 10/13/21 21:40 Dose: 6 units Documented by: Lisinopril (Lisinopril 20 Mg Tablet) 20 mg PO BID [facility] Last Admin: 10/13/21 21:36 Dose: 20 mg Documented by: Methocarbamol (Methocarbamol 500 Mg Tablet) 500 mg PO TID [facility] Last Admin: 10/13/21 21:36 Dose: 500 mg Documented by: Metoclopramide HCl (Metoclopramide 10 Mg/2 Ml Vial) 10 mg IV Q6HP PRN PRN Reason: Nausea And Vomiting Omeprazole (Omeprazole 20 Mg Capsule) 40 mg PO ACB [facility] Last Admin: 10/14/21 07:21 Dose: 40 mg Documented by: Ondansetron HCl (Ondansetron 4 Mg/2 Ml Vial) 4 mg IV Q4HP PRN PRN Reason: Nausea And Vomiting Polyethylene Glycol (Polyethylene Glycol 3350 17 Gm Packet) 17 gm PO DAILYP PRN PRN Reason: Constipation Potassium Chloride (Potassium Chloride 20 Meq Tablet) 40 meq PO UD PRN PRN Reason: Potssium is 3-3.5 Last Admin: 10/13/21 20:14 Dose: 40 meq Documented by: Potassium Chloride (Potassium Chloride 20 Meq Tablet) 40 meq PO UD PRN PRN Reason: Potassium < 3 Senna (Sennosides 1 Tablet) 2 tab PO DAILYP PRN PRN Reason: Constipation Sodium Chloride (0.9 % Sodium Chloride 10 Ml Syringe) 10 ml IV Q8 [facility] Last Admin: 10/14/21 04:04 Dose: Not Given Documented by: ABG Interpretation ABG results: 10/13/21 11:59 ABG Methemoglobin 0.3 L VBG pH 7.37 VBG pCO2 49.2 VBG pO2 41.7 H VBG HCO3 27.8 VBG Total CO2 29.3 H VBG O2 Saturation 68.7 VBG Base Excess 2 A/P Narrative A/P Narrative: A: *Generalized weakness/deconditioning: *UTI: *Covid infection w/cough: -CXR unremarkable, -not requiring oxygen, no indication for rem/dex at this point *SIRS: afebrile since ED *Volume depletion: improved *DM/neuropathy w/hyperglycemia: *HTN: ccb/acei *CKD II: *Anemia, chronic: *Chronic LBP: *GERD: *Dementia: *Obesity: *chr LE edema: on metolazone *Hypomagnesemia/hypophosphatemia: P: -IVF -Rocephin, pending UC -pt/ot -monitor oxygen needs -Electrolyte replacement -Continue home Norvasc/ACEI -SSI, Metformin -CM for placement -ppx: Lovenox /home PPI Time Spent With Patient Time: Total time spent is greater than 50% in coordination of care (as documented) at patient's floor/unit and/or counseling patient: QUALITY VTE Deep Vein Thrombosis/Pulmonary Embolism Present on Admission: No
[2021-10-14] MEDS: POTASSIUM CHLORIDE 20 MEQ TABLET PO PRN (08:11)
[2021-10-14] MEDS: amLODIPine 5 MG TABLET PO SCH (08:11)
[2021-10-14] MEDS: METHOCARBAMOL 500 MG TABLET PO SCH ×3 (08:11→23:12)
[2021-10-14] MEDS: LISINOPRIL 20 MG TABLET PO SCH ×2 (08:11→23:13)
[2021-10-14] MEDS: INSULIN LISPRO 1 UNIT/0.01 ML UNIT SQ SCH ×4 (08:11→23:39)
[2021-10-14] MEDS ORDERED: 0.9 % SODIUM CHLORIDE 500 ML IV SCH (08:15)
[2021-10-14] MEDS: DOCUSATE SODIUM 100 MG CAPSULE PO SCH ×2 (08:17→23:32)
[2021-10-14] MEDS: cefTRIAXone 1 GM VIAL IV SCH (08:30)
[2021-10-14] MEDS: PHOSPHORUS 250 MG TABLET PO SCH ×2 (08:30→23:13)
[2021-10-14] MEDS: NEUTRA PHOS 1 PACKET PO SCH ×2 (08:31→23:12)
--- NOTE | 2021-10-14 08:38 | XRay Report ---
HISTORY: Follow-up Covid pneumonia, fever and weakness FINDINGS: Portable semierect image was obtained. A vague opacity is again seen laterally at the left lung base. This was seen on yesterday's portable chest x-ray but was not reproducible on the PA image. Much of this is due to mild enlargement of the heart and an epicardial fat pad which was demonstrated on a prior chest CT performed on 11/09/18. An underlying mild pneumonia cannot be entirely excluded. Subtle increased interstitial markings are present medially in the right lower lobe. Mid and upper lung falcon are clear. There is no congestive heart failure. No pleural effusion is detected. IMPRESSION: Mild interstitial lung disease in right lower lobe and questionable infiltrate laterally in the left lower lobe versus artifact created by overlying heart and epicardial fat Interpreted and Authenticated by: Arturo Castillo 10/14/21
--- NOTE | 2021-10-14 09:11 | Internal Med Progress Note ---
SUBJECTIVE Subjective Patient information: Note initiated : 10/14/21 at 8:04 am Service Date, if different from initiated Date: [] Patient: Genna Gong 81 y/o F admitted on 10/13/21 for Weakness, Fever. Chief Complaint: [] Constitutional Vitals: Vital Signs Temp Pulse Resp BP Pulse Ox 98.8 F 122 H 30 H 125/57 92 10/14/21 07:13 10/14/21 07:13 10/14/21 07:13 10/14/21 07:13 10/14/21 07:13 Period Temp Pulse Resp BP Sys/Maldonado Pulse Ox Last 24 Hr 98.0 F-101.1 F 84-122 18-30 104-168/52-134 89-98 Intake and Output 10/13/21 10/14/21 10/14/21 21:59 05:59 13:59 Intake Total 60 480 1000 Balance 60 480 1000 Weight 89.63 kg Intake & Output: Intake & Output 10/13/21 10/14/21 10/14/21 21:59 05:59 13:59 Intake Total 60 480 1000 Balance 60 480 1000 Weight 89.63 kg Intake: IV 60 1000 Sodium Chloride 0.9% 1,000 ml @ 1000 75 mls/hr IV .[id number] JOHN Rx#: [id number] Regen-Cov 600-600 mg/10Ml(Eua) 60 10 ml In Sodium Chloride 0.9% 50 ml @ 180 mls/hr IV ONCE JOHN Rx#:[id number] Oral 480 OBJ DATA Labs CBC & Chem 7: 10/14/21 05:20 10/14/21 05:20 Labs: Abnormal Lab Results 10/14/21 10/14/21 10/13/21 05:20 05:20 12:30 Hgb 11.1 L MCHC Lymph # (Auto) 1.41 L ABG Methemoglobin VBG pO2 VBG Total CO2 Carboxyhemoglobin Total Hemoglobin Potassium BUN Glucose 162 H Uric Acid 9.6 H Calcium 7.4 L Phosphorus 1.7 L Magnesium 1.5 L GGT 53 H AST Total Protein 5.1 L Albumin 2.7 L Triglycerides 214 H Procalcitonin Urine Appearance Slightly cloudy A Urine Protein 30 mg/dl A Urine Glucose (UA) 500 mg/dl A Urine Occult Blood Small A Urine Nitrate Positive A Ur Leukocyte Esterase Small A Urine RBC 14 H Urine WBC 102 H Urine Bacteria Many A Urine Mucus Many A 10/13/21 10/13/21 10/13/21 12:00 12:00 12:00 Hgb MCHC 30.8 L Lymph # (Auto) 1.47 L ABG Methemoglobin VBG pO2 VBG Total CO2 Carboxyhemoglobin Total Hemoglobin Potassium 3.2 L BUN 28 H Glucose 249 H Uric Acid Calcium 7.8 L Phosphorus Magnesium GGT AST 33 H Total Protein 5.7 L Albumin Triglycerides Procalcitonin 0.17 H Urine Appearance Urine Protein Urine Glucose (UA) Urine Occult Blood Urine Nitrate Ur Leukocyte Esterase Urine RBC Urine WBC Urine Bacteria Urine Mucus 10/13/21 11:59 Hgb MCHC Lymph # (Auto) ABG Methemoglobin 0.3 L VBG pO2 41.7 H VBG Total CO2 29.3 H Carboxyhemoglobin 7.1 H Total Hemoglobin 11.9 L Potassium BUN Glucose Uric Acid Calcium Phosphorus Magnesium GGT AST Total Protein Albumin Triglycerides Procalcitonin Urine Appearance Urine Protein Urine Glucose (UA) Urine Occult Blood Urine Nitrate Ur Leukocyte Esterase Urine RBC Urine WBC Urine Bacteria Urine Mucus Meds: Medications Hydrocodone Bitart/Acetaminophen (Hydrocodone/Apap 10/325mg Tablet) 1 tab PO Q6HP PRN; Protocol PRN Reason: Pain Albuterol/Ipratropium (Ipratropium/Albuterol 3 Ml Ampul.Neb) 3 ml NEB Q4HP PRN PRN Reason: Shortness Of Breath Amlodipine Besylate (Amlodipine 5 Mg Tablet) 5 mg PO QDAY [facility] Ceftriaxone Sodium (Ceftriaxone 1 Gm Vial) 1 gm IV Q24H [facility] Dextrose (Dextrose 50% 50 Ml Vial) 0 ml IV UD PRN PRN Reason: Hypoglycemia Diagnostic Test (Pha) (Accu-Chek 1 Each Strip) 1 each FS ACHS [facility] Last Admin: 10/14/21 07:21 Dose: 1 each Documented by: Docusate Sodium (Docusate Sodium 100 Mg Capsule) 100 mg PO BID [facility] Last Admin: 10/13/21 20:14 Dose: Not Given Documented by: Glucose (Dextrose 31 Gm Oral.Susp) 15 gm PO PRN PRN PRN Reason: Hypoglycemia Potassium Chloride 40 meq/ (Dextrose) 520 mls @ 130 mls/hr IV UD PRN PRN Reason: Potassium < 3 Magnesium Sulfate (Magnesium Sulfate) 2 gm in 50 mls @ 50 mls/hr IV UD PRN PRN Reason: Magnesium </= 1.6 Magnesium Sulfate (Magnesium Sulfate) 2 gm in 50 mls @ 25 mls/hr IV ONCE ONE Stop: 10/14/21 10:00 Sodium Chloride (Sodium Chloride 0.9%) 500 mls @ 100 mls/hr IV .Q5H [facility] Stop: 10/14/21 13:14 Insulin Human Lispro (Insulin Lispro 1 Unit/0.01 Ml Unit) 0 unit SQ ACHS [facility]; Protocol Last Admin: 10/13/21 21:40 Dose: 6 units Documented by: Lisinopril (Lisinopril 20 Mg Tablet) 20 mg PO BID [facility] Last Admin: 10/13/21 21:36 Dose: 20 mg Documented by: Methocarbamol (Methocarbamol 500 Mg Tablet) 500 mg PO TID [facility] Last Admin: 10/13/21 21:36 Dose: 500 mg Documented by: Metoclopramide HCl (Metoclopramide 10 Mg/2 Ml Vial) 10 mg IV Q6HP PRN PRN Reason: Nausea And Vomiting Omeprazole (Omeprazole 20 Mg Capsule) 40 mg PO ACB [facility] Last Admin: 10/14/21 07:21 Dose: 40 mg Documented by: Ondansetron HCl (Ondansetron 4 Mg/2 Ml Vial) 4 mg IV Q4HP PRN PRN Reason: Nausea And Vomiting Polyethylene Glycol (Polyethylene Glycol 3350 17 Gm Packet) 17 gm PO DAILYP PRN PRN Reason: Constipation Potassium Chloride (Potassium Chloride 20 Meq Tablet) 40 meq PO UD PRN PRN Reason: Potssium is 3-3.5 Last Admin: 10/13/21 20:14 Dose: 40 meq Documented by: Potassium Chloride (Potassium Chloride 20 Meq Tablet) 40 meq PO UD PRN PRN Reason: Potassium < 3 Potassium/Phosphorus/Sodium (Neutra Phos 1 Packet) 2 packet PO BID [facility] Stop: 10/14/21 21:01 Senna (Sennosides 1 Tablet) 2 tab PO DAILYP PRN PRN Reason: Constipation Sodium Chloride (0.9 % Sodium Chloride 10 Ml Syringe) 10 ml IV Q8 [facility] Last Admin: 10/14/21 04:04 Dose: Not Given Documented by: Sodium Phosphate (Phosphorus 250 Mg Tablet) 250 mg PO BID [facility] Stop: 10/14/21 21:01 ABG Interpretation ABG results: 10/13/21 11:59 ABG Methemoglobin 0.3 L VBG pH 7.37 VBG pCO2 49.2 VBG pO2 41.7 H VBG HCO3 27.8 VBG Total CO2 29.3 H VBG O2 Saturation 68.7 VBG Base Excess 2 A/P Time Spent With Patient Time: Total time spent is greater than 50% in coordination of care (as documented) at patient's floor/unit and/or counseling patient: QUALITY VTE Deep Vein Thrombosis/Pulmonary Embolism Present on Admission: No
[2021-10-14] MEDS: ENOXAPARIN 40 MG/0.4 ML SYRINGE SQ SCH (10:27)
--- NOTE | 2021-10-14 14:09 | Internal Med Progress Note ---
SUBJECTIVE Subjective Patient information: Note initiated : 10/15/21 at 2:08 pm Service Date, if different from initiated Date: [] Patient: Genna Gong a 81 y/o F admitted on 10/13/21 for Weakness, Fever. Chief Complaint: [] Interval history: Genna Gong is a 81 year old female with a history of dementia and is a poor historian.The history of taken from her . Per her , he called ambulance to bring her in because she has been progressively weakening over the past weeks and he cannot take care of her anymore.When asked about any recent illnesses he does admit that she does have a cough lately and she did seem a little bit more labored with her breathing lately. He does not recall any fevers or chest or abdominal pain. The patient denied most of this although when asked about discomfort when she urinates she does say "yes". In the ED the patient tested positive for Covid, negative for influenza. Urinalysis was consistent with a UTI. The patient appeared to be volume depleted. Lactate was normal. The patient is fully vaccinated for COVID however received her second dose in January 2020 and she has not yest received a booster dose. Systolic blood pressure by EMS was 88.In the ED she has been systolics of 130s. In the ED she was found to be febrile with a heart rate of 116. Portable chest x-ray showed a nonspecific opacity in the left lung unable to tell if it was infiltrate versus a low artifact left lower lobe. 10/14 No overnight events. Mag and Phos low will replace. PT OT and placement. Monitor oxygen given Covid positivity. 10/15 On room air during the daytime, last night was on 1 L/min nasal canula oxygen. Urine culture growing gram negative bacillus-on ceftriaxone. Afebrile, has a nonproductive cough. Review of systems:positive for a nonproductive cough, denies dysuria. Physical Exam Head: Atraumatic, normal inspection. Eyes: normal appearance, no scleral icterus. Neck: full ROM Respiratory: no respiratory distress. Cardiovascular: normal rate and rhythm, S1, S2. GI/Abdominal: soft, nontender, no guarding. Extremities: full range of motion, nontender. Neurological: CN II-XII intact, intact motor, intact sensation. Psychiatric: normal mood, impaired cognition Skin: warm, normal color Constitutional Vitals: Vital Signs Temp Pulse Resp BP Pulse Ox 98.6 F 77 26 H 128/57 95 10/14/21 11:21 10/14/21 11:21 10/14/21 11:21 10/14/21 11:21 10/14/21 11:21 Period Temp Pulse Resp BP Sys/Maldonado Pulse Ox Last 24 Hr 98.2 F-98.9 F 77-122 18-30 104-156/52-98 89-96 Intake and Output 10/14/21 10/14/21 10/14/21 05:59 13:59 21:59 Intake Total 480 1790 Balance 480 1790 Intake & Output: Intake & Output 10/14/21 10/14/21 10/14/21 05:59 13:59 21:59 Intake Total 480 1790 Balance 480 1790 Intake: IV 1550 Sodium Chloride 0.9% 500 ml @ 1500 100 mls/hr IV .Q5H JOHN Rx#: [id number] Oral 480 240 Other: Meal Lunch Percent of Meal Consumed 50% # Voids 1 OBJ DATA Labs CBC & Chem 7: 10/14/21 05:20 10/15/21 05:34 Labs: Abnormal Lab Results 10/14/21 10/14/21 10/13/21 05:20 05:20 12:30 Hgb 11.1 L MCHC Lymph # (Auto) 1.41 L ABG Methemoglobin VBG pO2 VBG Total CO2 Carboxyhemoglobin Total Hemoglobin Potassium BUN Glucose 162 H Uric Acid 9.6 H Calcium 7.4 L Phosphorus 1.7 L Magnesium 1.5 L GGT 53 H AST Total Protein 5.1 L Albumin 2.7 L Triglycerides 214 H Procalcitonin Urine Appearance Slightly cloudy A Urine Protein 30 mg/dl A Urine Glucose (UA) 500 mg/dl A Urine Occult Blood Small A Urine Nitrate Positive A Ur Leukocyte Esterase Small A Urine RBC 14 H Urine WBC 102 H Urine Bacteria Many A Urine Mucus Many A 10/13/21 10/13/21 10/13/21 12:00 12:00 12:00 Hgb MCHC 30.8 L Lymph # (Auto) 1.47 L ABG Methemoglobin VBG pO2 VBG Total CO2 Carboxyhemoglobin Total Hemoglobin Potassium 3.2 L BUN 28 H Glucose 249 H Uric Acid Calcium 7.8 L Phosphorus Magnesium GGT AST 33 H Total Protein 5.7 L Albumin Triglycerides Procalcitonin 0.17 H Urine Appearance Urine Protein Urine Glucose (UA) Urine Occult Blood Urine Nitrate Ur Leukocyte Esterase Urine RBC Urine WBC Urine Bacteria Urine Mucus 10/13/21 11:59 Hgb MCHC Lymph # (Auto) ABG Methemoglobin 0.3 L VBG pO2 41.7 H VBG Total CO2 29.3 H Carboxyhemoglobin 7.1 H Total Hemoglobin 11.9 L Potassium BUN Glucose Uric Acid Calcium Phosphorus Magnesium GGT AST Total Protein Albumin Triglycerides Procalcitonin Urine Appearance Urine Protein Urine Glucose (UA) Urine Occult Blood Urine Nitrate Ur Leukocyte Esterase Urine RBC Urine WBC Urine Bacteria Urine Mucus Meds: Medications Hydrocodone Bitart/Acetaminophen (Hydrocodone/Apap 10/325mg Tablet) 1 tab PO Q6HP PRN; Protocol PRN Reason: Pain Albuterol/Ipratropium (Ipratropium/Albuterol 3 Ml Ampul.Neb) 3 ml NEB Q4HP PRN PRN Reason: Shortness Of Breath Amlodipine Besylate (Amlodipine 5 Mg Tablet) 5 mg PO QDAY [facility] Last Admin: 10/14/21 08:11 Dose: 5 mg Documented by: Ceftriaxone Sodium (Ceftriaxone 1 Gm Vial) 1 gm IV Q24H [facility] Last Admin: 10/14/21 08:30 Dose: 1 gm Documented by: Dextrose (Dextrose 50% 50 Ml Vial) 0 ml IV UD PRN PRN Reason: Hypoglycemia Diagnostic Test (Pha) (Accu-Chek 1 Each Strip) 1 each FS ACHS [facility] Last Admin: 10/14/21 11:27 Dose: 1 each Documented by: Docusate Sodium (Docusate Sodium 100 Mg Capsule) 100 mg PO BID [facility] Last Admin: 10/14/21 08:17 Dose: Not Given Documented by: Enoxaparin Sodium (Enoxaparin 40 Mg/0.4 Ml Syringe) 40 mg SQ DAILY [facility] Last Admin: 10/14/21 10:27 Dose: 40 mg Documented by: Glucose (Dextrose 31 Gm Oral.Susp) 15 gm PO PRN PRN PRN Reason: Hypoglycemia Potassium Chloride 40 meq/ (Dextrose) 520 mls @ 130 mls/hr IV UD PRN PRN Reason: Potassium < 3 Magnesium Sulfate (Magnesium Sulfate) 2 gm in 50 mls @ 50 mls/hr IV UD PRN PRN Reason: Magnesium </= 1.6 Insulin Human Lispro (Insulin Lispro 1 Unit/0.01 Ml Unit) 0 unit SQ ACHS [facility]; Protocol Last Admin: 10/14/21 11:53 Dose: 6 units Documented by: Lisinopril (Lisinopril 20 Mg Tablet) 20 mg PO BID [facility] Last Admin: 10/14/21 08:11 Dose: 20 mg Documented by: Methocarbamol (Methocarbamol 500 Mg Tablet) 500 mg PO TID [facility] Last Admin: 10/14/21 14:04 Dose: 500 mg Documented by: Metoclopramide HCl (Metoclopramide 10 Mg/2 Ml Vial) 10 mg IV Q6HP PRN PRN Reason: Nausea And Vomiting Omeprazole (Omeprazole 20 Mg Capsule) 40 mg PO ACB [facility] Last Admin: 10/14/21 07:21 Dose: 40 mg Documented by: Ondansetron HCl (Ondansetron 4 Mg/2 Ml Vial) 4 mg IV Q4HP PRN PRN Reason: Nausea And Vomiting Polyethylene Glycol (Polyethylene Glycol 3350 17 Gm Packet) 17 gm PO DAILYP PRN PRN Reason: Constipation Potassium Chloride (Potassium Chloride 20 Meq Tablet) 40 meq PO UD PRN PRN Reason: Potssium is 3-3.5 Last Admin: 10/14/21 08:11 Dose: 40 meq Documented by: Potassium Chloride (Potassium Chloride 20 Meq Tablet) 40 meq PO UD PRN PRN Reason: Potassium < 3 Potassium/Phosphorus/Sodium (Neutra Phos 1 Packet) 2 packet PO BID [facility] Stop: 10/14/21 21:01 Last Admin: 10/14/21 08:31 Dose: 2 packet Documented by: Senna (Sennosides 1 Tablet) 2 tab PO DAILYP PRN PRN Reason: Constipation Sodium Chloride (0.9 % Sodium Chloride 10 Ml Syringe) 10 ml IV Q8 [facility] Last Admin: 10/14/21 13:37 Dose: 10 ml Documented by: Sodium Phosphate (Phosphorus 250 Mg Tablet) 250 mg PO BID [facility] Stop: 10/14/21 21:01 Last Admin: 10/14/21 08:30 Dose: 250 mg Documented by: ABG Interpretation ABG results: 10/13/21 11:59 ABG Methemoglobin 0.3 L VBG pH 7.37 VBG pCO2 49.2 VBG pO2 41.7 H VBG HCO3 27.8 VBG Total CO2 29.3 H VBG O2 Saturation 68.7 VBG Base Excess 2 A/P Narrative A/P Narrative: A: *Generalized weakness/deconditioning: *UTI: *Covid infection w/cough: -CXR unremarkable, -not requiring oxygen during the daytime *SIRS: afebrile since ED *Volume depletion: improved *DM/neuropathy w/hyperglycemia: *HTN: ccb/acei *CKD II: *Anemia, chronic: *Chronic LBP: *GERD: *Dementia: *Obesity: *chr LE edema: on metolazone P: -Continue Rocephin, pending urine culture antibiotic sensitivities. -pt/ot -monitor oxygen needs -Electrolyte replacement -Continue home Norvasc/ACEI -SSI -CM for placement -ppx: Lovenox /home PPI Time Spent With Patient Time: Total time spent is greater than 50% in coordination of care (as documented) at patient's floor/unit and/or counseling patient: QUALITY VTE Deep Vein Thrombosis/Pulmonary Embolism Present on Admission: No
[2021-10-15] MEDS: 0.9 % SODIUM CHLORIDE 10 ML SYRINGE IV SCH ×3 (05:40→21:41)
[2021-10-15] MEDS: OMEPRAZOLE 20 MG CAPSULE PO SCH (07:43)
[2021-10-15 07:48] LABS: ALT/SGPT 27 U/L (<40); AST/SGOT 38 U/L (<32); Albumin 2.7 gm/dL (3.2-5.2); Alkaline Phosphatase 54 U/L (39-117); Bilirubin,Direct 0.2 mg/dL (<0.3); Bilirubin,Total 0.5 mg/dL (0.1-1.0); Blood Urea Nitrogen 13 mg/dL (8-23); Calcium 7.5 mg/dL (8.6-10.4); Carbon Dioxide 23 mmol/L (22-30); Chloride 101 mmol/L (96-108); Globulin 2.8 gm/dL (2.2-3.7); Glomerular Filtration Rate 70; Glucose 146 mg/dL (70-105); Lactate Dehydrogenase 211 U/L (135-225); Triglycerides 189 mg/dL (<150)
[2021-10-15] MEDS: ENOXAPARIN 40 MG/0.4 ML SYRINGE SQ SCH (08:10)
[2021-10-15] MEDS: DOCUSATE SODIUM 100 MG CAPSULE PO SCH ×2 (08:10→21:41)
[2021-10-15] MEDS: INSULIN LISPRO 1 UNIT/0.01 ML UNIT SQ SCH ×4 (08:10→21:46)
[2021-10-15] MEDS: METHOCARBAMOL 500 MG TABLET PO SCH ×3 (08:11→21:41)
[2021-10-15] MEDS: amLODIPine 5 MG TABLET PO SCH (08:11)
[2021-10-15] MEDS: LISINOPRIL 20 MG TABLET PO SCH ×2 (08:11→21:41)
[2021-10-15] MEDS: cefTRIAXone 1 GM VIAL IV SCH (08:11)
[2021-10-16] MEDS: 0.9 % SODIUM CHLORIDE 10 ML SYRINGE IV SCH ×3 (06:06→21:10)
[2021-10-16] MEDS: OMEPRAZOLE 20 MG CAPSULE PO SCH (06:56)
[2021-10-16] MEDS: ENOXAPARIN 40 MG/0.4 ML SYRINGE SQ SCH (08:17)
[2021-10-16] MEDS: amLODIPine 5 MG TABLET PO SCH (08:17)
[2021-10-16] MEDS: METHOCARBAMOL 500 MG TABLET PO SCH ×3 (08:17→21:10)
[2021-10-16] MEDS: LISINOPRIL 20 MG TABLET PO SCH ×2 (08:17→21:10)
[2021-10-16] MEDS: cefTRIAXone 1 GM VIAL IV SCH (08:18)
[2021-10-16] MEDS: INSULIN LISPRO 1 UNIT/0.01 ML UNIT SQ SCH ×4 (08:18→21:29)
[2021-10-16] MEDS: DOCUSATE SODIUM 100 MG CAPSULE PO SCH ×2 (08:18→21:11)
[2021-10-16] MEDS ORDERED: FLU VACC QS2021-22(6MOS UP)/PF 60 MCG/0.5 ML SYRINGE IM ONE (10:00)
--- NOTE | 2021-10-16 13:30 | Internal Med Progress Note ---
SUBJECTIVE Subjective Patient information: Note initiated : 10/16/21 at 1:28 pm Service Date, if different from initiated Date: [] Patient: Genna Gong a 81 y/o F admitted on 10/13/21 for Weakness, Fever. Chief Complaint: [] Interval history: Genna Gong is a 81 year old female with a history of dementia and is a poor historian.The history of taken from her . Per her , he called ambulance to bring her in because she has been progressively weakening over the past weeks and he cannot take care of her anymore.When asked about any recent illnesses he does admit that she does have a cough lately and she did seem a little bit more labored with her breathing lately. He does not recall any fevers or chest or abdominal pain. The patient denied most of this although when asked about discomfort when she urinates she does say "yes". In the ED the patient tested positive for Covid, negative for influenza. Urinalysis was consistent with a UTI. The patient appeared to be volume depleted. Lactate was normal. The patient is fully vaccinated for COVID however received her second dose in January 2020 and she has not yest received a booster dose. Systolic blood pressure by EMS was 88.In the ED she has been systolics of 130s. In the ED she was found to be febrile with a heart rate of 116. Portable chest x-ray showed a nonspecific opacity in the left lung unable to tell if it was infiltrate versus a low artifact left lower lobe. 10/14 No overnight events. Mag and Phos low will replace. PT OT and placement. Monitor oxygen given Covid positivity. 10/15 On room air during the daytime, last night was on 1 L/min nasal canula oxygen. Urine culture growing gram negative bacillus-on ceftriaxone. Afebrile, has a nonproductive cough. 10/16 Hypoxic overnight, xray today along with d-dimer and BNP. Weaned to room air during the daytime. Review of systems:positive for a nonproductive cough, denies dysuria. Physical Exam Head: Atraumatic, normal inspection. Eyes: normal appearance, no scleral icterus. Neck: full ROM Respiratory: no respiratory distress. Cardiovascular: normal rate and rhythm, S1, S2. GI/Abdominal: soft, nontender, no guarding. Extremities: full range of motion, nontender. Neurological: CN II-XII intact, intact motor, intact sensation. Psychiatric: normal mood, impaired cognition Skin: warm, normal color Constitutional Vitals: Vital Signs Temp Pulse Resp BP Pulse Ox 97.4 F 114 H 24 H 129/68 91 10/16/21 11:20 10/16/21 11:20 10/16/21 11:20 10/16/21 11:20 10/16/21 11:20 Period Temp Pulse Resp BP Sys/Maldonado Pulse Ox Last 24 Hr 97.2 F-97.6 F 73-114 16-24 114-152/48-80 89-98 Intake and Output 10/15/21 10/16/21 10/16/21 21:59 05:59 13:59 Intake Total 480 Output Total 301 200 Balance -301 -200 480 Weight 97.386 kg Intake & Output: Intake & Output 10/15/21 10/16/21 10/16/21 21:59 05:59 13:59 Intake Total 480 Output Total 301 200 Balance -301 -200 480 Weight 97.386 kg Intake: Oral 480 Output: Void Amount 300 200 # of times incontinent of urine 1 Other: Meal Breakfast Percent of Meal Consumed 75% Urine Appearance Clear Urine Color Dark Yellow Dark Yellow OBJ DATA Labs CBC & Chem 7: 10/14/21 05:20 10/15/21 05:34 Labs: Abnormal Lab Results 10/15/21 10/14/21 10/14/21 05:34 05:20 05:20 Hgb 11.1 L Lymph # (Auto) 1.41 L Glucose 146 H 162 H Uric Acid 9.6 H Calcium 7.5 L 7.4 L Phosphorus 2.0 L 1.7 L Magnesium 1.5 L GGT 57 H 53 H AST 38 H Total Protein 5.5 L 5.1 L Albumin 2.7 L 2.7 L Triglycerides 189 H 214 H Procalcitonin Urine Appearance Urine Protein Urine Glucose (UA) Urine Occult Blood Urine Nitrate Ur Leukocyte Esterase Urine RBC Urine WBC Urine Bacteria Urine Mucus 10/13/21 10/13/21 12:30 12:00 Hgb Lymph # (Auto) Glucose Uric Acid Calcium Phosphorus Magnesium GGT AST Total Protein Albumin Triglycerides Procalcitonin 0.17 H Urine Appearance Slightly cloudy A Urine Protein 30 mg/dl A Urine Glucose (UA) 500 mg/dl A Urine Occult Blood Small A Urine Nitrate Positive A Ur Leukocyte Esterase Small A Urine RBC 14 H Urine WBC 102 H Urine Bacteria Many A Urine Mucus Many A Meds: Medications Acetaminophen (Acetaminophen 160 Mg/5 Ml Oral.Nilda) 650 mg PO Q6HP PRN; Protocol PRN Reason: Per Pain Protocol/Fever > 101 Albuterol/Ipratropium (Ipratropium/Albuterol 3 Ml Ampul.Neb) 3 ml NEB Q4HP PRN PRN Reason: Shortness Of Breath Amlodipine Besylate (Amlodipine 5 Mg Tablet) 5 mg PO QDAY [facility] Last Admin: 10/16/21 08:17 Dose: 5 mg Documented by: Ceftriaxone Sodium (Ceftriaxone 1 Gm Vial) 1 gm IV Q24H [facility] Last Admin: 10/16/21 08:18 Dose: 1 gm Documented by: Dextrose (Dextrose 50% 50 Ml Vial) 0 ml IV UD PRN PRN Reason: Hypoglycemia Diagnostic Test (Pha) (Accu-Chek 1 Each Strip) 1 each FS [facility] Last Admin: 10/16/21 11:20 Dose: 1 each Documented by: Docusate Sodium (Docusate Sodium 100 Mg Capsule) 100 mg PO BID [facility] Last Admin: 10/16/21 08:18 Dose: Not Given Documented by: Enoxaparin Sodium (Enoxaparin 40 Mg/0.4 Ml Syringe) 40 mg SQ DAILY [facility] Last Admin: 10/16/21 08:17 Dose: 40 mg Documented by: Glucose (Dextrose 31 Gm Oral.Susp) 15 gm PO PRN PRN PRN Reason: Hypoglycemia Potassium Chloride 40 meq/ (Dextrose) 520 mls @ 130 mls/hr IV UD PRN PRN Reason: Potassium < 3 Magnesium Sulfate (Magnesium Sulfate) 2 gm in 50 mls @ 50 mls/hr IV UD PRN PRN Reason: Magnesium </= 1.6 Insulin Human Lispro (Insulin Lispro 1 Unit/0.01 Ml Unit) 0 unit SQ [facility]; Protocol Last Admin: 10/16/21 12:19 Dose: 6 units Documented by: Lisinopril (Lisinopril 20 Mg Tablet) 20 mg PO BID [facility] Last Admin: 10/16/21 08:17 Dose: 20 mg Documented by: Methocarbamol (Methocarbamol 500 Mg Tablet) 500 mg PO TID [facility] Last Admin: 10/16/21 08:17 Dose: 500 mg Documented by: Metoclopramide HCl (Metoclopramide 10 Mg/2 Ml Vial) 10 mg IV Q6HP PRN PRN Reason: Nausea And Vomiting Omeprazole (Omeprazole 20 Mg Capsule) 40 mg PO ACB [facility] Last Admin: 10/16/21 06:56 Dose: 40 mg Documented by: Ondansetron HCl (Ondansetron 4 Mg/2 Ml Vial) 4 mg IV Q4HP PRN PRN Reason: Nausea And Vomiting Polyethylene Glycol (Polyethylene Glycol 3350 17 Gm Packet) 17 gm PO DAILYP PRN PRN Reason: Constipation Potassium Chloride (Potassium Chloride 20 Meq Tablet) 40 meq PO UD PRN PRN Reason: Potssium is 3-3.5 Last Admin: 10/14/21 08:11 Dose: 40 meq Documented by: Potassium Chloride (Potassium Chloride 20 Meq Tablet) 40 meq PO UD PRN PRN Reason: Potassium < 3 Senna (Sennosides 1 Tablet) 2 tab PO DAILYP PRN PRN Reason: Constipation Sodium Chloride (0.9 % Sodium Chloride 10 Ml Syringe) 10 ml IV Q8 [facility] Last Admin: 10/16/21 12:24 Dose: 10 ml Documented by: ABG Interpretation ABG results: 10/13/21 11:59 ABG Methemoglobin 0.3 L VBG pH 7.37 VBG pCO2 49.2 VBG pO2 41.7 H VBG HCO3 27.8 VBG Total CO2 29.3 H VBG O2 Saturation 68.7 VBG Base Excess 2 A/P Narrative A/P Narrative: A: *Generalized weakness/deconditioning: *UTI secondary to pansensitive E-coli. *Covid infection w/cough: -CXR unremarkable, -intermittent hypoxia *SIRS: afebrile since ED *Volume depletion: improved *DM/neuropathy w/hyperglycemia: *HTN: ccb/acei *CKD II: *Anemia, chronic: *Chronic LBP: *GERD: *Dementia: *Obesity: *chr LE edema: on metolazone P: -Switch to Augmentin BID for UTI. -Chest xray PA and lateral. -Check NT-BNP and d-dimer. -Follow sputum culture. -Oxygen supplementation prn. -Consider Dexamethasone for COVID illness and hypoxia. -pt/ot -Electrolyte replacement -Continue home Norvasc/ACEI -SSI -CM for placement -ppx: Lovenox /home PPI Time Spent With Patient Time: Total time spent is greater than 50% in coordination of care (as documented) at patient's floor/unit and/or counseling patient: QUALITY VTE Deep Vein Thrombosis/Pulmonary Embolism Present on Admission: No
[2021-10-16 15:05] LABS: proBNP 307.8 pg/mL (<450.0)
--- NOTE | 2021-10-16 15:09 | XRay Report ---
HISTORY: Fever, tested positive for Covid, weakness and hypoxia FINDINGS: The vague left lower lobe infiltrate seen on 10/13/21 is no longer present. There is a thin linear band of scar or discoid atelectasis in the left lower lobe. There are stable faint increased interstitial lung markings medially in the right lower lobe. These are unchanged and may be due to mild interstitial fibrosis or low level inflammation. The remainder of the lung falcon are clear. The appearance of the lung parenchyma is not typical for COVID pneumonia. There is no mass or congestive heart failure. No pleural effusion is present. The heart size is normal. IMPRESSION: improving aeration in the left lower lobe and stable mild interstitial lung disease in right lower lobe. Interpreted and Authenticated by: Arturo Castillo 10/16/21
[2021-10-16] MEDS: ACETAMINOPHEN 160 MG/5 ML ORAL.SOL PO PRN (16:30)
--- NOTE | 2021-10-16 21:12 | EKG ---
[facility] Test Date: 2021-10-15 Pat Name: Genna Gong Department: [facility] Room: 125 Gender: Female [employer] Consultant: : 1940 Requested By: Germán Perez Order Number: [id number] Reading MD: Tray Oh Measurements Intervals [place] Rate: 122 P: 174 MA: 126 QRS: 71 QRSD: 108 T: 29 QT: 328 QTc: 468 Interpretive Statements Sinus or ectopic atrial tachycardia Low voltage, precordial leads Nonspecific T abnormalities, anterior leads Electronically Signed On 10-16-2021 21:11:51 PST by Tray Oh /store/[email or web address]/[id number]
[2021-10-17] MEDS: ACETAMINOPHEN 160 MG/5 ML ORAL.SOL PO PRN ×2 (00:13→20:11)
[2021-10-17] MEDS: 0.9 % SODIUM CHLORIDE 10 ML SYRINGE IV SCH ×3 (05:11→21:21)
[2021-10-17] MEDS: INSULIN LISPRO 1 UNIT/0.01 ML UNIT SQ SCH ×4 (07:33→21:22)
[2021-10-17] MEDS: OMEPRAZOLE 20 MG CAPSULE PO SCH (07:34)
[2021-10-17] MEDS: AMOXICILLIN/POTASSIUM CLAV 875 MG TABLET PO SCH ×2 (08:17→17:54)
[2021-10-17] MEDS: LISINOPRIL 20 MG TABLET PO SCH ×2 (08:17→20:19)
[2021-10-17] MEDS: amLODIPine 5 MG TABLET PO SCH (08:17)
[2021-10-17] MEDS: DOCUSATE SODIUM 100 MG CAPSULE PO SCH ×2 (08:18→21:21)
[2021-10-17] MEDS: METHOCARBAMOL 500 MG TABLET PO SCH ×3 (08:18→20:19)
[2021-10-17] MEDS: ENOXAPARIN 40 MG/0.4 ML SYRINGE SQ SCH (08:18)
[2021-10-17] MEDS ORDERED: SULFAMETHOXAZOLE/TRIMETHOPRIM 1 TABLET PO SCH (09:00)
--- NOTE | 2021-10-17 17:04 | Internal Med Progress Note ---
SUBJECTIVE Subjective Patient information: Note initiated : 10/17/21 at 5:00 pm Service Date, if different from initiated Date: [] Patient: Genna Gong a 81 y/o F admitted on 10/13/21 for Weakness, Fever. Chief Complaint: [] Interval history: Genna Gong is a 81 year old female with a history of dementia and is a poor historian.The history of taken from her . Per her , he called ambulance to bring her in because she has been progressively weakening over the past weeks and he cannot take care of her anymore.When asked about any recent illnesses he does admit that she does have a cough lately and she did seem a little bit more labored with her breathing lately. He does not recall any fevers or chest or abdominal pain. The patient denied most of this although when asked about discomfort when she urinates she does say "yes". In the ED the patient tested positive for Covid, negative for influenza. Urinalysis was consistent with a UTI. The patient appeared to be volume depleted. Lactate was normal. The patient is fully vaccinated for COVID however received her second dose in January 2020 and she has not yest received a booster dose. Systolic blood pressure by EMS was 88.In the ED she has been systolics of 130s. In the ED she was found to be febrile with a heart rate of 116. Portable chest x-ray showed a nonspecific opacity in the left lung unable to tell if it was infiltrate versus a low artifact left lower lobe. 10/14 No overnight events. Mag and Phos low will replace. PT OT and placement. Monitor oxygen given Covid positivity. 10/15 On room air during the daytime, last night was on 1 L/min nasal canula oxygen. Urine culture growing gram negative bacillus-on ceftriaxone. Afebrile, has a nonproductive cough. 10/16 Hypoxic overnight, chest xray today along with d-dimer and BNP. Weaned to room air during the daytime. Transitioned to Augmentin based on urine culture results that grew pansensitive E coli. 10/17 Chest xray showed improving aeration in the left lower lobe and stable mild interstitial lung disease in the right lower lobe. On room air all day. Working on placement. Physical Exam Head: Atraumatic, normal inspection. Eyes: normal appearance, no scleral icterus. Neck: full ROM Respiratory: no respiratory distress. Cardiovascular: normal rate and rhythm, S1, S2. GI/Abdominal: soft, nontender, no guarding. Extremities: full range of motion, nontender. Neurological: CN II-XII intact, intact motor, intact sensation. Psychiatric: normal mood, impaired cognition Skin: warm, normal color Constitutional Vitals: Vital Signs Temp Pulse Resp BP Pulse Ox 97.6 F 82 22 126/64 92 10/17/21 16:00 10/17/21 16:00 10/17/21 16:00 10/17/21 16:00 10/17/21 16:00 Period Temp Pulse Resp BP Sys/[place] Pulse Ox Last 24 Hr 97.0 F-98.7 F 79-93 - 126-160/55-76 90-92 Intake and Output 10/17/21 10/17/21 10/17/21 05:59 13:59 21:59 Intake Total 200 240 Output Total 101 3 Balance 99 -3 240 Intake & Output: Intake & Output 10/17/21 10/17/21 10/17/21 05:59 13:59 21:59 Intake Total 200 240 Output Total 101 3 Balance 99 -3 240 Intake: Oral 200 240 Output: Void Amount 100 # of times incontinent of urine 1 2 Urine/Stool Mix 1 Other: Percent of Meal Consumed 75% Feeding Ability Assist with Tray Set Up Urine Appearance Clear Urine Color Dark Yellow Stool Size Moderate Small Moderate Stool Color Brown Brown Brown Stool Consistency Soft Soft Soft Loose Loose # of times incontinent of 1 1 1 Bowels OBJ DATA Labs CBC & Chem 7: 10/14/21 05:20 10/15/21 05:34 Labs: Abnormal Lab Results 10/16/21 10/15/21 13:45 05:34 D-Dimer 1.65 H Glucose 146 H Calcium 7.5 L Phosphorus 2.0 L GGT 57 H AST 38 H Total Protein 5.5 L Albumin 2.7 L Triglycerides 189 H Meds: Medications Acetaminophen (Acetaminophen 160 Mg/5 Ml Oral.Nilda) 650 mg PO Q6HP PRN; Protocol PRN Reason: Per Pain Protocol/Fever > 101 Last Admin: 10/17/21 00:13 Dose: 20.3 ml Documented by: Albuterol/Ipratropium (Ipratropium/Albuterol 3 Ml Ampul.Neb) 3 ml NEB Q4HP PRN PRN Reason: Shortness Of Breath Amlodipine Besylate (Amlodipine 5 Mg Tablet) 5 mg PO QDAY [facility] Last Admin: 10/17/21 08:17 Dose: 5 mg Documented by: Amoxicillin/Clavulanate Potassium (Amoxicillin/Potassium Clav 875 Mg Tablet) [facility] Protocol Stop: 10/20/21 08:59 Last Admin: 10/17/21 08:17 Dose: 875 mg Documented by: Dextrose (Dextrose 50% 50 Ml Vial) 0 ml IV UD PRN PRN Reason: Hypoglycemia Diagnostic Test (Pha) (Accu-Chek 1 Each Strip) 1 each FS [facility] Last Admin: 10/17/21 16:25 Dose: 1 each Documented by: Docusate Sodium (Docusate Sodium 100 Mg Capsule) 100 mg PO BID [facility] Last Admin: 10/17/21 08:18 Dose: Not Given Documented by: Enoxaparin Sodium (Enoxaparin 40 Mg/0.4 Ml Syringe) 40 mg SQ DAILY [facility] Last Admin: 10/17/21 08:18 Dose: 40 mg Documented by: Glucose (Dextrose 31 Gm Oral.Susp) 15 gm PO PRN PRN PRN Reason: Hypoglycemia Potassium Chloride 40 meq/ (Dextrose) 520 mls @ 130 mls/hr IV UD PRN PRN Reason: Potassium < 3 Magnesium Sulfate (Magnesium Sulfate) 2 gm in 50 mls @ 50 mls/hr IV UD PRN PRN Reason: Magnesium </= 1.6 Insulin Human Lispro (Insulin Lispro 1 Unit/0.01 Ml Unit) 0 unit SQ [facility]; Protocol Last Admin: 10/17/21 16:42 Dose: 4 units Documented by: Lisinopril (Lisinopril 20 Mg Tablet) 20 mg PO BID [facility] Last Admin: 10/17/21 08:17 Dose: 20 mg Documented by: Methocarbamol (Methocarbamol 500 Mg Tablet) 500 mg PO TID [facility] Last Admin: 10/17/21 16:13 Dose: 500 mg Documented by: Metoclopramide HCl (Metoclopramide 10 Mg/2 Ml Vial) 10 mg IV Q6HP PRN PRN Reason: Nausea And Vomiting Omeprazole (Omeprazole 20 Mg Capsule) 40 mg PO ACB [facility] Last Admin: 10/17/21 07:34 Dose: 40 mg Documented by: Ondansetron HCl (Ondansetron 4 Mg/2 Ml Vial) 4 mg IV Q4HP PRN PRN Reason: Nausea And Vomiting Polyethylene Glycol (Polyethylene Glycol 3350 17 Gm Packet) 17 gm PO DAILYP PRN PRN Reason: Constipation Potassium Chloride (Potassium Chloride 20 Meq Tablet) 40 meq PO UD PRN PRN Reason: Potssium is 3-3.5 Last Admin: 10/14/21 08:11 Dose: 40 meq Documented by: Potassium Chloride (Potassium Chloride 20 Meq Tablet) 40 meq PO UD PRN PRN Reason: Potassium < 3 Senna (Sennosides 1 Tablet) 2 tab PO DAILYP PRN PRN Reason: Constipation Sodium Chloride (0.9 % Sodium Chloride 10 Ml Syringe) 10 ml IV Q8 JOHN Last Admin: 10/17/21 16:14 Dose: 10 ml Documented by: ABG Interpretation ABG results: 10/13/21 11:59 ABG Methemoglobin 0.3 L VBG pH 7.37 VBG pCO2 49.2 VBG pO2 41.7 H VBG HCO3 27.8 VBG Total CO2 29.3 H VBG O2 Saturation 68.7 VBG Base Excess 2 A/P Narrative A/P Narrative: A: *Generalized weakness/deconditioning: *UTI secondary to pansensitive E-coli. *Covid infection w/cough: -CXR unremarkable, -intermittent hypoxia *SIRS: afebrile since ED *Volume depletion: improved *DM/neuropathy w/hyperglycemia: *HTN: ccb/acei *CKD II: *Anemia, chronic: *Chronic LBP: *GERD: *Dementia: *Obesity: *chr LE edema: on metolazone P: -Continue Augmentin BID for UTI. -Monitor respiratory status. -pt/ot -Electrolyte replacement prn. -Continue home Norvasc/ACEI -SSI -CM for placement -ppx: Lovenox /home PPI -Disposition: SNF vs Swing bed. Time Spent With Patient Time: Total time spent is greater than 50% in coordination of care (as documented) at patient's floor/unit and/or counseling patient: QUALITY VTE Deep Vein Thrombosis/Pulmonary Embolism Present on Admission: No
[2021-10-18] MEDS: 0.9 % SODIUM CHLORIDE 10 ML SYRINGE IV SCH ×2 (05:16→15:34)
[2021-10-18] MEDS: ACETAMINOPHEN 160 MG/5 ML ORAL.SOL PO PRN (05:16)
[2021-10-18] MEDS: AMOXICILLIN/POTASSIUM CLAV 875 MG TABLET PO SCH (08:12)
[2021-10-18] MEDS: OMEPRAZOLE 20 MG CAPSULE PO SCH (08:12)
[2021-10-18] MEDS: INSULIN LISPRO 1 UNIT/0.01 ML UNIT SQ SCH ×2 (08:16→12:23)
[2021-10-18] MEDS: METHOCARBAMOL 500 MG TABLET PO SCH ×2 (08:17→15:35)
[2021-10-18] MEDS: DOCUSATE SODIUM 100 MG CAPSULE PO SCH (08:17)
[2021-10-18] MEDS: amLODIPine 5 MG TABLET PO SCH (08:17)
[2021-10-18] MEDS: LISINOPRIL 20 MG TABLET PO SCH (08:17)
[2021-10-18] MEDS: ENOXAPARIN 40 MG/0.4 ML SYRINGE SQ SCH (08:17)
--- NOTE | 2021-10-18 13:56 | Discharge Summary ---
Discharge Provider Provider Patient information: Note initiated : 10/18/21 at 1:55 pm Service Date, if different from initiated Date: [] Patient: Genna Gong 81 y/o F admitted on 10/13/21 for Weakness, Fever. Chief Complaint: [] Date of admission: 10/13/21 17:01 Discharge date: 10/18/21 Primary care physician: Ap Cifuentes MD Consults: 10/13/21 Consult to Physician [CONS] Stat Comment: Consulting Provider: Obi Savage Reason For Exam: Physician to Consult Discharge Meds Discharge Medications Home Medications glucagon HCl 1 mg solution for injection (Glucagon (HCl) Emergency Kit) 1 mg SUB-Q Q20M PRN 03/29/20 [History Confirmed 10/17/21 Last Taken Unknown] amlodipine 5 mg tablet 5 mg PO QDAY #30 tab 07/12/20 [Rx Confirmed 10/13/21 Last Taken Unknown] enalapril maleate 20 mg tablet 20 mg PO BID tab 07/20/21 [History Confirmed 10/13/21 Last Taken Unknown] metformin 500 mg tablet 500 mg PO BID #180 tab 09/19/21 [Rx Confirmed 10/13/21 Last Taken Unknown] methocarbamol 500 mg tablet See Rx Instructions .ROUTE .COMPLEX #270 tablet 09/21/21 [Rx Confirmed 10/13/21 Last Taken Unknown] hydrocodone 10 mg-acetaminophen 325 mg tablet 1 tab PO Q6H PRN #90 tab 09/28/21 [Rx Confirmed 10/13/21 Last Taken Unknown] omeprazole 40 mg capsule,delayed release 40 mg PO QDAY 10/13/21 [History Confirmed 10/13/21 Last Taken Unknown] metolazone 10 mg tablet 15 mg PO QDAY #135 tab 10/14/21 [Rx Confirmed 10/17/21 Last Taken Unknown] oxybutynin chloride 5 mg tablet 5 mg PO QDAY 10/17/21 [History Confirmed 10/17/21 Last Taken Unknown] COURSE Hospital Course Hospital course: Genna Gong is a 81 year old female with a history of dementia and is a poor historian.The history of taken from her . Per her , he called ambulance to bring her in because she has been progressively weakening over the past weeks and he cannot take care of her anymore.When asked about any recent illnesses he does admit that she does have a cough lately and she did seem a little bit more labored with her breathing lately. He does not recall any fevers or chest or abdominal pain. The patient denied most of this although when asked about discomfort when she urinates she does say "yes". In the ED the patient tested positive for Covid, negative for influenza. Urinalysis was consistent with a UTI. The patient appeared to be volume depleted. Lactate was normal. The patient is fully vaccinated for COVID however received her second dose in January 2020 and she has not yest received a booster dose. Systolic blood pressure by EMS was 88.In the ED she has been systolics of 130s. In the ED she was found to be febrile with a heart rate of 116. Portable chest x-ray showed a nonspecific opacity in the left lung unable to tell if it was infiltrate versus a low artifact left lower lobe. 10/14 No overnight events. Mag and Phos low will replace. PT OT and placement. Monitor oxygen given Covid positivity. 10/15 On room air during the daytime, last night was on 1 L/min nasal canula oxygen. Urine culture growing gram negative bacillus-on ceftriaxone. Afebrile, has a nonproductive cough. 10/16 Hypoxic overnight, chest xray today along with d-dimer and BNP. Weaned to room air during the daytime. Transitioned to Augmentin based on urine culture results that grew pansensitive E coli. 10/17 Chest xray showed improving aeration in the left lower lobe and stable mild interstitial lung disease in the right lower lobe. On room air all day. Working on placement. 10/18 Discharged to swing bed status. Physical Exam Head: Atraumatic, normal inspection. Eyes: normal appearance, no scleral icterus. Neck: full ROM Respiratory: no respiratory distress. Cardiovascular: normal rate and rhythm, S1, S2. GI/Abdominal: soft, nontender, no guarding. Extremities: full range of motion, nontender. Neurological: CN II-XII intact, intact motor, intact sensation. Psychiatric: normal mood, impaired cognition Skin: warm, normal color Discharge diagnosis: Urinary tract infection Time Spent with Patient Time attestation: Total time spent providing and/or coordinating discharge services: EXAM Constitutional Vitals: Temp Pulse Resp BP Pulse Ox 97.2 F 88 18 139/62 91 10/18/21 12:30 10/18/21 12:30 10/18/21 12:30 10/18/21 12:30 10/18/21 12:30 Discharge Plan Patient/Caregiver Discharge Instructions Prescriptions: No Action metformin 500 mg tablet 500 mg PO BID Qty: 180 1RF methocarbamol 500 mg tablet See Rx Instructions .ROUTE .COMPLEX Qty: 270 0RF Dose Instruction: TAKE 1 TABLET BY MOUTH THREE TIMES DAILY Rx Instructions: TAKE 1 TABLET BY MOUTH THREE TIMES DAILY hydrocodone-acetaminophen 10-325 mg tablet 1 tab PO Q6H PRN (Reason: Pain) Qty: 90 0RF Rx Instructions: Must last 30 days. metolazone 10 mg tablet 15 mg PO QDAY Qty: 135 1RF Glucagon (HCl) Emergency Kit 1 mg recon soln 1 mg SUB-Q Q20M PRN (Reason: Hypoglycemia) 0RF Rx Instructions: until target blood sugar attained enalapril maleate 20 mg tablet 20 mg PO BID 0RF amlodipine 5 mg tablet 5 mg PO QDAY Qty: 30 0RF omeprazole 40 mg capsule,delayed release(DR/EC) 40 mg PO QDAY 0RF oxybutynin chloride 5 mg Tablet 5 mg PO QDAY 0RF Follow Up Plan Follow up with: Ap Cifuentes MD [Primary Care Provider] - Patient Disposition: Xfer As Swing Bed ([facility]) Prognosis: Fair Discharge Orders: Discharge Order (Routine); Ordered 10/18/21 Ordered By: Germán Perez QUALITY VTE Deep Vein Thrombosis/Pulmonary Embolism Present on Admission: No
[2021-10-19] MEDS ORDERED: FLU VACC QS2021-22(6MOS UP)/PF 60 MCG/0.5 ML SYRINGE IM ONE (10:00)
== END 2021-10-18 17:00 | disposition swing bed (61) | DRG 689 ==
LOC: ED 10:47 → MEDSUR 17:01
PROVIDERS: ADMIT Internal Medicine; ATTEND Internal Medicine